=== PATIENT | male | born 1965 | race Caucasian/White ===

== ENCOUNTER 2020-02-16 12:46 | Emergency (ER) | payer SELFPAY ==
[2020-02-16 12:47] VITALS: BP 125/71; PULSE 80; RESP 17; TEMP 36.5; O2SAT 97; BMI 31.1
--- NOTE | 2020-02-16 13:02 | EKG12_ITS ---
Test Reason : CP Blood Pressure : / mmHG Vent. Rate : 075 BPM Atrial Rate : 075 BPM P-R Int : 156 ms QRS Dur : 106 ms QT Int : 390 ms P-R-T Axes : -08 038 063 degrees QTc Int : 435 ms Normal sinus rhythm Normal ECG Confirmed by MINISTERIO CULP, CARLOS ([id number]), associate editor FERNANDO CHILD ([id number] on 02/18/2020 9:35:48 AM Referred By: GABY Confirmed By:CARLOS MANDEL MD
--- NOTE | 2020-02-16 13:02 | RAD_ITS ---
STUDY: X-RAY CHEST REASON FOR EXAM: Male, 54 years old. LEFT SIDE CHEST PAIN, WEAKNESS, FATIGUE TECHNIQUE: Single AP portable view of the chest. COMPARISON: Comparison is made with prior examination dated June 20, 2012. FINDINGS: The lungs are clear and expanded. Scattered calcified granulomas. There is no demonstrated pleural abnormality. Normal size heart. Normal mediastinum and jaden. Normal visualized pulmonary arteries. Normal visualized aortic arch and descending thoracic aorta. There are degenerative changes of the visualized thoracic spine. Normal visualized ribs, clavicles, and shoulders. There is no demonstrated abnormality of the visualized soft tissue structures of the upper abdomen. RAD/Chest 1 View (Portable) IMPRESSION: Scattered calcified granulomas. The lungs are clear. Electronically Signed: Antony Servin, at 13:42 EDT , Service support ,
--- NOTE | 2020-02-16 13:02 | ED.VIS.GEN ---
History of Present Illness Chief Complaint: Chest Pain Informant: Patient Narrative: Patient states that on Sunday he went for a walk in the [place] and he had to go up a hill. He states he had to stop multiple times to catch his breath. He had a chest tightness and left arm numbness sensation. No nausea vomiting. He was sweating more than normal. He states even after he got to the top and tried to come back down he would have to rest. Yesterday he felt fatigued but did not have the chest tightness. Today he got 2 hours of work before he had to stop. He notes he has a history of hypertension and prediabetes. He states he was told he had high cholesterol in the past. He is a smoker. His within the past several months. He states he did have a stress test about 2 years ago and Hilda that was negative. Past Medical History - Allergies and Home Meds Allergies/Adverse Reactions: Allergies No Known Allergies Allergy (Verified 02/16/20 12:47) Primary Care Physician: Gris Garcia MD [Primary Care Provider] - Smoking Status: Former smoker Review of Systems General: Denies: Chills, Fever, Sweats Eyes: Denies: Visual changes - bilaterally, Diplopia ENT: Denies: Rhinorrhea, Sore throat Cardiovascular: Reports: Chest pain. Denies: Palpitations Respiratory: Reports: Dyspnea. Denies: Cough, Dyspnea on exertion Gastrointestinal: Denies: Abdominal pain, Nausea, Vomiting, Diarrhea, Melena, Hematochezia Genitourinary: Denies: Dysuria, Hematuria, Frequency Musculoskeletal: Denies: Back pain, Extremity Pain Skin: Denies: Rash, Wounds Neurological: Reports: Parasthesia. Denies: Headache, Weakness, Numbness Physical Exam Vital Signs/Narrative: Vital Signs Temp Pulse Resp BP Pulse Ox 02/16/20 12:47 97.7 F L 80 17 125/71 H 97 General: Well nourished, Well developed, No Acute Distress Head: Normocephalic, Atraumatic Eyes: Perrl, EOMI ENT: Moist mucous membranes, No rhinorrhea Neck: Supple, Nontender Cardiovascular: Regular rate, Regular rhythm, No murmurs Respiratory: No distress, CTA bilaterally, Chest nontender Abdomen: Soft, Nontender, Nondistended, Normal bowel sounds Back: Nontender, Normal Inspection Extremities: Nontender, No edema Skin: Normal color, No rash Neurological: Alert, Oriented x3, Cranial nerves II-XII grossly intact, Normal Strength, Normal Sensation Psychological: Normal affect, Normal Mood Diagnostic/Tx/Re-eval - EKG Initial EKG Interpretation: Sinus Rhythm - EKG is a sinus rhythm at a rate of 75 without ectopy. - Medical Decision Making CBC BMP and troponin were negative. X-ray shows cardiomegaly. Patient has had no events on the monitor. He rested rates his chest heaviness is about 1. I like to admit him and bring him in for further cardiac evaluation. Unfortunately the patient does not agree with this assessment. He states he would prefer to do it as an outpatient. I explained to him that we are in the middle of the pandemic and most outpatient procedures have been put on hold. This does not sway him. We talked about disability but he still maintains he like to go home. While I disagree with his choice he does appear to have the capacity to make this decision and will sign out AGAINST MEDICAL ADVICE. ED Disposition - Plan for ED Patient: Disposition: Home or Assisted Living Diagnosis: Chest pain Instructions: ED Chest Pain Atypical Unkn Cause Referrals: Acosta Carr MD [STAFF PHYSICIAN] - As soon as possible (Please call for cardiology evaluation.)
[2020-02-16 13:30] LABS: Absolute Lymphocyte Count 2.33 X10^3/uL (0.83-4.51); Absolute Neutrophil Count 4.3 X10^3/uL (2.0-7.7); Basophil# 0.04 X10^3/uL; Basophil% 0.5 % (0-1); Eosinophil# 0.16 X10^3/uL; Eosinophils% 2.1 % (0-5); Hemoglobin 14.1 g/dL (13.0-16.5); Lymphocyte # 2.33 X10^3/ul (4.0); Mean Corp Hgb Conc 33.6 g/dL (32-36); Mean Corpuscular Hgb 30.3 pg (27.0-32.0); Mean Corpuscular Volume 90.3 fL (80-94); Mean Platelet Vol. 9.3 fl (6.2-12.0); Monocyte# 0.61 X10^3/uL; Monocyte% 8.1 % (0-10); NRBC Flagged by Analyzer 0 % (0-5); Neutrophil # 4.34 X10^3/uL (2.7-7.7); Neutrophil % 57.9 % (47-70); Platelet Count 308 K/mm3 (150-450); Red Blood Count 4.65 M/mm3 (4.6-6.2); White Blood Count 7.5 K/mm3 (4.4-11.0)
[2020-02-16 13:45] LABS: Anion Gap 5 (5-15); BUN 19 mg/dL (7-18); Calcium,Total 9.1 mg/dL (8.5-10.1); Chloride 107 mmol/L (98-107); EST Glomerular Filtration Rate 82 mL/min (>60); Est Glom Filt Rate - Afr Amer 100 mL/min (>60); Estimated Creatinine Clearance 91.61 ml/min; Glucose 97 mg/dL (74-106); Potassium 3.8 mmol/L (3.5-5.1); Sodium Level 138 mmol/L (136-145)
[2020-02-16 14:10] VITALS: BP 133/86; PULSE 69; RESP 18; O2SAT 98
== END 2020-02-16 14:15 | disposition left against medical advice (07) ==
PROVIDERS: Emergency Provider Emergency Medicine; PCP Internal Medicine
DX: R07.89 Other chest pain (principal); R20.0 Anesthesia of skin; R73.03 Prediabetes; I10 Essential (primary) hypertension; E78.00 Pure hypercholesterolemia, unspecified; Z79.899 Other long term (current) drug therapy; Z87.891 Personal history of nicotine dependence
CPT/HCPCS: 71045; 80048; 84484; 85025; 93005; 99283; A4216

== ENCOUNTER → 2020-03-05 06:48 | Outpatient (CLI) | payer SELFPAY ==
[2020-02-25 14:04] VITALS: BMI 31.0
--- NOTE | 2020-03-05 06:50 | ECHOD_ITS ---
Reason For Study: CHEST PAIN Procedure This was a 2D Doppler, Color Flow transthoracic echocardiogram. Exam performed in department. Left Ventricle Normal LV size. Left ventricular systolic function is normal. The estimated ejection fraction is 65 %. No regional wall motion abnormalities noted. Right Ventricle Normal RV size. Normal systolic function. Atria Normal left atrium. Normal right atrium. Patent foramen ovale. Mitral Valve Normal mitral valve. Trivial eccentric mitral valve insufficiency. Tricuspid Valve Normal tricuspid valve. Mild (1+) tricuspid valve insufficiency. Pulmonary artery systolic pressure is 38 mmHg. Aortic Valve Normal aortic valve. Trisinus/trileaflet aortic valve. Pulmonic Valve Normal pulmonic valve. Great Vessels Normal aortic root. The pulmonary artery is normal size. Normal inferior vena cava. Pericardium/Pleural No pericardial effusion. Medication Performed a rapid injection of agitated mix of 9 cc saline and 1cc air to assess for atrial septal defect. MMode/2D Measurements & Calculations LVIDd: 5.7 cm IVSd: 0.93 cm Ao root diam: 3.5 cm LVIDs: 4.2 cm LVPWd: 0.95 cm FS: 26.5 % LAV(MOD-bp): 59.5 ml LVAd ap4: 40.1 cm2 SV(MOD-sp4): 77.7 ml LAV(MOD-bp) Indexed: 26.3 ml/m2 EDV(MOD-sp4): 150.0 ml LAV(MOD-sp2): 74.2 ml EDV(sp4-el): 150.3 ml LAV(MOD-sp4): 41.1 ml LVAs ap4: 25.7 cm2 ESV(MOD-sp4): 72.3 ml ESV(sp4-el): 70.2 ml EF(MOD-sp4): 51.8 % EF(sp4-el): 53.3 % SV(sp4-el): 80.1 ml LA A4 area: 16.1 cm2 LA dimension(2D): 3.8 cm RA A4 area: 17.9 cm2 Time Measurements MV dec time: 0.22 sec Doppler Measurements & Calculations MV E max kody: 81.0 cm/sec Lat Peak E' Kody: 10.5 cm/sec Med Peak E' Kody: 9.3 cm/sec MV A max kody: 103.2 cm/sec E/E' lat: 7.8 E/E' med: 8.7 MV E/A: 0.78 Ao V2 max: 137.8 cm/sec LV V1 max: 103.2 cm/sec PA V2 max: 93.6 cm/sec Ao max P.6 mmHg LV V1 max P.3 mmHg TR max kody: 294.2 cm/sec TR max P.6 mmHg Interpretation Summary Normal LV size. Left ventricular systolic function is normal. The estimated ejection fraction is 65 %. Patent foramen ovale. Pulmonary artery systolic pressure is 38 mmHg. Ordering Physician: Acosta Carr Referring Physician: Acosta Carr Performed By: Anaid Raymond RDCS
--- NOTE | 2020-03-05 16:25 | STRESSREP_ITS ---
Stress Test Report Exercise myocardial perfusion stress test. 54-year-old man with a history of hypertension, prediabetes, and chest tightness. Stress protocol: Resting EKG demonstrates normal sinus rhythm with a rate of 69 bpm premature ventricular complexes are present. Resting blood pressure is 150/86 mmHg. The patient exercised according to regular Leroy protocol for a total duration of 7 minutes and 31 seconds the maximum heart rate attained was 136 bpm which was 82% of maximum predicted heart rate the maximum workload was 9.3 metabolic equival ents. Patient maintained sinus rhythm throughout the recording. At rest there were no ST or T wave changes noted to suggest ischemia occasional premature ventricular complexes were noted. During recovery frequent premature ventricular complexes were present. The resting blood pressure 150/86 with a peak blood pressure of 192/94 mmHg. The test was terminated due to fatigue and shortness of breath. Myocardial perfusion protocol. 15.0 mCi of technetium 99m sestamibi was injected at rest. The patient exercised according to regular Leroy protocol for 7 minutes and 31 seconds. At peak exercise 45.0 mCi of technetium 99m sestamibi was injected stress images were obtained stress and rest images were reconstructed in comparing the short axis vertical long horizontal long axis. Gated images were not obtained. Perfusion SPECT analysis: Review of the stress images demonstrate normal uptake of tracer noted in all areas of the myocardium, except for the mid inferior wall with reduced perfu lisseth. The resting images similar demonstrate normal uptake of tracer noted in all areas of the myocardium, and improvement in the mid inferior wall suggesting mid inferior ischemia present. This appears to be of mild degree. The rest of the dhillon are normally perfused. Gated SPECT analysis: Gated images could not be obtained because of irregular heartbeat. Conclusion: Abnormal exercise myocardial perfusion stress test at a moderate workload demonstrating mid inferior ischemia.
== END ==
PROVIDERS: PCP Internal Medicine; Referring Provider Internal Medicine Cardiovascular Disease; Visit Provider Internal Medicine Cardiovascular Disease
DX: R07.9 Chest pain, unspecified (principal); I10 Essential (primary) hypertension
CPT/HCPCS: 78452; 93017; 93306; A9500; A4216

== ENCOUNTER 2020-03-11 07:46 | Day surgery (SDC) | payer SELFPAY ==
[2020-02-25 14:04] VITALS: BMI 31.0
[2020-03-10 12:03] VITALS: BMI 31.0
--- NOTE | 2020-03-11 09:20 | CL.D_ITS ---
Patient Name: JACKIE RUIZ Study Date: 03/11/2020 Performing: Acosta Carr MD Ht: 72.04 inches 183 cm : 1965 Wt: 229.28 lbs 104 kg Age: 54 Gender: male BSA: 2.26 PROCEDURE(S) PERFORMED FI28-LXB/COR/LV CLINICAL PROFILE AND INDICATIONS Indications: Suspected CAD Heart Failure: None Stress/Imaging Date: 03/03/2020Stress Test with SPECT MPI: Positive Low Risk CAD Presentations: Symptom unlikely to be ischemic. CONCLUSIONS Normal coronary arteries Normal LV size, wall motion,and systolic function RECOMMENDATIONS Medical therapy DESCRIPTION OF PROCEDURE The patient arrived to the procedure lab. The risks and benefits of the procedure as well as a full d escription of our services here and current unavailability of surgical backup were fully explained to the patient and/or their significant other prior to the catheterization. The Timeout was completed, verifying the correct patient and procedure. The patient's procedural site was prepped and draped in the usual fashion. Local anesthetic was given subcutaneously to right radial region with Lidocaine 2% . Using a modified Seldinger technique, arterial access was obtained via the right radial artery, a 6 Fr sheath was inserted. Left Coronary Artery selective angiography was performed in multiple views u sing a 5 Fr. 4.0 Croswell catheter. Right Coronary Artery selective angiography was then performed in mu ltiple views using a 5 Fr. 4.0 Croswell catheter. Left Ventriculography was performed in WONG projection using a 5 Fr. Pigtail catheter. LV to AO pullback pressures were then recorded.The arterial sheath was pulled and a TR Band was applied for hemostasis-12 cc air CORONARY ANGIOGRAPHY DOMINANCE: Right Dominant LEFT HEART ASSESSMENT Left Ventricular Ejection Fraction: by LV Gram 65 % Normal LV wall motion Normal Left Ventricular systolic function Normal Left Ventricular systolic function LEFT MAIN: Angiographically normal LEFT ANTERIOR DESCENDING ARTERY: Angiographically normal CIRCUMFLEX ARTERY: Angiographically normal RIGHT CORONARY ARTERY: Angiographically normal COMPLICATIONS No Complications PROCEDURE MEDICATIONS Fentanyl 50 mcg IV Versed 1 mg IV Versed 1 mg IV Oxygen: 2 L/min via nasal cannula Heparin diluted in 23cc Heparinized saline. Patient given 10cc IA of this solution. 03/11/2020 09:03: 43 Verapamil 2.5mg, Ntg 100mcgs, 2000 units of Heparin diluted in 23cc Heparinized saline. Patient give n 10cc IA of this solution. 03/11/2020 09:03:43 SUMMARY OF HEMODYNAMIC DATA Time AIR REST ECG 08:09:49 AO 126/84 (103) SA 09:05:23 LV 123/5, 25 09:11:38 LV 124/6, 10 09:11:44 LV 106/6, 11 09:12:24 LVp 106/5, 13 09:12:28 AOp 120/74 (91) 09:12:33 Signed By Acosta Carr MD On 03/11/2020 09:20:27 Acosta Carr MD
== END 2020-03-11 10:57 | disposition home or self-care (01) ==
LOC: CLSP 07:47
PROVIDERS: PCP Internal Medicine; Referring Provider Internal Medicine Cardiovascular Disease; Visit Provider Internal Medicine Cardiovascular Disease
DX: R07.9 Chest pain, unspecified (principal); I10 Essential (primary) hypertension; E11.9 Type 2 diabetes mellitus without complications; E78.5 Hyperlipidemia, unspecified; J45.909 Unspecified asthma, uncomplicated; F17.200 Nicotine dependence, unspecified, uncomplicated; E66.9 Obesity, unspecified; Z79.02 Long term (current) use of antithrombotics/antiplatelets; Z79.82 Long term (current) use of aspirin; Z79.899 Other long term (current) drug therapy
CPT/HCPCS: 93458; 99152; 99153; J7040; Q9967; C1769; C1894

== ENCOUNTER 2020-03-19 23:02 | Emergency (ER) | payer SELFPAY ==
[2020-03-10 12:03] VITALS: BMI 31.0
[2020-03-19 23:04] VITALS: BP 147/92; PULSE 83; RESP 17; TEMP 36.1; O2SAT 96; BMI 31.8
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
[2020-03-19 23:54] LABS: Absolute Lymphocyte Count 3.18 X10^3/uL (0.83-4.51); Absolute Neutrophil Count 4.6 X10^3/uL (2.0-7.7); Basophil# 0.05 X10^3/uL; Basophil% 0.6 % (0-1); Eosinophil# 0.17 X10^3/uL; Hematocrit 44.1 % (40-54); Hemoglobin 14.3 g/dL (13.0-16.5); Lymphocyte # 3.18 X10^3/ul (4.0); Lymphocyte % 37.2 % (19-41); Mean Corp Hgb Conc 32.4 g/dL (32-36); Mean Corpuscular Hgb 30.8 pg (27.0-32.0); Mean Corpuscular Volume 94.8 fL (80-94); Mean Platelet Vol. 9.8 fl (6.2-12.0); Monocyte# 0.48 X10^3/uL; Monocyte% 5.6 % (0-10); NRBC Flagged by Analyzer 0 % (0-5); Neutrophil # 4.61 X10^3/uL (2.7-7.7); Neutrophil % 53.9 % (47-70); Platelet Count 370 K/mm3 (150-450); RBC Distribution Width CV 15.5 % (11.6-14.6); RBC Distribution Width SD 53.9 fl (35.1-43.9); Red Blood Count 4.65 M/mm3 (4.6-6.2); White Blood Count 8.6 K/mm3 (4.4-11.0)
[2020-03-20] VITALS (21 sets, daily range): BP systolic 140–174; BP diastolic 71–107; PULSE 76–87; RESP 14–18; TEMP 36.6; O2SAT 96–99
[2020-03-20 00:12] LABS: Anion Gap 5 (5-15); BUN 17 mg/dL (7-18); BUN/Creat Ratio 14.7 RATIO (10-20); Calcium,Total 8.7 mg/dL (8.5-10.1); Chloride 111 mmol/L (98-107); Creatinine, Serum 1.16 mg/dL (0.70-1.30); EST Glomerular Filtration Rate 69 mL/min (>60); Est Glom Filt Rate - Afr Amer 84 mL/min (>60); Estimated Creatinine Clearance 78.98 ml/min; Glucose 103 mg/dL (74-106); Potassium 4.1 mmol/L (3.5-5.1); Sodium Level 142 mmol/L (136-145)
[2020-03-20 00:14] LABS: Amphetamine Urine VISTA NEGATIVE (<1000 ng/mL); Barbiturate Urine VISTA NEGATIVE (< 200 ng/mL); Benzodiazepine Urine VISTA NEGATIVE (< 200 ng/mL); Cocaine Urine VISTA NEGATIVE (< 300 ng/mL); Ecstacy Urine VISTA NEGATIVE (< 500 ng/mL); Methadone Urine VISTA NEGATIVE (< 300 ng/mL); PCP Urine VISTA NEGATIVE (< 25 ng/mL); THC Urine VISTA POSITIVE (< 50 ng/mL); Vista UDS pH Range 6
--- NOTE | 2020-03-20 09:16 | NURSING ---
[facility] CALLED FOR AN [facility] ON THIS PT. GLENIS FROM [facility] TO CALL BACK.
--- NOTE | 2020-03-20 09:24 | NURSING ---
BRITNEY GALVIN, CALLED. GAVE US AN UPDATE ON PATIENT TRANSFER.
--- NOTE | 2020-03-20 12:21 | ED.RN ---
[facility] called to do a Covid-19 screening of patient over the phone. They state they are waiting on patients results. [facility] also states they will not have a bed available until Sunday or Sunday.
--- NOTE | 2020-03-20 12:22 | EKG12_ITS ---
Test Reason : Blood Pressure : / mmHG Vent. Rate : 078 BPM Atrial Rate : 078 BPM P-R Int : 164 ms QRS Dur : 102 ms QT Int : 394 ms P-R-T Axes : 050 034 071 degrees QTc Int : 449 ms Sinus rhythm with frequent Premature ventricular complexes Otherwise normal ECG Confirmed by PRINCESS CULP, THAD ([id number]), online content editor FERNANDO CHILD ([id number]) on 03/23/2020 3:02:11 PM Referred By: GABY Confirmed By:THAD SÁNCHEZ MD
--- NOTE | 2020-03-20 12:50 | ED.RN ---
offered patient lunch meal tray, patient refused.
--- NOTE | 2020-03-20 17:00 | ED.RN ---
pt given dinner tray with SI precaution. pt did eat meal, denies any further needs.
[2020-03-20 22:27] LABS: AST(SGOT) 16 U/L (15-37); Alanine Aminotransfer ALT/SGPT 28 U/L (16-61); Albumin, Serum 3.6 g/dL (3.2-5.0); Alkaline Phosphatase 57 U/L (45-117); Bilirubin, Direct 0.06 mg/dL (0.00-0.30); Globulin 3.2 g/dL (2.2-4.2); Protein, Total 6.8 g/dL (6.4-8.2)
[2020-03-21] VITALS (25 sets, daily range): BP systolic 124–154; BP diastolic 74–108; PULSE 62–87; RESP 14–22; TEMP 36.6–36.8; O2SAT 96–99
--- NOTE | 2020-03-21 09:46 | ED.RN ---
PT PERMITTED TO SHOWER WITH STAFF SUPERVISION. PT INFORMED THIS IS ONLY BECAUSE WE CURRENTLY ARE ABLE TO DO THIS UNSURE IF THIS WILL BE ABLE TO HAPPEN AGAIN. PT VERY COOPERATIVE AND APPRECIATIVE
[2020-03-21] MEDS: Allopurinol 300 MG Tablet PO (09:53)
[2020-03-21] MEDS: Lisinopril 40 MG Tablet PO (09:53)
--- NOTE | 2020-03-21 10:30 | ED.RN ---
ATTEMPTED TO CALL [facility] TO REQUEST UPDATE, UNABLE TO GET THROUGH TO NURSING MEAT SPECIALIST
--- NOTE | 2020-03-21 10:33 | ED.RN ---
PT INFORMED EARLIER THIS AM THAT HE IS WAITING FOR A BED AT [facility]. AT THIS TIME, ESTIMATED TO HAVE A BED ON SUNDAY. PT CONCERNED THAT HE WILL LOSE HIS JOB IF HE HAS TO STAY. PT REQUESTING TO SPEAK WITH THE [facility] AGAIN. ANSWERING SERVICE CONTACTED REQUESTING HEARING STENOGRAPHER STAFF TO SPEAK WITH THE PT
--- NOTE | 2020-03-21 10:45 | ED.RN ---
PT ON THE PHONE SPEAKING WITH [facility]
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
--- NOTE | 2020-03-21 16:57 | NURSING ---
FAXED LIVER PROFILE TO [facility]
[2020-03-21] MEDS: traZODone 50 MG Tablet PO (23:30)
[2020-03-22 02:00] VITALS: BP 134/78; PULSE 64; RESP 15; TEMP 36.8; O2SAT 98
== END 2020-03-22 02:35 ==
PROVIDERS: Emergency Medicine; Emergency Provider Emergency Medicine; PCP Internal Medicine
DX: F43.20 Adjustment disorder, unspecified (principal); R45.851 Suicidal ideations; F10.129 Alcohol abuse with intoxication, unspecified; I10 Essential (primary) hypertension; E78.5 Hyperlipidemia, unspecified; F17.200 Nicotine dependence, unspecified, uncomplicated; R07.9 Chest pain, unspecified; Z79.82 Long term (current) use of aspirin; Z79.899 Other long term (current) drug therapy
CPT/HCPCS: 80048; 80076; 80307; 80320; 85025; 93005; 99285; G0480

== ENCOUNTER → 2020-05-10 17:45 | Outpatient (CLI) | payer MEDICAID, SELFPAY | PROVIDERS: PCP Internal Medicine; Referring Provider Family Medicine; Visit Provider Family Medicine | DX: Z11.59 Encounter for screening for other viral diseases (principal); R19.7 Diarrhea, unspecified; I25.10 Atherosclerotic heart disease of native coronary artery without angina pectoris | CPT/HCPCS: 87635; C9803; G2023; U0003 ==

== ENCOUNTER 2020-07-02 16:54 | Emergency (ER) | payer MEDICAID, SELFPAY ==
[2020-07-02 16:54] VITALS: BP 99/68; PULSE 76; RESP 18; TEMP 36.7; O2SAT 93; BMI 31.8
--- NOTE | 2020-07-02 17:01 | EKG12_ITS ---
Test Reason : Blood Pressure : / mmHG Vent. Rate : 076 BPM Atrial Rate : 076 BPM P-R Int : 168 ms QRS Dur : 098 ms QT Int : 386 ms P-R-T Axes : -02 021 040 degrees QTc Int : 434 ms Normal sinus rhythm Normal ECG Confirmed by MINISTERIO CULP, CARLOS ([id number]), non linear editor MELISSA SPARKS ([id number]) on 07/07/2020 10:05:17 AM Referred By: Confirmed By:CARLOS MANDEL MD
[2020-07-02] MEDS: Ipratropium/Albuterol Sulfate 3 ML AMPUL.NEB INHALATION (17:09)
--- NOTE | 2020-07-02 17:10 | ED.VIS.GEN ---
History of Present Illness Chief Complaint: Chest Pain Informant: Patient Onset: Days Context: Gradual Onset Timing: Intermittent Current Severity: Moderate Maximum Severity: Moderate Narrative: Patient is a 54-year-old male with medical history significant for hypertension and smoking that presents to the emergency department with chest pain shortness of breath. He states for the past 3 days, he is had a scant cough and is felt like he is been wheezing. He states he does smoke but is never been diagnosed with COPD. He states today, he had tightness across his chest. He describes it as bandlike. It was nonradiating. The patient did have similar presentation in January. He followed up with cardiology as an outpatient. He had an abnormal stress test and underwent heart catheterization which showed normal arteries and was unremarkable. He denies fevers or chills. He denies any known exposure to COVID. Prior similar symptoms: Yes Recent Illness/Hospitalization: No Past Medical History - Allergies and Home Meds Allergies/Adverse Reactions: Allergies No Known Allergies Allergy (Verified 03/19/20 23:03) Primary Care Physician: Gris Garcia MD [Primary Care Provider] - Prior records reviewed: Yes Past Medical History: - - Hypertension, smoking, gout Surgical History: noncontributory Smoking Status: Current every day smoker Review of Systems General: Denies: Chills, Fever, Sweats Eyes: Denies: Visual changes - bilaterally, Diplopia ENT: Denies: Rhinorrhea, Sore throat Cardiovascular: Reports: Chest pain. Denies: Palpitations Respiratory: Reports: Cough. Denies: Dyspnea, Dyspnea on exertion Gastrointestinal: Denies: Abdominal pain, Nausea, Vomiting, Diarrhea, Melena, Hematochezia Genitourinary: Denies: Dysuria, Hematuria, Frequency Musculoskeletal: Denies: Back pain, Extremity Pain Skin: Denies: Rash, Wounds Neurological: Denies: Headache, Weakness, Numbness Physical Exam Vital Signs/Narrative: Vital Signs Temp Pulse Resp BP Pulse Ox 07/02/20 16:54 98.1 F 76 18 99/68 93 Inital Vital Signs reviewed: Yes General: Well nourished, Well developed, No Acute Distress Head: Normocephalic, Atraumatic Eyes: Perrl, EOMI ENT: Moist mucous membranes, No rhinorrhea Neck: Supple, Nontender Cardiovascular: Regular rate, Regular rhythm, No murmurs Respiratory: No distress, Chest nontender, Wheezing Abdomen: Soft, Nontender, Nondistended, Normal bowel sounds Back: Nontender, Normal Inspection Extremities: Nontender, No edema Skin: Normal color, No rash Neurological: Alert, Oriented x3, Cranial nerves II-XII grossly intact, Normal Strength, Normal Sensation Psychological: Normal affect, Normal Mood Diagnostic/Tx/Re-eval Clinical Impression(s) from Imaging Studies Chest X-Ray 07/02/20 17:25 IMPRESSION: Normal x-ray examination of the chest. Electronically Signed: Michael Slater MD at 17:41 EDT Tel , Service support , Chest CTA 07/02/20 17:36 IMPRESSION: Normal CTA chest examination, without a demonstrated pulmonary embolism or aortic dissection. Electronically Signed: Michael Slater MD at 18:16 EDT Tel , Service support , Abnormal Lab Results 07/02/20 07/02/20 07/02/20 17:10 17:10 17:10 WBC 10.4 RBC 4.57 L Hgb 14.1 Hct 42.6 MCV 93.2 MCH 30.9 MCHC 33.1 RDW Std Deviation 45.2 H RDW Coeff of Joes 13.2 Plt Count 394 MPV 9.5 Immature Gran % (Auto) 0.600 Neut % (Auto) 58.7 Lymph % (Auto) 30.9 [place] % (Auto) 7.8 Eos % (Auto) 1.6 Baso % (Auto) 0.4 Absolute Neuts (auto) 6.1 Absolute Lymphs (auto) 3.21 Nucleated RBC % 0 D-Dimer Quant (PE/DVT) 0.63 H* Sodium 139 Potassium 4.1 Chloride 107 Carbon Dioxide 23.0 Anion Gap 9 BUN 25 H Creatinine 1.31 H Estim Creat Clear Calc 69.93 Est GFR (MDRD) Af Amer 73 Est GFR (MDRD) Non-Af 60 BUN/Creatinine Ratio 19.1 Glucose 86 Calcium 8.8 Troponin I < 0.015 - Rhythm Strip Rhythm Strip: Sinus Rhythm Rate: 80 Ectopy: None - EKG Initial EKG Interpretation: Sinus Rhythm, No Acute Injury Pattern Prior: Unchanged - Medical Decision Making The patient presents to the emergency department with shortness of breath and bandlike chest tightness. He has had cough and wheezing. He does have significant smoking history. Patient has had negative heart catheterization 3 months ago with normal angiography. EKG was obtained which was sinus without acute ischemia. He said the pain for 3 days and has a negative troponin. I did obtain a d-dimer given his history. This is mildly elevated so CTA was obtained. There is no evidence of pulmonary embolus dissection, or focal infiltrative process. After nebulized treatment, his symptoms have markedly improved. I do feel this is more likely bronchitis or underlying COPD. I am going to treat him with prednisone and doxycycline. I do feel that he is safe for outpatient therapy. Impression 1. Bronchitis with bronchospasm ED Disposition - Plan for ED Patient: Instructions: ED REACTIVE AIRWAY DISEASE Adult Prescriptions: Varenicline Tartrate [Chantix] 1 ea PO DAILY #1 tab.ds.pk Prescription Printed Prednisone [Deltasone] 60 mg PO DAILY #15 tab Prescription Printed Doxycycline 100 mg PO BID #20 cap Prescription Printed Referrals: Gris Garcia MD [Primary Care Provider] -
[2020-07-02 17:12] VITALS: PULSE 76; RESP 15
[2020-07-02 17:20] LABS: Absolute Lymphocyte Count 3.21 X10^3/uL (0.83-4.51); Absolute Neutrophil Count 6.1 X10^3/uL (2.0-7.7); Basophil# 0.04 X10^3/uL; Basophil% 0.4 % (0-1); Eosinophil# 0.17 X10^3/uL; Eosinophils% 1.6 % (0-5); Hematocrit 42.6 % (40-54); Hemoglobin 14.1 g/dL (13.0-16.5); Lymphocyte # 3.21 X10^3/ul (4.0); Lymphocyte % 30.9 % (19-41); Mean Corp Hgb Conc 33.1 g/dL (32-36); Mean Corpuscular Hgb 30.9 pg (27.0-32.0); Mean Corpuscular Volume 93.2 fL (80-94); Mean Platelet Vol. 9.5 fl (6.2-12.0); Monocyte# 0.81 X10^3/uL; Monocyte% 7.8 % (0-10); NRBC Flagged by Analyzer 0 % (0-5); Neutrophil # 6.11 X10^3/uL (2.7-7.7); Neutrophil % 58.7 % (47-70); Platelet Count 394 K/mm3 (150-450); RBC Distribution Width CV 13.2 % (11.6-14.6); RBC Distribution Width SD 45.2 fl (35.1-43.9); Red Blood Count 4.57 M/mm3 (4.6-6.2); White Blood Count 10.4 K/mm3 (4.4-11.0)
[2020-07-02 17:23] VITALS: O2SAT 96
--- NOTE | 2020-07-02 17:25 | RAD_ITS ---
STUDY: X-RAY CHEST REASON FOR EXAM: Male, 54 years old. chest pain x 5 days, Hx asthma and [place] TECHNIQUE: Single frontal view of the chest. COMPARISON: 02/16/2020 FINDINGS: The lungs are clear and expanded. There is no demonstrated pleural abnormality. Normal size heart. Normal mediastinum and jaden. Normal visualized pulmonary arteries. Normal visualized aortic arch and descending thoracic aorta. Normal visualized thoracic spine. Normal visualized ribs, clavicles, and shoulders. There is no demonstrated abnormality of the visualized soft tissue structures of the upper abdomen. RAD/Chest 1 View (Portable) IMPRESSION: Normal x-ray examination of the chest. Electronically Signed: Michael Slater MD at 17:41 EDT Tel , Service support ,
[2020-07-02] MEDS: 0.9% Normal Saline 1,000 ML 150 ML IV (17:27)
[2020-07-02] MEDS: Aspirin 81 MG TAB.CHEW 324 MG PO (17:27)
[2020-07-02 17:36] LABS: D-Dimer Quantitative (DVT/PE) 0.63 FEU/ug/m (0.27-0.49)
--- NOTE | 2020-07-02 17:36 | CT_ITS ---
STUDY: CTA CHEST REASON FOR EXAM: Male, 54 years old. SOB/ CP X 3 DAYS. PRIOR [place] RADIATION DOSAGE (If Supplied By Facility): CTDIvol = ( 14.73 ) mGy, DLP = ( 740.56 ) mGycm TECHNIQUE: The examination was performed with the intravenous administration of IV 100ML ISOVUE 370. Post-processing of the angiographic images was performed, with multiplanar reformation and 3D reconstruction. Individualized dose optimization techniques were used for this CT. COMPARISON: None. FINDINGS: Normal enhancement of the main pulmonary artery and right and left pulmonary arteries. Normal enhancement of the bilateral peripheral pulmonary arteries. There is no demonstrated pulmonary embolism. Normal thoracic aorta and visualized great vessels. There is no demonstrated aortic dissection. Normal heart and pericardium. Normal mediastinum. Normal hilar regions. Normal visualized trachea and bronchi. The lungs are well expanded. Calcified pulmonary granulomata. Normal pleura. Normal chest wall structures. There are degenerative changes of thoracic spine. 19 mm left adrenal adenoma. CT/CTA Chest W/WO Contrast IMPRESSION: Normal CTA chest examination, without a demonstrated pulmonary embolism or aortic dissection. Electronically Signed: Michael Slater MD at 18:16 EDT Tel , Service support ,
[2020-07-02 17:46] LABS: Anion Gap 9 (5-15); BUN 25 mg/dL (7-18); BUN/Creat Ratio 19.1 RATIO (10-20); Calcium,Total 8.8 mg/dL (8.5-10.1); Chloride 107 mmol/L (98-107); Creatinine, Serum 1.31 mg/dL (0.70-1.30); EST Glomerular Filtration Rate 60 mL/min (>60); Est Glom Filt Rate - Afr Amer 73 mL/min (>60); Estimated Creatinine Clearance 69.93 ml/min; Glucose 86 mg/dL (74-106); Potassium 4.1 mmol/L (3.5-5.1); Sodium Level 139 mmol/L (136-145)
[2020-07-02 18:07] VITALS: BP 82/45; PULSE 70; RESP 13; O2SAT 96
[2020-07-02 18:29] VITALS: BP 106/64; PULSE 70; RESP 17; O2SAT 95
== END 2020-07-02 18:29 | disposition home or self-care (01) ==
LOC: ED 17:21
PROVIDERS: Emergency Provider Emergency Medicine; PCP Internal Medicine
DX: J40 Bronchitis, not specified as acute or chronic (principal); F17.200 Nicotine dependence, unspecified, uncomplicated; I10 Essential (primary) hypertension; M10.9 Gout, unspecified
CPT/HCPCS: 71045; 71275; 80048; 84484; 85025; 85379; 93005; 99285; J7030; Q9967; A4216

== ENCOUNTER → 2020-07-22 16:56 | Outpatient (CLI) | payer MEDICAID, SELFPAY ==
[2020-07-02 16:54] VITALS: BMI 31.8
--- NOTE | 2020-07-22 17:00 | RAD_ITS ---
HISTORY: PAIN AND STIFFNESS IN BOTH HANDS. NO KNOWN INJURY. ADDITIONAL HISTORY: None provided. EXAMINATION/TECHNIQUE: XR Hand Min 3 Views Right Number of images including paperwork: 3 COMPARISON: None FINDINGS: BONES: No acute fracture. JOINTS: No subluxation. Mild to moderate degenerative changes in the wrists and small joints of the hand no definite erosive changes. SOFT TISSUES: No distinct foreign body. RAD/Hand Min 3 Views IMPRESSION: Degenerative changes without acute osseous abnormality. at 0519 Reported and signed by: Chitra Chance MD Electronically Signed: Chitra Chance MD at 5:19 EDT Tel , Service support ,
--- NOTE | 2020-07-22 17:00 | RAD_ITS ---
STUDY: X-RAY - LEFT HAND REASON FOR EXAM: Male, 54 years old. PAIN AND STIFFNESS IN BOTH HANDS. NO KNOWN INJURY. TECHNIQUE: 3 view(s) of the hand. COMPARISON: None. FINDINGS: There is joint space narrowing of the radiocarpal articulation consistent with degenerative arthrosis. Normal distal radioulnar joint. Normal visualized carpal bones. There is degenerative joint disease of the scaphotrapezium / trapezoid articulation. The remainder of the carpal articulations are normal. There is degenerative arthrosis of the carpometacarpal articulation of the thumb with lateral subluxation of the first metacarpus. Normal second through fifth carpometacarpal joints. Normal metacarpi. Normal metacarpophalangeal joint of the thumb. Normal interphalangeal joint of the thumb. Normal proximal and distal phalanges of the thumb. Normal metacarpophalangeal joints of the second through fifth fingers. There is diffuse articular joint space narrowing of the distal more than proximal interphalangeal joints of the second through fifth fingers, but without erosive changes or periarticular soft tissue swelling. Normal phalanges of the second through fifth fingers. The soft tissue structures are unremarkable. 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 No erosive arthropathy. Electronically Signed: Cristobal Alvarado MD ([place]) at 10:42 EDT , Service support ,
--- NOTE | 2020-07-22 17:04 | RAD_ITS ---
STUDY: X-RAY CHEST REASON FOR EXAM: Male, 54 years old. SOB AND COUGH. HX OF SMOKING FOR MANY YRS PER PATIENT. TECHNIQUE: PA and lateral views of the chest. COMPARISON: 07/02/2020 FINDINGS: There are scattered pulmonary granulomata, stable. No airspace consolidation. There is no demonstrated pleural abnormality. Normal size heart. There are calcified hilar lymph nodes. Normal visualized pulmonary arteries. Normal visualized aortic arch and descending thoracic aorta. There are diffuse degenerative changes of the visualized thoracic spine. Normal visualized ribs, clavicles, and shoulders. There is no demonstrated abnormality of the visualized soft tissue structures of the upper abdomen. RAD/Chest PA and Lateral IMPRESSION: No acute cardiopulmonary process. Stable exam. Electronically Signed: Cristobal Alvarado MD ([place]) at 10:41 EDT , Service support ,
[2020-07-22 17:44] LABS: Bacteria 0 SEEN /hpf (None Seen)
[2020-07-22 17:59] LABS: Absolute Lymphocyte Count 2.26 X10^3/uL (0.83-4.51); Absolute Neutrophil Count 7.9 X10^3/uL (2.0-7.7); Basophil# 0.03 X10^3/uL; Basophil% 0.3 % (0-1); Eosinophil# 0.17 X10^3/uL; Eosinophils% 1.5 % (0-5); Hematocrit 40.1 % (40-54); Hemoglobin 13.4 g/dL (13.0-16.5); Lymphocyte # 2.26 X10^3/ul (4.0); Lymphocyte % 20.1 % (19-41); Mean Corp Hgb Conc 33.4 g/dL (32-36); Mean Corpuscular Hgb 31.4 pg (27.0-32.0); Mean Corpuscular Volume 93.9 fL (80-94); Mean Platelet Vol. 9.9 fl (6.2-12.0); Monocyte# 0.86 X10^3/uL; Monocyte% 7.6 % (0-10); NRBC Flagged by Analyzer 0 % (0-5); Neutrophil % 70.1 % (47-70); Platelet Count 294 K/mm3 (150-450); RBC Distribution Width CV 13.1 % (11.6-14.6); RBC Distribution Width SD 45.2 fl (35.1-43.9); Red Blood Count 4.27 M/mm3 (4.6-6.2); White Blood Count 11.3 K/mm3 (4.4-11.0)
[2020-07-22 18:14] LABS: Color, Urine Yellow (Yellow); Glucose, Dipstick Normal (Normal); Ketone-Dipstick 5 mg/dl (Negative); Leukocyte Esterase-Dipstick 25 /ul (Negative); Nitrite-Dipstick Negative (Negative); Occult Blood-Urine 25 /ul (Negative); Protein-Dipstick 15 mg/dl (Negative); Urine Bilirubin Dipstick Negative (Negative); Urine Clarity Clear (Clear); Urine Urobilinogen 4 mg/dl (Normal)
[2020-07-22 18:24] LABS: Red Blood Cells-Urine 0-5 SEEN /hpf (0-5); Squamous Epithelial Cells - UA 0-5 SEEN /hpf (0-5); White Blood Cells 0-5 SEEN /hpf (0-5)
[2020-07-22 18:25] LABS: Mucous, Urine 2+ /hpf (<or=2+)
[2020-07-22 18:31] LABS: ALB/GLOB Ratio 1.1 RATIO (0.9-2.4); AST(SGOT) 19 U/L (15-37); Alanine Aminotransfer ALT/SGPT 29 U/L (16-61); Albumin, Serum 3.8 g/dL (3.2-5.0); Alkaline Phosphatase 58 U/L (45-117); Anion Gap 6 (5-15); BUN 24 mg/dL (7-18); BUN/Creat Ratio 22.9 RATIO (10-20); Chloride 107 mmol/L (98-107); Cholesterol 185 mg/dL (200); Creatinine, Serum 1.05 mg/dL (0.70-1.30); EST Glomerular Filtration Rate 78 mL/min (>60); Est Glom Filt Rate - Afr Amer 94 mL/min (>60); Globulin 3.5 g/dL (2.2-4.2); Glucose 103 mg/dL (74-106); High Density Lipoprotein 40 mg/dL; Potassium 4.2 mmol/L (3.5-5.1); Protein, Total 7.3 g/dL (6.4-8.2); Sodium Level 138 mmol/L (136-145); Thyroid Stim Hormone (TSH) 0.71 uIU/mL (0.358-3.74); Triglycerides 147 mg/dL; Uric Acid 6.9 mg/dL (3.5-7.2); Very Low Density Lipoprotein 29 mg/dL (5-40)
[2020-07-23 11:47] LABS: Hemoglobin A1c 5.9 % (3.8-5.6)
== END ==
PROVIDERS: PCP Family Medicine; Referring Provider Family Medicine; Visit Provider Family Medicine
DX: M19.041 Primary osteoarthritis, right hand (principal); R06.02 Shortness of breath
CPT/HCPCS: 36415; 71046; 73130; 80053; 80061; 81001; 83036; 84443; 84550; 85025

== ENCOUNTER 2020-08-19 10:48 | Emergency (ER) | payer MEDICAID, SELFPAY ==
[2020-08-19 10:49] VITALS: BP 134/80; PULSE 78; RESP 18; TEMP 36.3; O2SAT 99; BMI 32.5
--- NOTE | 2020-08-19 11:21 | CT_ITS ---
STUDY: CT ABDOMEN AND PELVIS WITH CONTRAST REASON FOR EXAM: Male, 54 years old. LOWER ABD PAIN STARTED THIS AM. RADIATION DOSAGE (If Supplied By Facility): CTDIvol = ( 14.475 ) mGy, DLP = ( 1137.29 ) mGycm TECHNIQUE: Transaxial images were obtained from the dome of the diaphragm to the symphysis pubis without oral contrast. IV 100mL Isovue-300 was administered. Sagittal and coronal images were reconstructed. Individualized dose optimization techniques were used for this CT. COMPARISON: None. FINDINGS: Calcified granuloma in the lower lobes. The visualized portions of the heart are within normal limits. Normal liver. Normal gallbladder and extrahepatic biliary system. Normal spleen. Normal pancreas. Normal bilateral adrenal glands. Normal right kidney. Normal left kidney. Normal visualized stomach. Normal small intestine. There are multiple colonic diverticula consistent with diverticulosis. The appendix is visualized and appears normal. There is scattered atherosclerotic calcification of the abdominal aorta, without a demonstrated aneurysm. Normal inferior vena cava. There is borderline retroperitoneal lymphadenopathy with enlarged nodes no greater than 10mm in the short axis diameter. Normal urinary bladder. Small left inguinal hernia containing fat. There are degenerative changes of the visualized lumbar spine. CT/Abdomen/Pelvis W IV Cont ONLY IMPRESSION: Sigmoid diverticulosis Electronically Signed: Antony Servin, at 12:23 EDT , Service support ,
[2020-08-19 11:30] LABS: Absolute Lymphocyte Count 2.72 X10^3/uL (0.83-4.51); Absolute Neutrophil Count 4.9 X10^3/uL (2.0-7.7); Basophil# 0.04 X10^3/uL; Basophil% 0.5 % (0-1); Eosinophil# 0.17 X10^3/uL; Hematocrit 41.6 % (40-54); Hemoglobin 13.5 g/dL (13.0-16.5); Lymphocyte # 2.72 X10^3/ul (4.0); Lymphocyte % 31.7 % (19-41); Mean Corp Hgb Conc 32.5 g/dL (32-36); Mean Corpuscular Hgb 30.4 pg (27.0-32.0); Mean Corpuscular Volume 93.7 fL (80-94); Mean Platelet Vol. 9.8 fl (6.2-12.0); Monocyte# 0.74 X10^3/uL; Monocyte% 8.6 % (0-10); NRBC Flagged by Analyzer 0 % (0-5); Neutrophil # 4.88 X10^3/uL (2.7-7.7); Neutrophil % 56.7 % (47-70); Platelet Count 267 K/mm3 (150-450); RBC Distribution Width SD 44.4 fl (35.1-43.9); Red Blood Count 4.44 M/mm3 (4.6-6.2); White Blood Count 8.6 K/mm3 (4.4-11.0)
[2020-08-19 11:38] LABS: Bacteria 0 SEEN /hpf (None Seen); Color, Urine Yellow (Yellow); Glucose, Dipstick Normal (Normal); Ketone-Dipstick Negative (Negative); Leukocyte Esterase-Dipstick Negative /ul (Negative); Mucous, Urine 0 SEEN /hpf (<or=2+); Nitrite-Dipstick Negative (Negative); Occult Blood-Urine 50 /ul (Negative); Protein-Dipstick Negative (Negative); Specific Gravity, Urine 1.025 (1.002-1.030); Squamous Epithelial Cells - UA 0 SEEN /hpf (0-5); Urine Bilirubin Dipstick Negative (Negative); Urine Clarity Sl. Cloudy (Clear); Urine Urobilinogen Normal (Normal); White Blood Cells 0 SEEN /hpf (0-5)
[2020-08-19 11:45] LABS: AST(SGOT) 20 U/L (15-37); Alanine Aminotransfer ALT/SGPT 27 U/L (16-61); Albumin, Serum 3.7 g/dL (3.2-5.0); Alkaline Phosphatase 62 U/L (45-117); Anion Gap 7 (5-15); BUN 23 mg/dL (7-18); BUN/Creat Ratio 23.8 RATIO (10-20); Calcium,Total 9.1 mg/dL (8.5-10.1); Chloride 112 mmol/L (98-107); Creatinine, Serum 0.97 mg/dL (0.70-1.30); EST Glomerular Filtration Rate 86 mL/min (>60); Est Glom Filt Rate - Afr Amer 104 mL/min (>60); Estimated Creatinine Clearance 94.44 ml/min; Globulin 3.7 g/dL (2.2-4.2); Glucose 104 mg/dL (74-106); Lipase 487 U/L (73-393); Potassium 4.1 mmol/L (3.5-5.1); Protein, Total 7.4 g/dL (6.4-8.2); Sodium Level 142 mmol/L (136-145)
[2020-08-19 11:49] LABS: Red Blood Cells-Urine 0-5 SEEN /hpf (0-5)
--- NOTE | 2020-08-19 12:43 | ED.DCSUM_ITS ---
History of Present Illness Chief Complaint: Abd Pain - Abdominal Pain/Flank Pain Onset: Today Context: Onset with activity Timing: Intermittent Quality: Sharp Location: - - lower abdomen Narrative: Patient is a 54-year-old male with history of cardiac disease presenting with sudden onset of lower abdominal pain. He states that around 845 or 9 AM he developed cramping lower abdominal pain. He states he was bad for 45 minutes to an hour but then started to improve. Patient had associated nausea but no vomiting and had a normal bowel movement today. He states he never had any like this before. He denies any associated symptoms such as urinary symptoms, testicular pain, chest pain, shortness of breath, fever or chills. No other complaints at this time. No surgeries in the past. Past Medical History - Allergies and Home Meds Allergies/Adverse Reactions: Allergies No Known Allergies Allergy (Verified 08/19/20 11:11) Primary Care Physician: Lukas Chatterjee MD [Primary Care Provider] - Past Medical History: - - Cardiac disease Surgical History: no surgical history, noncontributory Lives: With Family Smoking Status: Current every day smoker Review of Systems General: Denies: Chills, Fever, Sweats Eyes: Denies: Visual changes - bilaterally, Diplopia ENT: Denies: Rhinorrhea, Sore throat Cardiovascular: Denies: Chest pain, Palpitations Respiratory: Denies: Dyspnea, Cough, Dyspnea on exertion Gastrointestinal: Reports: Abdominal pain, Nausea. Denies: Vomiting, Diarrhea, Melena, Hematochezia Genitourinary: Denies: Dysuria, Hematuria, Frequency Musculoskeletal: Denies: Back pain, Extremity Pain Skin: Denies: Rash, Wounds Neurological: Denies: Headache, Weakness, Numbness Physical Exam Vital Signs/Narrative: Vital Signs Temp Pulse Resp BP Pulse Ox 08/19/20 10:49 97.4 F L 78 18 134/80 H 99 Inital Vital Signs reviewed: Yes General: Well nourished, Well developed, No Acute Distress Head: Normocephalic, Atraumatic Eyes: Perrl, EOMI ENT: Moist mucous membranes, No rhinorrhea Neck: Supple, Nontender, No JVD Cardiovascular: Regular rate, Regular rhythm, No murmurs Respiratory: No distress, CTA bilaterally, Chest nontender Abdomen: Soft, Nontender, Nondistended, Normal bowel sounds, No masses. N egative for: Guarding, Rebound tenderness Back: Nontender, Normal Inspection. Negative for: CVA tenderness Extremities: Nontender, No edema Skin: Normal color, No rash Neurological: Alert, Oriented x3, Cranial nerves II-XII grossly intact, Normal Strength, Normal Sensation Psychological: Normal affect, Normal Mood Diagnostic/Tx/Re-eval Clinical Impression(s) from Imaging Studies Abdomen/Pelvis CT 08/19/20 11:21 IMPRESSION: Sigmoid diverticulosis Electronically Signed: Antony Servin, at 12:23 EDT , Service support , Laboratory Data 08/19/20 08/19/20 08/19/20 11:20 11:20 11:30 WBC 8.6 RBC 4.44 L Hgb 13.5 Hct 41.6 MCV 93.7 MCH 30.4 MCHC 32.5 RDW Std Deviation 44.4 H RDW Coeff of Jose 13.0 Plt Count 267 MPV 9.8 Immature Gran % (Auto) 0.500 Neut % (Auto) 56.7 Lymph % (Auto) 31.7 [place] % (Auto) 8.6 Eos % (Auto) 2.0 Baso % (Auto) 0.5 Absolute Neuts (auto) 4.9 Absolute Lymphs (auto) 2.72 Nucleated RBC % 0 Sodium 142 Potassium 4.1 Chloride 112 H Carbon Dioxide 23.0 Anion Gap 7 BUN 23 H Creatinine 0.97 Estim Creat Clear Calc 94.44 Est GFR (MDRD) Af Amer 104 Est GFR (MDRD) Non-Af 86 BUN/Creatinine Ratio 23.8 H Glucose 104 Calcium 9.1 Total Bilirubin 0.30 AST 20 ALT 27 Alkaline Phosphatase 62 Total Protein 7.4 Albumin 3.7 Globulin 3.7 Albumin/Globulin Ratio 1.0 Lipase 487 H Urine Color Yellow Urine Clarity Sl. Cloudy Urine pH 5.0 Ur Specific [place] 1.025 Urine Protein Negative Urine Glucose (UA) Normal Urine Ketones Negative Urine Occult Blood 50 H Urine Nitrite Negative Urine Bilirubin Negative Urine Urobilinogen Normal Ur Leukocyte Esterase Negative Urine RBC 0-5 SEEN Urine WBC 0 SEEN Ur Squamous Epith Cells 0 SEEN Urine Bacteria 0 SEEN Urine Mucus 0 SEEN - Medical Decision Making Patient evaluated for an episode of abdominal pain earlier today. It is now residing. He denies any significant complaints at this time and is relatively asymptomatic. He does not want anything for pain or nausea. His abdominal exam is benign. His pain is on his lower abdomen a differential includes diverticulitis. He is not having pulsatile mass he has normal vital signs. No lower extremity numbness or tingling. Have a low suspicion for aortic aneurysm/dissection.His work-up is remarkable only for a mildly elevated lipase of 487. Is just above our cutoff I do not think this is pancreatitis especially given where his symptoms are. He has 0-5 red blood cells in his urine however no signs of stone kidney stone on CT. It is possible he might of passed a very small stone that caused his symptoms earlier today. CT of the abdomen and and pelvis with contrast shows sigmoid diverticulosis but no signs of acute infection. Given the patient's is been relatively asymptomatic and is feeling well in the ER I think he can be discharged home to follow-up with his primary care doctor. Counseled on return precautions and that his symptoms might progress and change and require reevaluation/return the emergency room. He verbalizes agreement understand with this plan. He is discharged home in stable condition. Was given a work note for his request for today as he had to leave work. ED Disposition - Plan for ED Patient: Disposition: Home or Assisted Living Diagnosis: Abdominal pain of unknown cause Instructions: ED Unknown Causes of Abdominal Pain Male Prescriptions: Ondansetron [Zofran Odt] 4 mg PO Q8H PRN PRN #10 tab PRN Reason: Nausea Prescription Printed Referrals: Lukas Chatterjee MD [Primary Care Provider] -
[2020-08-19 13:51] VITALS: RESP 18
== END 2020-08-19 13:52 | disposition home or self-care (01) ==
PROVIDERS: Emergency Provider Emergency Medicine; PCP Family Medicine
DX: K57.30 Diverticulosis of large intestine without perforation or abscess without bleeding (principal); F17.200 Nicotine dependence, unspecified, uncomplicated; Z79.899 Other long term (current) drug therapy
CPT/HCPCS: 74177; 80053; 81001; 83690; 85025; 99282; Q9967; A4216

== ENCOUNTER → 2020-08-31 | Outpatient (CLI) | payer MEDICAID, SELFPAY ==
[2020-08-25 15:38] VITALS: BMI 33.2
--- NOTE | 2020-08-31 09:30 | CYSPIN_PTH ---
PATIENT: JACKIE RUIZ LOC: [facility] U#:[id number] AGE/SX: 54/M ROOM: RE08/31/[address]: Dr. Lukas Chatterjee MD : 1965 BED: DIS: 08/31/2020 SPEC #: [id number] RECD: 09/01/20 06:37 STATUS: ISRA[place] WENCESLAO #: [id number] AARON: 08/31/20 09:[address]: Lukas Chatterjee DEPT: CYTOLOGY RECD BY: Mandy Jennings Tissues: Urine Procedures: Pap Stain (control) Special Stain Group II Cytospin Fluid HEADER OPERATION: Not noted PRE-OP DIAGNOSIS: Blood in urine TISSUE SUBMITTED: Urine for cytology DIAGNOSIS CYTOLOGY Urine for cytology (cytospin): Negative for malignant cells. Acute inflammation. See comment. ADI:sugey 09/02/20 COMMENT Clinical correlation and appropriate follow up are necessary. CYTOLOGY STUDY Slides are reviewed. CYTOLOGY GROSS Received is 15 ml of yellow cloudy fluid labeled with the patient's name and and designated per the requisition as urine. Submitted for cytology preparation. / sugey 09/01/20 TC:2 CPT: 26182
[2020-08-31 12:27] LABS: Bacteria 0 SEEN /hpf (None Seen); Cytology, Body Fluid / CSF SEE PATHOLOGY REPORT; Mucous, Urine 0 SEEN /hpf (<or=2+)
[2020-08-31 15:45] LABS: Color, Urine Yellow (Yellow); Glucose, Dipstick Normal (Normal); Ketone-Dipstick Negative (Negative); Leukocyte Esterase-Dipstick 25 /ul (Negative); Nitrite-Dipstick Negative (Negative); Occult Blood-Urine 150 /ul (Negative); Protein-Dipstick Negative (Negative); Specific Gravity, Urine 1.015 (1.002-1.030); Urine Bilirubin Dipstick Negative (Negative); Urine Urobilinogen Normal (Normal)
[2020-08-31 15:58] LABS: Red Blood Cells-Urine 5-10 SEEN /hpf (0-5); Squamous Epithelial Cells - UA 0-5 SEEN /hpf (0-5); White Blood Cells 0-5 SEEN /hpf (0-5)
[2020-08-31 15:59] LABS: Urine Clarity Sl Cldy (Clear)
== END | disposition home or self-care (01) ==
LOC: LABSPEC 12:23
PROVIDERS: PCP Family Medicine; Referring Provider Family Medicine; Visit Provider Family Medicine
DX: R31.9 Hematuria, unspecified (principal)
CPT/HCPCS: 81001; 87077; 87086; 87088; 87186; 88108; 88313

== ENCOUNTER → 2020-09-22 | Outpatient (CLI) | payer MEDICAID, SELFPAY ==
[2020-09-09 09:39] VITALS: BMI 32.9
[2020-09-22 15:58] LABS: Bacteria 0 SEEN /hpf (None Seen); Squamous Epithelial Cells - UA 0 SEEN /hpf (0-5); White Blood Cells 0 SEEN /hpf (0-5)
[2020-09-22 17:39] LABS: Color, Urine Yellow (Yellow); Glucose, Dipstick Normal (Normal); Ketone-Dipstick 5 mg/dl (Negative); Leukocyte Esterase-Dipstick 25 /ul (Negative); Nitrite-Dipstick Negative (Negative); Occult Blood-Urine 25 /ul (Negative); Protein-Dipstick Negative (Negative); Specific Gravity, Urine 1.025 (1.002-1.030); Urine Bilirubin Dipstick Negative (Negative); Urine Clarity Clear (Clear); Urine Urobilinogen 1 mg/dl (Normal)
[2020-09-22 17:45] LABS: Mucous, Urine 1+ /hpf (<or=2+); Red Blood Cells-Urine 5-10 SEEN /hpf (0-5)
== END | disposition home or self-care (01) ==
LOC: LABSPEC 15:55
PROVIDERS: PCP Family Medicine; Referring Provider Family Medicine; Visit Provider Family Medicine
DX: R31.9 Hematuria, unspecified (principal)
CPT/HCPCS: 81001

== ENCOUNTER 2020-09-28 08:40 | Day surgery (SDC) | payer MEDICAID, SELFPAY ==
[2020-09-09 09:39] VITALS: BMI 32.9
--- NOTE | 2020-09-28 08:59 | HP.PCM_ITS ---
Problem List (1) Abdominal pain Status: Acute Qualifiers: (2) Melanotic stools Status: Acute History and Physical Date of Admission: 09/28/20 Intake Visit Reasons: CSCOPE Chief Complaint: c-scope Telegraph Inspector Required: No Is patient in pain?: No Allergies No Known Allergies Allergy (Verified 09/09/20 09:40) Medications allopurinol 300 mg tablet 300 mg PO DAILY tab 02/25/20 [History Confirmed 09/09/20] lisinopril 40 mg tablet 40 mg PO DAILY tab 02/25/20 [History Confirmed 09/09/20] aspirin 81 mg tablet,delayed release 81 mg PO DAILY #90 tab 03/05/20 [Rx Confirmed 09/09/20] Escitalopram Oxalate 10 mg PO DAILY 07/02/20 [History Confirmed 09/09/20] traZODone [Desyrel] 50 mg PO QHS 07/02/20 [History Confirmed 09/09/20] Ondansetron [Zofran Odt] 4 mg PO Q8H PRN PRN #10 tab 08/19/20 [Rx Confirmed 09/09/20] rosuvastatin 20 mg tablet 20 mg PO DAILY 09/09/20 [History Confirmed 09/09/20] PFSH Medical History Essential (primary) hypertension (Chronic) Nicotine dependence (Chronic) Hyperlipidemia (Chronic) Heart attack (Acute) Asthma (Chronic) Cervical spondylosis (Chronic) Gout (Chronic) Obesity (Chronic) Type 2 diabetes mellitus (Chronic) Syncope (Resolved) Surgical History History of left heart catheterization (Resolved 03/11/20) Family History Father Diabetes Hypertension Grandfather Heart disease Grandfather Heart disease Social History (Updated 09/09/20 @ 10:[address] Papito Monae MD) Smoking Status: Current every day smoker HPI HPI HPI: JACKIE RUIZ, is a 54 M who presents to the office today for surgical consultation regarding 2 separate issues. The patient is referred by Dr Lukas Chatterjee for surgical consultation regarding an episode of low abdominal pain requiring an emergency room visit on August 17, 2020 as well as an episode of melanotic stool approximately 1 week ago. A written copy of my surgical consult recommendations will be returned to Dr. Pinto. This a 54-year-old gentleman. Has never had a previous colonoscopy. He has a recent episode of psychiatric hospitalization for acute stress and depression. He had a myocardial infarction December 2019. Claims that he had aspirin therapy added to his treatment. He claims he did not require coronary stenting. He denies history of peptic ulcer disease. He does not have a good memory recall. We have evidence of a emergency room visit at the [facility] on August 19, 2020 presenting with abdominal pain flank pain. A CT scan was obtained showing sigmoid diverticulosis. White blood cell count was 8.6 hemothirteen 0.5 hematocrit 41.6 platelet count 267,000. BUN 23 and creatinine 0.97. Liver function tests were normal. Lipase was 487. The patient also had an emergency room visit on July 02, 2020. That was bec ause of chest pain. [place] like he was wheezing. He is a chronic cigarette smoker and he continues to smoke. It is suggested by his mother that is not likely that he will stop secondary to life stressors. Diagnosis July 02, 2020 with bronchitis with bronchospasm. He was placed on a course of prednisone and doxycycline. It was recommended to him that he initiate Chantix therapy. A chest CT scan July 02, 2020 was unremarkable no pulmonary embolism. Cardiac catheterization note from March 11, 2020 showed normal left ventricular ejection fraction of 65% normal wall motion. HPI HPI HPI: JACKIE RUIZ, is a 54 M who presents to the office today for Exam Const General: cooperative, comfortable, no acute distress Nutritional Appearance: obese Orientation: alert, awake Eyes General: appearance normal, both eyes and all related structures Resp Effort & Inspection: normal respiratory effort Auscultation: clear to auscultation bilaterally Cardio Rate: regular rate Rhythm: regular rhythm GI Palpation: soft, no hepatosplenomegaly Other: Notably overweight, difficult clinical examination, no focal mass, normal bowel sounds, I cannot palpate the aorta Musc Cervical Spine: normal cervical lordosis Skin General: no rashes or lesions noted Neuro Cognition: normal cognition Extrem General: no calf tenderness Psych Affect: flat Assessment & Plan Problems 1. Melanotic stools K92.1 2. Abdominal pain, unspecified abdominal location R10.9 Plan 54-year-old gentleman. He is accompanied by his mother today. He presents with concerns over an episode of nonspecific low abdominal pain and flank pain. In addition he reports an episode of melanotic stool. December 2019 had acute myocardial infarction. He was placed on aspirin therapy at that time. He denies peptic ulcer disease symptoms. He does suffer from an acute mental stress disorder/depression. Affect is flat. I recommend to him a combined esophagogastroduodenoscopy with possible biopsy as well as colonoscopy with possible biopsy or polypectomy as indicated. I have discussed technique, benefit, risk, alternatives. We will schedule and proceed at his discretion. I anticipate utilizing monitored anesthesia care. He has never had a previous colonoscopy. I appreciate the opportunity of assisting with her surgical care. Copy: Dr Lukas Monae M.D., F.A.C.S. I have re-examined the patient. There are no clinical changes since date of exam. Procedure Criteria Procedure Type: Elective COVID Risk Discussion: The surgeon/proceduralist and patient have discussed in detail the risk of exposure to and/or potential harm posed by the COVID-19 virus with having a surgery/procedure at this time versus the risk of delaying the surgery/procedure. It is not possible to know either the risk of delaying the surgery or procedure or chance of getting an infection with perfect accuracy, but a joint decision was made between the patient and the surgeon/proceduralist to proceed at this time with the scheduled surgery/procedure as indicated on the consent form.
[2020-09-28 09:01] VITALS: BP 143/99; PULSE 68; RESP 18; TEMP 36.8; O2SAT 96; BMI 32.3
[2020-09-28] MEDS: Lactated Ringers 1,000 ML 100 ML IV (09:17)
--- NOTE | 2020-09-28 10:00 | IMM_PTH ---
PATIENT: JACKIE RUIZ LOC: [facility] U#:[id number] AGE/SX: 55/M ROOM: RE09/28/[address]: Dr. Papito Monae MD : 1965 BED: DIS: 09/28/2020 SPEC #: [id number] RECD: 09/28/20 13:31 STATUS: ISRAEL REAlmaz #: [id number] AARON: 09/28/20 10:[address]: Papito Monae DEPT: IMMUNOHISTOCHEMISTRY RECD BY: Lanette Oconnor ENTERED: 09/28/20 13:32 SP TYPE: IMMUNO OTHR DR: Dr. Lukas Chatterjee MD Tissues: A - Stomach, NOS B - Esophagus, NOS Procedures: H Pylori (initial) P53 (initial) PHYSICIAN & INSTITUTION [place] [id number] SPECIMEN INFORMATION: Tissue Source: A - Antral biopsy, B - Distal esophagus, biopsy Clinical Info: Abdominal pain; melanotic stools Specimen Number: [id number] A & B CPT code: 82241 x2 METHODOLOGY: Deparaffinized sections of prefer/formalin-fixed tissue or PAP/DQ stained slides are incubated with monoclonal/polyclonal antibodies/oligonucleotide probes. Localization is made via biotin free immunoperoxidase method. Appropriate controls are performed and reacted as expected. Results on target cell population are indicated in the following table: RESULTS: ANTIBODY / CLONE RESULT Block A H Pylori (polyclonal) negative Block B P53 (DO-7) negative These tests were developed and their performance characteristics determined by [facility]. They may not have been cleared or approved by the U.S. Food and Drug Administration. The FDA has determined that such clearance or approval is not necessary. INTERPRETATION: A. Antral biopsy: Negative for Helicobacter pylori organisms. B. Distal esophagus, biopsy: No evidence of dysplasia. AM:sugey 09/30/20
--- NOTE | 2020-09-28 10:00 | EGD_PTH ---
PATIENT: JACKIE RUIZ LOC: EN U#:[id number] AGE/SX: 55/M ROOM: RE09/28/[address]: Dr. Papito Monae MD : 1965 BED: DIS: 09/28/2020 SPEC #: [id number] RECD: 09/28/20 11:23 STATUS: ISRAEL WENCESLAO #: [id number] AARON: 09/28/20 10:[address]: Papito Monae DEPT: SURGICAL PATHOLOGY RECD BY: Mandy Jennings ENTERED: 09/28/20 12:10 SP TYPE: EGD BIOPSY OT DR: Dr. Lukas Chatterjee MD Tissues: A - Gastric mucous membrane B - Esophagus, NOS C - Descending colon Procedures: Special Stain Group II Surgery Specimen Level IV Alcian Blue/PAS (control) HEADER OPERATION: [place] [place] DIAGNOSIS: Abdominal pain; melanotic stools TISSUE SUBMITTED: A - Antral biopsy for H. pylori and pathology, B - Distal esophageal biopsies, C - Descending colon polyp MICROSCOPIC DIAGNOSIS A. Gastric antrum, biopsy: Mild chronic gastritis. See comment. B. Distal esophagus, biopsy: Gastroesophageal junctional mucosa with focal goblet cell metaplasia. No evidence of dysplasia. Focal changes of reflux. See comment. C. Descending colon polyp, biopsy: Fragments of tubular adenoma. AM:sugey 09/29/20 COMMENT A. The results of immunohistochemistry for Helicobacter pylori will be reported separately ([id number]). B. Alcian blue/PAS stain with matched control supports the above diagnosis. Immunohistochemistry ([id number]) supports the above diagnosis. MICROSCOPIC DESCRIPTION Slides are reviewed. GROSS DESCRIPTION A - Received in fixative is one container labeled with the patient's name and designated antral biopsy. The specimen consists of one irregular fragment of light young soft tissue that measures 0.4 x 0.3 x 0.1 cm. The specimen is totally submitted in one cassette. B - Received in fixative is one container labeled with the patient's name and designated distal esophageal biopsy. The specimen consists of multiple irregular fragments of light young soft tissue that in aggregate measure 2 x 0.5 x 0.1 cm. The specimen is totally submitted in one cassette. C - Received in fixative is one container labeled with the patient's name and designated descending colon polyp. The specimen consists of two pieces of young-pink polyp measuring in aggregate 1 x 0.6 x 0.3 cm. The specimen is totally submitted in one cassette. / SJ:rg 09/28/20 TC:3 CPT: 06940 x3, 60485
[2020-09-28 11:05] VITALS: BP 143/99; BP 150/106; PULSE 74; RESP 16; TEMP 36.4; O2SAT 99
--- NOTE | 2020-09-28 11:08 | OP.EGD_ITS ---
Patient Name: Glen Sheldon Procedure Date: 09/28/2020 10:17 AM Date of : 1965 Age: 55 Procedure: Upper GI endoscopy Indications: Melena Providers: Papito Monae MD Referring MD: Lukas Chatterjee Medicines: See the Anesthesia note for documentation of the administered medications Complications: No immediate complications. Procedure: Pre-Anesthesia Assessment: - Prior to the procedure, a History and Physical was performed, and patient medications and allergies were reviewed. The patient's tolerance of previous anesthesia was also reviewed. The risks and benefits of the procedure and the sedation options and risks were discussed with the patient. All questions were answered, and informed consent was obtained. Prior Anticoagulants: The patient has taken no previous anticoagulant or antiplatelet agents. ASA Grade Assessment: II - A patient with mild systemic disease. After reviewing the risks and benefits, the patient was deemed in satisfactory condition to undergo the procedure. After obtaining informed consent, the endoscope was passed under direct vision. Throughout the procedure, the patient's blood pressure, pulse, and oxygen saturations were monitored continuously. The Endoscope was introduced through the mouth, and advanced to the second part of duodenum. The upper GI endoscopy was accomplished without difficulty. The patient tolerated the procedure well. Scope In: 10:25:27 AM Scope Out: 10:34:55 AM Total Procedure Duration Time 0 hours 9 minutes 28 seconds Findings: The Z-line was irregular and was found 42 cm from the incisors. There were esophageal mucosal changes suspicious for short-segment Ferrer's esophagus present in the lower third of the esophagus. The maximum longitudinal extent of these mucosal changes was 3 cm in length. Mucosa was biopsied with a cold forceps for histology in a targeted manner in the lower third of the esophagus. A medium-sized hiatal hernia was present. Diffuse mildly erythematous mucosa without bleeding was found in the gastric antrum. Biopsies were taken with a cold forceps for histology. The examined duodenum was normal. Impression: - Z-line irregular, 42 cm from the incisors. - Esophageal mucosal changes suspicious for short-segment Ferrer's esophagus. Biopsied. - Medium-sized hiatal hernia. - Erythematous mucosa in the antrum. Biopsied. - Normal examined duodenum. Recommendation: - Await pathology results. - Discharge patient to home. - Resume previous diet. - Continue present medications. - Use Prilosec (omeprazole) 40 mg PO daily. - Telephone my office for pathology results in 1 week. Anticipate follow up EGD in no longer than 3 years pending pathology Procedure Code(s): --- Professional --- 72661, Esophagogastroduodenoscopy, flexible, transoral; with biopsy, single or multiple Diagnosis Code(s): --- Professional --- K22.8, Other specified diseases of esophagus K44.9, Diaphragmatic hernia without obstruction or gangrene K31.89, Other diseases of stomach and duodenum K92.1, Melena (includes Hematochezia) CPT copyright 2017 [employer]. All rights reserved. The codes documented in this report are preliminary and upon header machine operator review may be revised to meet current compliance requirements. Papito Monae MD 09/28/2020 11:07:34 AM This report has been signed electronically. Number of Addenda: 0 Note Initiated On: 09/28/2020 10:17 AM
--- NOTE | 2020-09-28 11:08 | OP.CCLET_ITS ---
09/28/2020 Lukas Chatterjee [address] [place] [address] Re : Upper GI endoscopy procedure for Glen Sheldon Dear Dr. Chatterjee This procedure was performed on Monday, September 28, 2020. My impressions and recommendations are as follows: Impressions : - Z-line irregular, 42 cm from the incisors. - Esophageal mucosal changes suspicious for short-segment Ferrer's esophagus. Biopsied. - Medium-sized hiatal hernia. - Erythematous mucosa in the antrum. Biopsied. - Normal examined duodenum. Recommendations : - Await pathology results. - Discharge patient to home. - Resume previous diet. - Continue present medications. - Use Prilosec (omeprazole) 40 mg PO daily. - Telephone my office for pathology results in 1 week. Anticipate follow up EGD in no longer than 3 years pending pathology My findings are described in the full procedure note, which is enclosed. If I can be of further assistance, please feel free to contact me at Doctor phone number(s): Work: . Sincerely, Papito Monae MD 09/28/2020 11:07:34 AM This report has been signed electronically.
[2020-09-28 11:10] VITALS: BP 137/88; BP 143/99; PULSE 57; RESP 16; O2SAT 100
--- NOTE | 2020-09-28 11:10 | OP.COLON_ITS ---
Patient Name: Glen Sheldon Procedure Date: 09/28/2020 10:35 AM Date of : 1965 Age: 55 Procedure: Colonoscopy Indications: Generalized abdominal pain Providers: Papito Monae MD Referring MD: Lukas Chatterjee Medicines: See the Anesthesia note for documentation of the administered medications Patient Profile: Last Colonoscopy: none. The patient's first colonoscopy is today. Complications: No immediate complications. Procedure: Pre-Anesthesia Assessment: - Prior to the procedure, a History and Physical was performed, and patient medications and allergies were reviewed. The patient's tolerance of previous anesthesia was also reviewed. The risks and benefits of the procedure and the sedation options and risks were discussed with the patient. All questions were answered, and informed consent was obtained. Prior Anticoagulants: The patient has taken no previous anticoagulant or antiplatelet agents. ASA Grade Assessment: II - A patient with mild systemic disease. After reviewing the risks and benefits, the patient was deemed in satisfactory condition to undergo the procedure. After I obtained informed consent, the scope was passed under direct vision. Throughout the procedure, the patient's blood pressure, pulse, and oxygen saturations were monitored continuously. The colonoscope was introduced through the anus and advanced to the cecum, identified by appendiceal orifice and ileocecal valve. The colonoscopy was performed without difficulty. The patient tolerated the procedure well. The quality of the bowel preparation was adequate to identify polyps. The ileocecal valve and the appendiceal orifice were photographed. Scope In: 10:37:01 AM Scope Withdrawal Time 0 hours 14 minutes 16 seconds Scope Out: 11:00:16 AM Total Procedure Duration Time 0 hours 23 minutes 15 seconds Findings: The digital rectal exam findings include non-thrombosed external hemorrhoids, non-thrombosed internal hemorrhoids, internal hemorrhoids that prolapse with straining, but require manual replacement into the anal canal (Grade III) and enlarged prostate. A 14 mm polyp was found in the distal descending colon. The polyp was semi-pedunculated. The polyp was removed with a hot snare. Resection and retrieval were complete. Multiple diverticula were found in the sigmoid colon and descending colon. Impression: - Non-thrombosed external hemorrhoids, non-thrombosed internal hemorrhoids, internal hemorrhoids that prolapse with straining, but require manual replacement into the anal canal (Grade III) and enlarged prostate found on digital rectal exam. - One 14 mm polyp in the distal descending colon, removed with a hot snare. Resected and retrieved. - Diverticulosis in the sigmoid colon and in the descending colon. Recommendation: - Discharge patient to home. - Resume previous diet. - Continue present medications. - Repeat colonoscopy in 3 years for surveillance based on pathology results. - Telephone my office for pathology results in 1 week. Procedure Code(s): --- Professional --- 76275, Colonoscopy, flexible; with removal of tumor(s), polyp(s), or other lesion(s) by snare technique Diagnosis Code(s): --- Professional --- D12.4, Benign neoplasm of descending colon K64.2, Third degree hemorrhoids K64.4, Residual hemorrhoidal skin tags R10.84, Generalized abdominal pain N40.0, Benign prostatic hyperplasia without lower urinary tract symptoms K57.30, Diverticulosis of large intestine without perforation or abscess without bleeding CPT copyright 2017 [employer]. All rights reserved. The codes documented in this report are preliminary and upon gasoline finisher review may be revised to meet current compliance requirements. Papito Monae MD 09/28/2020 11:10:39 AM This report has been signed electronically. Number of Addenda: 0 Note Initiated On: 09/28/2020 10:35 AM
--- NOTE | 2020-09-28 11:11 | OP.CCLET_ITS ---
09/28/2020 Lukas Chatterjee [address] [place] [address] Re : Colonoscopy procedure for Glen Sheldon Dear Dr. Chatterjee This procedure was performed on Monday, September 28, 2020. My impressions and recommendations are as follows: Impressions : - Non-thrombosed external hemorrhoids, non-thrombosed internal hemorrhoids, internal hemorrhoids that prolapse with straining, but require manual replacement into the anal canal (Grade III) and enlarged prostate found on digital rectal exam. - One 14 mm polyp in the distal descending colon, removed with a hot snare. Resected and retrieved. - Diverticulosis in the sigmoid colon and in the descending colon. Recommendations : - Discharge patient to home. - Resume previous diet. - Continue present medications. - Repeat colonoscopy in 3 years for surveillance based on pathology results. - Telephone my office for pathology results in 1 week. My findings are described in the full procedure note, which is enclosed. If I can be of further assistance, please feel free to contact me at Doctor phone number(s): Work: . Sincerely, Papito Monae MD 09/28/2020 11:10:39 AM This report has been signed electronically.
[2020-09-28 11:15] VITALS: BP 143/99; BP 146/102; PULSE 58; RESP 16; O2SAT 100
[2020-09-28 11:20] VITALS: BP 143/99; BP 158/98; PULSE 55; RESP 16; TEMP 36.3; O2SAT 100
[2020-09-28 11:53] VITALS: BP 143/99
== END 2020-09-28 12:10 | disposition home or self-care (01) ==
LOC: EN 08:40 → AC 08:41
PROVIDERS: PCP Family Medicine; Referring Provider Family Medicine; Visit Provider Surgery
PROC: 0DJD8ZZ Inspection of Lower Intestinal Tract, Via Natural or Artificial Opening Endoscopic (ICD-10-PCS; CPT 45378; principal; 2020-09-28 09:55)
DX: D12.4 Benign neoplasm of descending colon (principal); K92.1 Melena; R10.9 Unspecified abdominal pain; K22.8 Other specified diseases of esophagus; K44.9 Diaphragmatic hernia without obstruction or gangrene; K31.89 Other diseases of stomach and duodenum; K64.2 Third degree hemorrhoids; K64.4 Residual hemorrhoidal skin tags; K57.30 Diverticulosis of large intestine without perforation or abscess without bleeding; K29.50 Unspecified chronic gastritis without bleeding; E78.5 Hyperlipidemia, unspecified; I10 Essential (primary) hypertension; I25.2 Old myocardial infarction; E66.9 Obesity, unspecified; E11.9 Type 2 diabetes mellitus without complications; M10.9 Gout, unspecified; J45.909 Unspecified asthma, uncomplicated; F17.210 Nicotine dependence, cigarettes, uncomplicated; Z79.82 Long term (current) use of aspirin; N40.0 Benign prostatic hyperplasia without lower urinary tract symptoms
CPT/HCPCS: 43239; 45385; 87426; 88305; 88313; 88342; C9803; J7120; J2405

== ENCOUNTER 2020-10-12 12:11 | Emergency (ER) | payer MEDICAID, SELFPAY ==
[2020-10-12 12:12] VITALS: BP 149/98; PULSE 76; RESP 18; TEMP 36.1; O2SAT 98; BMI 33.9
--- NOTE | 2020-10-12 12:34 | RAD_ITS ---
STUDY: X-RAY - LUMBAR SPINE REASON FOR EXAM: Male, 55 years old. LOW BACK PAIN SINCE 1988 TECHNIQUE: 3 view(s) of the lumbar spine were obtained. COMPARISON: None FINDINGS: Normal lumbar lordosis. There is no substantial scoliosis. Minimal anterior listhesis of L4 on L5. There is multilevel endplate spondylosis of the lumbar vertebrae. There is multi-level degenerative disc disease with multi-level disc space narrowing. There is atherosclerotic calcification of the abdominal aorta without a demonstrated aneurysm. RAD/Lumbar Spine 2 or 3 Views IMPRESSION: Degenerative changes of the spine, as detailed above. Electronically Signed: Antony Servin, at 13:31 EST , Service support ,
--- NOTE | 2020-10-12 12:34 | RAD_ITS ---
STUDY: X-RAY - PELVIS AND RIGHT HIP REASON FOR EXAM: Male, 55 years old. PAIN X 1 MONTH. NO INJURY TECHNIQUE: 3 views of the pelvis and hip. COMPARISON: None. FINDINGS: There is a non-specific bowel gas pattern. Normal visualized soft tissue structures. Normal bilateral iliac wings, sacroiliac joints and visualized sacrum. Normal bilateral superior and inferior pubic rami. Normal pubic symphysis. Normal bilateral ischial tuberosities. Normal visualized femoral head. Normal acetabulum. Normal hip joint. RAD/HIP, UNI W/ Pelvis 2-3 Views IMPRESSION: Normal x-ray examination of the pelvis and hip. Electronically Signed: Antony Servin, at 13:07 EST , Service support ,
--- NOTE | 2020-10-12 12:35 | ED.VIS.GEN ---
History of Present Illness Chief Complaint: Other, Pain/Inj Informant: Patient Narrative: 55-year-old male with past medical history of CAD and hypertension presents with hip and buttock pain over the past 1 month. Denies any trauma. Denies any fever or chills. States the pain and aching is worse with movement. Denies any numbness or tingling. Past Medical History - Allergies and Home Meds Allergies/Adverse Reactions: Allergies No Known Allergies Allergy (Verified 10/12/20 12:14) Primary Care Physician: Lukas Chatterjee MD [Primary Care Provider] - Surgical History: no surgical history, noncontributory Smoking Status: Current every day smoker Physical Exam Vital Signs/Narrative: Vital Signs Temp Pulse Resp BP Pulse Ox 10/12/20 12:12 97 F L 76 18 149/98 H 98 Diagnostic/Tx/Re-eval Clinical Impression(s) from Imaging Studies Hip/Pelvis X-Ray 10/12/20 12:34 IMPRESSION: Normal x-ray examination of the pelvis and hip. Electronically Signed: Antony Servin, at 13:07 EST , Service support , Lumbar Spine X-Ray 10/12/20 12:34 IMPRESSION: Degenerative changes of the spine, as detailed above. Electronically Signed: Antony Servin, at 13:31 EST , Service support , - Medical Decision Making Patient appears well and nontoxic. X-ray showed degenerative changes at lumbar spine. Normal hip x-ray. Patient given intramuscular Toradol. Patient will be given IM Kenalog and Naprosyn for home. Asked to follow-up with primary care. Patient agreeable and discharged home in stable condition. Impression: 1. Degenerative disc disease 2. Right lumbar back pain. ED Disposition - Plan for ED Patient: Disposition: Home or Assisted Living Instructions: ED Back Pain (Acute or Chronic) Prescriptions: Naproxen [Naprosyn] 500 mg PO BID #14 tab Prescription Printed Referrals: Lukas Chatterjee MD [Primary Care Provider] - 2 Days
[2020-10-12] MEDS: Triamcinolone Acetonide 40 MG/ML Vial IM (14:10)
== END 2020-10-12 14:29 | disposition home or self-care (01) ==
PROVIDERS: Emergency Provider Emergency Medicine; PCP Family Medicine
DX: M54.5 Low back pain (principal); I25.10 Atherosclerotic heart disease of native coronary artery without angina pectoris; I10 Essential (primary) hypertension; F17.200 Nicotine dependence, unspecified, uncomplicated; Z79.82 Long term (current) use of aspirin; Z79.899 Other long term (current) drug therapy
CPT/HCPCS: 72100; 73502; 96372; 99282

== ENCOUNTER → 2020-11-09 16:05 | Outpatient (CLI) | payer MEDICAID, SELFPAY ==
[2020-10-12 12:12] VITALS: BMI 33.9
[2020-11-09 18:19] LABS: Absolute Lymphocyte Count 2.52 X10^3/uL (0.83-4.51); Absolute Neutrophil Count 5.3 X10^3/uL (2.0-7.7); Basophil# 0.05 X10^3/uL; Basophil% 0.6 % (0-1); Eosinophil# 0.13 X10^3/uL; Eosinophils% 1.5 % (0-5); Hematocrit 44.6 % (40-54); Hemoglobin 14.5 g/dL (13.0-16.5); Lymphocyte # 2.52 X10^3/ul (4.0); Lymphocyte % 28.6 % (19-41); Mean Corp Hgb Conc 32.5 g/dL (32-36); Mean Corpuscular Hgb 30.3 pg (27.0-32.0); Mean Corpuscular Volume 93.1 fL (80-94); Mean Platelet Vol. 9.9 fl (6.2-12.0); Monocyte# 0.79 X10^3/uL; NRBC Flagged by Analyzer 0 % (0-5); Platelet Count 348 K/mm3 (150-450); RBC Distribution Width CV 13.1 % (11.6-14.6); RBC Distribution Width SD 44.8 fl (35.1-43.9); Red Blood Count 4.79 M/mm3 (4.6-6.2); White Blood Count 8.8 K/mm3 (4.4-11.0)
[2020-11-09 18:43] LABS: Hemoglobin A1c 5.9 % (3.8-5.6)
[2020-11-09 18:49] LABS: AST(SGOT) 21 U/L (15-37); Alanine Aminotransfer ALT/SGPT 29 U/L (16-61); Alkaline Phosphatase 64 U/L (45-117); Anion Gap 6 (5-15); BUN 20 mg/dL (7-18); BUN/Creat Ratio 19.4 RATIO (10-20); Calcium,Total 9.1 mg/dL (8.5-10.1); Chloride 108 mmol/L (98-107); Cholesterol 172 mg/dL (200); Creatinine, Serum 1.03 mg/dL (0.70-1.30); EST Glomerular Filtration Rate 79 mL/min (>60); Est Glom Filt Rate - Afr Amer 96 mL/min (>60); Globulin 3.9 g/dL (2.2-4.2); Glucose 85 mg/dL (74-106); High Density Lipoprotein 43 mg/dL; Protein, Total 7.9 g/dL (6.4-8.2); Sodium Level 140 mmol/L (136-145); Triglycerides 113 mg/dL; Very Low Density Lipoprotein 23 mg/dL (5-40)
== END ==
PROVIDERS: PCP Family Medicine; Referring Provider Family Medicine; Visit Provider Family Medicine
DX: I25.10 Atherosclerotic heart disease of native coronary artery without angina pectoris (principal); R73.02 Impaired glucose tolerance (oral); E78.00 Pure hypercholesterolemia, unspecified
CPT/HCPCS: 36415; 80053; 80061; 83036; 85025

== ENCOUNTER → 2020-11-24 10:27 | Outpatient (CLI) | payer MEDICAID, SELFPAY ==
--- NOTE | 2020-11-25 09:09 | PFT ---
INTRODUCTION: The patient is a 55-year-old male that presents for pulmonary function studies secondary to a diagnosis of tobacco dependency. Respiratory therapy reports good patient effort. Bronchodilators were used during testing. INTERPRETATION: Forced expiration spirometry demonstrates the presence of a mild large airways obstructive ventilatory defect. There was a significant response to aerosolized bronchodilators. Spirograms are of fair quality and do not plateau indicating slow emptying of the lungs. Body plethysmography was performed and revealed an elevated RV to 156% of predicted, indicative of underlying air trapping. Diffusing capacity by single breath CO is within normal limits. IMPRESSION: Fully reversible mild large airways obstructive ventilatory defect with associated air trapping and preserved diffusing capacity.
== END ==
PROVIDERS: PCP Family Medicine; Referring Provider Family Medicine; Visit Provider Family Medicine
DX: Z72.0 Tobacco use (principal)
CPT/HCPCS: 94060; 94726; 94729

== ENCOUNTER 2020-12-06 14:13 | Emergency (ER) | payer MEDICAID, SELFPAY ==
[2020-12-06] VITALS (7 sets, daily range): BP systolic 121–155; BP diastolic 95–105; PULSE 64–84; RESP 16; TEMP 35.2–36.3; O2SAT 96–97; BMI 33.9
--- NOTE | 2020-12-06 14:32 | EKG12_ITS ---
Test Reason : SOB Blood Pressure : / mmHG Vent. Rate : 061 BPM Atrial Rate : 061 BPM P-R Int : 186 ms QRS Dur : 106 ms QT Int : 398 ms P-R-T Axes : -08 000 027 degrees QTc Int : 400 ms Normal sinus rhythm Minimal voltage criteria for LVH, may be normal variant Borderline ECG Confirmed by MINISTERIO CULP, CARLOS ([id number]), wet process technician SUE RAMIREZ ([id number]) on 12/09/2020 9:29:35 AM Referred By: JACINTO Confirmed By:CARLOS MANDEL MD
--- NOTE | 2020-12-06 14:45 | ED.VISSUMM ---
- ER Visit Summary Date of Service: 12/06/20 Chief Complaint: Shortness of breath History of Present Illness: The patient is a 55 M presenting with shortness of breath. Patient states this started 2 weeks ago. He complains of shortness of breath, cough. He has had fever and chills. He complains of nausea and diarrhea. He has had myalgias. He was tested several months ago for Covid but has not been tested recently. He denies PE/DVT risk factors. He states last week he also slipped on the ice and fell hitting his left knee. He did not hit his head or lose consciousness. He denies other injuries. Physical Examination: Vitals are stable. Patient is afebrile. Alert no acute distress. HEENT exam is unremarkable. Neck is nontender Lungs are clear and equal bilaterally. Heart is regular rate and rhythm. Abdomen is soft nontender nondistended. Extremities left knee anterior tenderness with active full range of motion Skin is warm and dry. No focal neurologic deficit. Remainder of exam is unremarkable. Emergency Department Course and Treatment: EKG is sinus rhythm rate of 61 with no acute ischemic changes. CBC, chemistries unremarkable. Troponin is negative. D-dimer negative. Patient was given albuterol, Atrovent aerosols. Chest x-ray read by myself and radiology shows old granulomatous disease without acute cardiopulmonary process. There is no interval change. Left knee x-ray shows no fracture. Pulse ox with ambulation is 96% on room air. Delta troponin is negative. On reevaluation, patient is resting comfortably. He is advised to return to the ED for worsening complaints. Advised to follow-up with primary care physician. Disposition: Discharged home Impression: Dyspnea This note was generated with [employer] dictation software. It may contain incorrect words, spelling, and punctuation that were not noted in review of the chart prior to signing ED Disposition - Plan for ED Patient: Disposition: Home or Assisted Living Instructions: ED Dyspnea Referrals: Lukas Chatterjee MD [Primary Care Provider] -
[2020-12-06] MEDS: Ipratropium/Albuterol Sulfate 3 ML AMPUL.NEB INHALATION (14:47)
[2020-12-06 15:19] LABS: Absolute Lymphocyte Count 2.61 X10^3/uL (0.83-4.51); Absolute Neutrophil Count 6.3 X10^3/uL (2.0-7.7); Basophil# 0.05 X10^3/uL; Basophil% 0.5 % (0-1); Eosinophil# 0.16 X10^3/uL; Eosinophils% 1.6 % (0-5); Hemoglobin 13.9 g/dL (13.0-16.5); Lymphocyte # 2.61 X10^3/ul (4.0); Lymphocyte % 26.4 % (19-41); Mean Corp Hgb Conc 32.3 g/dL (32-36); Mean Corpuscular Hgb 29.9 pg (27.0-32.0); Mean Corpuscular Volume 92.5 fL (80-94); Mean Platelet Vol. 9.6 fl (6.2-12.0); Monocyte# 0.77 X10^3/uL; Monocyte% 7.8 % (0-10); NRBC Flagged by Analyzer 0 % (0-5); Neutrophil # 6.26 X10^3/uL (2.7-7.7); Neutrophil % 63.3 % (47-70); Platelet Count 272 K/mm3 (150-450); RBC Distribution Width CV 12.8 % (11.6-14.6); RBC Distribution Width SD 43.9 fl (35.1-43.9); Red Blood Count 4.65 M/mm3 (4.6-6.2); White Blood Count 9.9 K/mm3 (4.4-11.0)
[2020-12-06 15:30] LABS: D-Dimer Quantitative (DVT/PE) 0.47 FEU/ug/m (0.27-0.49)
[2020-12-06 15:36] LABS: Anion Gap 5 (5-15); BUN 24 mg/dL (7-18); BUN/Creat Ratio 25.2 RATIO (10-20); Calcium,Total 9.2 mg/dL (8.5-10.1); Chloride 108 mmol/L (98-107); Creatinine, Serum 0.95 mg/dL (0.70-1.30); EST Glomerular Filtration Rate 87 mL/min (>60); Est Glom Filt Rate - Afr Amer 105 mL/min (>60); Glucose 91 mg/dL (74-106); Potassium 3.9 mmol/L (3.5-5.1); Sodium Level 140 mmol/L (136-145)
--- NOTE | 2020-12-06 15:36 | RAD_ITS ---
STUDY: X-RAY - LEFT KNEE REASON FOR EXAM: Male, 55 years old. The anterior knee pain. TECHNIQUE: 4 view(s) of the knee. COMPARISON: None. FINDINGS: Normal visualized distal femur. Normal visualized proximal tibia and fibula. Normal proximal tibiofibular articulation. There is no acute fracture, dislocation or destructive osseous pathology. Normal medial femorotibial compartment. Normal lateral femorotibial compartment. Normal patellofemoral articulation. There is no demonstrated joint effusion. The soft tissue structures are unremarkable. RAD/Knee 4 or More Views IMPRESSION: No acute fracture or dislocation. Electronically Signed: Kevan Olivera DO at 16:30 EST Tel [phone], Service support ,
--- NOTE | 2020-12-06 15:36 | RAD_ITS ---
STUDY: X-RAY CHEST REASON FOR EXAM: Male, 55 years old. Shortness of breath. TECHNIQUE: Single AP portable view of the chest. COMPARISON: 07/22/2020. FINDINGS: The lungs are well expanded. There are stable calcified granulomata in both lung bases. There is no new infiltrate or mass. There is no demonstrated pleural abnormality. Normal size heart. Pneumomediastinum. Calcified hilar lymph nodes. Normal visualized pulmonary arteries. Normal visualized aortic arch and descending thoracic aorta. There are diffuse degenerative changes of the visualized thoracic spine. Normal visualized ribs, clavicles, and shoulders. There is no demonstrated abnormality of the visualized soft tissue structures of the upper abdomen. RAD/Chest 1 View (Portable) IMPRESSION: Old granulomatous disease without acute cardiopulmonary process. There is no interval change. Electronically Signed: Kevan Olivera DO at 16:23 EST Tel [phone], Service support ,
--- NOTE | 2020-12-06 18:31 | ED.DEP ---
ED Disposition - Plan for ED Patient: Instructions: ED Dyspnea Referrals: Lukas Chatterjee MD [Primary Care Provider] -
== END 2020-12-06 18:45 | disposition home or self-care (01) ==
LOC: ED 15:11
PROVIDERS: Emergency Provider Emergency Medicine; PCP Family Medicine
DX: R06.00 Dyspnea, unspecified (principal); Z20.822 Contact with and (suspected) exposure to COVID-19; R50.9 Fever, unspecified; R19.7 Diarrhea, unspecified; R05 Cough; M79.10 Myalgia, unspecified site; I25.10 Atherosclerotic heart disease of native coronary artery without angina pectoris; S89.92XA Unspecified injury of left lower leg, initial encounter; W00.0XXA Fall on same level due to ice and snow, initial encounter; Y93.9 Activity, unspecified; Y92.9 Unspecified place or not applicable; Y99.9 Unspecified external cause status; Z79.82 Long term (current) use of aspirin; Z79.899 Other long term (current) drug therapy; Z87.891 Personal history of nicotine dependence
CPT/HCPCS: 71045; 73564; 80048; 84484; 85025; 85379; 87426; 93005; 94640; 99284; A4216

== ENCOUNTER → 2020-12-24 14:23 | Outpatient (CLI) | payer MEDICAID, SELFPAY ==
[2020-12-06 14:14] VITALS: BMI 33.9
[2020-12-24 17:28] LABS: Absolute Lymphocyte Count 2.42 X10^3/uL (0.83-4.51); Absolute Neutrophil Count 5.1 X10^3/uL (2.0-7.7); Basophil# 0.05 X10^3/uL; Basophil% 0.6 % (0-1); Eosinophil# 0.15 X10^3/uL; Eosinophils% 1.8 % (0-5); Hemoglobin 13.8 g/dL (13.0-16.5); Lymphocyte # 2.42 X10^3/ul (4.0); Lymphocyte % 28.6 % (19-41); Mean Corp Hgb Conc 32.1 g/dL (32-36); Mean Corpuscular Hgb 29.9 pg (27.0-32.0); Mean Corpuscular Volume 93.3 fL (80-94); Mean Platelet Vol. 10.1 fl (6.2-12.0); Monocyte# 0.76 X10^3/uL; NRBC Flagged by Analyzer 0 % (0-5); Neutrophil # 5.07 X10^3/uL (2.7-7.7); Neutrophil % 59.8 % (47-70); Platelet Count 307 K/mm3 (150-450); RBC Distribution Width CV 13.4 % (11.6-14.6); RBC Distribution Width SD 45.5 fl (35.1-43.9); Red Blood Count 4.61 M/mm3 (4.6-6.2); White Blood Count 8.5 K/mm3 (4.4-11.0)
[2020-12-24 18:00] LABS: ALB/GLOB Ratio 1.1 RATIO (0.9-2.4); AST(SGOT) 19 U/L (15-37); Alanine Aminotransfer ALT/SGPT 36 U/L (16-61); Alkaline Phosphatase 59 U/L (45-117); Anion Gap 7 (5-15); BUN 27 mg/dL (7-18); BUN/Creat Ratio 28.5 RATIO (10-20); Calcium,Total 9.1 mg/dL (8.5-10.1); Chloride 107 mmol/L (98-107); Cholesterol 190 mg/dL (200); Creatinine, Serum 0.95 mg/dL (0.70-1.30); EST Glomerular Filtration Rate 87 mL/min (>60); Est Glom Filt Rate - Afr Amer 106 mL/min (>60); Globulin 3.6 g/dL (2.2-4.2); Glucose 95 mg/dL (74-106); High Density Lipoprotein 50 mg/dL; Potassium 3.8 mmol/L (3.5-5.1); Protein, Total 7.6 g/dL (6.4-8.2); Sodium Level 139 mmol/L (136-145); Triglycerides 97 mg/dL; Very Low Density Lipoprotein 19 mg/dL (5-40)
== END ==
PROVIDERS: PCP Family Medicine; Referring Provider Family Medicine; Visit Provider Family Medicine
DX: I10 Essential (primary) hypertension (principal); E78.00 Pure hypercholesterolemia, unspecified; R73.02 Impaired glucose tolerance (oral)
CPT/HCPCS: 36415; 80053; 80061; 83036; 85025

== ENCOUNTER 2020-12-26 08:39 | Emergency (ER) | payer MEDICAID, SELFPAY ==
[2020-12-06 14:14] VITALS: BMI 33.9
[2020-12-26 08:40] VITALS: BP 181/88; PULSE 84; RESP 16; TEMP 35.8; O2SAT 98; BMI 33.6
--- NOTE | 2020-12-26 09:32 | RAD_ITS ---
STUDY: X-RAY - CERVICAL SPINE REASON FOR EXAM: Recommended., 55 years old. Injury/Pain TECHNIQUE: 4 view(s) of the cervical spine were obtained. COMPARISON: None FINDINGS: Normal anterior atlantoaxial articulation. Normal odontoid process. There is straightening of the normal cervical lordosis. Normal vertebral bodies and endplates. Moderate to severe narrowing of C5-C6 disc space. Anterior degenerative osteophyte formations. Prevertebral soft tissue swelling is seen. RAD/Cerv Spine 2 or 3 Views IMPRESSION: 1. Straightening of the cervical spine which could be due to muscle spasm. 2. Degenerative changes at the level C5-C6. 3. No demonstrated acute fracture. 4. If symptoms persist, if symptoms persist, CT scan or MRI of the cervical spine is recommended. Electronically Signed: Josue Ramesh MD at 10:01 EST Tel , Service support ,
[2020-12-26] MEDS: Ibuprofen 600 MG Tablet PO (09:40)
--- NOTE | 2020-12-26 10:41 | ED.VIS.BACK ---
History of Present Illness Chief Complaint: Upper Extremity Injury Informant: Patient Onset: Days Context: Gradual Onset Location: Thoracic, - - right shoulder Worsened by: improves with: Movement Relieved by: Nothing Narrative: Is a 55-year-old male presenting with 2 weeks of neck and back/shoulder pain. Patient slipped on ice 2 weeks ago and that is when this started. He did hit his head but did not have any loss of consciousness. Patient states the pain is worse on the right side and into his right shoulder. He saw his primary care doctor 3 days ago and was prescribed 5 mg of Flexeril. He has been taking 2 of them at a time is not having any relief. He came to the emergency room to be evaluated further. He denies any associated numbness or tingling. He denies any vision changes, chest pain, shortness of breath or any other acute symptoms. He denies any weakness or pain in his lower back/legs. Past Medical History - Allergies and Home Meds Allergies/Adverse Reactions: Allergies No Known Allergies Allergy (Verified 12/26/20 08:40) Primary Care Physician: Lukas Chatterjee MD [Primary Care Provider] - Surgical History: no surgical history, noncontributory Smoking Status: Former smoker Review of Systems General: Denies: Chills, Fever, Sweats Eyes: Denies: Visual changes - bilaterally, Diplopia ENT: Denies: Rhinorrhea, Sore throat Cardiovascular: Denies: Chest pain, Palpitations Respiratory: Denies: Dyspnea, Cough, Dyspnea on exertion Gastrointestinal: Denies: Abdominal pain, Nausea, Vomiting, Diarrhea Musculoskeletal: Reports: Neck pain, Back pain - Right upper shoulder/thoracic back area. Denies: Extremity Pain Skin: Denies: Rash, Wounds Neurological: Denies: Headache, Weakness, Parasthesia, Numbness Physical Exam Vital Signs/Narrative: Vital Signs Temp Pulse Resp BP Pulse Ox 12/26/20 08:40 96.5 F L 84 16 181/88 H 98 Inital Vital Signs reviewed: Yes General: Well nourished, Well developed, Obese Head: Normocephalic, Atraumatic. Negative for: Trauma Eyes: Perrl, EOMI ENT: Moist mucous membranes, No rhinorrhea, TM's clear, - - No Hemotympanum Neck: Supple, Nontender, - - Midline tenderness. Bilateral paraspinal tenderness to palpation Cardiovascular: Regular rate, Regular rhythm, No murmurs Respiratory: No distress, CTA bilaterally, Chest nontender Abdomen: Soft, Nontender, Nondistended, Normal bowel sounds Back: Normal Inspection, Nontender, Paraspinal Tenderness - Right thoracic region, - - Tenderness to palpation of right trapezius. Negative for: Spinal tenderness, CVA tenderness Extremeties: Nontender, No edema, Strong Pulses, Symmetric, - - Range of motion of extremities. No deformity or obvious injury. No bony tenderness. Skin: Normal color, No rash Neuro: Alert, Oriented, Normal Strength, Normal Sensation, Normal DTR, Normal Gait Psychological: Normal affect Diagnostic/Tx/Re-eval Clinical Impression(s) from Imaging Studies Cervical Spine X-Ray 12/26/20 09:32 IMPRESSION: 1. Straightening of the cervical spine which could be due to muscle spasm. 2. Degenerative changes at the level C5-C6. 3. No demonstrated acute fracture. 4. If symptoms persist, if symptoms persist, CT scan or MRI of the cervical spine is recommended. Electronically Signed: Josue Ramesh MD at 10:01 EST Tel , Service support , - Medical Decision Making Patient is evaluated for persistent neck and upper back/right shoulder pain after a fall 2 weeks ago. Patient peers nontoxic in no acute distress. While he did hit his head he has a normal neurologic exam and is not on any oral anticoagulants. Given that it is been 2 weeks I do not think a head CT is indicated. His pain appears to be muscle skeletal and associated muscle spasms. He is on any midline tenderness. Patient is concerned because of popping/cracking of his neck with movement. X-rays obtained which does not show any acute fracture. Patient previously been on Flexeril but is not helping. Patient will be placed on a short course of Valium for muscle relaxer. He will follow-up with his PCP. Patient is counseled on signs and symptoms requiring return to the emergency room. Patient verbalizes agreement and understand this plan. Patient discharged home in stable and improved condition. ED Disposition - Plan for ED Patient: Disposition: Home or Assisted Living Diagnosis: Muscle spasms of neck, Trapezius muscle spasm Instructions: ED Neck Spasm, No Trauma Prescriptions: Diazepam [Valium] 5 mg PO Q8 PRN #12 tab PRN Reason: Spasms Transmission Status: Received by [employer] #30 Referrals: Lukas Chatterjee MD [Primary Care Provider] - Additional Instructions: Apply heat to your neck and back. Take ibuprofen and Tylenol as needed for pain. Follow-up with your primary care provider.
== END 2020-12-26 11:02 | disposition home or self-care (01) ==
PROVIDERS: Emergency Provider Emergency Medicine; PCP Family Medicine
DX: M62.838 Other muscle spasm (principal); M62.830 Muscle spasm of back; E66.9 Obesity, unspecified; Z79.82 Long term (current) use of aspirin; Z79.899 Other long term (current) drug therapy; Z87.891 Personal history of nicotine dependence
CPT/HCPCS: 72040; 99283

== ENCOUNTER 2020-12-29 07:07 | Emergency (ER) | payer MEDICAID, SELFPAY ==
[2020-12-29 07:08] VITALS: BP 164/101; PULSE 78; RESP 18; TEMP 36.6; O2SAT 98; BMI 35.2
--- NOTE | 2020-12-29 07:14 | EKG12_ITS ---
Test Reason : CP Blood Pressure : / mmHG Vent. Rate : 075 BPM Atrial Rate : 075 BPM P-R Int : 168 ms QRS Dur : 096 ms QT Int : 398 ms P-R-T Axes : 047 043 059 degrees QTc Int : 444 ms Normal sinus rhythm Normal ECG Confirmed by MINISTERIO CULP, CARLOS ([id number]), medical transcription editor SUE RAMIREZ ([id number]) on 01/03/2021 2:16:36 PM Referred By: HAZEL Confirmed By:CARLOS MANDEL MD
[2020-12-29] MEDS: Aspirin 81 MG TAB.CHEW 324 MG PO (07:19)
[2020-12-29 07:20] VITALS: O2SAT 99
[2020-12-29 07:22] VITALS: BP 157/99; PULSE 68; RESP 18; O2SAT 99
[2020-12-29 07:24] LABS: Absolute Lymphocyte Count 1.66 X10^3/uL (0.83-4.51); Absolute Neutrophil Count 4.5 X10^3/uL (2.0-7.7); Basophil# 0.05 X10^3/uL; Basophil% 0.7 % (0-1); Eosinophils% 2.8 % (0-5); Hematocrit 44.4 % (40-54); Hemoglobin 14.3 g/dL (13.0-16.5); Lymphocyte # 1.66 X10^3/ul (4.0); Lymphocyte % 23.4 % (19-41); Mean Corp Hgb Conc 32.2 g/dL (32-36); Mean Corpuscular Hgb 29.9 pg (27.0-32.0); Mean Corpuscular Volume 92.7 fL (80-94); Mean Platelet Vol. 9.6 fl (6.2-12.0); Monocyte# 0.65 X10^3/uL; Monocyte% 9.2 % (0-10); NRBC Flagged by Analyzer 0 % (0-5); Neutrophil # 4.51 X10^3/uL (2.7-7.7); Neutrophil % 63.6 % (47-70); Platelet Count 309 K/mm3 (150-450); RBC Distribution Width CV 13.2 % (11.6-14.6); RBC Distribution Width SD 44.8 fl (35.1-43.9); Red Blood Count 4.79 M/mm3 (4.6-6.2); White Blood Count 7.1 K/mm3 (4.4-11.0)
--- NOTE | 2020-12-29 07:33 | RAD_ITS ---
STUDY: X-RAY CHEST REASON FOR EXAM: Male, 55 years old. chest pain TECHNIQUE: PA and lateral views of the chest. COMPARISON: FINDINGS: The lungs are clear and expanded. There is no demonstrated pleural abnormality. Normal size heart. Normal mediastinum and jaden. Normal visualized pulmonary arteries. Normal visualized aortic arch and descending thoracic aorta. Normal visualized thoracic spine. Normal visualized ribs, clavicles, and shoulders. There is no demonstrated abnormality of the visualized soft tissue structures of the upper abdomen. RAD/Chest PA and Lateral IMPRESSION: Normal x-ray examination of the chest. Electronically Signed: Christiano Valero MD at 7:47 EST Tel , Service support ,
--- NOTE | 2020-12-29 07:35 | ED.DCSUM_ITS ---
History of Present Illness Chief Complaint: Chest Pain Informant: Patient Narrative: Patient presenting for evaluation secondary to chest pain. Patient presents reporting that he has a past history of a heart attack. Patient states that this was last year, he had coronary angiography that was unremarkable and did not receive any stents. Patient tells me that since yesterday he has been having chest pain. He describes it as a heaviness. No radiation. There is some worsening with exertion, and associated shortness of breath as well as some lightheadedness. He denies any palpitations. Patient denies any recent illnesses such as fever cough nausea vomiting or diarrhea. No real relieving factors as far as the patient's chest pain. Patient denies any DVT or PE risk factors. Review of systems otherwise negative. Past Medical History - Allergies and Home Meds Allergies/Adverse Reactions: Allergies No Known Allergies Allergy (Verified 12/29/20 07:11) Primary Care Physician: Lukas Chatterjee MD [Primary Care Provider] - Prior records reviewed: Yes Past Medical History: - - Asthma, hypertension, hyperlipidemia, diabetes Surgical History: no surgical history, noncontributory Lives: With Family Smoking Status: Former smoker Alcohol: Sober Drugs: Marijuana Review of Systems All systems negative except as indicated General: Denies: Chills, Fever, Sweats Eyes: Denies: Visual changes - bilaterally, Diplopia ENT: Denies: Rhinorrhea, Sore throat Cardiovascular: Reports: Chest pain Respiratory: Reports: Dyspnea Gastrointestinal: Denies: Abdominal pain, Nausea, Vomiting, Diarrhea, Melena, Hematochezia Genitourinary: Denies: Dysuria, Hematuria, Frequency Musculoskeletal: Denies: Back pain, Extremity Pain Skin: Denies: Rash, Wounds Neurological: Denies: Headache, Weakness, Numbness Physical Exam Vital Signs/Narrative: Vital Signs Temp Pulse Resp BP Pulse Ox 12/29/20 07:22 68 18 157/99 H 99 12/29/20 07:20 99 12/29/20 07:08 97.8 F 78 18 164/101 H 98 Inital Vital Signs reviewed: Yes General: Obese, - - Strong smell of marijuana Head: Normocephalic, Atraumatic Eyes: Perrl, EOMI ENT: Moist mucous membranes, No rhinorrhea Neck: Supple, Nontender Cardiovascular: Regular rate, Regular rhythm, No murmurs Respiratory: No distress, CTA bilaterally, Chest nontender Abdomen: Soft, Nontender, Nondistended, Normal bowel sounds Back: Nontender, Normal Inspection Extremities: Nontender, No edema Skin: Normal color, No rash Neurological: Alert, Oriented x3, Cranial nerves II-XII grossly intact, Normal Strength, Normal Sensation Psychological: Normal affect, Normal Mood Diagnostic/Tx/Re-eval Chest X-Ray - ED: 2 View, Read by ED Physician, Normal Clinical Impression(s) from Imaging Studies Chest X-Ray 12/29/20 07:33 IMPRESSION: Normal x-ray examination of the chest. Electronically Signed: Christiano Valero MD at 7:47 EST Tel , Service support , Laboratory Data 12/29/20 12/29/20 07:12 07:12 WBC 7.1 RBC 4.79 Hgb 14.3 Hct 44.4 MCV 92.7 MCH 29.9 MCHC 32.2 RDW Std Deviation 44.8 H RDW Coeff of Jose 13.2 Plt Count 309 MPV 9.6 Immature Gran % (Auto) 0.300 Neut % (Auto) 63.6 Lymph % (Auto) 23.4 [place] % (Auto) 9.2 Eos % (Auto) 2.8 Baso % (Auto) 0.7 Absolute Neuts (auto) 4.5 Absolute Lymphs (auto) 1.66 Nucleated RBC % 0 Sodium 140 Potassium 4.2 Chloride 107 Carbon Dioxide 27.0 Anion Gap 6 BUN 19 H Creatinine 0.99 Estim Creat Clear Calc 91.45 Est GFR (MDRD) Af Amer 101 Est GFR (MDRD) Non-Af 83 BUN/Creatinine Ratio 19.2 Glucose 139 H Calcium 8.8 Troponin I < 0.015 - EKG Initial EKG Interpretation: - - Sinus rhythm at [address] segments, normal T waves, normal NC and QTc intervals no evidence of acute ischemia or arrhythmia. No changes from prior EKG in November of this year. - Medical Decision Making Patient presented secondary to greater than 12 hours of consistent chest pain. An EKG was obtained which was found to be within normal limits. PA and lateral chest x-ray by my personal review as well as radiology shows no acute cardiopulmonary process. CBC chemistry troponin found to be unremarkable. Patient does not have a presentation that would seem consistent with pulmonary e mbolism, he does not have tachycardia or hypoxia. Patient's heart score is 3. I reviewed the patient's cardiac catheterization from February and while he states that he had a history of a heart attack his cardiac catheterization actually showed completely normal coronary arteries. I do not feel the patient requires admission given his negative work-up and low heart score and negative cardiac catheterization within a year. Patient was given reassurance. Patient was discharged in stable condition. ED Disposition - Plan for ED Patient: Disposition: Home or Assisted Living Diagnosis: Chest pain Instructions: ED Chest Pain, Uncertain Cause Referrals: Acosta Carr MD [STAFF PHYSICIAN] - 1-2 Weeks
[2020-12-29 07:50] LABS: Anion Gap 6 (5-15); BUN 19 mg/dL (7-18); BUN/Creat Ratio 19.2 RATIO (10-20); Calcium,Total 8.8 mg/dL (8.5-10.1); Chloride 107 mmol/L (98-107); Creatinine, Serum 0.99 mg/dL (0.70-1.30); EST Glomerular Filtration Rate 83 mL/min (>60); Est Glom Filt Rate - Afr Amer 101 mL/min (>60); Estimated Creatinine Clearance 91.45 ml/min; Glucose 139 mg/dL (74-106); Potassium 4.2 mmol/L (3.5-5.1); Sodium Level 140 mmol/L (136-145)
[2020-12-29 08:58] VITALS: BP 151/90; PULSE 62; RESP 16; O2SAT 96
[2020-12-29 09:17] VITALS: BP 134/78; PULSE 61; RESP 14; O2SAT 99
== END 2020-12-29 09:22 | disposition home or self-care (01) ==
PROVIDERS: Emergency Provider Emergency Medicine; PCP Family Medicine
DX: R07.9 Chest pain, unspecified (principal); E11.9 Type 2 diabetes mellitus without complications; I10 Essential (primary) hypertension; E78.5 Hyperlipidemia, unspecified; J45.909 Unspecified asthma, uncomplicated; E66.9 Obesity, unspecified; I25.2 Old myocardial infarction; Z79.82 Long term (current) use of aspirin; Z79.899 Other long term (current) drug therapy; Z87.891 Personal history of nicotine dependence
CPT/HCPCS: 71046; 80048; 84484; 85025; 93005; 99285; A4216

== ENCOUNTER 2020-12-30 09:33 | Emergency (ER) | payer MEDICAID, SELFPAY ==
[2020-12-29 07:08] VITALS: BMI 35.2
[2020-12-30 09:33] VITALS: BP 158/89; PULSE 70; RESP 18; TEMP 36.4; O2SAT 99; BMI 33.2
--- NOTE | 2020-12-30 09:38 | ED.RN ---
PT STATES EXPOSURE TO CHEMICALS AT WORK MAY BE CAUSING S/S
--- NOTE | 2020-12-30 09:56 | RAD_ITS ---
STUDY: X-RAY CHEST REASON FOR EXAM: Male, 55 years old. Dyspnea TECHNIQUE: Single AP portable view of the chest. COMPARISON: Comparison is made with prior study of 12/29/2020. FINDINGS: EKG electrodes are seen. Hyperinflation. Scattered calcified granulomas. No acute abnormality is seen. There is no demonstrated pleural abnormality. Normal size heart. Normal mediastinum and jaden. Normal visualized pulmonary arteries. Normal visualized aortic arch and descending thoracic aorta. There are degenerative changes of the visualized thoracic spine. Normal visualized ribs, clavicles, and shoulders. There is no demonstrated abnormality of the visualized soft tissue structures of the upper abdomen. RAD/Chest 1 View (Portable) IMPRESSION: Hyperinflation. The lungs are clear. Electronically Signed: Antony Servin MD at 10:21 EST , Service support ,
[2020-12-30 09:58] VITALS: O2SAT 97
--- NOTE | 2020-12-30 09:59 | ED.VISSUMM ---
- ER Visit Summary Date of Service: 12/30/20 Chief Complaint: Shortness of breath History of Present Illness: The patient is a 55 M who presents with shortness of breath that began yesterday. Patient states that he was here yesterday for chest pain. Patient was discharged home after a normal evaluation. Patient states that today he got to work and he felt short of breath again. Patient states the chemicals at work make his breathing worse. Patient states it is better whenever he is out in the fresh air. Patient admits to a cough with some clear sputum. Patient denies any fevers or chills. Patient does admit to a mild sore throat and rhinorrhea. Patient states he was having tightness in his chest again today. Patient denies any PE risk factors. Patient states he does have a rescue inhaler which he took with him to work. Patient states he used this with no improvement. Physical Examination: Vital signs are stable. Patient is afebrile. Patient is in no acute distress. Oral mucosa is pink and moist. Neck is supple. Trachea is midline. There is no JVD noted. Heart was regular rate and rhythm. Lungs are clear and equal bilaterally. Abdomen is soft. Bowel sounds are normal. There is no tenderness. There is no rebound or guarding noted. Skin is warm dry. Cranial nerves II through XII are intact. There are no focal motor or sensory deficits noted. Extremities are intact. There is no calf tenderness or edema. Test Results: Portable 1 view chest x-ray was obtained. On my interpretation, lung urbina are clear. There is normal cardiac silhouette. Bony thorax is normal. There is no acute process noted. Radiologist also interpreted the x-ray and agrees. COVID-19 rapid antigen was obtained and was negative. Emergency Department Course and Treatment: Patient was given a DuoNeb aerosol here. Patient was feeling better on reevaluation. Patient was instructed to continue using his rescue inhaler as needed. Patient was instructed to follow-up with his primary care physician in 3 to 5 days. Patient understood and was agreeable with the plan. All questions were answered. Disposition: Discharge home Impression: Dyspnea This note was generated with [employer] dictation software. It may contain incorrect words, spelling, and punctuation that were not noted in review of the chart prior to signing ED Disposition - Plan for ED Patient: Disposition: Home or Assisted Living Diagnosis: Dyspnea Instructions: ED Dyspnea Referrals: Lukas Chatterjee MD [Primary Care Provider] - 3-5 Days
[2020-12-30] MEDS: Ipratropium/Albuterol Sulfate 3 ML AMPUL.NEB INHALATION (10:10)
[2020-12-30 10:11] VITALS: PULSE 63; RESP 15
[2020-12-30 11:04] VITALS: BP 161/104; PULSE 74; RESP 15; O2SAT 95
== END 2020-12-30 11:10 | disposition home or self-care (01) ==
PROVIDERS: Emergency Provider Emergency Medicine; PCP Family Medicine
DX: R06.09 Other forms of dyspnea (principal); Z20.822 Contact with and (suspected) exposure to COVID-19; R07.9 Chest pain, unspecified; J02.9 Acute pharyngitis, unspecified; J34.89 Other specified disorders of nose and nasal sinuses; M10.9 Gout, unspecified; F32.9 Major depressive disorder, single episode, unspecified; E66.9 Obesity, unspecified; Z79.82 Long term (current) use of aspirin; Z79.899 Other long term (current) drug therapy; Z87.891 Personal history of nicotine dependence
CPT/HCPCS: 71045; 87426; 94640; 99282

== ENCOUNTER 2021-01-18 07:09 | Emergency (ER) | payer MEDICAID, SELFPAY ==
[2021-01-10 15:46] VITALS: BMI 34.4
[2021-01-18 07:10] VITALS: BP 172/82; PULSE 75; RESP 16; TEMP 35.6; O2SAT 98; BMI 33.2
--- NOTE | 2021-01-18 07:21 | EKG12_ITS ---
Test Reason : CP Blood Pressure : / mmHG Vent. Rate : 065 BPM Atrial Rate : 065 BPM P-R Int : 172 ms QRS Dur : 102 ms QT Int : 418 ms P-R-T Axes : 000 018 063 degrees QTc Int : 434 ms Normal sinus rhythm Normal ECG Confirmed by TAYLOR CULP, LINDA ([id number]), digital editor MELISSA SPARKS ([id number]) on 01/20/2021 12:36:13 PM Referred By: MR Confirmed By:DOTTIE VAZQUEZ MD
[2021-01-18 07:22] VITALS: BP 172/82; PULSE 75; RESP 19; TEMP 35.5; O2SAT 96
--- NOTE | 2021-01-18 07:25 | RAD_ITS ---
STUDY: X-RAY CHEST REASON FOR EXAM: Male, 55 years old. chest pain TECHNIQUE: Frontal and lateral views of the chest. COMPARISON: 12/30/2020. FINDINGS: There are no confluent pulmonary infiltrates. There are calcified granulomas overlying the lung urbina. As seen on lateral view, there is increased retrosternal air space and partial flattening of diaphragms, suggesting COPD. There is no demonstrated pleural abnormality. Normal size heart. Normal mediastinum and jaden. Normal visualized aortic arch and descending thoracic aorta. There are no demonstrated acute fractures or destructive bone lesions. There is no demonstrated abnormality of the visualized soft tissue structures of the upper abdomen. RAD/Chest PA and Lateral IMPRESSION: Suggestion of COPD. Old granulomatous disease. No evidence for acute cardiopulmonary pathology. Electronically Signed: Les Zimmerman MD at 7:52 EDT , Service support ,
[2021-01-18 07:28] VITALS: O2SAT 96
[2021-01-18] MEDS: Aspirin 81 MG TAB.CHEW 324 MG PO (07:29)
--- NOTE | 2021-01-18 07:29 | ED.DCSUM_ITS ---
History of Present Illness Chief Complaint: Shortness of Breath Informant: Patient Narrative: Patient presenting for evaluation secondary to chest pain shortness of breath. Patient has a underlying history of hypertension and smoking. He had a cardiac catheterization last February that showed normal coronary arteries with no stenosis. Patient states that since yesterday he has been dealing with chest pain. He describes it as a tightness across his chest. He does state that there is somewhat of an exertional component that seems to make it worse and it is also associated with dyspnea. Patient denies recent infectious signs or symptoms such as fever cough nausea vomiting or diarrhea. He denies any DVT or PE risk factors such as leg swelling hemoptysis recent travel or surgery prior history of DVT or PE or any hormone use. Patient states that the pain got somewhat worse on the shortness of breath got somewhat worse when he was at work around people that were smoking today. Patient was in the emergency department earlier this month with similar presentation and had a negative work-up and was discharged. He has follow-up with his medical laboratory manager coming up next month. Review of systems otherwise negative Past Medical History - Allergies and Home Meds Allergies/Adverse Reactions: Allergies No Known Allergies Allergy (Verified 01/10/21 15:45) Primary Care Physician: Lukas Chatterjee MD [Primary Care Provider] - Prior records reviewed: Yes Past Medical History: - - Hypertension, hyperlipidemia Surgical History: no surgical history, noncontributory Smoking Status: Former smoker Alcohol: None Drugs: None Review of Systems All systems negative except as indicated General: Denies: Chills, Fever, Sweats Eyes: Denies: Visual changes - bilaterally, Diplopia ENT: Denies: Rhinorrhea, Sore throat Cardiovascular: Reports: Chest pain Respiratory: Reports: Dyspnea Gastrointestinal: Denies: Abdominal pain, Nausea, Vomiting, Diarrhea, Melena, Hematochezia Genitourinary: Denies: Dysuria, Hematuria, Frequency Musculoskeletal: Denies: Back pain, Extremity Pain Skin: Denies: Rash, Wounds Neurological: Denies: Headache, Weakness, Numbness Physical Exam Vital Signs/Narrative: Vital Signs Temp Pulse Resp BP Pulse Ox 01/18/21 07:22 96 F L 75 19 H 172/82 H 96 01/18/21 07:10 96.0 F L 75 16 172/82 H 98 Inital Vital Signs reviewed: Yes General: Well nourished, Well developed, Obese, No Acute Distress Head: Normocephalic, Atraumatic Eyes: Perrl, EOMI ENT: Moist mucous membranes, No rhinorrhea Neck: Supple, Nontender Cardiovascular: Regular rate, Regular rhythm, No murmurs, - - 2+ radial pulses. Occasional extrasystoles are noted. Respiratory: No distress, CTA bilaterally, Chest nontender. Negative for: Rales, Rhonchi, Wheezing Abdomen: Soft, Nontender, Nondistended, Normal bowel sounds Back: Nontender, Normal Inspection Extremities: Nontender, No edema. Negative for: Edema, Calf Tenderness Skin: Normal color, No rash Neurological: Alert, Oriented x3, Cranial nerves II-XII grossly intact, Normal Strength, Normal Sensation Psychological: Normal affect, Normal Mood Diagnostic/Tx/Re-eval Chest X-Ray - ED: 2 View, Read by ED Physician, Unchanged, Normal - Rhythm Strip Rhythm Strip: Sinus Rhythm Rate: 65 Ectopy: PVC(s) - EKG Initial EKG Interpretation: - - Normal sinus rhythm at [address] segments, normal T waves, normal ME and QTc intervals no evidence of acute ischemia or arrhythmia. Treatment: Aspirin - Medical Decision Making Patient presented secondary to chest pain shortness of breath. EKG was found to be unremarkable no signs of ischemia no changes from prior EKG. 2 view chest by my personal review shows no acute pathology does show changes consistent with likely COPD. CBC chemistry troponin were unremarkable. As the patient has been here a couple of times within the last month for similar shortness of breath complaints I did broaden the differential and added on a magnesium TSH and D- dimer which were all found to be unremarkable as well. Patient's maximum heart score is 3, has had continuous pain since yesterday do not feel that this is cardiac. Likewise I do not think that this is pulmonary embolism or other dangerous pathology that requires admission. I did inform the patient's medical laboratory manager of his frequent visits this month, he will follow the patient up as an outpatient. Patient was discharged in stable condition. ED Disposition - Plan for ED Patient: Disposition: Home or Assisted Living Diagnosis: Chest pain Instructions: ED Chest Pain, Uncertain Cause Referrals: Acosta Carr MD [STAFF PHYSICIAN] - Keep Allan appointment
[2021-01-18 07:30] LABS: Absolute Lymphocyte Count 2.49 X10^3/uL (0.83-4.51); Absolute Neutrophil Count 5.1 X10^3/uL (2.0-7.7); Basophil# 0.07 X10^3/uL; Basophil% 0.8 % (0-1); Eosinophils% 2.3 % (0-5); Hemoglobin 14.8 g/dL (13.0-16.5); Lymphocyte # 2.49 X10^3/ul (4.0); Lymphocyte % 28.1 % (19-41); Mean Corp Hgb Conc 32.9 g/dL (32-36); Mean Corpuscular Hgb 30.3 pg (27.0-32.0); Mean Platelet Vol. 9.7 fl (6.2-12.0); Monocyte# 0.97 X10^3/uL; NRBC Flagged by Analyzer 0 % (0-5); Neutrophil # 5.08 X10^3/uL (2.7-7.7); Neutrophil % 57.3 % (47-70); Platelet Count 276 K/mm3 (150-450); RBC Distribution Width CV 13.8 % (11.6-14.6); RBC Distribution Width SD 46.9 fl (35.1-43.9); Red Blood Count 4.89 M/mm3 (4.6-6.2); White Blood Count 8.9 K/mm3 (4.4-11.0)
[2021-01-18 07:57] LABS: Anion Gap 5 (5-15); BUN 19 mg/dL (7-18); BUN/Creat Ratio 20.5 RATIO (10-20); Calcium,Total 9.1 mg/dL (8.5-10.1); Chloride 105 mmol/L (98-107); Creatinine, Serum 0.93 mg/dL (0.70-1.30); EST Glomerular Filtration Rate 89 mL/min (>60); Est Glom Filt Rate - Afr Amer 108 mL/min (>60); Estimated Creatinine Clearance 97.35 ml/min; Glucose 110 mg/dL (74-106); Magnesium 1.9 mg/dL (1.6-2.6); Sodium Level 138 mmol/L (136-145); Thyroid Stim Hormone (TSH) 2.11 uIU/mL (0.358-3.74)
[2021-01-18 08:07] LABS: D-Dimer Quantitative (DVT/PE) 0.55 FEU/ug/m (0.27-0.49)
[2021-01-18 08:36] VITALS: BP 162/97; PULSE 66; RESP 18; O2SAT 96
== END 2021-01-18 08:38 | disposition home or self-care (01) ==
PROVIDERS: Emergency Provider Emergency Medicine; PCP Family Medicine
DX: R07.9 Chest pain, unspecified (principal); R06.02 Shortness of breath; I10 Essential (primary) hypertension; E78.5 Hyperlipidemia, unspecified; E66.9 Obesity, unspecified; Z79.82 Long term (current) use of aspirin; Z79.899 Other long term (current) drug therapy; Z87.891 Personal history of nicotine dependence
CPT/HCPCS: 71046; 80048; 83735; 84443; 84484; 85025; 85379; 93005; 99285; A4216

== ENCOUNTER → 2021-02-03 13:07 | Outpatient (CLI) | payer MEDICAID, SELFPAY ==
[2021-01-27 13:56] VITALS: BMI 34.4
--- NOTE | 2021-02-03 13:09 | CT_ITS ---
STUDY: LOW DOSE CT LUNG CANCER SCREENING REASON FOR EXAM: Male, 55 years old. h/o tobacco dependency lung cancer screening RADIATION DOSAGE (If Supplied By Facility): CTDIvol = ( 3.18 ) mGy, DLP = ( 108.41 ) mGycm TECHNIQUE: No contrast was administered. Low dose technique was utilized (average mAS-38 and kVp 120). 1.25 mm axial source images with a slice interval of 1.25-mm were reconstructed in lung windows. 2.5 mm axial source images with a slice interval of 2.5-mm were reconstructed in lung windows. 5.0 mm axial source images with a slice interval of 5.0-mm were reconstructed in soft tissue windows. Nodule measured using lung windows on PACS and/or independent workstation with automated measurement of minimum and maximum diameter. Nodule measurement reported as average diameter rounded to the nearest whole number. Growth is defined as an increase ins size of greater than 1.5 mm. COMPARISON: 02 July 2020 Findings: Lungs are moderately emphysematous with multiple scattered benign calcified granulomata. There are no focal high risk opacities. Airways are patent. Pleural surfaces are intact. Coronary arteries are severely diseased. Mediastinal contents are normal on the limited screening CT chest exam. Osseous structures are intact. CT/Low Dose CT Lung Screening IMPRESSION: 1. Lung RADS category 1. Follow-up CT in one year. 2. Moderate emphysema. 3. Severe coronary artery disease. Cardiology attention advised. IMPORTANT NOTES FOR USE: ACR Lung-RADS Version 1.1 Assessment Categories Release Date: 2018 Category: Coded 0-4 bases on nodule(s) with highest degree of suspicion. Negative screen is defined as categories 1 and 2; a positive screen is defined as categories 3 and 4. Category 3 and 4A nodules that are unchanged on interval CT should be coded as category 2, and individuals returned to screening in 12 months. Category 4X: Category 3 or 4 nodules with additional imaging findings that increase the suspicion of lung cancer, such as spiculation, GGN that doubles in size in 1 year, enlarged lymph notes, etc. Category Modifiers: S (significant finding unrelated to lung cancer) Electronically Signed: Tita Schafer MD at 20:16 EDT Tel , Service support ,
== END ==
PROVIDERS: PCP Family Medicine; Referring Provider Internal Medicine Critical Care Medicine; Visit Provider Internal Medicine Critical Care Medicine
DX: F17.210 Nicotine dependence, cigarettes, uncomplicated (principal)
CPT/HCPCS: 71271

== ENCOUNTER → 2021-02-08 14:40 | Outpatient (CLI) | payer MEDICAID, SELFPAY ==
[2021-02-08 13:51] VITALS: BMI 34.8
[2021-02-08 16:34] LABS: ALB/GLOB Ratio 1.1 RATIO (0.9-2.4); AST(SGOT) 17 U/L (15-37); Alanine Aminotransfer ALT/SGPT 27 U/L (16-61); Alkaline Phosphatase 64 U/L (45-117); Anion Gap 8 (5-15); BUN 17 mg/dL (7-18); BUN/Creat Ratio 16.8 RATIO (10-20); Calcium,Total 9.1 mg/dL (8.5-10.1); Chloride 105 mmol/L (98-107); Creatinine, Serum 1.01 mg/dL (0.70-1.30); EST Glomerular Filtration Rate 81 mL/min (>60); Est Glom Filt Rate - Afr Amer 98 mL/min (>60); Globulin 3.6 g/dL (2.2-4.2); Glucose 121 mg/dL (74-106); Potassium 3.6 mmol/L (3.5-5.1); Protein, Total 7.6 g/dL (6.4-8.2); Sodium Level 138 mmol/L (136-145)
== END ==
PROVIDERS: PCP Family Medicine; Referring Provider Nurse Practitioner Family; Visit Provider Nurse Practitioner Family
DX: R07.9 Chest pain, unspecified (principal); I10 Essential (primary) hypertension; E78.5 Hyperlipidemia, unspecified; R06.00 Dyspnea, unspecified; F17.200 Nicotine dependence, unspecified, uncomplicated
CPT/HCPCS: 36415; 80053; 83880

== ENCOUNTER → 2021-03-09 16:04 | Outpatient (CLI) | payer MEDICAID, SELFPAY ==
[2021-02-15 12:42] VITALS: BMI 34.8
[2021-03-09 17:26] LABS: Absolute Lymphocyte Count 2.94 X10^3/uL (0.83-4.51); Absolute Neutrophil Count 6.5 X10^3/uL (2.0-7.7); Basophil# 0.07 X10^3/uL; Basophil% 0.7 % (0-1); Eosinophil# 0.22 X10^3/uL; Eosinophils% 2.1 % (0-5); Hematocrit 45.1 % (40-54); Hemoglobin 14.4 g/dL (13.0-16.5); Lymphocyte # 2.94 X10^3/ul (0.83-4.51); Lymphocyte % 27.5 % (19-41); Mean Corp Hgb Conc 31.9 g/dL (32-36); Mean Corpuscular Hgb 29.4 pg (27.0-32.0); Mean Corpuscular Volume 92.2 fL (80-94); Mean Platelet Vol. 10.2 fl (6.2-12.0); Monocyte# 0.92 X10^3/uL; Monocyte% 8.6 % (0-10); NRBC Flagged by Analyzer 0 % (0-5); Neutrophil # 6.49 X10^3/uL (2.7-7.7); Neutrophil % 60.5 % (47-70); Platelet Count 317 K/mm3 (150-450); RBC Distribution Width CV 13.7 % (11.6-14.6); RBC Distribution Width SD 46.5 fl (35.1-43.9); Red Blood Count 4.89 M/mm3 (4.6-6.2); White Blood Count 10.7 K/mm3 (4.4-11.0)
[2021-03-09 17:44] LABS: AST(SGOT) 18 U/L (15-37); Alanine Aminotransfer ALT/SGPT 28 U/L (16-61); Albumin, Serum 3.7 g/dL (3.2-5.0); Alkaline Phosphatase 61 U/L (45-117); Anion Gap 7 (5-15); BUN 20 mg/dL (7-18); Calcium,Total 9.5 mg/dL (8.5-10.1); Chloride 108 mmol/L (98-107); Cholesterol 202 mg/dL (200); Creatinine, Serum 1.11 mg/dL (0.70-1.30); EST Glomerular Filtration Rate 73 mL/min (>60); Est Glom Filt Rate - Afr Amer 88 mL/min (>60); Globulin 3.7 g/dL (2.2-4.2); Glucose 98 mg/dL (74-106); High Density Lipoprotein 39 mg/dL; Protein, Total 7.4 g/dL (6.4-8.2); Sodium Level 140 mmol/L (136-145); Triglycerides 265 mg/dL; Very Low Density Lipoprotein 53 mg/dL (5-40)
[2021-03-09 17:49] LABS: Hemoglobin A1c 5.7 % (3.8-5.6)
== END ==
PROVIDERS: PCP Family Medicine; Referring Provider Family Medicine; Visit Provider Family Medicine
DX: I10 Essential (primary) hypertension (principal); E78.00 Pure hypercholesterolemia, unspecified; R73.02 Impaired glucose tolerance (oral)
CPT/HCPCS: 36415; 80053; 80061; 83036; 85025

== ENCOUNTER → 2021-09-14 08:39 | Outpatient (CLI) | payer MEDICAID, SELFPAY ==
[2021-09-14 09:51] LABS: Absolute Lymphocyte Count 3.27 X10^3/uL (0.83-4.51); Absolute Neutrophil Count 5.3 X10^3/uL (2.0-7.7); Basophil# 0.07 X10^3/uL; Basophil% 0.7 % (0-1); Hematocrit 44.7 % (40-54); Hemoglobin 14.7 g/dL (13.0-16.5); Lymphocyte # 3.27 X10^3/ul (0.83-4.51); Lymphocyte % 33.4 % (19-41); Mean Corp Hgb Conc 32.9 g/dL (32-36); Mean Corpuscular Hgb 30.7 pg (27.0-32.0); Mean Corpuscular Volume 93.3 fL (80-94); Mean Platelet Vol. 10.3 fl (6.2-12.0); Monocyte# 0.87 X10^3/uL; Monocyte% 8.9 % (0-10); NRBC Flagged by Analyzer 0 % (0-5); Neutrophil # 5.32 X10^3/uL (2.7-7.7); Neutrophil % 54.5 % (47-70); Platelet Count 331 K/mm3 (150-450); RBC Distribution Width CV 13.4 % (11.6-14.6); RBC Distribution Width SD 45.7 fl (35.1-43.9); Red Blood Count 4.79 M/mm3 (4.6-6.2); White Blood Count 9.8 K/mm3 (4.4-11.0)
[2021-09-14 10:17] LABS: Hemoglobin A1c 5.6 % (3.8-5.6)
[2021-09-14 10:20] LABS: ALB/GLOB Ratio 0.9 RATIO (0.9-2.4); AST(SGOT) 10 U/L (15-37); Alanine Aminotransfer ALT/SGPT 23 U/L (16-61); Albumin, Serum 3.7 g/dL (3.2-5.0); Alkaline Phosphatase 58 U/L (45-117); Anion Gap 4 (5-15); BUN 20 mg/dL (7-18); BUN/Creat Ratio 20.4 RATIO (10-20); Calcium,Total 9.1 mg/dL (8.5-10.1); Chloride 104 mmol/L (98-107); Cholesterol 198 mg/dL (200); Creatinine, Serum 0.98 mg/dL (0.70-1.30); EST Glomerular Filtration Rate 84 mL/min (>60); Est Glom Filt Rate - Afr Amer 101 mL/min (>60); Globulin 4.2 g/dL (2.2-4.2); Glucose 86 mg/dL (74-106); High Density Lipoprotein 40 mg/dL; Potassium 4.2 mmol/L (3.5-5.1); Protein, Total 7.9 g/dL (6.4-8.2); Sodium Level 137 mmol/L (136-145); Triglycerides 166 mg/dL; Uric Acid 7.6 mg/dL (3.5-7.2); Very Low Density Lipoprotein 33 mg/dL (5-40)
== END ==
PROVIDERS: PCP Family Medicine; Referring Provider Family Medicine; Visit Provider Family Medicine
DX: I10 Essential (primary) hypertension (principal); E78.00 Pure hypercholesterolemia, unspecified; R73.02 Impaired glucose tolerance (oral); M10.9 Gout, unspecified
CPT/HCPCS: 36415; 80053; 80061; 81001; 83036; 84550; 85025

== ENCOUNTER → 2021-10-26 11:06 | Outpatient (CLI) | payer MEDICAID, SELFPAY ==
[2021-10-26 12:51] LABS: Amphetamine Urine VISTA NEGATIVE (<1000 ng/mL); Barbiturate Urine VISTA NEGATIVE (< 200 ng/mL); Benzodiazepine Urine VISTA NEGATIVE (< 200 ng/mL); Cocaine Urine VISTA NEGATIVE (< 300 ng/mL); Ecstacy Urine VISTA NEGATIVE (< 500 ng/mL); Methadone Urine VISTA NEGATIVE (< 300 ng/mL); PCP Urine VISTA NEGATIVE (< 25 ng/mL); THC Urine VISTA POSITIVE (< 50 ng/mL); Vista UDS pH Range 6
== END ==
PROVIDERS: PCP Family Medicine; Referring Provider Family Medicine; Visit Provider Family Medicine
DX: F12.10 Cannabis abuse, uncomplicated (principal)
CPT/HCPCS: 80307

== ENCOUNTER 2021-11-08 12:13 | Outpatient (CLI) | payer MEDICAID, SELFPAY ==
[2021-11-08 15:50] LABS: Amphetamine Urine VISTA NEGATIVE (<1000 ng/mL); Barbiturate Urine VISTA NEGATIVE (< 200 ng/mL); Benzodiazepine Urine VISTA NEGATIVE (< 200 ng/mL); Cocaine Urine VISTA NEGATIVE (< 300 ng/mL); Ecstacy Urine VISTA NEGATIVE (< 500 ng/mL); Methadone Urine VISTA NEGATIVE (< 300 ng/mL); PCP Urine VISTA NEGATIVE (< 25 ng/mL); THC Urine VISTA POSITIVE (< 50 ng/mL); Vista UDS pH Range 5
[2021-11-28 18:08] LABS: Cannabinoid Positive (.)
[2021-11-29 12:46] LABS: THC GC/MS Conf 125 ng/mL (Cutoff=10)
== END 2021-11-08 23:59 | disposition short-term general hospital (02) ==
LOC: MFPLAB 12:14
PROVIDERS: PCP Family Medicine; Referring Provider Family Medicine; Visit Provider Family Medicine
DX: F12.10 Cannabis abuse, uncomplicated (principal)
CPT/HCPCS: 80307

== ENCOUNTER 2022-01-19 15:01 | Outpatient (CLI) | payer MEDICAID, SELFPAY ==
[2022-01-19 18:11] LABS: Amphetamine Urine VISTA NEGATIVE (<1000 ng/mL); Barbiturate Urine VISTA NEGATIVE (< 200 ng/mL); Benzodiazepine Urine VISTA NEGATIVE (< 200 ng/mL); Cocaine Urine VISTA NEGATIVE (< 300 ng/mL); Ecstacy Urine VISTA NEGATIVE (< 500 ng/mL); Methadone Urine VISTA NEGATIVE (< 300 ng/mL); PCP Urine VISTA NEGATIVE (< 25 ng/mL); THC Urine VISTA POSITIVE (< 50 ng/mL); Vista UDS pH Range 6
== END 2022-01-19 23:59 | disposition home or self-care (01) ==
LOC: MFPLAB 15:01
PROVIDERS: PCP Family Medicine; Referring Provider Family Medicine; Visit Provider Family Medicine
DX: F12.10 Cannabis abuse, uncomplicated (principal)
CPT/HCPCS: 80307

== ENCOUNTER → 2022-02-20 | Outpatient (CLI) | payer MEDICAID, SELFPAY ==
--- NOTE | 2022-02-20 07:09 | CT_ITS ---
STUDY: LOW DOSE CT LUNG CANCER SCREENING REASON FOR EXAM: Male, 56 years old. smoking and gt; 30 pack years. 24 pack-year history. RADIATION DOSAGE (If Supplied By Facility): CTDIvol = ( 3.18 ) mGy, DLP = ( 114.77 ) mGycm TECHNIQUE: No contrast was administered. Low dose technique was utilized (average mAS-38 and kVp 120). 1.25 mm axial source images with a slice interval of 1.25-mm were reconstructed in lung windows. 2.5 mm axial source images with a slice interval of 2.5-mm were reconstructed in lung windows. 5.0 mm axial source images with a slice interval of 5.0-mm were reconstructed in soft tissue windows. COMPARISON: 02/03/2021 NODULES: No noncalcified pulmonary nodules are localized groundglass opacities. Scattered pulmonary granulomata. Emphysema: Mild centrilobular emphysema. Endobronchial lesion: None Aorta: Unremarkable CORONARY ARTERIES: Coronary artery calcification is seen. Heart: Normal size Pulmonary artery: Unremarkable for unopacified technique Mediastinal nodes: No adenopathy. Calcified hilar mediastinal lymph nodes. Other chest and abdominal findings: No incidental findings require additional workup. CT/Low Dose CT Lung Screening IMPRESSION: Lung-RADS category 1 - Continue annual screening with LDCT in 12 months. IMPORTANT NOTES FOR USE: ACR Lung-RADS Version 1.1 Assessment Categories Release Date: 2018 Category: Coded 0-4 bases on nodule(s) with highest degree of suspicion. Negative screen is defined as categories 1 and 2; a positive screen is defined as categories 3 and 4. Category 3 and 4A nodules that are unchanged on interval CT should be coded as category 2, and individuals returned to screening in 12 months. Category 4X: Category 3 or 4 nodules with additional imaging findings that increase the suspicion of lung cancer, such as spiculation, GGN that doubles in size in 1 year, enlarged lymph notes, etc. Category Modifiers: S (significant finding unrelated to lung cancer) Electronically Signed: Cristobal Alvarado MD ([place]) at 8:59 EDT Reading Location ID and State: / [place] , Service support ,
== END | disposition home or self-care (01) ==
LOC: CT 07:08
PROVIDERS: PCP Family Medicine; Referring Provider Nurse Practitioner Acute Care; Visit Provider Nurse Practitioner Acute Care
DX: F17.210 Nicotine dependence, cigarettes, uncomplicated (principal)
CPT/HCPCS: 71271

== ENCOUNTER → 2022-03-14 | Outpatient (CLI) | payer MEDICAID, SELFPAY ==
[2022-03-14 10:17] LABS: Bacteria 0 SEEN /hpf (None Seen); Mucous, Urine 0 SEEN /hpf (<or=2+); Red Blood Cells-Urine 0 SEEN /hpf (0-5); Squamous Epithelial Cells - UA 0 SEEN /hpf (0-5); White Blood Cells 0 SEEN /hpf (0-5)
[2022-03-14 12:18] LABS: Absolute Lymphocyte Count 2.26 X10^3/uL (0.83-4.51); Absolute Neutrophil Count 4.2 X10^3/uL (2.0-7.7); Basophil# 0.05 X10^3/uL; Basophil% 0.7 % (0-1); Color, Urine Yellow (Yellow); Eosinophil# 0.23 X10^3/uL; Glucose, Dipstick Normal (Normal); Hematocrit 45.8 % (40-54); Hemoglobin 14.8 g/dL (13.0-16.5); Ketone-Dipstick Negative (Negative); Leukocyte Esterase-Dipstick 25 /ul (Negative); Lymphocyte # 2.26 X10^3/ul (0.83-4.51); Lymphocyte % 29.6 % (19-41); Mean Corp Hgb Conc 32.3 g/dL (32-36); Mean Corpuscular Hgb 30.3 pg (27.0-32.0); Mean Corpuscular Volume 93.9 fL (80-94); Mean Platelet Vol. 10.4 fl (6.2-12.0); Monocyte# 0.83 X10^3/uL; Monocyte% 10.9 % (0-10); NRBC Flagged by Analyzer 0 % (0-5); Neutrophil # 4.23 X10^3/uL (2.7-7.7); Neutrophil % 55.3 % (47-70); Nitrite-Dipstick Positive (Negative); Occult Blood-Urine Negative /ul (Negative); Platelet Count 311 K/mm3 (150-450); Protein-Dipstick Negative (Negative); RBC Distribution Width CV 13.2 % (11.6-14.6); RBC Distribution Width SD 45.7 fl (35.1-43.9); Red Blood Count 4.88 M/mm3 (4.6-6.2); Specific Gravity, Urine 1.005 (1.002-1.030); Urine Bilirubin Dipstick Negative (Negative); Urine Clarity Clear (Clear); Urine Urobilinogen Normal (Normal); White Blood Count 7.6 K/mm3 (4.4-11.0)
[2022-03-14 12:34] LABS: ALB/GLOB Ratio 0.9 RATIO (0.9-2.4); AST(SGOT) 12 U/L (15-37); Alanine Aminotransfer ALT/SGPT 34 U/L (16-61); Albumin, Serum 3.7 g/dL (3.2-5.0); Alkaline Phosphatase 64 U/L (45-117); Anion Gap 5 (5-15); BUN 21 mg/dL (7-18); BUN/Creat Ratio 21.7 RATIO (10-20); Calcium,Total 8.7 mg/dL (8.5-10.1); Chloride 108 mmol/L (98-107); Cholesterol 205 mg/dL (200); Creatinine, Serum 0.97 mg/dL (0.70-1.30); EST Glomerular Filtration Rate 85 mL/min (>60); Est Glom Filt Rate - Afr Amer 103 mL/min (>60); Globulin 3.9 g/dL (2.2-4.2); Glucose 104 mg/dL (74-106); High Density Lipoprotein 37 mg/dL; Potassium 4.2 mmol/L (3.5-5.1); Protein, Total 7.6 g/dL (6.4-8.2); Sodium Level 138 mmol/L (136-145); Triglycerides 197 mg/dL; Uric Acid 6.9 mg/dL (3.5-7.2); Very Low Density Lipoprotein 39 mg/dL (5-40)
[2022-03-14 12:35] LABS: Hemoglobin A1c 5.8 % (3.8-5.6)
[2022-03-14 13:11] LABS: Amphetamine Urine VISTA NEGATIVE (<1000 ng/mL); Barbiturate Urine VISTA NEGATIVE (< 200 ng/mL); Benzodiazepine Urine VISTA NEGATIVE (< 200 ng/mL); Cocaine Urine VISTA NEGATIVE (< 300 ng/mL); Ecstacy Urine VISTA NEGATIVE (< 500 ng/mL); Methadone Urine VISTA NEGATIVE (< 300 ng/mL); PCP Urine VISTA NEGATIVE (< 25 ng/mL); THC Urine VISTA NEGATIVE (< 50 ng/mL); Vista UDS pH Range 6
== END | disposition home or self-care (01) ==
LOC: MFPLAB 10:11
PROVIDERS: PCP Family Medicine; Visit Provider Family Medicine
DX: I10 Essential (primary) hypertension (principal); R73.09 Other abnormal glucose; E78.00 Pure hypercholesterolemia, unspecified; F12.10 Cannabis abuse, uncomplicated
CPT/HCPCS: 36415; 80053; 80061; 80307; 81001; 83036; 84550; 85025

== ENCOUNTER → 2022-09-07 | Outpatient (CLI) | payer MEDICAID, SELFPAY ==
[2022-09-07 08:40] LABS: Bacteria 0 SEEN /hpf (None Seen); Mucous, Urine 0 SEEN /hpf (<or=2+); Red Blood Cells-Urine 0 SEEN /hpf (0-5); Squamous Epithelial Cells - UA 0 SEEN /hpf (0-5); White Blood Cells 0 SEEN /hpf (0-5)
[2022-09-07 10:06] LABS: Absolute Lymphocyte Count 2.53 X10^3/uL (0.83-4.51); Absolute Neutrophil Count 4.1 X10^3/uL (2.0-7.7); Basophil# 0.04 X10^3/uL; Basophil% 0.5 % (0-1); Eosinophil# 0.22 X10^3/uL; Eosinophils% 2.8 % (0-5); Hematocrit 45.1 % (40-54); Hemoglobin 15.1 g/dL (13.0-16.5); Lymphocyte # 2.53 X10^3/ul (0.83-4.51); Lymphocyte % 32.3 % (19-41); Mean Corp Hgb Conc 33.5 g/dL (32-36); Mean Corpuscular Hgb 30.9 pg (27.0-32.0); Mean Corpuscular Volume 92.2 fL (80-94); Mean Platelet Vol. 9.9 fl (6.2-12.0); Monocyte# 0.95 X10^3/uL; Monocyte% 12.1 % (0-10); NRBC Flagged by Analyzer 0 % (0-5); Neutrophil # 4.07 X10^3/uL (2.7-7.7); Platelet Count 347 K/mm3 (150-450); RBC Distribution Width CV 13.9 % (11.6-14.6); RBC Distribution Width SD 47.3 fl (35.1-43.9); Red Blood Count 4.89 M/mm3 (4.6-6.2); White Blood Count 7.8 K/mm3 (4.4-11.0)
[2022-09-07 10:09] LABS: Color, Urine Yellow (Yellow); Glucose, Dipstick Normal (Normal); Ketone-Dipstick 5 mg/dl (Negative); Leukocyte Esterase-Dipstick Negative /ul (Negative); Nitrite-Dipstick Negative (Negative); Occult Blood-Urine 25 /ul (Negative); Protein-Dipstick Negative (Negative); Specific Gravity, Urine 1.025 (1.002-1.030); Urine Bilirubin Dipstick Negative (Negative); Urine Clarity Clear (Clear); Urine Urobilinogen Normal (Normal)
[2022-09-07 10:23] LABS: Hemoglobin A1c 5.9 % (3.8-5.6)
[2022-09-07 10:32] LABS: AST(SGOT) 19 U/L (15-37); Alanine Aminotransfer ALT/SGPT 27 U/L (16-61); Albumin, Serum 3.8 g/dL (3.2-5.0); Alkaline Phosphatase 72 U/L (45-117); Anion Gap 9 (5-15); BUN 20 mg/dL (7-18); BUN/Creat Ratio 22.3 RATIO (10-20); Calcium,Total 9.4 mg/dL (8.5-10.1); Chloride 107 mmol/L (98-107); Cholesterol 192 mg/dL (200); EST Glomerular Filtration Rate 93 mL/min (>60); Est Glom Filt Rate - Afr Amer 112 mL/min (>60); Globulin 3.9 g/dL (2.2-4.2); Glucose 92 mg/dL (74-106); High Density Lipoprotein 36 mg/dL; Potassium 4.2 mmol/L (3.5-5.1); Protein, Total 7.7 g/dL (6.4-8.2); Sodium Level 140 mmol/L (136-145); Triglycerides 87 mg/dL; Uric Acid 7.5 mg/dL (3.5-7.2); Very Low Density Lipoprotein 17 mg/dL (5-40)
== END | disposition home or self-care (01) ==
LOC: MFPLAB 08:38
PROVIDERS: PCP Family Medicine; Referring Provider Family Medicine; Visit Provider Family Medicine
DX: I10 Essential (primary) hypertension (principal); R73.02 Impaired glucose tolerance (oral); E78.00 Pure hypercholesterolemia, unspecified
CPT/HCPCS: 36415; 80053; 80061; 81001; 83036; 84550; 85025

== ENCOUNTER → 2023-02-13 | Outpatient (CLI) | payer MEDICAID, SELFPAY ==
[2023-02-13 12:47] LABS: Absolute Lymphocyte Count 2.34 X10^3/uL (0.83-4.51); Absolute Neutrophil Count 3.6 X10^3/uL (2.0-7.7); Basophil# 0.05 X10^3/uL; Basophil% 0.7 % (0-1); Eosinophil# 0.25 X10^3/uL; Eosinophils% 3.6 % (0-5); Hematocrit 46.2 % (40-54); Hemoglobin 14.8 g/dL (13.0-16.5); Lymphocyte # 2.34 X10^3/ul (0.83-4.51); Lymphocyte % 33.6 % (19-41); Mean Corpuscular Hgb 30.1 pg (27.0-32.0); Mean Corpuscular Volume 93.9 fL (80-94); Mean Platelet Vol. 10.2 fl (6.2-12.0); Monocyte# 0.68 X10^3/uL; Monocyte% 9.8 % (0-10); NRBC Flagged by Analyzer 0 % (0-5); Neutrophil # 3.63 X10^3/uL (2.7-7.7); Platelet Count 328 K/mm3 (150-450); RBC Distribution Width CV 13.5 % (11.6-14.6); RBC Distribution Width SD 46.7 fl (35.1-43.9); Red Blood Count 4.92 M/mm3 (4.6-6.2)
[2023-02-13 13:48] LABS: Hemoglobin A1c 5.7 % (3.8-5.6)
[2023-02-13 13:55] LABS: ALB/GLOB Ratio 0.9 RATIO (0.9-2.4); AST(SGOT) 20 U/L (15-37); Alanine Aminotransfer ALT/SGPT 31 U/L (16-61); Albumin, Serum 3.7 g/dL (3.2-5.0); Alkaline Phosphatase 76 U/L (45-117); Anion Gap 2 (5-15); BUN 17 mg/dL (7-18); BUN/Creat Ratio 19.3 RATIO (10-20); Chloride 110 mmol/L (98-107); Cholesterol 195 mg/dL (200); Creatinine, Serum 0.88 mg/dL (0.70-1.30); EST Glomerular Filtration Rate 94 mL/min (>60); Est Glom Filt Rate - Afr Amer 114 mL/min (>60); Glucose 88 mg/dL (74-106); High Density Lipoprotein 38 mg/dL; Potassium 4.3 mmol/L (3.5-5.1); Protein, Total 7.7 g/dL (6.4-8.2); Sodium Level 136 mmol/L (136-145); Triglycerides 95 mg/dL; Very Low Density Lipoprotein 19 mg/dL (5-40)
== END | disposition home or self-care (01) ==
LOC: MFPLAB 11:21
PROVIDERS: PCP Family Medicine; Visit Provider Family Medicine
DX: I10 Essential (primary) hypertension (principal); R73.02 Impaired glucose tolerance (oral); E78.00 Pure hypercholesterolemia, unspecified
CPT/HCPCS: 36415; 80053; 80061; 83036; 85025

== ENCOUNTER → 2023-04-12 | Outpatient (CLI) | payer MEDICAID, SELFPAY ==
[2023-04-12 17:56] LABS: Hematocrit 44.1 % (40-54); Hemoglobin 14.3 g/dL (13.0-16.5); Mean Corp Hgb Conc 32.4 g/dL (32-36); Mean Corpuscular Hgb 29.9 pg (27.0-32.0); Mean Corpuscular Volume 92.3 fL (80-94); Mean Platelet Vol. 9.7 fl (6.2-12.0); Platelet Count 295 K/mm3 (150-450); RBC Distribution Width CV 13.5 % (11.6-14.6); RBC Distribution Width SD 46.5 fl (35.1-43.9); Red Blood Count 4.78 M/mm3 (4.6-6.2); White Blood Count 9.1 K/mm3 (4.4-11.0)
[2023-04-12 18:23] LABS: Prothrombin Time (Protime)PT. 13.2 SECONDS (11.7-14.9)
[2023-04-12 18:24] LABS: Partial Thromboplast Time 31.5 Seconds (24.1-36.2)
[2023-04-12 18:28] LABS: ALB/GLOB Ratio 0.9 RATIO (0.9-2.4); AST(SGOT) 13 U/L (15-37); Alanine Aminotransfer ALT/SGPT 25 U/L (16-61); Albumin, Serum 3.6 g/dL (3.2-5.0); Alkaline Phosphatase 71 U/L (45-117); Anion Gap 5 (5-15); BUN 15 mg/dL (7-18); BUN/Creat Ratio 17.7 RATIO (10-20); Calcium,Total 8.9 mg/dL (8.5-10.1); Chloride 108 mmol/L (98-107); Creatinine, Serum 0.85 mg/dL (0.70-1.30); EST Glomerular Filtration Rate 99 mL/min (>60); Est Glom Filt Rate - Afr Amer 120 mL/min (>60); Globulin 3.8 g/dL (2.2-4.2); Glucose 96 mg/dL (74-106); Protein, Total 7.4 g/dL (6.4-8.2); Sodium Level 138 mmol/L (136-145)
[2023-04-15 18:07] LABS: Thrombin Time 16.4 sec (0.0-23.0)
== END | disposition home or self-care (01) ==
LOC: MTLAB 15:11
PROVIDERS: PCP Family Medicine; Referring Provider Family Medicine; Visit Provider Family Medicine
DX: R58 Hemorrhage, not elsewhere classified (principal)
CPT/HCPCS: 36415; 80053; 85027; 85610; 85670; 85730

== ENCOUNTER → 2023-07-17 | Outpatient (CLI) | payer MEDICAID, SELFPAY ==
[2023-07-17 17:38] LABS: Absolute Neutrophil Count 9.4 X10^3/uL (2.0-7.7); Basophil# 0.03 X10^3/uL; Basophil% 0.3 % (0-1); Eosinophil# 0.03 X10^3/uL; Eosinophils% 0.3 % (0-5); Hematocrit 46.4 % (40-54); Hemoglobin 15.3 g/dL (13.0-16.5); Lymphocyte % 10.7 % (19-41); Mean Corpuscular Hgb 30.9 pg (27.0-32.0); Mean Corpuscular Volume 93.7 fL (80-94); Mean Platelet Vol. 10.2 fl (6.2-12.0); Monocyte# 0.45 X10^3/uL; NRBC Flagged by Analyzer 0 % (0-5); Neutrophil # 9.44 X10^3/uL (2.7-7.7); Neutrophil % 84.3 % (47-70); Platelet Count 354 K/mm3 (150-450); RBC Distribution Width CV 13.3 % (11.6-14.6); RBC Distribution Width SD 45.6 fl (35.1-43.9); Red Blood Count 4.95 M/mm3 (4.6-6.2); White Blood Count 11.2 K/mm3 (4.4-11.0)
[2023-07-17 18:30] LABS: ALB/GLOB Ratio 0.9 RATIO (0.9-2.4); AST(SGOT) 11 U/L (15-37); Alanine Aminotransfer ALT/SGPT 25 U/L (16-61); Albumin, Serum 3.7 g/dL (3.2-5.0); Alkaline Phosphatase 73 U/L (45-117); Anion Gap 8 (5-15); BUN 18 mg/dL (7-18); BUN/Creat Ratio 18.5 RATIO (10-20); Calcium,Total 9.1 mg/dL (8.5-10.1); Chloride 106 mmol/L (98-107); Cholesterol 213 mg/dL (200); Creatinine, Serum 0.98 mg/dL (0.70-1.30); EST Glomerular Filtration Rate 84 mL/min (>60); Est Glom Filt Rate - Afr Amer 101 mL/min (>60); Globulin 4.3 g/dL (2.2-4.2); Glucose 142 mg/dL (74-106); High Density Lipoprotein 45 mg/dL; Potassium 3.9 mmol/L (3.5-5.1); Sodium Level 137 mmol/L (136-145); Thyroid Stim Hormone (TSH) 0.87 uIU/mL (0.358-3.74); Triglycerides 122 mg/dL; Uric Acid 5.8 mg/dL (3.5-7.2); Very Low Density Lipoprotein 24 mg/dL (5-40)
== END | disposition home or self-care (01) ==
LOC: MFPLAB 13:58
PROVIDERS: PCP Family Medicine; Visit Provider Family Medicine
DX: I10 Essential (primary) hypertension (principal); M10.9 Gout, unspecified
CPT/HCPCS: 36415; 80053; 80061; 84443; 84550; 85025

== ENCOUNTER 2023-07-18 09:25 | Outpatient (CLI) | payer MEDICAID, SELFPAY ==
[2023-07-18 09:27] LABS: Bacteria 0 SEEN /hpf (None Seen); Mucous, Urine 0 SEEN /hpf (<or=2+); Red Blood Cells-Urine 0 SEEN /hpf (0-5); Squamous Epithelial Cells - UA 0 SEEN /hpf (0-5); White Blood Cells 0 SEEN /hpf (0-5)
[2023-07-18 10:31] LABS: Color, Urine Yellow (Yellow); Glucose, Dipstick Normal (Normal); Ketone-Dipstick 5 mg/dl (Negative); Leukocyte Esterase-Dipstick 25 /ul (Negative); Nitrite-Dipstick Negative (Negative); Occult Blood-Urine 25 /ul (Negative); Protein-Dipstick Negative (Negative); Urine Bilirubin Dipstick Negative (Negative); Urine Clarity Clear (Clear); Urine Urobilinogen 1 mg/dl (Normal)
== END 2023-07-18 23:59 | disposition home or self-care (01) ==
LOC: LABSPEC 09:25
PROVIDERS: PCP Family Medicine; Visit Provider Family Medicine
DX: I10 Essential (primary) hypertension (principal)
CPT/HCPCS: 81001

== ENCOUNTER → 2023-08-09 | Outpatient (CLI) | payer MEDICAID, SELFPAY ==
--- NOTE | 2023-08-09 12:16 | PFT ---
INTRODUCTION: The patient is a 57-year-old male who presents for pulmonary function studies secondary to a diagnosis of COPD. Respiratory therapy reported good patient effort. Bronchodilators were used during testing. INTERPRETATION: Forced expiration spirometry demonstrates the presence of a mild large airways obstructive ventilatory defect. There was a significant response to aerosolized bronchodilators. Spirograms are of good quality but do not plateau indicating slow emptying of the lungs. Body plethysmography was performed and revealed an elevated RV to 186% of predicted, indicative of underlying air trapping. Diffusing capacity by single breath CO was within normal limits. IMPRESSION: Partially reversible mild large airways obstructive ventilatory defect with associated air trapping.
== END | disposition home or self-care (01) ==
LOC: PSN 09:54
PROVIDERS: PCP Family Medicine; Referring Provider Nurse Practitioner Acute Care; Visit Provider Nurse Practitioner Acute Care
DX: J44.9 Chronic obstructive pulmonary disease, unspecified (principal)
CPT/HCPCS: 94060; 94726; 94729

== ENCOUNTER 2023-08-13 09:18 | Emergency (ER) | payer MEDICAID, SELFPAY ==
[2023-08-13 09:19] VITALS: PULSE 68; RESP 14; TEMP 36.2; O2SAT 99; BMI 29.1
[2023-08-13 09:22] VITALS: BP 167/101
--- NOTE | 2023-08-13 09:26 | EDS_ITS ---
HPI History of Present Illness Chief Complaint: Cough PFSH PFS Medical History Abdominal pain Asthma Cervical spondylosis Essential (primary) hypertension Gout Heart attack Hyperlipidemia Melanotic stools Nicotine dependence Obesity Syncope Type 2 diabetes mellitus Home Medications allopurinol 300 mg tablet 300 mg PO DAILY 02/25/20 [History Last Taken 03/11/20] amlodipine 10 mg tablet 10 mg PO DAILY 08/07/23 [History Last Taken Unknown] hydrochlorothiazide 25 mg tablet 25 mg PO DAILY 08/07/23 [History Last Taken Unknown] losartan 100 mg tablet 100 mg PO DAILY 08/07/23 [History Last Taken Unknown] omeprazole 40 mg capsule,delayed release 40 mg PO DAILY 08/07/23 [History Last Taken Unknown] rosuvastatin 40 mg tablet (Crestor) 40 mg PO DAILY 08/07/23 [History Last Taken Unknown] Allergy/AdvReac Type Severity Reaction Status Date / Time No Known Allergies Allergy Verified 08/13/23 09:20 Family History Father Diabetes Hypertension Grandfather Heart disease Grandfather Heart disease Surgical History History of left heart catheterization (03/11/20) Social History Smoking Status: Current every day smoker tobacco type: cigarettes Tobacco: How many years used: 30 alcohol intake: never substance use type: marijuana caffeine: Yes Type: coffee Number of servings: 5 EXAM Physical Exam Const Vital Signs: 08/13/23 09:19 08/13/23 09:22 08/13/23 09:54 Temperature 97.2 F L Temperature Source Temporal Pulse Rate 68 Respiratory Rate 14 Respiratory Effort Normal Respiratory Depth Normal Respiratory Pattern Normal Blood Pressure 167/101 H Blood Pressure Mean 123 Pulse Ox 99 Oxygen Delivery Method Room Air Room Air 08/13/23 11:18 Temperature Temperature Source Pulse Rate 56 L Respiratory Rate 19 H Respiratory Effort Respiratory Depth Respiratory Pattern Blood Pressure 169/98 H Blood Pressure Mean 121 Pulse Ox 97 Oxygen Delivery Method Room Air MDM MDM MDM Narrative Medical decision making narrative: HISTORY OF PRESENT ILLNESS: 57-year-old male presents with cough. He states he is coughing up blood. He states he has a sore throat. He further states he been having intermittent hemoptysis for last 3 months. He states he still smokes. States he is trying to quit. Denies any current chest pain, shortness of breath. He is unclear if the redness in his cough is associated with him vomiting blood. The patient denies recent surgery in the last 4 weeks or immobilization in the last 3 days, denies previous diagnosis of DVT or PE, unilateral leg swelling or malignancy with treatment the last 6 months or palliative. No estrogen use noted. REVIEW OF SYSTEMS: Pertinent positives: Cough, hemoptysis Pertinent negatives: Unilateral leg swelling, chest pain PHYSICAL EXAM: Nursing triage notes reviewed, Vital signs reviewed Constitutional: please see [facility] HENT: MMM Eyes: Pupils equal round and reactive to light, Extraocular muscles intact Neck: No stridor, no JVD, full neck ROM Lungs: Clear to auscultation, No wheezing or rales. No increased work of breathing, no conversational dyspnea, no accessory muscle use, no nasal flaring. No respiratory distress noted Heart: Regular rate and rhythm, No murmurs, No rubs and No gallops, 2+ distal pulses (radial, femoral, posterior tibial) in all extremities Abdomen: Soft, there is no tenderness, rigidity, rebound or guarding, no obvious peritoneal signs, no palpable pulsatile abdominal masses, no auscultated abdominal bruit : No CVAT Extremities: No edema Neuro: No focal neurological deficits, cranial nerves II through XII intact, 5/5 strength in all extremities. Intact sensation to light touch in all extremities, 2+ reflexes bilateral patella tendons. Normal gait. No ataxia. Skin: No rash or lesions noted MEDICAL DECISION MAKING: Chief Complaint: Cough External records reviewed: Imaging studies reviewed: CT scan of the lung from January 2022 shows mild central lobar emphysema Factors affecting care: n COPD, hypertension, GERD, hyperlipidemia Social determinants of health: Tobacco use History obtained from others: none Consults: none [facility] Narrative: The patient was hemodynamically stable, afebrile, nontoxic-appearing. Exam I considered the following differential diagnosis: PE, lung mass, vascular abnormality of the lung, lung inflammation from chronic tobacco abuse ALL IMAGES (IF OBTAINED) HAVE BEEN PERSONALLY REVIEWED AND INTERPRETED BY MYSELF. I obtained a broad lab and imaging work-up to further elucidate the etiology of the patient's complaints. I obtained a CT of the chest to rule out mass, PE, vascular lesion of the lung. Also obtained labs rule out significant anemia, electrolyte abnormality CT scan of the chest shows no evidence of PE or mass CBC without leukocytosis, severe anemia, no thrombocytopenia. BMP without evidence of significant electrolyte abnormalities, no anion gap, no acute kidney injury. The synthesis of the patient's labs images suggest no acute life-threatening etiology. Patient has no evidence of lung mass or PE. He may have a component of GI bleeding however he is not significantly anemic which case he is ap propriate for follow-up. He has a GI appointment in the next several weeks I encouraged him to keep this appointment. He was given strict return precautions and follow-up instructions The patient and/or family, caregivers express understanding. The patient and/or family, caregivers agrees with the plan. Shared decision making: I will have a discussion with the patient and or visitors regarding risk/benefits of further testing or admission. They will be made aware of of the risk/benefits inherent in this decision they will be given the opportunity to voice understanding. Total critical care time today provided was at least 0 minutes. This excludes separately billable procedures. Critical care time (if documented) is secondary to the patient having high probability of clinically significant/life threatening deterioration in the patient's condition which required my urgent intervention. Impression: 1. Cough 2. Hemoptysis 3. Tobacco abuse Dispo: Discharge Lab Data Labs: Laboratory Results - last 24 hr 08/13/23 09:50 WBC 10.3 RBC 5.05 Hgb 15.1 Hct 47.1 MCV 93.3 MCH 29.9 MCHC 32.1 RDW Std Deviation 45.9 H RDW Coeff of Jose 13.6 Plt Count 326 MPV 9.5 Sodium 139 Potassium 4.0 Chloride 107 Carbon Dioxide 27.0 Anion Gap 5 BUN 20 H Creatinine 0.82 Estim Creat Clear Calc 107.78 Est GFR (MDRD) Af Amer 123 Est GFR (MDRD) Non-Af 102 BUN/Creatinine Ratio 24.2 H Glucose 100 Calcium 8.8 Radiography Diagnostic Testing: Clinical Impression(s) from Imaging Studies Chest CTA 08/13/23 09:42 IMPRESSION: 1. No evidence of acute pulmonary embolism. 2. No acute cardiopulmonary abnormality. Electronically Signed: Tao Ivey MD at 11:23 EDT , Discharge Plan Triage Chief Complaint: Cough ED Provider: Ron Zaldivar Dx/Rx/DC Orders Instructions: ED Hemoptysis Prescriptions: No Action allopurinol 300 mg tablet 300 mg PO DAILY Patient Comments: Take 1 tablet by mouth once daily. For gout. omeprazole 40 mg capsule,delayed release(DR/EC) 40 mg PO DAILY amlodipine 10 mg tablet 10 mg PO DAILY hydrochlorothiazide 25 mg tablet 25 mg PO DAILY losartan 100 mg tablet 100 mg PO DAILY rosuvastatin [Crestor] 40 mg tablet 40 mg PO DAILY Stand Alone Forms: ED Work / School Excuse Primary Care Provider: Lukas Chatterjee Referrals: Lukas Chatterjee MD [Primary Care Provider] - Activity Restrictions/Additional Instructions: Thank you for trusting us with your care today! Please take Tylenol (2 pills, 650 mg), ibuprofen (2 pills, 400 mg) every 6 hours as needed for pain and fever control. Please return to the emergency department if your symptoms change or worsen. Please follow with your primary care physician for further outpatient evaluation and management. Disposition Disposition: Home, Self Care Discharge Date/Time: 08/13/23 11:46
--- NOTE | 2023-08-13 09:42 | CT_ITS ---
EXAM: CT ANGIOGRAPHY CHEST WITH INTRAVENOUS CONTRAST CLINICAL INDICATION: hemoptysis r/o PE or mass TECHNIQUE: Helically acquired angiography images were obtained of the chest with intravenous contrast. This CT exam was performed using one or more of the following dose reduction techniques: automated exposure control, adjustment of the mA and/or kV according to patient size, and/or use of iterative reconstruction technique. MIP reconstructed images were created and reviewed. CONTRAST: IV 100mL [id number] COMPARISON: Low-dose CT chest 02/20/2022 FINDINGS: PULMONARY ARTERIES: Normal. Normal in caliber. No evidence of pulmonary embolism. AORTA: Normal. Normal in caliber. No evidence of dissection. GREAT VESSELS OF AORTIC ARCH: Normal. Normal in caliber. No evidence of dissection. LUNGS AND PLEURAL SPACES: Several calcified granulomata noted within both lungs. No mass. No pleural effusion or thickening. No pneumothorax. HEART: Moderate coronary artery calcification. Heart size is normal. No pericardial effusion. MEDIASTINUM: Small calcified hilar and mediastinal lymph nodes. Esophagus is unremarkable. No hiatal hernia. BONES/JOINTS: Normal. No suspicious lytic or blastic abnormality. LYMPH NODES: Small reactive retroperitoneal lymph nodes seen within the upper abdomen. ADRENALS: Stable 2 cm low-density left adrenal nodule likely representing lipid rich adenoma. CT/CTA Chest W/WO Contrast IMPRESSION: 1. No evidence of acute pulmonary embolism. 2. No acute cardiopulmonary abnormality. Electronically Signed: Tao Ivey MD at 11:23 EDT ,
--- NOTE | 2023-08-13 09:45 | EKG12_ITS ---
Test Reason : COUGH Blood Pressure : / mmHG Vent. Rate : 060 BPM Atrial Rate : 060 BPM P-R Int : 168 ms QRS Dur : 102 ms QT Int : 416 ms P-R-T Axes : -23 028 056 degrees QTc Int : 416 ms Sinus rhythm with Premature atrial complexes Minimal voltage criteria for LVH, may be normal variant ( Henrik product ) Borderline ECG When compared with ECG of 18-JAN-2021 07:21, Premature atrial complexes are now Present Confirmed by PRINCESS CULP, THAD ([id number]), telegraph editor RODY MCPHERSON ([id number]) on 08/15/2023 2:29:13 PM Referred By: GAVINO Confirmed By:THAD SÁNCHEZ MD
[2023-08-13 09:54] VITALS: O2SAT 96
[2023-08-13 10:02] LABS: Hematocrit 47.1 % (40-54); Hemoglobin 15.1 g/dL (13.0-16.5); Mean Corp Hgb Conc 32.1 g/dL (32-36); Mean Corpuscular Hgb 29.9 pg (27.0-32.0); Mean Corpuscular Volume 93.3 fL (80-94); Mean Platelet Vol. 9.5 fl (6.2-12.0); Platelet Count 326 K/mm3 (150-450); RBC Distribution Width CV 13.6 % (11.6-14.6); RBC Distribution Width SD 45.9 fl (35.1-43.9); Red Blood Count 5.05 M/mm3 (4.6-6.2); White Blood Count 10.3 K/mm3 (4.4-11.0)
[2023-08-13 10:16] LABS: Anion Gap 5 (5-15); BUN 20 mg/dL (7-18); BUN/Creat Ratio 24.2 RATIO (10-20); Calcium,Total 8.8 mg/dL (8.5-10.1); Chloride 107 mmol/L (98-107); Creatinine, Serum 0.82 mg/dL (0.70-1.30); EST Glomerular Filtration Rate 102 mL/min (>60); Est Glom Filt Rate - Afr Amer 123 mL/min (>60); Estimated Creatinine Clearance 107.78 ml/min; Glucose 100 mg/dL (74-106); Sodium Level 139 mmol/L (136-145)
[2023-08-13 11:18] VITALS: BP 169/98; PULSE 56; RESP 19; O2SAT 97
== END 2023-08-13 11:46 | disposition home or self-care (01) ==
PROVIDERS: Emergency Provider Emergency Medicine; PCP Family Medicine; Visit Provider Emergency Medicine
DX: R04.2 Hemoptysis (principal); J43.9 Emphysema, unspecified; E11.9 Type 2 diabetes mellitus without complications; I10 Essential (primary) hypertension; E78.5 Hyperlipidemia, unspecified; K21.9 Gastro-esophageal reflux disease without esophagitis; F17.210 Nicotine dependence, cigarettes, uncomplicated; Z79.899 Other long term (current) drug therapy
CPT/HCPCS: 71275; 80048; 85027; 93005; 99283; Q9967; A4216

== ENCOUNTER → 2023-08-14 | Outpatient (CLI) | payer MEDICAID, SELFPAY ==
[2023-08-14 13:45] VITALS: PULSE 78; PULSE 82; PULSE 89; PULSE 91; PULSE 93; PULSE 94; PULSE 96; PULSE 97; O2SAT 96; O2SAT 97; O2SAT 98
--- NOTE | 2023-08-15 08:08 | PCM.PSN.6M ---
PSN 6 Minute Walk Test 6 Minute Walk Test 6 Minute Walk Test: 6 Minute Walk Test PSN:6-Minute Walk Test Start: 08/14/23 13:59 Freq: Status: Active Protocol: [id number].6MINW Document 08/14/23 13:45 AEH (Rec: 08/14/23 14:03 [facility] Desktop) 6 Minute Walk Test Date Performed 08/14/23 Time Performed 13:45 Height 6 ft Weight: 217 lb Weight in Pounds 217.[address]: YRN Rushing Assistive device used: None Pre-test Oxygen Delivery Method Room Air Pulse Ox 98 Pulse Rate (60-100) 78 Dyspnea Amada Scale (0-10) 0 Exertion Amada Scale (6-20) 6 1st minute Oxygen Delivery Method Room Air Pulse Ox 96 Pulse Rate (60-100) 89 2nd minute Oxygen Delivery Method Room Air Pulse Ox 97 Pulse Rate (60-100) 94 3rd minute Oxygen Delivery Method Room Air Pulse Ox 96 Pulse Rate (60-100) 91 4th minute Oxygen Delivery Method Room Air Pulse Ox 96 Pulse Rate (60-100) 93 5th minute Oxygen Delivery Method Room Air Pulse Ox 96 Pulse Rate (60-100) 96 6th minute Oxygen Delivery Method Room Air Pulse Ox 97 Pulse Rate (60-100) 97 Dyspnea Amada Scale (0-10) 0 Exertion Amada Scale (6-20) 8 Post-test Oxygen Delivery Method Room Air Pulse Ox 98 Pulse Rate (60-100) 82 Full Laps Walked 17 Partial Lap, Number of Tiles Walked 32 Total Distance Walked (ft) 1035 Interpretation Interpretation: The patient ambulated 1035 feet over the course of 6 minutes beginning on room air without assistive devices. Pretesting oxygen saturation was noted to be 98% on room air. With ambulation, the scar oxygen saturation was 96%. There was no significant exertional oxygen desaturation. Recommendations Recommendations: There is no indication for the use of supplemental oxygen at this time.
== END | disposition home or self-care (01) ==
LOC: PSN 13:41
PROVIDERS: PCP Family Medicine; Referring Provider Nurse Practitioner Acute Care; Visit Provider Nurse Practitioner Acute Care
DX: J44.9 Chronic obstructive pulmonary disease, unspecified (principal)
CPT/HCPCS: 94618

== ENCOUNTER → 2023-08-27 | Outpatient (CLI) | payer MEDICAID, SELFPAY ==
--- NOTE | 2023-08-27 15:50 | CT_ITS ---
STUDY: LOW DOSE CT LUNG CANCER SCREENING REASON FOR EXAM: Male, 57 years old. 1ppd smoker and gt; 30 pack years RADIATION DOSAGE (If Supplied By Facility): CTDIvol = ( 4.02 ) mGy, DLP = ( 147.48 ) mGycm TECHNIQUE: No contrast was administered. Low dose technique was utilized (average mAS-38 and kVp 120). 1.25 mm axial source images with a slice interval of 1.25-mm were reconstructed in lung windows. 2.5 mm axial source images with a slice interval of 2.5-mm were reconstructed in lung windows. 5.0 mm axial source images with a slice interval of 5.0-mm were reconstructed in soft tissue windows. COMPARISON: Comparison is made with prior study dated February 20, 2022. NODULES: Stable bilateral calcified granulomas. Emphysema: Mild emphysematous changes. Endobronchial lesion: None Aorta: Mild atherosclerotic plaque formation of the aortic arch. CORONARY ARTERIES: Coronary artery calcification is seen. Heart: Unremarkable Pulmonary artery: Unremarkable Mediastinal nodes: Calcified mediastinal lymph nodes. Other chest and abdominal findings: CT/Low Dose CT Lung Screening IMPRESSION: Lung-RADS category 2 - Continue annual screening with LDCT in 12 months. IMPORTANT NOTES FOR USE: ACR Lung-RADS Version 1.1 Assessment Categories Release Date: 2018 Category: Coded 0-4 bases on nodule(s) with highest degree of suspicion. Negative screen is defined as categories 1 and 2; a positive screen is defined as categories 3 and 4. Category 3 and 4A nodules that are unchanged on interval CT should be coded as category 2, and individuals returned to screening in 12 months. Category 4X: Category 3 or 4 nodules with additional imaging findings that increase the suspicion of lung cancer, such as spiculation, GGN that doubles in size in 1 year, enlarged lymph notes, etc. Category Modifiers: S (significant finding unrelated to lung cancer) Electronically Signed: Antony Servin MD at 13:18 EDT ,
== END | disposition home or self-care (01) ==
LOC: CT 15:41
PROVIDERS: PCP Family Medicine; Referring Provider Nurse Practitioner Acute Care; Visit Provider Nurse Practitioner Acute Care
DX: F17.210 Nicotine dependence, cigarettes, uncomplicated (principal)
CPT/HCPCS: 71271

== ENCOUNTER 2023-09-02 18:48 | Observation (INO) | payer MEDICAID, SELFPAY ==
[2023-09-02 18:49] VITALS: BP 126/95; PULSE 77; RESP 18; TEMP 36.3; O2SAT 98; BMI 29.4
--- NOTE | 2023-09-02 19:11 | EKG12_ITS ---
Test Reason : AM EKG Blood Pressure : / mmHG Vent. Rate : 060 BPM Atrial Rate : 060 BPM P-R Int : 162 ms QRS Dur : 106 ms QT Int : 422 ms P-R-T Axes : 000 055 068 degrees QTc Int : 422 ms Normal sinus rhythm Normal ECG When compared with ECG of 02-SEP-2023 22:19, MANUAL COMPARISON REQUIRED, DATA IS UNCONFIRMED Confirmed by TAYLOR CULP, LINDA ([id number]), graphics editor SUE RAMIREZ ([id number]) on 09/10/2023 11:04:12 AM Referred By: Confirmed By:DOTTIE VAZQUEZ MD
--- NOTE | 2023-09-02 19:12 | ED.VIS.CHEST ---
HPI History of Present Illness Chief Complaint: Chest Pain Informant: patient Narrative Narrative: Patient presents secondary to chest pain. He states for the past couple weeks has had intermittent chest pressure. Today he has had more consistent pain that comes on, last several minutes, and then resolves. He points to the left anterior chest. He states he does feel short of breath and feel like his heart is beating harder than normal during his episodes. He does have a history of prior TN in 2019. He states he had a heart cath that was unremarkable and they thought at the time that his TN was brought on by grieving from the loss of his . [facility] Medical History Abdominal pain Acute lumbar myofascial strain Asthma Cervical spondylosis Essential (primary) hypertension Gout Heart attack Hyperlipidemia Lumbar radiculopathy Melanotic stools Nicotine dependence Obesity Syncope Type 2 diabetes mellitus Home Medications allopurinol 300 mg tablet 300 mg PO DAILY 02/25/20 [History Last Taken 03/11/20] amlodipine 10 mg tablet 10 mg PO DAILY 08/07/23 [History Last Taken Unknown] hydrochlorothiazide 25 mg tablet 25 mg PO DAILY 08/07/23 [History Last Taken Unknown] losartan 100 mg tablet 100 mg PO DAILY 08/07/23 [History Last Taken Unknown] omeprazole 40 mg capsule,delayed release 40 mg PO DAILY 08/07/23 [History Last Taken Unknown] rosuvastatin 40 mg tablet (Crestor) 40 mg PO DAILY 08/07/23 [History Last Taken Unknown] Allergy/AdvReac Type Severity Reaction Status Date / Time No Known Allergies Allergy Verified 09/02/23 18:49 Family History Father Diabetes Hypertension Grandfather Heart disease Grandfather Heart disease Surgical History History of left heart catheterization (03/11/20) Social History Smoking Status: Current every day smoker tobacco type: cigarettes Tobacco: How many years used: 30 alcohol intake: never substance use type: marijuana caffeine: Yes Type: coffee Number of servings: 5 ROS ROS ED Constitutional Constitutional ED: Denies chills or fever(s) Eyes Eyes: Denies change in vision or discharge from eye(s) ENT ENT ED: Denies discharge from eye(s), rhinorrhea or sore throat Cardiovascular Cardiovascular: Reports chest pain; Denies palpitations Respiratory/Chest Respiratory/Chest: Reports dyspnea; Denies cough Gastrointestinal Gastrointestinal: Denies abdominal pain, nausea or vomiting Genitourinary Genitourinary ED: Denies dysuria Musculoskeletal Musculoskeletal: Denies back pain or extremity pain Integumentary Denies Abrasions or rash Neurologic Neurologic: Denies headache(s) or weakness Psychiatric Psychiatric: Denies anxiety or depression Allergic/Immunologic Allergic/Immunologic ED: Denies lip swelling or urticaria EXAM Physical Exam Const Vital Signs: 09/02/23 18:49 09/02/23 18:56 09/02/23 19:21 Temperature 97.4 F L Temperature Source Temporal Pulse Rate 77 Respiratory Rate 18 Respiratory Pattern Normal Blood Pressure 126/95 H Blood Pressure Mean 105 Pulse Ox 98 97 Oxygen Delivery Method Room Air Room Air 09/02/23 20:23 Temperature Temperature Source Pulse Rate 66 Respiratory Rate 15 Respiratory Pattern Blood Pressure 166/116 H Blood Pressure Mean 132 Pulse Ox 97 Oxygen Delivery Method Room Air Positive well nourished and well developed General Appearance ED: well developed HEENT Reports moist mucous membranes Eyes EOMs intact bilaterally Chest Wall inspection of chest normal and palpation of chest normal Resp normal respiratory effort and clear to auscultation bilaterally Cardio regular rate and regular rhythm GI soft to palpation and non-tender Extremity normal to inspection Neuro oriented x3 Psych mental status grossly normal Skin no rashes or lesions noted Heart Score History: Moderately Suspicious ECG: Normal Age: >45 - <65 years Risk Factors: >/= 3 Risk Factors or History of CAD Troponin: </= Normal Limit Score: 4 MDM MDM MDM Narrative Medical decision making narrative: IV line established. Patient placed on quality assurance monitor final. EKG obtained to evaluate for cardiac arrhythmia/ischemia. Chest x-ray obtained to evaluate for acute lung pathology, cardiac size, or mediastinal abnormality. Labwork obtained to evaluate for leukocytosis, anemia, and electrolyte derangement. Patient given aspirin. History & Record Review Discussion w/independent historian: Patient Lab Data Attestation: I reviewed the patient's lab results. Labs: Laboratory Results - last 24 hr 09/02/23 19:04 WBC 11.0 RBC 4.73 Hgb 14.2 Hct 44.0 MCV 93.0 MCH 30.0 MCHC 32.3 RDW Std Deviation 47.6 H RDW Coeff of Jose 13.8 Plt Count 291 MPV 9.9 Immature Gran % (Auto) 0.300 Neut % (Auto) 64.2 Lymph % (Auto) 28.0 [place] % (Auto) 6.3 Eos % (Auto) 0.7 Baso % (Auto) 0.5 Absolute Neuts (auto) 7.1 Absolute Lymphs (auto) 3.09 Nucleated RBC % 0 D-Dimer Quant (PE/DVT) 0.48 Sodium 141 Potassium 3.6 Chloride 108 H Carbon Dioxide 26.0 Anion Gap 7 BUN 17 Creatinine 0.88 Estim Creat Clear Calc 100.43 Est GFR (MDRD) Af Amer 115 Est GFR (MDRD) Non-Af 95 BUN/Creatinine Ratio 19.4 Glucose 101 Calcium 9.0 Troponin I High Sens 10 Radiography Chest X-Ray - ED: 1 View, Read by ED Physician, Normal, Heart, Lungs and Mediastinum Diagnostic Testing: Clinical Impression(s) from Imaging Studies Chest X-Ray 09/02/23 19:16 IMPRESSION: Normal x-ray examination of the chest. Electronically Signed: Christiano Valero MD at 20:15 EST , EKG Initial EKG: Attestation: I personally reviewed and interpreted this EKG as follows: Interpretation: Sinus Rhythm (Sinus at 72 with no acute ischemia.) Treatment and Re-Evaluation :: CBC was normal white count at 11.0 with a hemoglobin of 14.2. Chemistry studies unremarkable. Initial troponin is normal at 10. EKG reveals no evidence of acute ischemia. Portable chest x-ray per my interpretation reveals no acute findings. Although patient's initial troponin is negative, I do have significant concern with his symptoms. He has had increasing chest pressure for the past couple weeks that is worsened significantly today. He does have a history of prior TN and has not followed up with cardiology in 2 years. I do feel it would be prudent to observe him overnight for a stress test tomorrow assuming his troponins remain normal. After discussion with him he is in agreement with this and I will speak with the hospitalist. Discharge Plan Triage Chief Complaint: Chest Pain ED Provider: Mari Duvall Dx/Rx/DC Orders Clinical Impression: Chest pain Prescriptions: No Action allopurinol 300 mg tablet 300 mg PO DAILY Patient Comments: Take 1 tablet by mouth once daily. For gout. omeprazole 40 mg capsule,delayed release(DR/EC) 40 mg PO DAILY amlodipine 10 mg tablet 10 mg PO DAILY hydrochlorothiazide 25 mg tablet 25 mg PO DAILY losartan 100 mg tablet 100 mg PO DAILY rosuvastatin [Crestor] 40 mg tablet 40 mg PO DAILY Primary Care Provider: Lukas Chatterjee Referrals: Lukas Chatterjee MD [Primary Care Provider] - Disposition Disposition: Acute Care Hospital [facility]
--- NOTE | 2023-09-02 19:16 | RAD_ITS ---
STUDY: X-RAY CHEST REASON FOR EXAM: Male, 57 years old. chest pain TECHNIQUE: Single AP portable view of the chest. COMPARISON: 01/18/2021 FINDINGS: The lungs are clear and expanded. There is no demonstrated pleural abnormality. Normal size heart. Normal mediastinum and jaden. Normal visualized pulmonary arteries. Normal visualized aortic arch and descending thoracic aorta. Normal visualized thoracic spine. Normal visualized ribs, clavicles, and shoulders. There is no demonstrated abnormality of the visualized soft tissue structures of the upper abdomen. RAD/Chest 1 View (Portable) IMPRESSION: Normal x-ray examination of the chest. Electronically Signed: Christiano Valero MD at 20:15 EST ,
[2023-09-02] MEDS: 0.9% Normal Saline (1000mL) 1,000 ML 150 ML IV (19:19)
[2023-09-02] MEDS: Aspirin 81 MG TAB.CHEW 324 MG PO (19:19)
[2023-09-02 19:21] VITALS: O2SAT 97
[2023-09-02 19:28] LABS: Absolute Lymphocyte Count 3.09 X10^3/uL (0.83-4.51); Absolute Neutrophil Count 7.1 X10^3/uL (2.0-7.7); Basophil# 0.06 X10^3/uL; Basophil% 0.5 % (0-1); Eosinophil# 0.08 X10^3/uL; Eosinophils% 0.7 % (0-5); Hemoglobin 14.2 g/dL (13.0-16.5); Lymphocyte # 3.09 X10^3/ul (0.83-4.51); Mean Corp Hgb Conc 32.3 g/dL (32-36); Mean Platelet Vol. 9.9 fl (6.2-12.0); Monocyte# 0.69 X10^3/uL; Monocyte% 6.3 % (0-10); NRBC Flagged by Analyzer 0 % (0-5); Neutrophil # 7.08 X10^3/uL (2.7-7.7); Neutrophil % 64.2 % (47-70); Platelet Count 291 K/mm3 (150-450); RBC Distribution Width CV 13.8 % (11.6-14.6); RBC Distribution Width SD 47.6 fl (35.1-43.9); Red Blood Count 4.73 M/mm3 (4.6-6.2)
[2023-09-02 19:37] LABS: D-Dimer Quantitative (DVT/PE) 0.48 FEU/ug/m (0.27-0.49)
[2023-09-02 19:43] LABS: Anion Gap 7 (5-15); BUN 17 mg/dL (7-18); BUN/Creat Ratio 19.4 RATIO (10-20); Chloride 108 mmol/L (98-107); Creatinine, Serum 0.88 mg/dL (0.70-1.30); EST Glomerular Filtration Rate 95 mL/min (>60); Est Glom Filt Rate - Afr Amer 115 mL/min (>60); Estimated Creatinine Clearance 100.43 ml/min; Glucose 101 mg/dL (74-106); Potassium 3.6 mmol/L (3.5-5.1); Sodium Level 141 mmol/L (136-145); Troponin-I HS (w/2H Reflex) 10 pg/mL (3.0-78.0)
[2023-09-02 20:23] VITALS: BP 166/116; PULSE 66; RESP 15; O2SAT 97
--- NOTE | 2023-09-02 20:37 | HP.PCM.HOS_ITS ---
HPI - General General Date of Admission: 09/02/23 Date of Service: 09/02/23 Chief Complaint: Chest pain. HPI Narrative The patient is a 57 y/o M w/ PMHx: Obesity, HTN, HLD, Asthma-COPD, Chronic back pain, Gout, Tobacco use, GERD w/ Hx GI bleed, Pre-Diabetes mellitus type II who presents to the [facility] ED on 09/02/23 with history of onset of chest pain noted to be intermittent over the last couple of weeks to described as pressure-like in sensation however its been more consistent over the last 24 hours lasting several minutes and then resolving primarily in the left anterior chest region with increased dyspnea and sensation of racing heart/palpitations during these episodes prompting eventual ED evaluation. He does report that he at its worst the pain was 10 out of 10 in severity and prior to ED arrival was 8 out of 10 in severity. He notes currently it is decreased down to 4-5 out of 10 in severity. Work-up in the ED included T97.4, heart rate 126/95, respiratory rate 18, 98% on room air, CBC with WBC 11, hemoglobin 14.2, platelet 291 without marked shift, D-dimer 0.48, BMP unremarkable, troponin 10, chest x-ray with no acute cardiopulmonary finding, EKG with sinus rhythm with no acute evidence of ischemia. Of note from review of records patient status post 03/11/2020 cardiac catheterization with normal coronaries, normal LV size, wall motion and systolic function with recommendation of continue medical therapy at that time. Also from review of most recent cardiology note 04/15/2021 there is no mention of any previous heart attack and from review of cardiac enzymes patient has had completely normal enzymes even in 2019 when he had been presenting for chest discomfort. In the ED patient ministered normal saline as well as full-strength aspirin therapy. [facility] Medical History (Updated 09/02/23 @ 20:[address] Luzmaria Ferreira MD) Asthma-COPD overlap syndrome Cervical spondylosis Essential (primary) hypertension Gout History of GI bleed Hyperlipidemia Lumbar radiculopathy Obesity Tobacco use Type 2 diabetes mellitus Home Medications allopurinol 300 mg tablet 300 mg PO DAILY 02/25/20 [History Last Taken 03/11/20] amlodipine 10 mg tablet 10 mg PO DAILY 08/07/23 [History Last Taken Unknown] hydrochlorothiazide 25 mg tablet 25 mg PO DAILY 08/07/23 [History Last Taken Unknown] losartan 100 mg tablet 100 mg PO DAILY 08/07/23 [History Last Taken Unknown] omeprazole 40 mg capsule,delayed release 40 mg PO DAILY 08/07/23 [History Last Taken Unknown] rosuvastatin 40 mg tablet (Crestor) 40 mg PO DAILY 08/07/23 [History Last Taken Unknown] Allergy/AdvReac Type Severity Reaction Status Date / Time No Known Allergies Allergy Verified 09/02/23 18:49 Family History Father Diabetes Hypertension Grandfather Heart disease Grandfather Heart disease Surgical History History of left heart catheterization (03/11/20) Social History (Updated 09/02/23 @ 21:[address] Luzmaria Ferreira MD) household members: none Smoking Status: Current every day smoker tobacco type: cigarettes Smoking packs per day: 0.5 Smoking cigarettes per day: 10.0 Tobacco: How many years used: 30 alcohol intake: never substance use type: marijuana caffeine: Yes Type: coffee Number of servings: 5 ROS ROS Narrative Admission Review of Systems: CONSTITUTIONAL: No weight loss, fever, chills, + weakness or fatigue. HEENT: Eyes: No visual loss, blurred vision, double vision or yellow sclerae. Ears, Nose, Throat: No hearing loss, sneezing, congestion, runny nose or sore throat. SKIN: No rash or itching, lesions, wounds. CARDIOVASCULAR: + chest pain, palpitations. No edema, orthopnea, syncopal events. RESPIRATORY: + shortness of breath, occasional wheezing. No cough or sputum, hemoptysis. GASTROINTESTINAL: No anorexia, nausea, vomiting or diarrhea, abdominal pain, melena, BRBPR. GENITOURINARY: No dysuria, frequency, urgency or retention. NEUROLOGICAL: No headache, dizziness, syncope, paralysis, ataxia, numbness or t ingling in the extremities, focal weakness, change in bowel or bladder control, seizure. MUSCULOSKELETAL: + muscle, back pain, joint pain or stiffness. HEMATOLOGIC: No anemia, bleeding or bruising. LYMPHATICS: No enlarged nodes. No history of splenectomy. PSYCHIATRIC: + history of depression or anxiety. ENDOCRINOLOGIC: No reports of sweating, cold or heat intolerance. No polyuria or polydipsia. ALLERGIES: No history of asthma, hives, eczema or rhinitis. Vital Signs Vital Signs Vital Signs: 09/02/23 18:49 09/02/23 18:56 09/02/23 19:21 Temperature 97.4 F L Temperature Source Temporal Pulse Rate 77 Respiratory Rate 18 Respiratory Pattern Normal Blood Pressure 126/95 H Blood Pressure Mean 105 Pulse Ox 98 97 Oxygen Delivery Method Room Air Room Air 09/02/23 20:23 Temperature Temperature Source Pulse Rate 66 Respiratory Rate 15 Respiratory Pattern Blood Pressure 166/116 H Blood Pressure Mean 132 Pulse Ox 97 Oxygen Delivery Method Room Air Weight Weight: 216 lb 11.2 oz Body Mass Index (BMI) 29.4 Physical Exam Narrative Physical Examination: General: Awake, alert, oriented x 3 and cooperative, seated upright in the ED bed in no apparent distress, currently rates chest discomfort down to 5 out of 10. Skin: Normal color, normal turgor, no icterus, no cyanosis. HEENT: AT/NC, EOMI, PERRLA, mildly dry MM, no carotid bruits or JVD noted. Lungs: Mildly diminished, greater bases, proper effort, occasional end expiratory wheeze, no rales or rhonchi. Heart: Regular rate and rhythm; no gallop, rub audible. Abdomen: Soft, obese, NTTP, ND, hyperactive BS, no HSM. Extremities: No cyanosis, clubbing, or edema. Neurological: Patient awake, alert, oriented as noted, cognitive function intact; pupils equally reactive to light and accommodation, cranial nerves II- XII grossly normal, moving all 4 extremities, no focal deficits, strength preserved. Psychiatric: Affect appears mildly flat, fatigued, no acute evidence of depressive or anxiety feelings. Results Lab / Micro Data 09/02/23 19:04 09/02/23 19:04 Labs: Laboratory Results - last 24 hr 09/02/23 19:04: WBC 11.0, RBC 4.73, Hgb 14.2, Hct 44.0, MCV 93.0, MCH 30.0, MCHC 32.3, RDW Std Deviation 47.6 H, RDW Coeff of Jose 13.8, Plt Count 291, MPV 9.9, Immature Gran % (Auto) 0.300, Neut % (Auto) 64.2, Lymph % (Auto) 28.0, [place] % (Auto) 6.3, Eos % (Auto) 0.7, Baso % (Auto) 0.5, Absolute Neuts (auto) 7.1, Absolute Lymphs (auto) 3.09, Nucleated RBC % 0, D-Dimer Quant (PE/DVT) 0.48, Sodium 141, Potassium 3.6, Chloride 108 H, Carbon Dioxide 26.0, Anion Gap 7, BUN 17, Creatinine 0.88, Estim Creat Clear Calc 100.43, Est GFR (MDRD) Af Amer 115, Est GFR (MDRD) Non-Af 95, BUN/Creatinine Ratio 19.4, Glucose 101, Calcium 9.0, Troponin I High Sens 10 Radiology Impression Chest X-Ray 09/02/23 19:16 IMPRESSION: Normal x-ray examination of the chest. Electronically Signed: Christiano Valero MD at 20:15 EST Reading Location ID and State: [facility] / [place] Tel , Service support , Assessment & Plan Assessment/Plan (1) Chest pain: PLAN: Plan The patient is a 57 y/o M w/ PMHx: Obesity, HTN, HLD, Asthma-COPD, Chronic back pain, Gout, Tobacco use, GERD w/ Hx GI bleed, Pre-Diabetes mellitus type II who presents to the [facility] ED on 09/02/23 with history of onset of chest pain noted to be intermittent over the last couple of weeks to described as pressure-like in sensation however its been more consistent over the last 24 hours lasting several minutes and then resolving primarily in the left anterior chest region with increased dyspnea and sensation of racing heart/palpitations during these episodes prompting eventual ED evaluation. #1. Chest Pain: EKG in ED with sinus rhythm with no acute evidence of ischemia, CXR w/ no acute cardiopulmonary finding, initial trop 10. Will admit to PCU, place on a monitored bed to assure no acute myocardial infarction with serial cardiac enzymes and EKGs. If repeat serial cardiac enzymes and EKGs remain un remarkable will pursue a.m. cardiac stress testing. FLP in AM. Magnesium level requested. ASA, NG. #2. Chronic asthma-COPD: Per current list on a chronic regimen, will maintain on PRN albuterol, HOB, IS parameters. #3. Pre-Diabetes mellitus type II: Chart reported history, not on regimen, he w ill A1c requested, ADA diet until n.p.o. status, accu checks w/ ISS. Last hemoglobin A1c noted 02/13/2023 5.7%. #4. Hypertension: Continue home regimen including losartan, hydrochlorothiazide, amlodipine, PRN hydralazine. #5. Hyperlipidemia: Continue home statin regimen. AM FLP. #6. GERD with history GI bleed: We will continue patient home PPI. #7. Chronic back pain: Encourage frequent positional changes, encourage continued outpatient follow-up. #8. Gout: We will continue patient home allopurinol regimen. #9. Tobacco Abuse: Encouraged cessation, inpatient consultation per RT, NR if desired. #10. Obesity: Weight loss and lifestyle changes encouraged. #11. DVT prophylaxis: Lovenox. Charges/Coding Visit Charges Inpatient E&M: 52590 Init Hosp L2
--- NOTE | 2023-09-02 20:42 | EKG12_ITS ---
Test Reason : CP Blood Pressure : / mmHG Vent. Rate : 072 BPM Atrial Rate : 072 BPM P-R Int : 164 ms QRS Dur : 096 ms QT Int : 382 ms P-R-T Axes : -13 023 033 degrees QTc Int : 418 ms Normal sinus rhythm Normal ECG Confirmed by TAYLOR CULP, LINDA ([id number]), newspaper editor RODY MCPHERSON ([id number]) on 09/10/2023 7:09:00 AM Referred By: ANNETTE Confirmed By:DOTTIE VAZQUEZ MD
[2023-09-02 20:56] LABS: Magnesium 2.1 mg/dL (1.6-2.6)
[2023-09-02 21:02] VITALS: BP 158/103; PULSE 62; PULSE 64; RESP 10; RESP 12; O2SAT 98; O2SAT 99
[2023-09-02 21:22] LABS: Reflex Troponin-HS? (from REC) Y
[2023-09-02 21:49] VITALS: BMI 28.8
[2023-09-02 22:03] VITALS: BP 147/100; PULSE 62; RESP 18; TEMP 36.4; O2SAT 99
[2023-09-02 22:08] LABS: Troponin-I HS 9 pg/mL (3.0-78.0)
[2023-09-02] MEDS: 0.9% Normal Saline (1000mL) 1,000 ML 100 ML IV (22:23)
[2023-09-02 22:47] LABS: Bedside Glucose 100 mg/dL (74-106)
[2023-09-03 01:50] LABS: Troponin-I HS 11 pg/mL (3.0-78.0)
[2023-09-03 04:00] VITALS: BP 139/88; PULSE 63; RESP 16; TEMP 36.9; O2SAT 98
--- NOTE | 2023-09-03 05:00 | EKG12_ITS ---
Test Reason : CP ADMIT Blood Pressure : / mmHG Vent. Rate : 062 BPM Atrial Rate : 062 BPM P-R Int : 162 ms QRS Dur : 104 ms QT Int : 412 ms P-R-T Axes : -21 054 051 degrees QTc Int : 418 ms Normal sinus rhythm Normal ECG When compared with ECG of 02-SEP-2023 18:54, MANUAL COMPARISON REQUIRED, DATA IS UNCONFIRMED Confirmed by TAYLOR CULP, LINDA ([id number]), video effects editor SUE RAMIREZ ([id number]) on 09/10/2023 11:04:35 AM Referred By: LUCÍA Confirmed By:DOTTIE VAZQUEZ MD
[2023-09-03 05:56] LABS: Absolute Lymphocyte Count 2.43 X10^3/uL (0.83-4.51); Absolute Neutrophil Count 3.8 X10^3/uL (2.0-7.7); Basophil# 0.05 X10^3/uL; Basophil% 0.7 % (0-1); Eosinophil# 0.23 X10^3/uL; Eosinophils% 3.2 % (0-5); Hematocrit 44.5 % (40-54); Hemoglobin 14.1 g/dL (13.0-16.5); Lymphocyte # 2.43 X10^3/ul (0.83-4.51); Lymphocyte % 33.6 % (19-41); Mean Corp Hgb Conc 31.7 g/dL (32-36); Mean Corpuscular Hgb 29.9 pg (27.0-32.0); Mean Corpuscular Volume 94.5 fL (80-94); Mean Platelet Vol. 9.6 fl (6.2-12.0); Monocyte# 0.69 X10^3/uL; Monocyte% 9.5 % (0-10); NRBC Flagged by Analyzer 0 % (0-5); Neutrophil # 3.82 X10^3/uL (2.7-7.7); Neutrophil % 52.7 % (47-70); Platelet Count 276 K/mm3 (150-450); RBC Distribution Width SD 48.9 fl (35.1-43.9); Red Blood Count 4.71 M/mm3 (4.6-6.2); White Blood Count 7.2 K/mm3 (4.4-11.0)
[2023-09-03 06:00] VITALS: BMI 28.8
[2023-09-03] MEDS: Losartan Potassium 100 MG Tablet PO (06:11)
[2023-09-03] MEDS: Aspirin E.C. 81 MG Tablet PO (06:11)
[2023-09-03 06:13] VITALS: BP 161/101
[2023-09-03 06:54] LABS: ALB/GLOB Ratio 0.9 RATIO (0.9-2.4); AST(SGOT) 14 U/L (15-37); Alanine Aminotransfer ALT/SGPT 20 U/L (16-61); Albumin, Serum 3.2 g/dL (3.2-5.0); Alkaline Phosphatase 65 U/L (45-117); Anion Gap 6 (5-15); BUN 15 mg/dL (7-18); BUN/Creat Ratio 18.6 RATIO (10-20); Calcium,Total 8.4 mg/dL (8.5-10.1); Chloride 110 mmol/L (98-107); Cholesterol 149 mg/dL (200); EST Glomerular Filtration Rate 104 mL/min (>60); Est Glom Filt Rate - Afr Amer 126 mL/min (>60); Estimated Creatinine Clearance 110.47 ml/min; Globulin 3.6 g/dL (2.2-4.2); Glucose 100 mg/dL (74-106); High Density Lipoprotein 42 mg/dL; Potassium 3.7 mmol/L (3.5-5.1); Protein, Total 6.8 g/dL (6.4-8.2); Sodium Level 141 mmol/L (136-145); Triglycerides 105 mg/dL; Very Low Density Lipoprotein 21 mg/dL (5-40)
[2023-09-03 07:43] LABS: Bedside Glucose 92 mg/dL (74-106)
[2023-09-03 08:38] LABS: Hemoglobin A1c 5.6 % (3.8-5.6)
[2023-09-03 09:53] VITALS: BP 159/77; PULSE 60; RESP 16; TEMP 36.3; O2SAT 100
[2023-09-03] MEDS: Pantoprazole Sodium 40 MG Tablet PO (09:56)
[2023-09-03] MEDS: hydroCHLOROthiazide 25 MG Tablet PO (09:56)
[2023-09-03] MEDS: amLODIPine 10 MG Tablet PO (09:56)
[2023-09-03] MEDS: Enoxaparin 40 MG/0.4 ML Syringe SC (09:56)
[2023-09-03] MEDS: Allopurinol 300 MG Tablet PO (09:56)
[2023-09-03] MEDS: Influenza Virus Vac Quad 23-24 60 MCG/0.5 ML SYRINGE IM (11:14)
[2023-09-03 11:46] LABS: Bedside Glucose 98 mg/dL (74-106)
--- NOTE | 2023-09-03 13:02 | STRESSREP ---
Stress Test Report Date: 09/03/2023 Procedure: Pharmacologic stress nuclear imaging study Indications: Chest pain Consent: Per the patient Procedure: The patient underwent pharmacologic (Regadenoson) evaluation with a peak heart rate of 82 beats per minute (50%predicted maximal heart rate) and a peak blood pressure of 154/104 mmHg. The baseline ECG demonstrated normal sinus rhythm. EKG during lexiscan infusion revealed no significant ischemic changes. EKG post infusion revealed no significant ischemic changes [There were no cardiac dysrhythmias pretest, during pharmacologic infusion, or recovery]. [There was no complaint of chest discomfort during pharmacologic infusion or recovery]. The examination was discontinued secondary to completion of protocol. Impression: 1. Lexiscan stress test test is negative for Lexiscan infusion induced EKG changes of ischemia. 2. Lexiscan stress test test is negative for Lexiscan infusion induced chest pain. 3. Results of the nuclear portion of the test is as below Myocardial perfusion imaging study: Technique: The patient was injected with 14.4 millicuries of technetium 99m Cardiolite and subsequently rest SPECT Cardiolite nuclear imaging was obtained in the horizontal long, vertical long, and short axis views. The patient underwent pharmacologic [Regadenoson 0.4mg] evaluation. Please see above for details. The patient was injected with 43.9 millicuries of technetium 99m Cardiolite and subsequently stress SPECT Cardiolite nuclear imaging was obtained in the horizontal long, vertical long, and short axis views. A gated Cardiolite study at peak stress was obtained. Interpretation: Rest and stress SPECT Cardiolite nuclear imaging status post realignment, normalization, and attenuation correction demonstrate no evidence of significant ischemia. There is mild decrease in the radioisotope uptake in the inferior wall prior to attenuation correction. There is also mild fixed defect in the apex. After attenuation correction the inferior wall the radioisotope uptake is normal. These findings are suggestive of diaphragmatic attenuation artifact. Possible prior apical myocardial infarction. Gated images reveal mild apical hypokinesis. The reported LVEF is 47%. Impression: 1. There is no evidence of significant ischemia. Prior apical myocardial infarction cannot be excluded. 2. Estimated ejection fraction is 47%. This note was generated with [employer] software. It may contain incorrect words, spelling, and punctuation that were not noted in checking the note before signing.
--- NOTE | 2023-09-03 13:18 | DCINST_ITS ---
Discharge Instructions Diet Discharge Diet: No restrictions Activity Discharge Activity: Return to Normal Activity Weight Bearing Status: Full weight bearing Follow Up Care Test Results: Test results from this visit will be discussed in further detail at your follow- up appointment, if applicable. Discharge Plan Admission Admit Date/Time: 09/02/23 20:39 Primary Reason for Your Visit: chest pain Attending Provider: Rigoberto Overton Primary Care Provider: Lukas Chatterjee Consulting Providers: Luzmaria Ferreira Discharge Orders/Prescriptions Prescriptions: Continued allopurinol 300 mg tablet 300 mg PO DAILY Patient Comments: Take 1 tablet by mouth once daily. For gout. omeprazole 40 mg capsule,delayed release(DR/EC) 40 mg PO DAILY amlodipine 10 mg tablet 10 mg PO DAILY hydrochlorothiazide 25 mg tablet 25 mg PO DAILY losartan 100 mg tablet 100 mg PO DAILY rosuvastatin [Crestor] 40 mg tablet 40 mg PO DAILY Referrals / Follow Up: Lukas Chatterjee MD [Primary Care Provider] - See Referral Note (call within the next month for an appointment) Disposition Disposition (needs filled in before D/C Order can be placed): Home, Self Care
--- NOTE | 2023-09-03 13:23 | DS.PCM_ITS ---
Providers Date of Admission: 09/02/23 Date of Discharge: 09/03/23 Primary Care Physician: Dr. Lukas Chatterjee MD Reason For Visit: chest pain Diagnosis Discharge Diagnosis (1) Chest pain: Status: Resolved Code(s): R07.9 - Chest pain, unspecified Plan 1. Musculoskeletal chest pain #2 essential hypertension #3 hyperlipidemia Medications at Discharge Home Medications allopurinol 300 mg tablet 300 mg PO DAILY 02/25/20 amlodipine 10 mg tablet 10 mg PO DAILY 08/07/23 hydrochlorothiazide 25 mg tablet 25 mg PO DAILY 08/07/23 losartan 100 mg tablet 100 mg PO DAILY 08/07/23 omeprazole 40 mg capsule,delayed release 40 mg PO DAILY 08/07/23 rosuvastatin 40 mg tablet (Crestor) 40 mg PO DAILY 08/07/23 Hospital Course Operations None Procedures Stress test Summary of Care Provided Minutes Spent on Discharge: 30 Hospital Course: This 57-year-old white male was seen in the emergency room at [facility] with complaints of substernal chest pain which was intermittent in nature. EKG was performed in the emergency room showed no evidence of ischemic changes, chest x-ray was unremarkable, labs that were obtained including a troponin were unremarkable. Patient was placed in observation status on PCU, serial cardiac enzymes were obtained which were unremarkable. Patient underwent a nuclear stress test which showed no evidence of ischemic changes. On 09/03/2023, patient was seen and examined: On examination he appeared in good health and spirits. Vital signs as documented. Skin warm and dry and without overt rashes. Neck without JVD, neck was supple, trachea midline, thyroid was normal. Lungs clear bilaterally, normal air movement was noted. Heart exam notable for regular rhythm, normal sounds and absence of murmurs, rubs or gallops. Abdomen unremarkable and without evidence of organomegaly, masses, or abdominal aortic enlargement. Bowel sounds are present, abdomen is not distended. Extremities nonedematous, no cyanosis was noted, no clubbing was noted. Neuro: Cranial nerves II through XII are grossly intact, no focal motor deficits were noted, sensation to light touch and pinprick intact, motor exam 5/5 throughout. Psych: Patient is alert and oriented x3, he does not appear anxious or depressed, he does not appear agitated. Patient was discharged home in stable condition on 09/03/2023 Weight / BMI Weight Weight: 96.615 kg Body Mass Index (BMI) 28.8 ABG / Lab / Microbiology Data 09/03/23 05:30 09/03/23 05:30 Laboratory: Laboratory Results - last 24 hr 09/02/23 19:04: WBC 11.0, RBC 4.73, Hgb 14.2, Hct 44.0, MCV 93.0, MCH 30.0, MCHC 32.3, RDW Std Deviation 47.6 H, RDW Coeff of Jose 13.8, Plt Count 291, MPV 9.9, Immature Gran % (Auto) 0.300, Neut % (Auto) 64.2, Lymph % (Auto) 28.0, [place] % (Auto) 6.3, Eos % (Auto) 0.7, Baso % (Auto) 0.5, Absolute Neuts (auto) 7.1, Absolute Lymphs (auto) 3.09, Nucleated RBC % 0, D-Dimer Quant (PE/DVT) 0.48, Sodium 141, Potassium 3.6, Chloride 108 H, Carbon Dioxide 26.0, Anion Gap 7, BUN 17, Creatinine 0.88, Estim Creat Clear Calc 100.43, Est GFR (MDRD) Af Amer 115, Est GFR (MDRD) Non-Af 95, BUN/Creatinine Ratio 19.4, Glucose 101, Calcium 9.0, Magnesium 2.1, Troponin I High Sens 10 09/02/23 21:22: Troponin I High Sens 9 09/02/23 22:22: POC Glucose 100 09/03/23 01:05: Troponin I High Sens 11 09/03/23 05:30: WBC 7.2, RBC 4.71, Hgb 14.1, Hct 44.5, MCV 94.5 H, MCH 29.9, MCHC 31.7 L, RDW Std Deviation 48.9 H, RDW Coeff of Jose 14.0, Plt Count 276, MPV 9.6, Immature Gran % (Auto) 0.300, Neut % (Auto) 52.7, Lymph % (Auto) 33.6, [place] % (Auto) 9.5, Eos % (Auto) 3.2, Baso % (Auto) 0.7, Absolute Neuts (auto) 3.8, Absolute Lymphs (auto) 2.43, Nucleated RBC % 0, Sodium 141, Potassium 3.7, Chloride 110 H, Carbon Dioxide 25.0, Anion Gap 6, BUN 15, Creatinine 0.80, Estim Creat Clear Calc 110.47, Est GFR (MDRD) Af Amer 126, Est GFR (MDRD) Non-Af 104, BUN/Creatinine Ratio 18.6, Glucose 100, Hemoglobin A1c 5.6, Calcium 8.4 L, Total Bilirubin 0.50, AST 14 L, ALT 20, Alkaline Phosphatase 65, Total Protein 6.8, Albumin 3.2, Globulin 3.6, Albumin/Globulin Ratio 0.9, Triglycerides 105, Cholesterol 149, LDL Cholesterol 86, VLDL Cholesterol 21, HDL Cholesterol 42 09/03/23 06:04: POC Glucose 92 09/03/23 11:13: POC Glucose 98 Radiography Diagnostic Testing: Radiology Impression Chest X-Ray 09/02/23 19:16 IMPRESSION: Normal x-ray examination of the chest. Electronically Signed: Christiano Valero MD at 20:15 EST , D/C Instructions Discharge Diet: No restrictions Weight Bearing Status: Full weight bearing Meaningful Use Info Meaningful Use Diagnoses (Choose all that apply): None applicable Discharge Plan Admission Admit Date/Time: 09/02/23 20:39 Primary Reason for Your Visit: chest pain Attending Provider: Rigoberto Overton Primary Care Provider: Lukas Chatterjee Consulting Providers: Luzmaria Ferreira Discharge Orders/Prescriptions Prescriptions: Continued allopurinol 300 mg tablet 300 mg PO DAILY Patient Comments: Take 1 tablet by mouth once daily. For gout. omeprazole 40 mg capsule,delayed release(DR/EC) 40 mg PO DAILY amlodipine 10 mg tablet 10 mg PO DAILY hydrochlorothiazide 25 mg tablet 25 mg PO DAILY losartan 100 mg tablet 100 mg PO DAILY rosuvastatin [Crestor] 40 mg tablet 40 mg PO DAILY Referrals / Follow Up: Lukas Chatterjee MD [Primary Care Provider] - See Referral Note (call within the next month for an appointment) Disposition Disposition (needs filled in before D/C Order can be placed): Home, Self Care Charges/Coding Visit Charges Inpatient E&M: 32441 Disch Hosp
== END 2023-09-03 14:32 | disposition home or self-care (01) ==
LOC: ED 20:26 → PCU 21:22
PROVIDERS: Admitting Provider Family Medicine; Emergency Provider Emergency Medicine; PCP Family Medicine; Visit Provider Internal Medicine
DX: R07.89 Other chest pain (principal); J44.9 Chronic obstructive pulmonary disease, unspecified; E11.9 Type 2 diabetes mellitus without complications; I10 Essential (primary) hypertension; K21.9 Gastro-esophageal reflux disease without esophagitis; M10.9 Gout, unspecified; F17.210 Nicotine dependence, cigarettes, uncomplicated; E78.5 Hyperlipidemia, unspecified; Z79.899 Other long term (current) drug therapy; R06.02 Shortness of breath; I25.2 Old myocardial infarction; E66.9 Obesity, unspecified; Z68.29 Body mass index [BMI] 29.0-29.9, adult; Z23 Encounter for immunization
CPT/HCPCS: 90686; 36415; 71045; 78452; 80048; 80053; 80061; 82962; 83036; 83735; 84484; 85025; 85379; 93005; 93017; 96360; 96361; 96372; 99221; 99285; A9500; J7030; A4216; G0378; J2785

== ENCOUNTER 2023-10-26 07:18 | Day surgery (SDC) | payer MEDICAID, SELFPAY ==
--- OUTSIDE RECORDS SUMMARY | 2023-10-26 07:22 | XMS RPT_ITS | CCD ---
Author Name Unknown Address [address] [place] [address] Organization [facility] Care Team Providers Care Accounting Advisory Services Manager Name Role Phone CHIDI ROLAND Unavailable Unavailable YAN MENDEZ Unavailable Unavailable CHIDI ROLAND Unavailable Unavailable Kevin Mendez Unavailable Unavailable CHIDI ROLAND Unavailable Unavailable Kevin Mendez Unavailable Unavailable Kevin Mendez Unavailable Unavailable CHIDI ROLAND Unavailable Unavailable Unavailable Primary Care Provider Unavailabl e Medications Current Medications Medication Drug Class(es) Dates Sig (Normalized) Sig (Original) allopurinol 300 mg oral tablet (1 source) Xanthine Oxidase Inhibitor take 1 tablet by mouth once daily allopurinol (ZYLOPRIM) 300 MG tablet Take 300 mg by mouth daily 0 Active aspirin 81 mg chewable tablet (1 source) Platelet Aggregation Inhibitor, Nonsteroidal Anti-inflammatory Drug take 1 tablet by mouth once daily aspirin 81 MG chewable tablet Take 81 mg by mouth daily 0 Active lisinopril 40 mg oral tablet (1 source) Angiotensin Converting Enzyme Inhibitor take 1 tablet by mouth once daily lisinopril (PRINIVIL;ZESTRIL ) 40 MG tablet Take 40 mg by mouth daily 0 Active simvastatin 20 mg oral tablet (1 source) HMG-CoA Reductase Inhibitor take 1 tablet by mouth once daily simvastatin (ZOCOR) 20 MG tablet Take 20 mg by mouth nightly 0 Active traZODone hydrochloride 50 mg oral tablet (1 source) Serotonin Reuptake Inhibitor Start: 03-23-2020 take 1 tablet by mouth once daily as needed for sleep traZODone (DESYREL) 50 MG tablet Take 1 tablet by mouth nightly as needed for Sleep 30 tablet 1 03/23/2020 Active Problems Active Problems Problem Classification Problem Date Documented Da te Episodic/Chronic Cardiac dysrhythmias (1 source) Cardiac arrhythmia, unspecified; Translations: [Cardiac arrhythmia, unspecified] Onset: 08-30-2017 Chronic Other nutritional; endocrine; and metabolic disorders (1 source) Body mass index 30+ - obesity; Translations: [Obesity (BMI 30-39.9)] Onset: 03-22-2020 03-22-2020 Chronic Unclassified (1 source) Unknown / UNK(Unknown) Onset: 08-30-2017 Past or Other Problems Problem Classification Problem Date Documented Da te Episodic/Chronic Alcohol-related disorders (1 source) Alcohol intoxication; Translations: [Alcoholic intoxication with complication] Onset: 03-22-2020 Resolved: 03-23-2020 03-23-2020 Chronic Mood disorders (1 source) Depressive disorder; Translations: [Depression with suicidal ideation] Onset: 03-22-2020 Resolved: 03-23-2020 03-23-2020 Chronic Nonspecific chest pain (1 source) Chest pain, unspecified; Translations: [Chest pain, unspecified] Onset: 08-30-2017 Episodic Syncope (3 sources) Syncope and collapse; Translations: [Syncope and collapse] Onset: 08-30-2017 Episodic Results Test Name Value Interpretation Reference Range [facility] Vital Signs Date Time Vital Sign Value Performing Clinician Faci litalexia 03-23-2020 11:12-0400 Body Temperature 97.7 [degF] [place], [place] 03-23-2020 05:50-0400 BP Diastolic 95 mm[Hg] [place], [place] 03-23-2020 05:50-0400 BP Systolic 140 mm[Hg] [place] 03-23-2020 05:50-0400 Pulse (Heart Rate) 63 /min [place], [place] 03-23-2020 05:50-0400 Pulse Oximetry 99 % [place] 03-23-2020 05:50-0400 Respiratory Rate 18 /min [place] 03-22-2020 03:47-0400 BMI (Body Mass Index) 31.74 kg/m2 [place] 03-22-2020 03:47-0400 Body weight 106.14 kg [place] 03-22-2020 03:47-0400 Height 182.9 cm [place] Encounters Encounter Date Encounter Type Care Provider Facility Start: 03-22-2020 Patient encounter procedure [place], [place] Start: 02-27-2018 Ambulatory CHIDI ROLAND Facility :[facility] Start: 09-04-2017 Ambulatory CHIDI ROLAND [facility] Start: 08-30-2017 End: 08-30-2017 Ambulatory CHIDI ROLAND [facility] Procedures Date Procedure Procedure Detail Performing Clinician Start: 03-23-2020 Hemoglobin glycosyla raquel a1c [employer] Work Phone: Start: 03-23-2020 Lipid panel [employer] Work Phone: Plan of Treatment Date Care Activity Detail Author Start: 1965 Creatinine measurement Creatinine mo nitoring [place], [place] Start: 1965 Potassium monitoring Potassium monit oring [place] Social History Date Type Detail Facility Start: 03-22-2020 Tobacco smoking stat us [facility] Current every day smoker [place] Start: 03-22-2020 Cigarettes smoked current (pack per day) - Reported [place] Start: 03-22-2020 Alcohol intake Current drinke r of alcohol (finding) [place] Start: 03-22-2020 Alcohol Comment occasionally [facility] [place] Sex Assigned At Not on file [place] Exposure to SARS-CoV -2 (event) Unable to assess [place], [place] Clinical Note 07-19-2021 Note Date & Type Note Facility 07-19-2021 Note Patient Outreach (KENNY DOWD) JACKIE RIUZ ([id number]) 1965 M Date Time Provider Department 07/19/21 CALOS MONK During your visit today, we recorded the following information about you: Calos Monk 07/19/2021 9:47 AM Signed POPULATION HEALTH NAVIGATION OUTREACH Action/FYI Unable to reach patient, sent letter. Contact made with patient or family member? no Pt identified by name and : no Outreach Outcome/Action Unable to reach patient, sent letter. Reason for Outreach Care gap - colonoscopy Payer: Payor: [facility] MEDICA[facility] / Plan: [facility] [employer] MEDICAID / Product Type: Medicaid / Care Gap Reviewed:: Health maintenance - colonoscopy Reminder: Reminder note to check Health Maintenance for items below Health Maintenance items due: COVID-19 VACCINE(1) Never done SPIROMETRY Never done HEPATITIS C SCREENING Never done HIV SCREENING Never done BP CONTROLLED (<130/80) Never done SHINGRIX VACCINE(1 of 2) Never done COLORECTAL CANCER SCREENING due on 08/20/2019 DEPRESSION SCREENING due on 10/18/2019 ANNUAL PCP TEAM CHRONIC DISEASE VISIT due on 10/17/2020 INFLUENZA(1) due on 06/29/2021 Advanced Directives Completed: Have you ever planned for future healthcare decisions with a power of transactional attorney, living will, or advance directives? Referrals: Message Sent to Practice: Navigation Signature: Calos Georgegprichris July 19, 2021 9:45 AM Allergies As of Date: 07/19/2021 (No Known Allergies) Date Reviewed: 04/14/2020 Reviewed by: Gaby Benson Ma - Fully Assessed Reason for Visit: Population Health Navigation Outreach [3910] Cmt: care gap - colonoscopy Prescriptions as of 07/19/2021 - allopurinol (ZYLOPRIM) 300 mg tablet Take 1 tablet by mouth once daily. For gout. - lisinopril (ZESTRIL, PRINIVIL) 40 mg tablet Take 1 tablet by mouth once daily. - simvastatin (ZOCOR) 20 mg tablet Take 1 tablet by mouth daily at bedtime. - ibuprofen (MOTRIN) 800 mg tablet Take 1 tablet by mouth every 8 hours as needed for Pain. Take with food. Problem List As Of Date 07/19/2021 Noted Resolved Essential hypertension [I10] 12/10/2012 Mixed hyperlipidemia [E78.2] 12/10/2012 Degenerative arthritis of knee [M17.10] 12/10/2012 Gout [M10.9] 12/10/2012 Depression [F32.9] 12/10/2012 Bipolar disorder (HCC) [F31.9] 12/10/2012 05/28/2015 COPD (chronic obstructive pulmonary disease) [J*12/10/2012 Hypogonadism male [E29.1] 12/10/2012 Backache [M54.9] 12/10/2012 Degenerative arthritis of left knee [M17.12] 04/10/2013 Idiopathic chronic gout of left foot without to*05/28/2015 Asthma, moderate persistent, well-controlled [J*05/28/2015 Prediabetes [R73.03] 10/18/2018 Letter Text Encounter Status:Closed by CALOS MONK on 07/19/21 [facility] Progress note 07-19-2021 Note Date & Type Note Facility 07-19-2021 Note HNO ID: [id number] Author: Calos Monk Service: ? Author Type: ? Type: Progress Notes Filed: 07/19/2021 9:47 AM Note Text: POPULATION HEALTH NAVIGATION OUTREACH Action/FYI Unable to reach patient, sent letter. Contact made with patient or family member? no Pt identified by name and : no Outreach Outcome/Action Unable to reach patient, sent letter. Reason for Outreach Care gap - colonoscopy Payer: Payor: [facility] MEDICA[facility] / Plan: [facility] [employer] MEDICAID / Product Type: Medicaid / Care Gap Reviewed:: Health maintenance - colonoscopy Reminder: Reminder note to check Health Maintenance for items below Health Maintenance items due: COVID-19 VACCINE(1) Never done SPIROMETRY Never done HEPATITIS C SCREENING Never done HIV SCREENING Never done BP CONTROLLED (<130/80) Never done SHINGRIX VACCINE(1 of 2) Never done COLORECTAL CANCER SCREENING due on 08/20/2019 DEPRESSION SCREENING due on 10/18/2019 ANNUAL PCP TEAM CHRONIC DISEASE VISIT due on 10/17/2020 INFLUENZA(1) due on 06/29/2021 Advanced Directives Completed: Have you ever planned for future healthcare decisions with a power of transactional attorney, living will, or advance directives? Referrals: Message Sent to Practice: Navigation Signature: Calos Monk July 19, 2021 9:45 AM [facility] Summary Purpose Family History No Family History Records FoundNo Family History Records FoundNo Family History Records FoundNo Family History Records FoundNo Family History Records Found Advance Directives No Advanced Directives Records FoundLatest Code Status on File Code Status Date Activated Date Inactivated Comments Full Code 03/22/2020 4:35 AM Additional Source Comments (unrecognized sect ion and content) No Status Records FoundNo Status Records FoundNo Status Records FoundNo Status Records FoundNo Status Records Found INFORMATION SOURCE (unrecogn ized section and content) DATE CREATED AUTHOR AUTHOR'S ORGANIZ ATION 04/19/2018 [facility] DATE CREATED AUTHOR AUTHOR'S ORGANIZ ATION 04/23/2018 [facility] DATE CREATED AUTHOR AUTHOR'S ORGANIZ ATION 03/23/2020 [facility] DATE CREATED AUTHOR AUTHOR'S ORGANIZ ATION 12/19/2021 [facility] FOR RECORDS PERTAINING TO PATIENTS WHO ARE OR HAVE BEEN ENROLLED IN A CHEMICAL DEPENDENCY/SUBSTANCEABUSE PROGRAM, SOME INFORMATION MAY BE OMITTED. This clinical summary was aggregated from multiple sources. Caution should be exercised in using it in the provision of clinical care. This summary normalizes information from multiple sources, and as a consequence, information in this document may materially change the coding, format and clinical context of patient data. In addition, data may be omitted in some cases. CLINICAL DECISIONS SHOULD BE BASED ON THE PRIMARY CLINICAL RECORDS. [facility]. provides no warranty or guarantee of the accuracy or completeness of information in this document.
[2023-10-26 07:36] VITALS: BP 131/93; PULSE 58; RESP 16; TEMP 36.6; O2SAT 98; BMI 29.2
--- NOTE | 2023-10-26 07:47 | PCM.HP.BLA ---
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 Required: No Is patient in pain?: No Allergies No Known Allergies Allergy (Verified 09/04/23 13:20) Medications allopurinol 300 mg tablet 300 mg PO DAILY 02/25/20 [History Confirmed 09/04/23] amlodipine 10 mg tablet 10 mg PO DAILY 08/07/23 [History Confirmed 09/04/23] hydrochlorothiazide 25 mg tablet 25 mg PO DAILY 08/07/23 [History Confirmed 09/04/23] losartan 100 mg tablet 100 mg PO DAILY 08/07/23 [History Confirmed 09/04/23] omeprazole 40 mg capsule,delayed release 40 mg PO DAILY 08/07/23 [History Confirmed 09/04/23] rosuvastatin 40 mg tablet (Crestor) 40 mg PO DAILY 08/07/23 [History Confirmed 09/04/23] [facility] Medical History (Updated 09/04/23 @ 00:01 by Background Jeff) Asthma-COPD overlap syndrome Cervical spondylosis Essential (primary) hypertension Gout History of GI bleed Hyperlipidemia Lumbar radiculopathy Obesity Tobacco use Type 2 diabetes mellitus Surgical History History of left heart catheterization (03/11/20) Family History Father Diabetes HypertensionGrandfather Heart diseaseGrandfather Heart disease Social History (Updated 09/02/23 @ 21:[address] Luzmaria Ferreira MD) household members: none Smoking Status: Current every day smoker tobacco type: cigarettes Tobacco: How many years used: 30 alcohol intake: never substance use type: marijuana caffeine: Yes Type: coffee Number of servings: 5 HPI HPI HPI: 57-year-old gentleman. He was hospitalized from September 02 through September 03, 2023 at the [facility] with a diagnosis of chest pain. He had a stress test on September 03, 2023 with a ejection fraction of 47% no evidence of ischemia. Previously I assisted him September 28, 2020 with a colonoscopy and upper endoscopy. Colonoscopy demonstrated a 14 mm polyp in the distal descending colon semipedunculated. It was removed with a hot snare. Pathology demonstrated tubular adenoma. At the same time he had an upper endoscopy demonstrating what looks like short segment Ferrer's. Medium sized hiatal hernia. Some erythema of the antrum. He was initiated on omeprazole 40 mg daily. 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 Consideration for follow-up EGD and colonoscopy at 3 years recommended. States that today he is feeling fine. The chest pain is the left anterior chest he says its periodic comes and goes. He states his work-up at the hospital was unremarkable. He will occasionally cough up some blood with little mucus streaks. He states that occasionally he will have some bright red blood per rectum. None of that is no. ROS General General: Yes weight change (weight loss ~60 lbs intentionally); No appetite, fatigue, colon cancer, breast cancer or weakness HEENT HEENT: No difficulty swallowing, eye injury, eye surgery, swollen glands or hoarseness Endo Endocrine: No thyroid disease, diabetes mellitus, thyroid cancer, Hair loss, heat intolerance or cold intolerance Skin Skin: No rash or changing moles Breast Breast: No left breast lump, right breast lump, nipple discharge, breast pain, abnormal mammogram, abnormal US or breast enlargement Musc Musculoskeletal: Yes back problems, arthritis and gout; No rheumatoid arthritis or joint pain Cardio Cardiovascular: Yes high blood pressure and heart attack; No murmur, pacemaker, heart disease, atrial fibrillation, heart stent, palpitations, shortness of breat with exertion or chest pain Psych Psychiatric: Yes depression and anxiety; No hearing voices Resp Respiratory: Yes shortness of breath, No sleep apnea, Yes cough, No COPD, Yes asthma, No emphysema and No wheezing Gastro Gastrointestinal: Yes abdominal pain, Yes nausea or vomiting, No diarrhea, No constipation, Yes blood in stool, Yes acid reflux, Yes hemorrhoids, No ulcers, No gallbladder problem and No black,tarry stools Milo Hematologic: No blood thinners, No blood disorders, No bleeding, No anemia and No blood clots Neuro Neurologic: No system reviewed and no additional complaints, except as documented, No as per HPI, No abnormal gait, No abnormal hearing, No abnormal movements, No abnormal speech, No behavioral changes, No burning sensations, No confusion, No convulsions, No disequilibrium, No dizziness, No localized weakness, No frequent falls, No headache(s), No lack of coordination, No loss of vision, No memory loss, No numbness, No other visual disturbances, No radicular pain, No restless legs, No sensory deficit, No syncope, No tingling, No tremor(s), No weakness and No other Exam Const General: cooperative, comfortable and no acute distress [facility] Head: normal to inspection Eyes General: appearance normal, both eyes and all related structures Neck Neck: normal visual inspection Chest Other: Increased anterior posterior diameter Resp Effort & Inspection: normal respiratory effort Auscultation: clear to auscultation bilaterally Cardio Rate: regular rate Rhythm: regular rhythm GI Other: Soft, nontender, no hepatosplenomegaly Musc Cervical Spine: normal cervical lordosis Skin General: no rashes or lesions noted Neuro General: patient alert, patient awake and patient oriented x3 Extrem General: no calf tenderness Psych Appearance: grossly normal Assessment and Plan Assessment and Plan (1) Chest pain: Status: Chronic Qualifiers: Chest pain type: other chest pain Qualified Code(s): R07.89 - Other chest pain Plan: I recommended the patient a esophagogastroduodenoscopy with possible biopsy and follow-up of his Ferrer's esophagus. I also recommended the patient a colonoscopy because of his descending colon partially pedunculated tubular adenoma. He has had an opportunity ask and have questions answered. We will schedule procedure at his discretion. It would appear that he has ongoing significant amount of anxiety. Copy: Dr Lukas Monae M.D., F.A.C.S. The patient had an ER visit for back pain. He claims he has chronic back pain and needs to have surgery. He denies any other current health changes. History and physical remains constant. We will proceed with planned esophagogastroduodenoscopy with possible biopsy and colonoscopy with possible biopsy or polypectomy as indicated. Papito Monae M.D., F.A.C.S.
[2023-10-26] MEDS: Lactated Ringers 1,000 ML 15 ML IV (07:51)
--- NOTE | 2023-10-26 08:30 | COLBX_PTH ---
PATHOLOGY RESULTS PATIENT: JACKIE RUIZ LOC: EN U#:[id number] AGE/SX: 58/M ROOM: RE10/26/[address]: Dr. Papito Monae MD : 1965 BED: DIS: 10/26/2023 SPEC #: [id number] RECD: 10/26/23 12:00 STATUS: [place] WENCESLAO #: [id number] AARON: 10/26/23 08:[address]: Papito Monae DEPT: SURGICAL PATHOLOGY RECD BY: Gaby Padron ENTERED: 10/26/23 12:01 SP TYPE: COLON BX OTHR DR: Dr. Lukas Chatterjee MD Tissues: Gastric mucous membrane Esophageal mucous membrane Sigmoid colon biopsy Procedures: Special Stain Group II Surgery Specimen Level IV Alcian Blue/PAS (control) HEADER OPERATION: Colonoscopy with biopsy, EGD with biopsy PRE-OP DIAGNOSIS: Chest pain TISSUE SUBMITTED: A - Antral biopsy for H. pylori and histology, B - Distal esophagus, C - Distal sigmoid MICROSCOPIC DIAGNOSIS A. Antral biopsy: Mild gastritis. See microscopic description and comment. B. Distal esophagus, biopsy: Fragments of gastroesophageal mucosa with focal intestinal metaplasia (goblet cell metaplasia), consistent with Ferrer's esophagus. Chronic inflammation. Negative for dysplasia. See comment. C. Distal sigmoid, biopsy: Fragments of tubular adenoma. SJ:rg 10/30/2023 COMMENT A. The results of immunohistochemistry for Helicobacter pylori will be reported separately ([id number]). B. Immunohistochemistry ([id number]) for P53 and Ki-67 will be performed and results will be reported separately. Alcian blue/PAS stain with matched control is used in the evaluation of the specimen. MICROSCOPIC DESCRIPTION Slides are reviewed. A. The specimen shows fragments of gastric mucosa with chronic inflammatory cell infiltrates in the lamina propria consisting of lymphocytes and plasma cells, consistent with mild chronic gastritis. GROSS DESCRIPTION A - Received in fixative is one container labeled with the patient's name and designated antrum biopsy. The specimen consists of one irregular fragment of light young soft tissue that measures 0.5 x 0.3 x 0.1 cm. The specimen is totally submitted in one cassette. B - Received in fixative is one container labeled with the patient's name and designated distal esophagus. The specimen consists of multiple irregular fragments of light young soft tissue that in aggregate measure 2.0 x 0.5 x 0.1 cm. The specimen is totally submitted in one cassette. C - Received in fixative is one container labeled with the patient's name and designated distal sigmoid. The specimen consists of two irregular fragments of light young soft tissue that in aggregate measure 0.5 x 0.3 x 0.1 cm. The specimen is totally submitted in one cassette. / SJ:rg 10/26/2023 TC:1 CPT: 49484 x3, 14786
--- NOTE | 2023-10-26 08:30 | IMM_PTH ---
PATHOLOGY RESULTS PATIENT: JACKIE RUIZ LOC: EN U#:[id number] AGE/SX: 58/M ROOM: RE10/26/[address]: Dr. Papito Monae MD : 1965 BED: DIS: 10/26/2023 SPEC #: [id number] RECD: 10/26/23 13:23 STATUS: ISRA[place] REQ #: [id number] AARON: 10/26/23 08:[address]: Papito Monae DEPT: IMMUNOHISTOCHEMISTRY RECD BY: Lanette Oconnor ENTERED: 10/26/23 13:23 SP TYPE: IMMUNO OTHR DR: Dr. Lukas Chatterjee MD Tissues: Stomach, NOS Esophageal mucous membrane Procedures: H Pylori (initial) P53 (initial) KI-67 (add) PHYSICIAN & INSTITUTION [place] [id number] SPECIMEN INFORMATION: Tissue Source: A - Antral biopsy, B - Distal esophagus Clinical Info: Chest pain Specimen Number: [id number] A & B CPT code: 15837 x2, 85796 METHODOLOGY: Deparaffinized sections of prefer/formalin-fixed tissue or PAP/DQ stained slides are incubated with monoclonal/polyclonal antibodies/oligonucleotide probes. Localization is made via biotin free immunoperoxidase method. Appropriate controls are performed and reacted as expected. Results on target cell population are indicated in the following table: RESULTS: ANTIBODY / CLONE RESULT Block A H Pylori (polyclonal) negative Block B P53 (DO-7) positive, rare cells, weak (wild type pattern) Ki-67 (30-9) positive, low These tests were developed and their performance characteristics determined by [facility]. They may not have been cleared or approved by the U.S. Food and Drug Administration. The FDA has determined that such clearance or approval is not necessary. The above immunohistochemical/dualISH markers are ordered and reviewed by the Pathologist. INTERPRETATION: A. Antral biopsy: Negative for Helicobacter pylori organisms. B. Distal esophagus, biopsy: Negative for dysplasia. SJ:sugey 10/31/2023
[2023-10-26 09:10] VITALS: BP 107/88; BP 131/93; PULSE 69; RESP 16; TEMP 36.5; O2SAT 98
--- NOTE | 2023-10-26 09:12 | OP.CCLET_ITS ---
10/26/2023 Lukas Chatterjee [address] [place] [address] Re : Upper GI endoscopy procedure for [place] Dear Dr. Chatterjee This procedure was performed on Thursday, October 26, 2023. My impressions and recommendations are as follows: Impressions : - Esophageal mucosal changes secondary to established long-segment Ferrer's disease. Biopsied. - 3 cm hiatal hernia. - Z-line irregular, 41 cm from the incisors. - Erythematous mucosa in the antrum. Biopsied. - Normal examined duodenum. Recommendations : - Discharge patient to home. - Resume previous diet. - Continue present medications. - Repeat upper endoscopy in 3 years for surveillance. - Telephone my office for pathology results in 1 week. My findings are described in the full procedure note, which is enclosed. If I can be of further assistance, please feel free to contact me at Doctor phone number(s): Work: . Sincerely, Papito Monae MD 10/26/2023 9:11:45 AM This report has been signed electronically.
--- NOTE | 2023-10-26 09:12 | OP.EGD_ITS ---
Patient Name: Glen hSeldon Procedure Date: 10/26/2023 8:26 AM Date of : 1965 Age: 58 Procedure: Upper GI endoscopy Indications: Surveillance procedure Providers: Papito Monae MD Referring MD: Papito Monae MD Medicines: See the Anesthesia note for documentation of the administered medications Complications: No immediate complications. Procedure: Pre-Anesthesia Assessment: - Prior to the procedure, a History and Physical was performed, and patient medications and allergies were reviewed. The patient's tolerance of previous anesthesia was also reviewed. The risks and benefits of the procedure and the sedation options and risks were discussed with the patient. All questions were answered, and informed consent was obtained. Prior Anticoagulants: The patient has taken no anticoagulant or antiplatelet agents. ASA Grade Assessment: II - A patient with mild systemic disease. After reviewing the risks and benefits, the patient was deemed in satisfactory condition to undergo the procedure. After obtaining informed consent, the endoscope was passed under direct vision. Throughout the procedure, the patient's blood pressure, pulse, and oxygen saturations were monitored continuously. The Colonoscope was introduced through the mouth, and advanced to the second part of duodenum. The upper GI endoscopy was accomplished without difficulty. The patient tolerated the procedure well. 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 The maximum longitudinal extent of these mucosal changes was 4 cm in length. Mucosa was biopsied with a cold forceps for histology. A 3 cm hiatal hernia was present. The Z-line was irregular and was found 41 cm from the incisors. Diffuse mildly erythematous mucosa without bleeding was found in the gastric antrum. Biopsies were taken with a cold forceps for histology. The examined duodenum was normal. Impression: - Esophageal mucosal changes secondary to established long-segment Ferrer's disease. Biopsied. - 3 cm hiatal hernia. - Z-line irregular, 41 cm from the incisors. - Erythematous mucosa in the antrum. Biopsied. - Normal examined duodenum. Recommendation: - Discharge patient to home. - Resume previous diet. - Continue present medications. - Repeat upper endoscopy in 3 years for surveillance. - Telephone my office for pathology results in 1 week. Procedure Code(s): --- Professional --- 74133, Esophagogastroduodenoscopy, flexible, transoral; with biopsy, single or multiple Diagnosis Code(s): --- Professional --- K22.70, Ferrer's esophagus without dysplasia K44.9, Diaphragmatic hernia without obstruction or gangrene K22.89, Other specified disease of esophagus K31.89, Other diseases of stomach and duodenum CPT copyright 2021 [employer]. All rights reserved. The codes documented in this report are preliminary and upon ear pull machine operator review may be revised to meet current compliance requirements. Papito Monae MD 10/26/2023 9:11:45 AM This report has been signed electronically. Number of Addenda: 0 Note Initiated On: 10/26/2023 8:26 AM
[2023-10-26 09:15] VITALS: BP 121/92; BP 131/93; PULSE 65; RESP 16; O2SAT 98
--- NOTE | 2023-10-26 09:15 | OP.CCLET_ITS ---
10/26/2023 Lukas Chatterjee [address] [place] [address] Re : Colonoscopy procedure for Glen Sheldon Dear Dr. Chatterjee This procedure was performed on Thursday, October 26, 2023. My impressions and recommendations are as follows: Impressions : - Preparation of the colon was fair. - Non-thrombosed external hemorrhoids, non-thrombosed internal hemorrhoids, internal hemorrhoids that prolapse with straining, but spontaneously regress to the resting position (Grade II) and enlarged prostate found on digital rectal exam. - One 6 mm polyp in the distal sigmoid colon, removed with a hot snare. Resected and retrieved. - Diverticulosis in the sigmoid colon. Recommendations : - Discharge patient to home. - Resume previous diet. - Continue present medications. - Repeat colonoscopy in 5 years for surveillance based on pathology results. - Telephone my office for pathology results in 1 week. My findings are described in the full procedure note, which is enclosed. If I can be of further assistance, please feel free to contact me at Doctor phone number(s): Work: . Sincerely, Papito Monae MD 10/26/2023 9:14:50 AM This report has been signed electronically.
--- NOTE | 2023-10-26 09:15 | OP.COLON_ITS ---
Patient Name: Glen Sheldon Procedure Date: 10/26/2023 8:49 AM Date of : 1965 Age: 58 Procedure: Colonoscopy Indications: High risk colon cancer surveillance: Personal history of colonic polyps Providers: Papito Monae MD Referring MD: Papito Monae MD Medicines: See the Anesthesia note for documentation of the administered medications Patient Profile: Last Colonoscopy: September 2020. Complications: No immediate complications. Procedure: Pre-Anesthesia Assessment: - Prior to the procedure, a History and Physical was performed, and patient medications and allergies were reviewed. The patient's tolerance of previous anesthesia was also reviewed. The risks and benefits of the procedure and the sedation options and risks were discussed with the patient. All questions were answered, and informed consent was obtained. Prior Anticoagulants: The patient has taken no anticoagulant or antiplatelet agents. ASA Grade Assessment: II - A patient with mild systemic disease. After reviewing the risks and benefits, the patient was deemed in satisfactory condition to undergo the procedure. After I obtained informed consent, the scope was passed under direct vision. Throughout the procedure, the patient's blood pressure, pulse, and oxygen saturations were monitored continuously. The Colonoscope was introduced through the anus and advanced to the cecum, identified by appendiceal orifice and ileocecal valve. The colonoscopy was performed without difficulty. The patient tolerated the procedure well. The quality of the bowel preparation was fair. The ileocecal valve and the appendiceal orifice were photographed. Scope In: 8:50:49 AM Scope Withdrawal Time 0 hours 11 minutes 25 seconds Scope Out: 9:06:01 AM Total Procedure Duration Time 0 hours 15 minutes 12 seconds Findings: The digital rectal exam findings include non-thrombosed external hemorrhoids, non-thrombosed internal hemorrhoids, internal hemorrhoids that prolapse with straining, but spontaneously regress to the resting position (Grade II) and enlarged prostate. A 6 mm polyp was found in the distal sigmoid colon. The polyp was sessile. The polyp was removed with a hot snare. Resection and retrieval were complete. Multiple diverticula were found in the sigmoid colon. Impression: - Preparation of the colon was fair. - Non-thrombosed external hemorrhoids, non-thrombosed internal hemorrhoids, internal hemorrhoids that prolapse with straining, but spontaneously regress to the resting position (Grade II) and enlarged prostate found on digital rectal exam. - One 6 mm polyp in the distal sigmoid colon, removed with a hot snare. Resected and retrieved. - Diverticulosis in the sigmoid colon. Recommendation: - Discharge patient to home. - Resume previous diet. - Continue present medications. - Repeat colonoscopy in 5 years for surveillance based on pathology results. - Telephone my office for pathology results in 1 week. Procedure Code(s): --- Professional --- 39692, Colonoscopy, flexible; with removal of tumor(s), polyp(s), or other lesion(s) by snare technique Diagnosis Code(s): --- Professional --- Z86.010, Personal history of colonic polyps K64.1, Second degree hemorrhoids K64.4, Residual hemorrhoidal skin tags D12.5, Benign neoplasm of sigmoid colon K57.30, Diverticulosis of large intestine without perforation or abscess without bleeding N40.0, Benign prostatic hyperplasia without lower urinary tract symptoms CPT copyright 2021 [employer]. All rights reserved. The codes documented in this report are preliminary and upon rail car repairer review may be revised to meet current compliance requirements. Papito Monae MD 10/26/2023 9:14:50 AM This report has been signed electronically. Number of Addenda: 0 Note Initiated On: 10/26/2023 8:49 AM
[2023-10-26 09:19] VITALS: BP 128/100; BP 131/93; PULSE 65; RESP 16; O2SAT 100
[2023-10-26 09:26] VITALS: BP 131/93; BP 156/104; PULSE 68; RESP 16; TEMP 36.6; O2SAT 100
[2023-10-26 09:33] VITALS: BP 131/93
== END 2023-10-26 10:06 | disposition home or self-care (01) ==
LOC: EN 07:19 → AC 07:19
PROVIDERS: PCP Family Medicine; Referring Provider Family Medicine; Visit Provider Surgery
PROC: 0DJD8ZZ Inspection of Lower Intestinal Tract, Via Natural or Artificial Opening Endoscopic (ICD-10-PCS; CPT 45378; principal; 2023-10-26 08:25)
DX: Z12.11 Encounter for screening for malignant neoplasm of colon (principal); J44.9 Chronic obstructive pulmonary disease, unspecified; E11.9 Type 2 diabetes mellitus without complications; I10 Essential (primary) hypertension; F17.210 Nicotine dependence, cigarettes, uncomplicated; K64.4 Residual hemorrhoidal skin tags; Z86.010 Personal history of colon polyps; N40.0 Benign prostatic hyperplasia without lower urinary tract symptoms; K44.9 Diaphragmatic hernia without obstruction or gangrene; K57.30 Diverticulosis of large intestine without perforation or abscess without bleeding; E78.5 Hyperlipidemia, unspecified; K22.70 Barrett's esophagus without dysplasia; K64.1 Second degree hemorrhoids; K29.70 Gastritis, unspecified, without bleeding; D12.5 Benign neoplasm of sigmoid colon; Z79.899 Other long term (current) drug therapy; K21.00 Gastro-esophageal reflux disease with esophagitis, without bleeding
CPT/HCPCS: 43239; 45385; 88305; 88313; 88341; 88342; J7120; J2405

== ENCOUNTER → 2023-11-01 | Outpatient (CLI) | payer MEDICAID, SELFPAY ==
[2023-11-01 10:29] LABS: Absolute Lymphocyte Count 2.34 X10^3/uL (0.83-4.51); Absolute Neutrophil Count 8.6 X10^3/uL (2.0-7.7); Basophil# 0.05 X10^3/uL; Basophil% 0.4 % (0-1); Eosinophil# 0.11 X10^3/uL; Eosinophils% 0.9 % (0-5); Hematocrit 46.2 % (40-54); Hemoglobin 15.3 g/dL (13.0-16.5); Lymphocyte # 2.34 X10^3/ul (0.83-4.51); Lymphocyte % 19.3 % (19-41); Mean Corp Hgb Conc 33.1 g/dL (32-36); Mean Corpuscular Hgb 30.2 pg (27.0-32.0); Mean Corpuscular Volume 91.1 fL (80-94); Mean Platelet Vol. 9.6 fl (6.2-12.0); Monocyte# 0.96 X10^3/uL; Monocyte% 7.9 % (0-10); NRBC Flagged by Analyzer 0 % (0-5); Neutrophil # 8.63 X10^3/uL (2.7-7.7); Neutrophil % 71.1 % (47-70); Platelet Count 337 K/mm3 (150-450); RBC Distribution Width CV 13.1 % (11.6-14.6); RBC Distribution Width SD 44.1 fl (35.1-43.9); Red Blood Count 5.07 M/mm3 (4.6-6.2); White Blood Count 12.1 K/mm3 (4.4-11.0)
[2023-11-01 10:42] LABS: Anion Gap 9 (5-15); BUN 20 mg/dL (7-18); BUN/Creat Ratio 21.7 RATIO (10-20); Calcium,Total 9.6 mg/dL (8.5-10.1); Chloride 106 mmol/L (98-107); Creatinine, Serum 0.92 mg/dL (0.70-1.30); EST Glomerular Filtration Rate 90 mL/min (>60); Est Glom Filt Rate - Afr Amer 108 mL/min (>60); Glucose 103 mg/dL (74-106); Potassium 4.2 mmol/L (3.5-5.1); Sodium Level 140 mmol/L (136-145)
== END | disposition home or self-care (01) ==
LOC: LAB 10:07
PROVIDERS: Physician Assistant; PCP Family Medicine; Referring Provider Surgery; Visit Provider Surgery
DX: R10.9 Unspecified abdominal pain (principal)
CPT/HCPCS: 36415; 80048; 85025

== ENCOUNTER → 2023-11-01 | Outpatient (CLI) | payer MEDICAID, SELFPAY ==
--- NOTE | 2023-11-01 12:05 | CT_ITS ---
HISTORY: epigastric pain s/p EGD -- Include mediastinum region to check for free air. TECHNIQUE: Helically acquired images were obtained of the abdomen and pelvis after the intravenous administration of 100mL Isovue-300. Oral contrast also administered. A radiation dose optimization technique was used for this scan. 444 images. COMPARISON: CT chest 08/13/2023. FINDINGS: LOWER CHEST: Calcified granulomas in the right middle lobe. No basilar pneumothorax or pneumomediastinum of the lower chest. BOWEL: Bowel including appendix nondilated. Colonic diverticulosis without focal inflammatory change observed. PERITONEUM: No free air or significant ascites. Small celiac axis lymph nodes. Borderline-enlarged portacaval lymph node. LIVER: No enhancing mass. Calcified granuloma. 18.7 cm in length. GALLBLADDER/BILIARY TREE: Gallbladder present. SPLEEN: Nonenlarged. Calcified granuloma. PANCREAS/KIDNEYS: Unremarkable. ADRENAL GLANDS: Stable low-attenuation 1.4 cm left adrenal nodule. VESSELS: No abdominal aortic aneurysm. Mild atherosclerosis. PELVIC ORGANS: Small prostate calcifications. ABDOMINAL WALL: Small fat-containing inguinal hernias. BONES: Mild degenerative change. CT/Abdomen/Pelvis WITH Contrast IMPRESSION: No acute abnormality identified. No free air. Colonic diverticulosis without acute diverticulitis. Hepatomegaly. Stable small left adrenal adenoma. Electronically Signed: Savanah Trimble MD at 14:08 EST ,
--- OUTSIDE RECORDS SUMMARY | 2023-11-01 12:40 | XMS RPT_ITS | CCD ---
Author Name Unknown Address [address] [place] [address] Organization [facility] Care Team Providers Care Archeology Faculty Member Name Role Phone CHIDI ROLAND Unavailable Unavailable [...] Results Test Name Value Interpretation Reference Range [facility] Vital Signs Date Time Vital Sign Value Performing Clinician Faci litalexia 03-23-2020 11:12-0400 Body Temperature 97.7 [degF] [place], [place] 03-23-2020 05:50-0400 BP Diastolic 95 mm[Hg] [place], [place] 03-23-2020 05:50-0400 BP Systolic 140 mm[Hg] [place] 03-23-2020 05:50-0400 Pulse (Heart Rate) 63 /min [place] 03-23-2020 05:50-0400 Pulse Oximetry 99 % [place] 03-23-2020 05:50-0400 Respiratory Rate 18 /min [place] 03-22-2020 03:47-0400 BMI (Body Mass Index) 31.74 kg/m2 [place], [place] 03-22-2020 03:47-0400 Body weight 106.14 kg [place], [place] 03-22-2020 03:47-0400 Height 182.9 cm [place] Encounters Encounter Date Encounter Type Care Provider Facility Start: 03-22-2020 Patient encounter procedure [place] Start: 02-27-2018 Ambulatory CHIDI ROLAND Facility :[facility] Start: 09-04-2017 Ambulatory CHIDI ROLAND [facility] Start: 08-30-2017 End: 08-30-2017 Ambulatory CHIDI ROLAND [facility] Procedures Date Procedure Procedure Detail Performing Clinician Start: 03-23-2020 Hemoglobin glycosyla raquel a1c Norma A [employer] Work Phone: Start: 03-23-2020 Lipid panel Norma A [employer] Work Phone: Plan of Treatment Date Care Activity Detail Author Start: 1965 Creatinine measurement Creatinine mo nitoring [place], [place] Start: 1965 Potassium monitoring Potassium monit oring [place] Social History Date Type Detail Facility Start: 03-22-2020 Tobacco smoking stat us [facility] Current every day smoker [place] Start: 03-22-2020 Cigarettes smoked current (pack per day) - Reported [place] Start: 03-22-2020 Alcohol intake Current drinke r of alcohol (finding) [place] Start: 03-22-2020 Alcohol Comment occasionally [facility] Jennifer [place], [place] Sex Assigned At Not on file [place] Exposure to SARS-CoV -2 (event) Unable to assess [place] Clinical Note 07-19-2021 Note Date & Type Note Facility 07-19-2021 Note Patient Outreach (KENNY DOWD) JACKIE RUIZ ([id number]) 1965 M Date Time Provider Department 07/19/21 [...] Outreach Care gap - colonoscopy Payer: Payor: [facility] MEDICAID / Plan: [facility] COMMUNITY PLAN MEDICAID / Product Type: Medicaid [...] future healthcare decisions with a power of reservation manager, living will, or advance directives? Referrals: Message [...] Encounter Status:Closed by CALOS MONK on 07/19/21 [facility] Progress note 07-19-2021 Note Date & Type Note Facility 07-19-2021 Note HNO ID: [id number] Author: Calos Monk Service: ? Author Type: ? Type: Progress Notes Filed: 07/19/2021 9:47 AM Note Text: POPULATION HEALTH NAVIGATION OUTREACH Action/FYI Unable to reach patient, sent letter. Contact made with patient or family member? no Pt identified by name and : no Outreach Outcome/Action Unable to reach patient, sent letter. Reason for Outreach Care gap - colonoscopy Payer: Payor: [facility] MEDICAID / Plan: [facility] COMMUNITY PLAN MEDICAID / Product Type: Medicaid [...] future healthcare decisions with a power of reservation manager, living will, or advance directives? Referrals: Message Sent to Practice: Navigation Signature: Calos Monk July 19, 2021 9:45 AM [facility] Summary Purpose Family History No Family History [...] DATE CREATED AUTHOR AUTHOR'S ORGANIZ ATION 04/19/2018 [facility] DATE CREATED AUTHOR AUTHOR'S ORGANIZ ATION 04/23/2018 [facility] DATE CREATED AUTHOR AUTHOR'S ORGANIZ ATION 03/23/2020 [facility] DATE CREATED AUTHOR AUTHOR'S ORGANIZ ATION 12/19/2021 [facility] FOR RECORDS PERTAINING TO PATIENTS WHO ARE [...] BE BASED ON THE PRIMARY CLINICAL RECORDS. [employer] [facility]. provides no warranty or guarantee of the accuracy or completeness of information in this document.
== END | disposition home or self-care (01) ==
PROVIDERS: PCP Family Medicine; Referring Provider Physician Assistant; Visit Provider Physician Assistant
DX: R10.13 Epigastric pain (principal)
CPT/HCPCS: 36415; 74177; 80048; 85025; Q9967

== ENCOUNTER → 2023-11-02 | Outpatient (CLI) | payer MEDICAID, SELFPAY ==
[2023-11-02 09:24] LABS: Absolute Lymphocyte Count 2.76 X10^3/uL (0.83-4.51); Absolute Neutrophil Count 6.9 X10^3/uL (2.0-7.7); Basophil# 0.04 X10^3/uL; Basophil% 0.4 % (0-1); Eosinophil# 0.12 X10^3/uL; Eosinophils% 1.1 % (0-5); Hematocrit 44.8 % (40-54); Lymphocyte # 2.76 X10^3/ul (0.83-4.51); Lymphocyte % 25.4 % (19-41); Mean Corp Hgb Conc 33.5 g/dL (32-36); Mean Corpuscular Hgb 30.8 pg (27.0-32.0); Mean Platelet Vol. 9.8 fl (6.2-12.0); Monocyte% 9.2 % (0-10); NRBC Flagged by Analyzer 0 % (0-5); Neutrophil # 6.91 X10^3/uL (2.7-7.7); Neutrophil % 63.5 % (47-70); Platelet Count 333 K/mm3 (150-450); RBC Distribution Width CV 13.2 % (11.6-14.6); RBC Distribution Width SD 45.3 fl (35.1-43.9); Red Blood Count 4.87 M/mm3 (4.6-6.2); White Blood Count 10.9 K/mm3 (4.4-11.0)
--- OUTSIDE RECORDS SUMMARY | 2023-11-02 09:50 | XMS RPT_ITS | CCD ---
Author Name Unknown Address [address] [place] [address] Organization [facility] Care Team Providers Care Pan Pusher Name Role Phone CHIDI ROLAND Unavailable Unavailable [...] Results Test Name Value Interpretation Reference Range [facility] Vital Signs Date Time Vital Sign Value Performing Clinician Faci litalexia 03-23-2020 11:12-0400 Body Temperature 97.7 [degF] [place], [place] 03-23-2020 05:50-0400 BP Diastolic 95 mm[Hg] [place], [place] 03-23-2020 05:50-0400 BP Systolic 140 mm[Hg] [place] 03-23-2020 05:50-0400 Pulse (Heart Rate) 63 /min [place] 03-23-2020 05:50-0400 Pulse Oximetry 99 % [place] 03-23-2020 05:50-0400 Respiratory Rate 18 /min [place] 03-22-2020 03:47-0400 BMI (Body Mass Index) 31.74 kg/m2 [place] 03-22-2020 03:47-0400 Body weight 106.14 kg [place] 03-22-2020 03:47-0400 Height 182.9 cm [place] Encounters Encounter Date Encounter Type Care Provider Facility Start: 03-22-2020 Patient encounter procedure [place], [place] Start: 02-27-2018 Ambulatory CHIDI ROLAND Facility :[facility] Start: 09-04-2017 Ambulatory CHIDI ROLAND [place] Start: 08-30-2017 End: 08-30-2017 Ambulatory CHIDI ROLAND [facility] Procedures Date Procedure Procedure Detail Performing Clinician Start: 03-23-2020 Hemoglobin glycosyla raquel a1c Norma [facility] [employer] Work Phone: Start: 03-23-2020 Lipid panel Norma [facility] [employer] Work Phone: Plan of Treatment Date Care Activity Detail Author Start: 1965 Creatinine measurement Creatinine mo nitoring [place], [place] Start: 1965 Potassium monitoring Potassium monit oring [place] Social History Date Type Detail Facility Start: 03-22-2020 Tobacco smoking stat us [place]IS Current every day smoker [place] Start: 03-22-2020 Cigarettes smoked current (pack per day) - Reported [place] Start: 03-22-2020 Alcohol intake Current drinke r of alcohol (finding) [place] Start: 03-22-2020 Alcohol Comment occasionally [facility] Jennifer [place], [place] Sex Assigned At Not on file [place] Exposure to SARS-CoV -2 (event) Unable to assess [place] Clinical Note 07-19-2021 Note Date & Type Note Facility 07-19-2021 Note Patient Outreach (KENNY DOWD) JACKIE RUIZ ([id number]) 1965 M Date Time Provider Department 07/19/21 [...] Outreach Care gap - colonoscopy Payer: Payor: [facility] MEDICAID / Plan: [facility] COMMUNITY PLAN MEDICAID / Product Type: [...] future healthcare decisions with a power of claim attorney, living will, or advance directives? Referrals: [...] Encounter Status:Closed by CALOS MONK on 07/19/21 [facility] Progress note 07-19-2021 Note Date & Type Note Facility 07-19-2021 Note HNO ID: [id number] Author: Calos Monk Service: ? Author Type: ? Type: Progress Notes Filed: 07/19/2021 9:47 AM Note Text: POPULATION HEALTH NAVIGATION OUTREACH Action/FYI Unable to reach patient, sent letter. Contact made with patient or family member? no Pt identified by name and : no Outreach Outcome/Action Unable to reach patient, sent letter. Reason for Outreach Care gap - colonoscopy Payer: Payor: [facility] MEDICAID / Plan: [facility] COMMUNITY PLAN MEDICAID / Product Type: [...] future healthcare decisions with a power of claim attorney, living will, or advance directives? Referrals: Message Sent to Practice: Navigation Signature: Calos Monk July 19, 2021 9:45 AM [facility] Summary Purpose Family History No Family [...] DATE CREATED AUTHOR AUTHOR'S ORGANIZ ATION 04/19/2018 [facility] DATE CREATED AUTHOR AUTHOR'S ORGANIZ ATION 04/23/2018 [place] DATE CREATED AUTHOR AUTHOR'S ORGANIZ ATION 03/23/2020 [facility] DATE CREATED AUTHOR AUTHOR'S ORGANIZ ATION 12/19/2021 [facility] FOR RECORDS PERTAINING TO PATIENTS WHO [...] BE BASED ON THE PRIMARY CLINICAL RECORDS. [employer] [facility]. provides no warranty or guarantee of the accuracy or completeness of information in this document.
== END | disposition home or self-care (01) ==
LOC: LAB 09:05
PROVIDERS: PCP Family Medicine; Referring Provider Surgery; Visit Provider Surgery
DX: R10.13 Epigastric pain (principal)
CPT/HCPCS: 36415; 85025

== ENCOUNTER → 2023-11-07 | Outpatient (CLI) | payer MEDICAID, SELFPAY ==
[2023-11-07 12:41] LABS: Absolute Lymphocyte Count 2.39 X10^3/uL (0.83-4.51); Absolute Neutrophil Count 5.9 X10^3/uL (2.0-7.7); Basophil# 0.09 X10^3/uL; Basophil% 0.9 % (0-1); Eosinophil# 0.15 X10^3/uL; Eosinophils% 1.6 % (0-5); Hemoglobin 14.1 g/dL (13.0-16.5); Lymphocyte # 2.39 X10^3/ul (0.83-4.51); Lymphocyte % 24.8 % (19-41); Mean Corp Hgb Conc 31.3 g/dL (32-36); Mean Corpuscular Hgb 30.3 pg (27.0-32.0); Mean Corpuscular Volume 96.8 fL (80-94); Mean Platelet Vol. 10.2 fl (6.2-12.0); Monocyte# 1.04 X10^3/uL; Monocyte% 10.8 % (0-10); NRBC Flagged by Analyzer 0 % (0-5); Neutrophil # 5.94 X10^3/uL (2.7-7.7); Neutrophil % 61.5 % (47-70); Platelet Count 314 K/mm3 (150-450); RBC Distribution Width CV 13.6 % (11.6-14.6); RBC Distribution Width SD 48.5 fl (35.1-43.9); Red Blood Count 4.65 M/mm3 (4.6-6.2); White Blood Count 9.7 K/mm3 (4.4-11.0)
[2023-11-07 13:20] LABS: ALB/GLOB Ratio 0.9 RATIO (0.9-2.4); AST(SGOT) 13 U/L (15-37); Alanine Aminotransfer ALT/SGPT 27 U/L (16-61); Albumin, Serum 3.5 g/dL (3.2-5.0); Alkaline Phosphatase 67 U/L (45-117); Anion Gap 6 (5-15); BUN 24 mg/dL (7-18); BUN/Creat Ratio 24.5 RATIO (10-20); Calcium,Total 9.3 mg/dL (8.5-10.1); Chloride 109 mmol/L (98-107); Cholesterol 114 mg/dL (200); Creatinine, Serum 0.98 mg/dL (0.70-1.30); EST Glomerular Filtration Rate 83 mL/min (>60); Est Glom Filt Rate - Afr Amer 101 mL/min (>60); Globulin 3.7 g/dL (2.2-4.2); Glucose 100 mg/dL (74-106); High Density Lipoprotein 41 mg/dL; Potassium 4.5 mmol/L (3.5-5.1); Protein, Total 7.2 g/dL (6.4-8.2); Sodium Level 140 mmol/L (136-145); Triglycerides 62 mg/dL; Uric Acid 5.5 mg/dL (3.5-7.2); Very Low Density Lipoprotein 12 mg/dL (5-40)
== END | disposition home or self-care (01) ==
LOC: MTLAB 09:49
PROVIDERS: PCP Family Medicine; Referring Provider Family Medicine; Visit Provider Family Medicine
DX: I10 Essential (primary) hypertension (principal); M10.9 Gout, unspecified; E78.00 Pure hypercholesterolemia, unspecified
CPT/HCPCS: 36415; 80053; 80061; 84550; 85025

== ENCOUNTER → 2024-03-21 | Outpatient (CLI) | payer MEDICAID, SELFPAY ==
[2024-03-21 18:18] LABS: PSA,Total - Annual Screen 0.76 ng/mL (0.00-4.00)
== END | disposition home or self-care (01) ==
LOC: MFPLAB 15:01
PROVIDERS: PCP Family Medicine; Visit Provider Family Medicine
DX: Z12.5 Encounter for screening for malignant neoplasm of prostate (principal)
CPT/HCPCS: 84153; 36415; G0103

== ENCOUNTER 2024-04-21 19:01 | Emergency (ER) | payer MEDICAID, SELFPAY ==
[2024-04-21 19:01] VITALS: BP 141/85; PULSE 69; RESP 14; TEMP 35.7; O2SAT 97; BMI 28.2
--- NOTE | 2024-04-21 19:30 | EDS_ITS ---
HPI History of Present Illness Chief Complaint: Back Detail of Chief Complaint: Exacerbation of chronic low back pain Informant: patient Onset/Context/Timing Onset: Weeks Context: Gradual Onset and Sudden Onset Chronic pain exacerbated by: Increased bending and twisting Timing: Continuous Quality: Dull and Aching Location: Lumbar Current Severity: Mild Maximum Severity: Moderate Worsened by: improves with Movement, Ambulation, Bending and Lifting Relieved by: Nothing Associated Symptoms Associated Symptoms: - (No saddle anesthesia or paresthesia. No foot drop. No buckling of his knees going up or down steps.); Negative for Numbness, Tingling, Radiation to Right Leg, Radiation to Left Leg, Fever, Abdominal Pain, Dysuria, Unable to Ambulate, Unable to Transfer, Urinary Retention, Urinary Incontinence, Constipation or Fecal Incontinence Narrative Narrative: Patient is a 58-year-old male with chronic back pain. He has been seen by Dr. Padilal. He was offered's spine surgery which he declined. He has degenerative changes, he has other abnormalities noted. He is seen by pain management. He does have history of peptic ulcer disease. He denies black or maroon-colored stool. He denies fever, chills night sweats. He denies any bowel bladder dysfunction. He denies any recent dental procedure or any type of surgical procedure. There is no history of direct trauma. See associated symptoms Patient was seen at urgent care and given a steroid injection. States it did not help. Prior similar symptoms: Yes Recent Illness/Hospitalization: Yes [facility] Medical History Right shoulder strain Abdominal pain Epigastric pain Difficulty swallowing Wears glasses Marijuana use Arthritis Back pain Gastric reflux COPD (chronic obstructive pulmonary disease) Shortness of breath on exertion Smoker History of stress test Hypertension History of heart attack Cardiology follow-up encounter Chest pain Pain Tobacco use History of GI bleed Lumbar radiculopathy Acute lumbar myofascial strain Strain of fascia of lower back Nicotine dependence, cigarettes, uncomplicated Dyspnea on exertion Asthma-COPD overlap syndrome Smoking greater than 30 pack years Obesity Chest pain Nicotine dependence Hyperlipidemia Essential (primary) hypertension Cervical spondylosis Gout Home Medications ?Medication ?Instructions ?Recorded ?Last Taken ?Type allopurinol 300 mg tablet 300 mg PO DAILY 02/25/20 09/02/23 History hydrochlorothiazide 25 mg tablet 25 mg PO DAILY 08/07/23 09/02/23 History losartan 100 mg tablet 100 mg PO DAILY 08/07/23 09/03/23 History omeprazole 40 mg capsule,delayed 40 mg PO DAILY 08/07/23 09/02/23 History release rosuvastatin 40 mg tablet (Crestor) 40 mg PO DAILY 08/07/23 09/02/23 History meloxicam 15 mg tablet 15 mg PO .PRN PRN pain 10/12/23 Unknown History sucralfate 1 gram tablet 1 g PO QACHS 11/28/23 Unknown History amlodipine 10 mg tablet 5 mg PO DAILY 12/14/23 Unknown History isosorbide mononitrate 60 mg 60 mg PO BID #180 tabs 12/14/23 Unknown Rx tablet,extended release 24 hr ranolazine 500 mg tablet,extended 500 mg PO BID #60 tabs 12/14/23 Unknown Rx release,12 hr hydrocodone-acetaminophen 5-325mg 1 tab PO Q6H PRN PRN Pain 3 days 04/21/24 Unknown Rx 5mg-325mg #10 TABLETS Allergy/AdvReac Type Severity Reaction Status Date / Time No Known Allergies Allergy Verified 04/21/24 19:01 Family History Father Diabetes Hypertension Grandfather Heart disease Grandfather Heart disease Surgical History History of esophagogastroduodenoscopy (EGD) History of colonoscopy Hx of colonoscopy with polypectomy History of left heart catheterization (03/11/20) Social History household members: none Smoking Status: Current every day smoker tobacco type: cigarettes Tobacco: How many years used: 30 alcohol intake: never substance use type: marijuana caffeine: Yes Type: coffee Number of servings: 5 ROS ROS ED Constitutional Constitutional ED: Denies chills, fever(s), subjective, sweats or weight loss Gastrointestinal Gastrointestinal: Denies abdominal pain, diarrhea, melena, nausea or vomiting Genitourinary Genitourinary ED: Denies dysuria, hematuria or urinary frequency Musculoskeletal Musculoskeletal: Reports back pain; Denies arthralgias, myalgias or neck pain Integumentary Denies rash Neurologic Neurologic: Denies paresthesias or weakness Hematologic/Lymphatic Hematologic/Lymphatic: Denies easy bleeding or easy bruising EXAM Physical Exam Const Vital Signs: 04/21/24 19:01 Temperature 96.2 F L Temperature Source Temporal Pulse Rate 69 Respiratory Rate 14 Blood Pressure 141/85 H Blood Pressure Mean 103 Pulse Ox 97 Oxygen Delivery Method Room Air Positive well nourished and well developed General Appearance ED: well developed and NAD HEENT Reports moist mucous membranes HEENT Narrative: Head is atraumatic normocephalic. Ears normal. Nares patent. Eyes PERRL and EOMs intact bilaterally General Eye ED: Negative for pale conjunctiva or scleral icterus Neck no lymphadenopathy, supple and no JVD Resp normal respiratory effort and clear to auscultation bilaterally Cardio regular rate, regular rhythm, S1 normal heart sound, S2 normal heart sound and no murmurs GI normal to inspection, nondistended, normoactive bowel sounds, soft to palpation, non-tender, non-distended and no masses Back/Spine normal to inspection and no thoracic nor lumbar tenderness Back/Spine Narrative: Straight leg test is negative right and left. EHLs intact. Patellar and ankle reflex are 2+ symmetric. Normal sensation L3-S1 dermatome. No foot drop with ambulation. 5 or 5 strength with plantar dorsiflexion. No weakness with stressing of the quadricep. Extremity normal to inspection and no clubbing, cyanosis or edema Neuro oriented x3 and no sensory deficits noted Sensorium / Orientation: alert Motor Exam: strength 5/5 throughout Deep Tendon Reflexes: Rt Patellar (L4): 2+, Lt Patellar (L4): 2+, Rt Ankle (S1): 2+ and Lt Ankle (S1): 2+ Deep Tendon Reflexes Back: Rt Patellar (L4): 2+, Lt Patellar (L4): 2+, Rt Ankle (S1): 2+ and Lt Ankle (S1): 2+ Plantar Reflex: Downgoing: bilateral Psych mental status grossly normal Skin no rashes or lesions noted and no wounds General Skin Exam: Negative for jaundice Lesions: No lesion noted Rashes: No rashes noted MDM MDM MDM Narrative Medical decision making narrative: Patient with exacerbation of back pain. Since he drove himself here he was given a prescription for 2 days of [place]. He is to follow-up with his spine doc tor and discuss surgical intervention. Unable to assess MRI report because Clinisync is down. Discharge Plan Triage Chief Complaint: Back ED Provider: Tristan Bruner Dx/Rx/DC Orders Clinical Impression: Degenerative arthritis of lumbar spine, Hyperlipidemia, Essential (primary) hypertension, History of peptic ulcer disease Instructions: ED Degenerative Disk Disease Prescriptions: New hydrocodone-acetaminophen 5-325 mg tablet 1 tab PO Q6H PRN PRN (Reason: Pain) 3 Days Qty: 10 0RF No Action allopurinol 300 mg tablet 300 mg PO DAILY Patient Comments: Take 1 tablet by mouth once daily. For gout. meloxicam 15 mg tablet 15 mg PO .PRN PRN (Reason: pain) omeprazole 40 mg capsule,delayed release(DR/EC) 40 mg PO DAILY hydrochlorothiazide 25 mg tablet 25 mg PO DAILY losartan 100 mg tablet 100 mg PO DAILY rosuvastatin [Crestor] 40 mg tablet 40 mg PO DAILY sucralfate 1 gram tablet 1 g PO QACHS amlodipine 10 mg tablet 5 mg PO DAILY ranolazine 500 mg tablet extended release 12 hr 500 mg PO BID Qty: 60 11RF isosorbide mononitrate 60 mg tablet extended release 24 hr 60 mg PO BID Qty: 180 3RF Primary Care Provider: Lukas Chatterjee Referrals: Lukas Chatterjee MD [Primary Care Provider] - Kevin Peña DO [Med Staff - Active Staff] - 1 Week Print Language: Beninese Disposition Disposition: Home, Self Care
== END 2024-04-21 19:45 | disposition home or self-care (01) ==
PROVIDERS: Emergency Provider Emergency Medicine; PCP Family Medicine; Visit Provider Emergency Medicine
DX: M47.816 Spondylosis without myelopathy or radiculopathy, lumbar region (principal); J44.9 Chronic obstructive pulmonary disease, unspecified; I10 Essential (primary) hypertension; E78.5 Hyperlipidemia, unspecified; G89.29 Other chronic pain; F17.210 Nicotine dependence, cigarettes, uncomplicated; Z79.899 Other long term (current) drug therapy; I25.2 Old myocardial infarction; Z87.11 Personal history of peptic ulcer disease
CPT/HCPCS: 99282

== ENCOUNTER 2024-06-03 08:00 | Outpatient (RCR) | payer MEDICAID, SELFPAY ==
--- NOTE | 2024-06-03 09:00 | BH.SGPN.GN ---
Behaviors/Verbalizations/Mental Status: [] Eye contact good. Motor activity appropriate. Speech within normal limits. Affect congruent, mood depressed and anxious. Thoughts linear, logical, no signs of hallucinations or delusions. Reviewed client?s symptom tracker, denies SI, plan, or intent as of 06/03/2024. Client Response/Progress/Benefit: [] Client receptive of session, attentive and willing to process with group. This is pt's first day in IOP treatment and he discussed feeling relieved he has finally found a group program. Described looking forward to a supportive environment as he has struggled with depression lifelong and has recently had worsening symptoms following the of his in 2019. Shared wanting to learn how to better manage his mental health to prevent escalating to a point of crisis. Benefitted from encouragement and support of the group. Recommended continued IOP tx to improve mood stability, promote consistent skill application, well as prevent decompensation. Narrative Note: []
--- NOTE | 2024-06-03 10:10 | BH.SGPN.GN ---
Behaviors/Verbalizations/Mental Status: [] Eye contact is good. Motor activity is appropriate. Appearance is casual. Speech is Appropriate. Mood is anxious and depressed. Affect is congruent. Thoughts are linear and logical. No evidence of psychosis. Client Response/Progress/Benefit: [] Attentive and engaged throughout the group discussions. Attentive during psychoeducation on the 4 communication styles (Passive, Passive-Aggressive, Aggressive, and Assertive) and the obstacles to effective communication. Attentive during interactive discussion on the benefits of communicating effectively, as well as the benefits and disadvantages to the different communication styles. Reports connecting most with the passive and aggressive communication styes. Pt share ?I start passive then I get aggressive, especially at work.? Benefited from increased understanding of communication styles and how these can impact effective communication. Will continue in IOP to prevent decompensation, improve daily functioning, and gain healthy coping skills. Narrative Note: []
--- NOTE | 2024-06-03 10:45 | BH.COMM ---
Communication Note Communication with Client Communication Note: Met with pt to complete psychosocial, risk assessment, and initial paperwork. Completed [facility] Suicide Screening and Risk Assessment. High risk given due to pt having plan to drive to [place] and jump off a mountain several weeks ago. Pt also reports in 2019 after his he had an aborted suicide attempt by holding a gun up to his head. Pt stated he went to inpatient hospital for psychiatric care after that aborted attempt. Therapist completed lethal means counseling. Pt denies access to firearms. Denies current suicidal thoughts, plan, or intention. Future oriented. Pt stated able to keep himself safe. Pt reports his family as primary protective factors. Consulted with Dr. Tang with plan to admits to [facility] with dx of F33.2.
--- NOTE | 2024-06-03 11:10 | BH.SGPN.GN ---
Behaviors/Verbalizations/Mental Status: []Pt alert and oriented, casually dressed. Eye contact fair. Motor activity appropriate. Speech within normal limits. Affect congruent, mood euthymic. Thoughts linear, logical, no signs of hallucinations or delusions. Client Response/Progress/Benefit: [] Pt responded well to session AEB Pt listening attentively to others and providing input during group discussion on the pay offs and costs of the different communication styles. Pt able to connect how current communication style impacts mental health. Connected with peers? comments about importance of using assertive communication. Pt did well with practicing being assertive in the group activity and worked with group to identify potential skills for improving communication skills. Pt seemed to benefit from increasing awareness of healthy strategies to improve communication. Will continue IOP tx to improve distress tolerance, decrease anger outbursts, and improve ability to manage stressors.
--- NOTE | 2024-06-03 15:39 | BH.MTP ---
Master Treatment Plan Patient Information Program Physician:: Dr. Krishnan Primary Therapist:: Chitra Mckeon, [facility] Psychiatric Diagnoses Psychiatric Diagnoses:: 1. Major depressive disorder, recurrent, severe without psychosis 2. Generalized anxiety disorder 3. Alcohol use disorder, sober times several weeks Diagnosis Code(s):: F33.2 Estimated LOS Estimated LOS (in weeks):: 6 Problem/Goal #1 Problem/Goal #1 Stated Goal:: Client will reduce depressive symptoms, anhedonia, and passive thoughts of due to Major Depressive Disorder through Intensive Outpatient Program. Description of Barriers: Potential barriers include recent grief triggers, distorted thoughts, agitation, and negative thoughts. Functional Impact: Patient is a 58-year-old male with a history of depression and suicidal ideation who was referred by his counselor to the [facility] behavioral health IOP for worsening depression and suicidal ideation in the past few weeks. The patient called the crisis center 3 times with suicidal ideation in the past few weeks. His worsening mood was triggered when the patient visited his 's grave several weeks ago and this caused him to become very depressed and suicidal. He had a plan to drive to [place] and jump off of a mountain but he told his female cousin about his plan and she told him to call the crisis center until his counselor. Objectives Objective #1: Stated Objective: Client will learn and utilize 2-3 healthy coping strategies to manage depressive symptoms. Interventions: Therapist will utilize CBT techniques to assist client with understanding the connection between thoughts, feelings and behaviors. Education will be provided on behavioral activation. Therapist will assist client in learning internal coping strategies to manage depressive symptoms, along with helping client identify triggers. Discharge Criteria: Client will have achieved this goal when can verbalize and has practiced at least 2 healthy coping strategies that successfully manage depressive symptoms. Target Date: 07/15/24 Review Date: 07/01/24 Objective #2: Stated Objective: Identify and replace 3-4 negative self-talk messages that reinforce depressive symptoms. Interventions: Therapist will help client identify distorted, negative beliefs about self and world and replace those messages with positive, affirmative messages. Discharge Criteria: Client will have achieved this goal when can identify at least 3 negative self-talk messages and replace those messages with positive, affirmative messages. Target Date: 07/15/24 Review Date: 07/01/24 Problem/Goal #2 Problem/Goal #2 Stated Goal:: Client will reduce overall frequency, intensity, and duration of the anxiety so that daily functioning is not impaired.? Description of Barriers: Potential barriers include recent grief triggers, distorted thoughts, agitation, and negative thoughts. Functional Impact: Patient is a 58-year-old male with a history of depression and suicidal ideation who was referred by his counselor to the [facility] behavioral health IOP for worsening depression and suicidal ideation in the past few weeks. The patient called the crisis center 3 times with suicidal ideation in the past few weeks. His worsening mood was triggered when the patient visited his 's grave several weeks ago and this caused him to become very depressed and suicidal. He had a plan to drive to [place] and jump off of a mountain but he told his female cousin about his plan and she told him to call the crisis center until his counselor. Objectives Objective #1: Stated Objective: Client will learn and implement 2-3 calming skills to reduce overall anxiety and manage anxiety symptoms. Interventions: Therapist and group sessions will help client identify physiological warning signs of anxiety, increase awareness of thoughts that increase anxiety, and identify behaviors that reinforce anxious symptoms. Group and individual counseling will teach client calming skills to help manage anxious symptoms. Discharge Criteria: Client will have achieved this goal when can verbalize at least 2 calming skills and reports skills successfully help reduce anxious symptoms. Target Date: 07/15/24 Review Date: 07/01/24 Objective #2: Stated Objective: Client will identify 2-3 anxiety triggers and 2 coping skills to use when feeling anxious. Interventions: Therapist will assist client in exploring what triggers anxiety and teach client coping strategies to effectively manage anxiety symptoms. Discharge Criteria: Client will have met this goal when can identify at least 2 triggers to anxiety and verbalize two healthy ways to cope with feelings of anxiety. Target Date: 07/15/24 Review Date: 07/01/24
--- NOTE | 2024-06-04 09:40 | BH.NA ---
Physical Data Vital Signs Pulse Rate: 69 Blood Pressure: 155/107 Height/Weight Height: 1.83 m Weight:: 90.718 kg Weight in Pounds: 200.0 lbs Current Medication Compliance Medication Compliance Do you take your medication as prescribed?: Yes Nutritional History Appetite Nutritional Instructions: Describe your appetite:: Good Additional nutritional information:: Client denies recent change in appetite or weight. Functional Assessment Sleep Pattern Describe any problems with sleeping: Client states for the past 5 years, he has been averaging 2-3 hours of sleep per night and rarely naps during the day. Sensory/Communication Assess Vision Problems Do you have any vision problems?: Glasses Communication Problems Do you have difficulty understanding what people are saying?: No Medical Problems/History Cardiac Conditions Cardiovascular: Hypertension, Hyperlipidemia and Other (See comments) (hx of [place] in 2020) Respiratory Conditions Respiratory: Asthma and Other (See comments) (COPD) Gastrointestinal Conditions Gastrointestinal: Other (See comments) (GERD, hx of GI bleed) Musculoskeletal Conditions Musculoskeletal: Arthritis and Other (See comments) (gout, lower back strain, chronic back pain- client states he needs back surgery) Pain Assessment Do you have acute or chronic pain?: Yes (back) Family History Family History Father Diabetes Hypertension Grandfather Heart disease Grandfather Heart disease Surgical History Surgical History Have you had any surgeries? If so, list type and date:: Yes (heart cath in 2019) Substance Abuse Substance Abuse Please describe substance abuse in the last 30 days:: Client states he has overall been sober from alcohol for about 3 years since he had a DUI. Client states he hasn't had any alcohol in 2-3 weeks. Client states he has been a cigarette smoker for about 49 years, stating he smokes 10-15 cigarettes per day. Client uses marijuana several times daily but denies other substance use. Client drinks 5 cups of coffee per day. Mental Status Summary Mental Status Significant Findings/Observations on Appearance and Mood:: Client is alert and oriented x 4. Client is casually groomed. Client is cooperative with assessment. Client makes fair eye contact. Client's voice has normal rate and volume. Client has a restricted affect. Client makes logical associations and has normal processing, but is vague with most responses. Client denies delusions/hallucinations. Client denies present SI. Suicide Assessment Suicidal Ideation Are you currently or have you been suicidal in the past?: Yes Suicidal Intentional Rating Scale (SIRS): Suicidal thoughts (past) Physician Notification Past Psychiatric History MH Treatment Hx Past Psychiatric Medications:: Client states several years ago he tried one medication for a couple of days which made his suicidal thoughts worse Age of first mental health symptoms: Client states he first had symptoms of depression in [place], around age 11. Describe (age, circumstance, etc) any past hospitalizations: [facility] [place] in 2019 for depression and SI Current providers for mental health treatment (counselor, psychiatrist, telehealth case manager, etc.): Had an intake with a [facility] counselor and was referred to [facility] Fall Risk Assessment Age Age: Less than 60 Mental Status Mental Status: Willing & able to ask for assistance when needed Physical Status Physical Status: No problems Impairments Impairments: None Elimination Elimination: Continent AND independent Gait or Balance Gait or Balance: Walks independently Hx of Falls History of falls in the past 6 months: No known history Medications/Substances Others:: Antihypertensives and Diuretics Medications/substances used within the past 24 hours or ordered to administer: 1-2 of the medications/substances listed above Total Score Total Points:: 1 RN Summary of Impressions Impressions Recommendations Impressions: Psychiatric Issues: major depressive disorder, recurrent, severe without psychotic features Impression: General Medical Conditions: BP was first 181/111 at beginning of assessment, rechecked at the end and was 155/107. Client is on several medications for his blood pressure and states he has not taken any of them yet today. Client states he will take his medications when IOP is over. Client states his PCP and heart doctor check his BP frequently. Dr. Krishnan updated on same. Level of Care How do the client's current symptoms and functional deficits support need for this level of care?: Client was referred to [facility] by [facility] intake counselor after having depression for the last few weeks with suicidal thoughts. Client states 3 weeks ago he visited his 's grave and has felt depressed since. Client states he thought of a plan to jump off a mountain while on vacation. Client states he talked to his cousin and a friend about his plan and decided not to do it. Client has talked to Crisis 3 times over the last few weeks. Client denies SI at this time. Client states he continues to grieve the loss of his (who 5 years ago). Client also reports health stressors (back pain and need for back surgery) and financial stressors. Client reports depression symptoms and periods of crying. IOP will promote gains and prevent further decompensation while providing social support and skills training.
[2024-06-04 10:02] VITALS: BP 155/107; PULSE 69
--- NOTE | 2024-06-04 10:10 | BH.SGPN.GN ---
Behaviors/Verbalizations/Mental Status: [] Eye contact is fair to good. Motor activity is appropriate. Appearance is casual. Speech is Appropriate. Mood is euthymic. Affect is congruent. Thoughts are linear and logical. No evidence of psychosis. Client Response/Progress/Benefit: [] Pt was an active participant during group discussions and group activities. This portion of group was very psychoeducation heavy and pt was attentive during psychoeducation. Engaged during activity in which they identified which type of foods (i.e. carbs, sugar, salt, fast food, caffeine, etc) they seek out when sad, tired, angry, stressed, anxious, etc. Pt was able to identify the impact that certain foods have on their mental health through group example which was beneficial. Reported connecting with the impacts alcohol can have on mood and decision making. Benefited from increased awareness of the connection between nutrition and mental health. Will continue in IOP to prevent decompensation, stabilize mood, and increase healthy coping skills. Narrative Note: []
--- NOTE | 2024-06-04 11:10 | BH.SGPN.GN ---
Behaviors/Verbalizations/Mental Status: [] Pt alert and oriented, casually dressed and groomed. Eye contact good. Motor activity appropriate. Speech within normal limits. Affect congruent, mood content, dysthymic. Thoughts linear, logical, no signs of hallucinations or delusions. Client Response/Progress/Benefit: []Pt was an active participant throughout AEB contributing to group discussion and taking notes. Pt provided input during small group discussion on strategies to combat each factor maintaining adverse nutritional cycles. Worked with group to identify ways to foster more mindful nutritional choices. Each group participant identified one small step they could take today to begin establishing mental wellness promoting nutritional choices. Pt shared plans to?reduce fast food because it gives him stomach aches. Appeared to benefit from gaining insight into mental wellness centered nutrition and identifying personal steps pt can take to support own nutritional psychology. Recommended continued IOP tx to prevent decompensation, improve daily functioning, and increase healthy coping skills. ?? Narrative Note: []
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
--- NOTE | 2024-06-04 12:47 | BH.DR.ITP ---
Initial Treatment Plan Patient Information Visit Information: ADMISSION DATE: EXPECTED LOS: 4-6 weeks Problems/Symptoms Problem #1:: Depression Symptom:: Sadness, hopelessness, worthlessness, biological disruption of sleep, guilt, passive thoughts of , recent suicidal ideation and plan for suicide Problem #2:: Anxiety Symptom:: Worry, rumination
--- NOTE | 2024-06-06 09:00 | BH.SGPN.GN ---
Behaviors/Verbalizations/Mental Status: [] Client alert and oriented, casual appearance. Eye contact good. Motor activity appropriate. Speech within normal limits. Affect congruent, mood euthymic. Thoughts linear, logical, no signs of hallucinations or delusions. Reviewed client's symptom tracker, no risk for suicidal ideation, plan, or intent. Client Response/Progress/Benefit: [] Client responded well to session AEB listening to others and sharing thoughts/feelings. Client stated mental health positive as improved mood. Client stated additional positive as responding positively to his medications. Client reported he also has been spending more time with family which he thinks has been helpful. Client reported no current stressors. Appeared to benefit from support from peers. Will continue IOP tx to promote healthy coping skills, improve distress tolerance, and prevent decompensation.
--- NOTE | 2024-06-06 10:10 | BH.SGPN.GN ---
Behaviors/Verbalizations/Mental Status: []Pt alert and oriented, casually dressed and groomed. Eye contact good. Motor activity appropriate. Speech within normal limits. Affect congruent, mood dysthymic. Thoughts linear, logical, no signs of hallucinations or delusions. ? Client Response/Progress/Benefit: []Pt responded well to session, attentive and engaged. Pt participated in activity where pts had to guess the celebrity with a known mental health diagnosis and this led to discussion on self-stigma. Group participated in the discussion defining stigma as well as what stigma has kept pt's from doing in their lives. Pt stated mental health stigma has led pt to not being willing to openly communicate about his mental health and instead would make jokes. This resulted in feeling invalidated and maintained his depression. Pt worked with peers to begin discussion of what reinforces stigma and this was discussed further in the next group. Pt appeared to benefit from learning about the different types of stigma as well as gaining awareness of how stigma as personally impacted pt. Pt will continue in IOP tx to promote mood stability, reduce stigma, and prevent decompensation. Narrative Note: []
--- NOTE | 2024-06-06 11:10 | BH.SGPN.GN ---
Behaviors/Verbalizations/Mental Status: []Pt alert and oriented, neatly dressed and groomed. Eye contact good. Motor activity appropriate. Speech within normal limits. Affect congruent, mood depressed. Thoughts linear, logical, no signs of hallucinations or delusions. Client Response/Progress/Benefit: [] Pt engaged participant AEB participating in the activity, providing input during small group discussion, and listening attentively to others. Pt appeared to connect with discussion in the benefits of addressing mental health stigma which included: improved relationships, increased willingness to seek help, increased happiness, and improved confidence. Group brainstormed strategies to combat social and perceived stigma. Pt identified that they can contribute to stigma by using making jokes about himself. Pt shared one thing pt can do to combat stigma is ?talking to more people who go through the same thing.? Appeared to benefit from increasing awareness of strategies to combat stigma. Will continue IOP tx to prevent decompensation, improve daily functioning, and increase healthy coping skills. Narrative Note: []
--- NOTE | 2024-06-09 09:05 | BH.SGPN.GN ---
Behaviors/Verbalizations/Mental Status: [] Client alert and oriented, casually dressed and groomed. Eye contact good. Motor activity appropriate. Speech within normal limits. Affect congruent, mood euthymic. Thoughts linear, logical, no signs of hallucinations or delusions. Reviewed client?s symptom tracker, no risk for suicidal ideation, plan, or intent as of 06/09/24. Client Response/Progress/Benefit: [] Client responded well to session and attentive to others as they shared. Client reports feeling chill this morning. Client discussed doing well lately with spending a lot of time outdoors as a form of coping. Client indicated that there is not too much stressors right now other than [place] the [place] to avoid being triggered and discussed negative experience with calling the crisis line 3 weeks ago. Client appeared to benefit from discussing current coping and seeing the improvement in mental health in recent weeks. Client will continue IOP tx as client continues to struggle with emotional regulation and depression. Narrative Note: []
--- NOTE | 2024-06-09 10:10 | BH.SGPN.GN ---
Behaviors/Verbalizations/Mental Status: [] Pt alert and oriented, appropriate grooming/appearance. Eye contact good. Motor activity appropriate. Speech within normal limits. Affect congruent, mood depressed. Thoughts linear, logical, no signs of hallucinations or delusions. Client Response/Progress/Benefit: [] Pt was an active participant in group discussions. Attentive during psychoeducation. Contributed during interactive discussions in which peers attempted to define crisis. Group identified examples of potential crisis. Group also worked together to identify unhealthy responses to crisis which included lashing out, isolation, self-harm, substance abuse, and shutting down. Pt identified personal warning signs as isolation and not connecting with the present of others. Benefited from increased understanding of crisis and awareness of personal responses to crisis. Pt will continue IOP tx to increasing healthy coping skills, promote mood stability, and prevent decompensation. Narrative Note: []
--- NOTE | 2024-06-09 11:10 | BH.SGPN.GN ---
Behaviors/Verbalizations/Mental Status: []Pt alert and oriented, appropriate grooming/appearance. Eye contact good. Motor activity appropriate. Speech within normal limits. Affect constricted, mood calm. Thoughts linear, logical, no signs of hallucinations or delusions. Client Response/Progress/Benefit: []Pt was an active participant in group discussions. Attentive during psychoeducation. In small group pt along with peers developed an active plan for their crisis warning signs. Pt identified three crisis warning signs as well as an action plan for each. One crisis warning sign was withdrawing from family. Pt identified coping skills to help with this such as: opposite action and communicating with his cousin. ?Benefited from increased awareness of crisis warning signs and by developing crisis intervention strategies. Will continue in IOP to prevent decompensation, gain healthy support, and improve daily functioning. Narrative Note: []
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
--- NOTE | 2024-06-11 10:15 | BH.SGPN.GN ---
Behaviors/Verbalizations/Mental Status: [] Eye contact is good. Motor activity is appropriate. Appearance is casual. Speech is Appropriate. Mood is content. Affect is congruent. Thoughts are linear and logical. No evidence of psychosis. Client Response/Progress/Benefit: [] Pt receptive to session AEB contributing to group discussion, as well as listening attentively to others, and taking notes. Worked with group to brainstorm the positive and negative aspects of stress on physical and mental health as well as the impact of distress on performance, relationships, and mental health. Pt shared their top stressors to be: physical health problems, changes in his physical ability/functioning, and family. Shared when feeling overwhelmed with stress pt tends to get short with others, avoid, and isolate. Benefited from increased awareness of positive and negative stress as well as how stress impact individuals. Will continue in IOP to promote use of healthy coping skills, improve mood stability, and prevent decompensation. Narrative Note: []
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
--- NOTE | 2024-06-11 11:15 | BH.SGPN.GN ---
Behaviors/Verbalizations/Mental Status: [] Pt alert and oriented, casually dressed and groomed. Eye contact good. Motor activity appropriate. Speech within normal limits. Affect congruent, mood euthymic, Thoughts linear, logical, no signs of hallucinations or delusions. Client Response/Progress/Benefit: [] Pt was an attentive and active participant in group discussions and experiential activity, doing well to regulate their emotions throughout the activity and work with peers. Attentive during psychoeducation on the 4 A's (Avoid, adapt, alter, accept) of coping with stress. Shared ways they would benefit from utilizing the 4 A's when coping. Was able to identify the connection between the experiential activity and utilization of stress management skills. Benefited from increased awareness of stress management strategies. Pt will continue IOP tx to prevent decompensation and improve daily functioning. Narrative Note: []
--- NOTE | 2024-06-16 10:15 | BH.SGPN.GN ---
Behaviors/Verbalizations/Mental Status: [] Eye contact is good. Motor activity is appropriate. Appearance is casual. Speech is Appropriate. Mood is euthymic. Affect is congruent. Thoughts are linear and logical. No evidence of psychosis. Client Response/Progress/Benefit: [] Pt did well to participate in activity and was engaged and attentive during psychoeducation and interactive discussion on coping skills, why people use unhealthy coping skills, how to replace unhealthy coping skills, and internal vs external coping skills. Attentive as peers came up with list of negative coping skills including not asking for help, avoidance, isolating, sleeping, shopping, substance use, and several others. Pt reports sometimes he lashes out at others as a way of coping with his emotions. Recognizes this doesn't help the situation. Group discussed the effects of how negative coping skills can impact mental health in a negative way. Benefited from increased understanding of unhealthy coping skills and the need for developing healthy internal and external coping skills. Will continue in IOP to maintain gains, continue use of healthy coping skills, and prevent decompensation.
--- NOTE | 2024-06-16 11:15 | BH.SGPN.GN ---
Behaviors/Verbalizations/Mental Status: []Pt alert and oriented, casually dressed and groomed. Eye contact good. Motor activity appropriate. Speech within normal limits. Affect congruent, mood content. Thoughts linear, logical, no signs of hallucinations or delusions. Client Response/Progress/Benefit: [] Pt responded well to session, taking notes and contributing when prompted. Group discussed the different categories of coping skills which included distraction, emotional release, grounding, self-love, and thought challenging. Pt participated in creating a coping skills ?menu? from the five categories of coping skills. Pt's coping skill menu included: taking a walk, playing the drums, deep breathing, doing things for others, and reframing. Appeared to benefit from increasing repertoire of healthy coping skills. Will continue IOP to improve mood stability, reduce isolation, and prevent decompensation. Narrative Note: []
--- NOTE | 2024-06-16 12:23 | BH.MDN ---
Multi-Disciplinary Note Note 45-min Individual: Time Started:: 09:15 Date: 06/16/24 Purpose of session/treatment goals addressed:: Purpose of session was to address goals 1 and 2 from MTP. Eye Contact:: Good Motor Activity:: Appropriate Appearance:: Casual Speech:: Appropriate Mood:: Euthymic Affect:: Full Thoughts:: Linear, Logical and No evidence of hallucinations/delusions noted Staff Interventions:: CBT techniques, mindfulness skills, rapport building, strengths perspective and goal setting Client Response:: Client reported he is been doing really well in the last 2 weeks with improved mood, decreased irritability, and starting to feel like his old self again. Client reported he does not remember feeling as good since he was in [place]. Client stated he does think the medication has been significantly helping with improving his mood. Client reported it also is helping that he is getting out of the house to be social with his family. Client stated at work he has found himself to be more relaxed and has not gone off in the last 2 weeks. Client reported in the past he would get frustrated with another worker whom he client thought was being lazy and need start yelling for several minutes until he felt calm. Client stated his work is noticed significant change in his attitude and behavior in the last couple weeks. Client reported lately he started to notice himself becoming more of a jokester and playing pranks on his family like he used to. Client stated he has been doing better with managing any grief from the loss of his . Client reported he feels like attending group therapy has been helping him learn new skills and how to better manage his emotions. Client encouraged to continue working on his breathing skills. Client also finds it helpful to go walking on his family's property which is something he does multiple times a week. Client stated he knows that he is in a good place when he is being more social and wanting to be around others. Risks/Concerns:: Denies suicidal ideation, plan, intention. Future oriented. Progress Toward Goals/Plan:: Progress noted as evidenced by client reporting significant improvement in his mood, decreased agitation/irritability, and better outlook on life. Client is attributing most of his progress to starting new medication that has helped with his daily sleep and with his depression. Client starting to recognize that it is also helping him by getting out of the house and being around people socially. Client stated he is really benefiting from attending IOP groups. Client is to continue IOP to maintain gains, increase consistent use of healthy coping skills, and prevent decompensation. Time Stopped:: 10:00
--- NOTE | 2024-06-16 15:09 | BH.MDN ---
Multi-Disciplinary Note Note 45-min Individual: Time Started:: 09:00 Date: 06/16/24 Time Stopped:: :45
--- NOTE | 2024-06-18 09:00 | BH.SGPN.GN ---
Behaviors/Verbalizations/Mental Status: [] Eye contact good. Motor activity appropriate. Speech within normal limits. Affect congruent, mood euthymic. Thoughts linear, logical, no signs of hallucinations or delusions. Reviewed client?s symptom tracker, denies SI, plan, or intent as of 06/18/2024. Client Response/Progress/Benefit: [] Client receptive of session, attentive and willing to process with group. Reports mental health win as accomplishing several outdoor tasks he has been meaning to get done. Described weed eating and mowing, sharing that these tasks are often calming and cathartic for him. Went on to share an additional win as recognizing that he has been able to go several weeks now without suicidal ideation. Shared that this recognition was very encouraging for him and helped him to continue to maintain sobriety and be intentional about surrounding himself with healthy supports. Stressor identified as ongoing physical pain issues. Did well to identify some coping skills for cooing with and better managing his pain. Receptive of and appearing to benefit from group support and feedback. Recommended continued IOP tx to further improve mood stability, promote consistent skill application, well as prevent decompensation. Narrative Note: []
--- NOTE | 2024-06-18 10:15 | BH.SGPN.GN ---
Behaviors/Verbalizations/Mental Status: []Patient was alert and oriented, casually dressed and groomed. Eye contact was good, motor activity normal, speech within normal limits. Affect congruent, mood calm. Thoughts linear, logical, no signs of hallucinations or delusion Client Response/Progress/Benefit: [] Pt participated in the group discussions AEB providing feedback and taking notes. Attentive during psychoeducation Goal Setting. Participated during the discussion on common barriers and pt identified some personal barriers as losing interest in his goals and being impatient. Group also identified benefits of goals as sense of purpose, improved self-confidence, more motivation for other goals, and improved mental health. Benefited from increased awareness of mental health benefits of goals as well as psychoeducation on SMART goal criteria. Will continue in IOP to improve daily functioning, reduce negative thinking patterns, and promote mood stability. Narrative Note: []
--- NOTE | 2024-06-18 11:15 | BH.SGPN.GN ---
Behaviors/Verbalizations/Mental Status: []Pt alert and oriented, casually dressed and groomed. Eye contact good. Motor activity appropriate. Speech within normal limits. Affect congruent, mood euthymic. Thoughts linear, logical, no signs of hallucinations or delusions. Client Response/Progress/Benefit: [] Pt was engaged during discussion AEB providing input when prompted, taking notes throughout, and willing to complete the worksheet challenging them to develop a personal SMART goal. Pt chose the goal of taking a walk several times a week. Pt stated this will help him feel less depressed and decrease stress levels. Pt identified toxic people as a potential barrier. Identified solution as setting boundaries with others and focusing on what he needs. Benefited from this group by developing a short-term SMART goal related to mental health. Will continue IOP tx to improve distress tolerance, challenge negative thinking, and prevent decompensation.
--- NOTE | 2024-06-20 09:00 | BH.SGPN.GN ---
Behaviors/Verbalizations/Mental Status: []Eye contact is good. Motor activity is appropriate. Appearance is casual. Speech is Appropriate. Mood is euthymic. Affect is congruent. Thoughts are linear and logical. No evidence of psychosis. Reviewed daily check in sheet and no reports of suicidal ideations or intent. Client Response/Progress/Benefit: []Pt responded well to session, attentive and engaged. Pt reports feeling mellow this morning. Pt identified his mental health wins today which included getting an award at work and getting to go camping this weekend which pt loves. Pt denies any major stressors today and pt shared in general his symptoms have been more less intense and pt feels more in control of his emotions. Pt has had less outbursts at work and he is much less depressed. Pt appeared to benefit from reflecting on use of coping skills and connecting with peers. Pt will continue IOP tx to promote mood stability, improve impulse control, and reduce anger outbursts. Narrative Note: []
--- NOTE | 2024-06-20 10:15 | BH.SGPN.GN ---
Behaviors/Verbalizations/Mental Status: [] Eye contact is good. Motor activity is appropriate. Appearance is casual. Speech is Appropriate. Mood is euthymic. Affect is full. Thoughts are linear and logical. No evidence of psychosis. Client Response/Progress/Benefit: [] Pt was attentive during group AEB taking notes. Attentive however limited engagement during interactive discussion on defining anxiety and identifying cognitive and physiological symptoms of anxiety. Attentive as peers discussed the role of anxiety on isolation, avoidance, and who this emotion impacts their ability to start and complete activities/goals. Pt identified their physical/physiological signs of anxiety (i.e. nausea, increased heart rate, butterflies, and headaches) on a worksheet. Pt identified safety behaviors (i,e isolation, cancel plans, and reassurance seeking) on worksheet as well. Benefited from increased awareness and insight on anxiety and its impact. Will continue in IOP to maintain safety, prevent decompensation, and increase healthy coping skills. Narrative Note: []
--- NOTE | 2024-06-20 11:15 | BH.SGPN.GN ---
Behaviors/Verbalizations/Mental Status: []Pt alert and oriented, casually dressed and groomed. Eye contact good. Motor activity appropriate. Speech within normal limits. Affect congruent, mood anxious. Thoughts linear, logical, no signs of hallucinations or delusions. Client Response/Progress/Benefit: []Pt was an active participant AEB pt providing input and listening attentively to peers. Attentive during psychoeducation on mindfulness coping skills and their impact on reducing anxiety and improving overall mental health wellness. Group was able to identify self-soothing and mind-based coping skills which included: 5-senses, meditation, deep breathing, TIPP, thought challenging, and progressive muscle relaxation. Pt also participated with peers in practicing mindfulness skills in session including deep breathing and PMR. Pt would like to work on using taking a break and walking to help manage anxiety. Appeared to benefit from increasing repertoire of anxiety reduction skills. Pt will continue in IOP tx to decrease anger outbursts, increase use of healthy coping skills, and prevent decompensation.
--- NOTE | 2024-06-23 09:00 | BH.SGPN.GN ---
Behaviors/Verbalizations/Mental Status: [] Eye contact good. Motor activity appropriate. Speech within normal limits. Affect congruent, mood content. Thoughts linear, logical, no signs of hallucinations or delusions. Reviewed client?s symptom tracker, pt denies SI,?plan, or intent as of 06/23/2024. Client Response/Progress/Benefit: [] Client receptive of session, attentive and willing to process with group. Reports improving sx of depression?(0/5) and anxiety (0/5) per daily sx tracker. ?Identified mental health ?win as helping his cousin navigate while walking when their light went out. Noted that he did well to remain calm and not stress out which was a win. Additional win noted as turning down an offer to drink alcohol when it was presented to him. Noted reminding himself of all the costs of doing so and reasons not to. Shared feeling proud of himself as a result. Current stressor noted as pt's mother recently stating she is considering selling her house. Shared that he is not opposed to this but was surprised to hear her intent. Receptive of and appearing to benefit from group support. Recommended continued IOP tx to maintain mood stability, promote consistent skill application, well as prevent decompensation. Narrative Note: []
--- NOTE | 2024-06-23 10:10 | BH.SGPN.GN ---
Behaviors/Verbalizations/Mental Status: []Pt alert and oriented, neatly dressed and groomed. Eye contact good. Motor activity appropriate. Speech within normal limits. Affect congruent, mood calm. Thoughts linear, logical, no signs of hallucinations or delusions Client Response/Progress/Benefit: [] Pt was an active participate AEB listening attentively to others, participating in group discussions, and taking notes throughout. Participated as the group identified ways we can hurt others or sabotage self by not regulating our emotions. Participated with peers to identified ways emotions impact communication which pt shared he either shuts down or lashes out which can cause issues at work. Participated during group activity. Pt benefited from session by gaining an increased understanding on the importance of managing emotions to improve daily functioning. Will continue IOP tx to promote mood stability, reinforce healthy coping skills, and improve daily functioning. ?? Narrative Note: []
--- NOTE | 2024-06-23 11:10 | BH.SGPN.GN ---
Behaviors/Verbalizations/Mental Status: []Pt alert and oriented, casually dressed and fairly groomed. Eye contact good. Motor activity appropriate. Speech within normal limits. Affect congruent, mood content. Thoughts linear, logical, no signs of hallucinations or delusions. Client Response/Progress/Benefit: [] Pt engaged in session AEB Pt listening attentively to peers and providing input. Attentive during psychoeducation on 4 zones of regulation. Pt able to identify feelings and behaviors for each zone. Pt identified coping skills one can use to support self in each zone. Identified being in the blue zone today, so pt feels he would benefit from ?kicking it around the house? before pt heads to work tonight. Benefited from increased education on zones of regulation or stages of alertness for emotions and healthy coping skills to use for each zone. Will continue IOP tx to promote mood stability, improve impulse control, and improve daily functioning. Narrative Note: []
--- NOTE | 2024-06-25 09:00 | BH.SGPN.GN ---
Behaviors/Verbalizations/Mental Status: [] Client alert and oriented, casual appearance. Eye contact good. Motor activity appropriate. Speech within normal limits. Affect congruent, mood euthymic and positive. Thoughts linear, logical, no signs of hallucinations or delusions. Reviewed client's symptom tracker, no risk for suicidal ideation, plan, or intent. Client Response/Progress/Benefit: [] Client responded well to session AEB listening to others and sharing thoughts/feelings. Client stated mental positive as getting to work 6 days coming up because of the holiday materials coming in which she is excited about to make more money. Client's additional mental positive as not snapping at work. Client stated that many of his coworkers has noted a difference in his mood and ability to manage stress more effectively. Client reported he has not been having any anger outburst at work in a couple weeks. Client did not identify any current stressor. Appeared to benefit from support from peers. Will continue IOP tx to promote continued use of healthy coping skills, continue to work on anger management, and prevent decompensation. Narrative Note: []
--- NOTE | 2024-06-25 10:10 | BH.SGPN.GN ---
Behaviors/Verbalizations/Mental Status: []Pt alert and oriented, casually dressed and groomed. Eye contact good. Motor activity appropriate. Speech within normal limits. Affect congruent, mood calm. Thoughts linear, logical, no signs of hallucinations or delusions. Client Response/Progress/Benefit: [] Pt was attentive during psychoeducation and participated in group activity. Group discussed what contributes to a person?s perspective and how perspective can positively or negatively impact mental health treatment. Pt reflected on their perspective today and how it is impacting them. Pt shared their perspective today is ?hopeful and I look forward to coming to IOP.? ?Pt shared his perspective is much different? than it was weeks ago when he started IOP and this has helped pt gain motivation. Pt appeared to benefit from increasing awareness of different perspectives and how they can affect mental health. Pt will continue IOP tx to promote mood stability, increase emotional regulation skills, and establish aftercare. ?? Narrative Note: []
--- NOTE | 2024-06-25 11:10 | BH.SGPN.GN ---
Behaviors/Verbalizations/Mental Status: []Pt alert and oriented, casually dressed and groomed. Eye contact good. Motor activity appropriate. Speech within normal limits. Affect congruent, mood content. Thoughts linear, logical, no signs of hallucinations or delusions. Client Response/Progress/Benefit: []Pt was attentive and contributed to group discussion. Pt worked with group to identify strategies that can help with challenging negative perspective. Pt completed strengths exploration worksheet, identifying kindness, curiosity, and adventurousness as personal strengths. Pt able to acknowledge how these strengths are helping pt and can continue to help pt in mental health journey. Pt identified wanting to work on leaning on strength of adventurousness to continue practicing delay, distract, decide before responding to something. Plans to go to the [place] and engage in mindfulness in order to do so. Benefited from identifying personal strengths and strategies for enhancing use of identified strengths. Pt will continue IOP tx to maintain mood stability, encourage ongoing sobriety, and prevent decompensation. Narrative Note: []
--- NOTE | 2024-06-25 14:12 | BH.TPR ---
Treatment Plan Review Demographics Date of Admission:: 06/03/24 Date of Treatment Plan Review:: 06/25/24 Admitting Diagnoses:: 1. Major depressive disorder, recurrent, severe without psychosis F33.2 2. Generalized anxiety disorder 3. Alcohol use disorder, sober times several weeks Current Diagnoses:: 1. Major depressive disorder, recurrent, severe without psychosis F33.2 2. Generalized anxiety disorder 3. Alcohol use disorder, sober times several weeks Patient Status Patient's Response to Treatment:: Pt has responded well to treatment AEB consistent attendance, providing feedback in groups, and putting forth effort to apply skills outside treatment environment. Status of Current Problems and Symptoms: Pt has reported significant treatment progress with decreased anger, decreased depression, improved use of healthy coping skills, and decreased anger outbursts. Pt has reported some continued issues with feeling agitated and yelling at co-workers when frustrated. Pt struggling with feeling lonely at times, but stated he has been doing better with managing his grief. Per DSM 5 cross-cutting measure pt's overall mental health symptoms decreased by 79%. Pt's anger decreased by 33%. Progress Problem #1: Problem Name:: Depression Status of Goals:: Obj 1 - met, ongoing work encouraged. Pt reports use of hiking, being around family, and opposite action as healthy skills that have helped his mood. Per DSM 5 cross-cutting scale at review pt's depression as decreased by 60%. Obj 2 - not met. Pt is starting to be able to identify negative thoughts that can impact his mood, but struggles with doing this independently. Team Recommendations:: Team recommends continued goals and objectives to provide time for client to reinforce skills, use strategies on a consistent basis, and maintain gains. Problem #2: Problem Name:: Anxiety Status of Goals:: Obj 1 - met, ongoing work encouraged. Pt reports use of belly breathing, taking a walk, and taking a step back as healthy calming skills that have helped him managing his anxiety and anger. Per DSM 5 cross-cutting scale at review pt's anxiety has decreased by 71%. Obj 2 - not met. Pt continue to work on increasing awareness of his anxiety triggers with improved ability to use healthy coping skills to manage anxious symptoms. Team Recommendations:: Team recommends continued goals and objectives to provide time for client to reinforce skills, use strategies on a consistent basis, and maintain gains.
--- NOTE | 2024-06-27 09:00 | BH.SGPN.GN ---
Behaviors/Verbalizations/Mental Status: [] Eye contact is good. Motor activity is appropriate. Appearance is casual. Speech is Appropriate. Mood is irritable. Affect is congruent. Thoughts are linear and logical. No evidence of psychosis. Reviewed daily check in sheet and no reports of suicidal ideations or intent. Client Response/Progress/Benefit: [] Pt participated at times during the group discussion. Attentive. Daily symptom tracker notes 12/31 for anger. States I had a very bad night. [place] was about to come back out. Elaborated on work stressors which led to anger outburst at work. Processed the event with peers with focus on what he could learn for the event to implement in the future. According to pt he did utilize a calming skills went for a walk which was helpful. Insight that being more aware of physiological warning signs and implements skills earlier would have been beneficial. Benefited from group support, encouragment, and feedback. Will continue in IOP to maintain safety, prevent decompensation, and to increase healthy coping. Narrative Note: []
--- NOTE | 2024-06-27 11:10 | BH.SGPN.GN ---
Behaviors/Verbalizations/Mental Status: []Client alert and oriented, casually dressed and groomed. Eye contact good. Motor activity appropriate. Speech within normal limits. Affect congruent, mood euthymic. Thoughts linear, logical, no signs of hallucinations or delusions. Client Response/Progress/Benefit: [] Pt responded well to session, attentive throughout. Did well to actively listen and contributed when prompted as group worked to process activity. Pt worked with group to relate the strategies used to overcome barriers in the activity to managing change in own life. Pt identified a change they would like to make is reducing stress levels. Pt identified currently being in preparation/action stage for this change. Pt said working on breathing and walking away to take breaks more can help pt get to the next stage. Appeared to benefit from identifying a change they want and how to progress. Pt will continue IOP tx to promote mood stability, increase distress tolerance, and improve anger management skills. Narrative Note: []
--- NOTE | 2024-06-27 15:10 | BH.MDN_ITS ---
Multi-Disciplinary Note Note 30-min Individual: Time Started:: 10:30 Date: 06/27/24 Purpose of session/treatment goals addressed:: Purpose of session was to address goals 1 and 2 from MTP. Eye Contact:: Good Motor Activity:: Appropriate Appearance:: Casual Speech:: Appropriate Mood:: Euthymic and Anxious Affect:: Congruent Thoughts:: Linear, Logical and No evidence of hallucinations/delusions noted Staff Interventions:: thought challenging, CBT techniques, mindfulness skills, strengths perspective, goal setting and taught coping skills (breathing and anger management) Client Response:: Client reported yesterday he got pissed at work be cause he felt like his coworker was not doing his part the job which led to client yelling and throwing stuff. Client reported he is upset with himself because he had not had a melt down at work since starting IOP. Client and therapist reviewed anger triggers. Client identified work triggers to be when people do not listen, when coworkers are being immature, and when coworkers are intentionally breaking things. Client stated he recognizes he gets agitated when others do that but yet he can see how his own anger outburst are very similar to what bothers him. Therapist reviewed healthy, coping skills discussed in previous session of using belly breathing, grounding tools, and taking a walk. Client stated walking around the store has been something that has been useful for him in preventing any anger outbursts. Client was receptive to challenging his perspective on his coworkers recognizing that they are younger and their perspective is much different than his. Discussed importance of accepting that he cannot control others behavior the only thing control is his own. Client stated he knows he will benefit from using his healthy coping skills more consistently because when he does have an outburst at work he tends to feel guilty and beat himself up. Client stated beyond being stressed about work environment other areas of his life has been better. Client stated he feel s like he is managing his grief more appropriately and has not had any suicidal thoughts since starting IOP. Client agreeable to practice breathing and calming skills especially while at work and to take a break when he starts to notice himself getting frustrated. Risks/Concerns:: Denies suicidal ideation, plan, intention. Future oriented. Identifies family as protective factor. States improved outlook and mood. Progress Toward Goals/Plan:: Slight decompensation noted with client's anger outburst at work. Client able to recognize he did not manage his emotions very well in the moment and needs to get back to consistently applying calming skills like breathing and grounding tools to help prevent any anger outburst. Client does report improved mood, improved sleep quality, taking medications consistently, and denies suicidal ideation. Plan is for client to continue IOP to improve distress tolerance, decrease anger outburst, and prevent decompensation. Time Stopped:: 11:00
== END 2024-06-28 23:59 ==
LOC: BHIOP 08:00
PROVIDERS: PCP Family Medicine; Referring Provider Psychiatry & Neurology Psychiatry; Visit Provider Psychiatry & Neurology Psychiatry
DX: F33.2 Major depressive disorder, recurrent severe without psychotic features (principal); F41.1 Generalized anxiety disorder; F10.90 Alcohol use, unspecified, uncomplicated; Z87.820 Personal history of traumatic brain injury; Z79.899 Other long term (current) drug therapy
CPT/HCPCS: 90792; 99213; H2012; H2020; S9480; T1002; 90832; 90834

== ENCOUNTER → 2024-06-20 | Outpatient (CLI) | payer MEDICAID, SELFPAY ==
[2024-06-20 17:51] LABS: Absolute Lymphocyte Count 2.36 X10^3/uL (0.83-4.51); Absolute Neutrophil Count 6.1 X10^3/uL (2.0-7.7); Basophil# 0.05 X10^3/uL; Basophil% 0.5 % (0-1); Eosinophil# 0.15 X10^3/uL; Eosinophils% 1.6 % (0-5); Hematocrit 43.6 % (40-54); Hemoglobin 14.2 g/dL (13.0-16.5); Lymphocyte # 2.36 X10^3/ul (0.83-4.51); Mean Corp Hgb Conc 32.6 g/dL (32-36); Mean Corpuscular Volume 92.2 fL (80-94); Mean Platelet Vol. 10.1 fl (6.2-12.0); Monocyte% 8.5 % (0-10); NRBC Flagged by Analyzer 0 % (0-5); Neutrophil # 6.07 X10^3/uL (2.7-7.7); Neutrophil % 64.2 % (47-70); Platelet Count 306 K/mm3 (150-450); RBC Distribution Width CV 13.2 % (11.6-14.6); RBC Distribution Width SD 45.3 fl (35.1-43.9); Red Blood Count 4.73 M/mm3 (4.6-6.2); White Blood Count 9.5 K/mm3 (4.4-11.0)
[2024-06-20 18:15] LABS: ALB/GLOB Ratio 0.9 RATIO (0.9-2.4); AST(SGOT) 22 U/L (15-37); Alanine Aminotransfer ALT/SGPT 24 U/L (16-61); Albumin, Serum 3.6 g/dL (3.2-5.0); Alkaline Phosphatase 74 U/L (45-117); Anion Gap 9 (5-15); BUN 18 mg/dL (7-18); BUN/Creat Ratio 20.1 RATIO (10-20); Calcium,Total 8.9 mg/dL (8.5-10.1); Chloride 105 mmol/L (98-107); Cholesterol 170 mg/dL (200); EST Glomerular Filtration Rate 92 mL/min (>60); Est Glom Filt Rate - Afr Amer 112 mL/min (>60); Globulin 3.9 g/dL (2.2-4.2); Glucose 113 mg/dL (74-106); High Density Lipoprotein 43 mg/dL; Magnesium 2.2 mg/dL (1.6-2.6); Potassium 3.8 mmol/L (3.5-5.1); Protein, Total 7.5 g/dL (6.4-8.2); Sodium Level 137 mmol/L (136-145); Triglycerides 102 mg/dL; Very Low Density Lipoprotein 20 mg/dL (5-40)
[2024-06-24 15:29] LABS: Hemoglobin A1c 5.6 % (3.8-5.6)
== END | disposition home or self-care (01) ==
LOC: MFPLAB 14:40
PROVIDERS: PCP Family Medicine; Visit Provider Family Medicine
DX: E78.00 Pure hypercholesterolemia, unspecified (principal); R73.09 Other abnormal glucose; I10 Essential (primary) hypertension
CPT/HCPCS: 36415; 80053; 80061; 83036; 83735; 84443; 85025

== ENCOUNTER 2024-07-01 07:09 | Outpatient (RCR) | payer MEDICAID, SELFPAY ==
[2024-06-29 00:29] VITALS: BP 155/107; PULSE 69
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
--- NOTE | 2024-07-02 09:00 | BH.SGPN.GN ---
Behaviors/Verbalizations/Mental Status: [] Pt alert and oriented, neatly dressed and groomed. Eye contact good. Motor activity appropriate. Speech within normal limits. Affect constricted, mood calm. Thoughts linear, logical, no signs of hallucinations or delusions. Reviewed pt?s symptom tracker, no risk for suicidal ideation, plan, or intent 07/02/24 Client Response/Progress/Benefit: []Pt responded well to session, attentive and engaged. Pt reports feeling mellow this morning. Pt reports mental health wins today including helping people recently and spending lots of time in the [place] with his family which is where pt gets most of his peace. Pt's stressor today is none which is positive, but pt seems to have limited insight that his distress tolerance is low, so when there is a stressor pt's emotions escalate quickly. Pt appeared to benefit from connecting with peers and gaining feedback. Pt will continue IOP tx to promote mood stability, increase distress tolerance, and improve daily functioning. Narrative Note: []
--- NOTE | 2024-07-02 10:10 | BH.SGPN.GN ---
Behaviors/Verbalizations/Mental Status: [] Eye contact is good. Motor activity is appropriate. Appearance is casual. Speech is Appropriate. Mood is anxious. Affect is congruent. Thoughts are linear and logical. No evidence of psychosis. Client Response/Progress/Benefit: [] Pt was an engaged participant AEB listening attentively to others, taking notes, and providing feedback in small group discussions. Attentive during psychoeducation AEB by note taking and providing some input. Pt worked along with peers in small groups to define inappropriate guilt and appropriate guilt. Interactive discussion on examples of both inappropriate and appropriate guilt. Worked well in small group with peers where they identified example of inappropriate vs appropriate guilt and the impact inappropriate guilt can have on MH. Benefited from increased awareness of guilt and the differences between appropriate and inappropriate guilt. Plan is to continue in IOP to prevent decompensation, stabilize mood, maintain safety, and improve functioning. Narrative Note: []
--- NOTE | 2024-07-02 11:10 | BH.SGPN.GN ---
Behaviors/Verbalizations/Mental Status: []Pt alert and oriented, casually dressed and groomed. Eye contact good. Motor activity appropriate. Speech within normal limits. Affect congruent, mood content. Thoughts linear, logical, no signs of hallucinations or delusions. Client Response/Progress/Benefit: []Pt engaged participant AEB listening attentively to others and providing input throughout group. Pt worked within their small group to identify strategies to manage inappropriate guilt. Identified a personal example of inappropriate guilt as ?feeling bad for setting boundaries?. Provided insight that this cues a feeling of ?fear of disappointing others? Pt wants to work on combatting inappropriate guilt by practicing emotion regulation. Pt seemed to benefit from learning about strategies to manage appropriate and inappropriate guilt. Pt to continue IOP level of care to continue to prevent decompensation, and promote mood stability. ? Narrative Note: []
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
--- NOTE | 2024-07-04 10:10 | BH.SGPN.GN ---
Behaviors/Verbalizations/Mental Status: []Pt alert and oriented, neatly dressed and groomed. Eye contact good. Motor activity appropriate. Speech within normal limits. Affect constricted, mood euthymic. Thoughts linear, logical, no signs of hallucinations or delusions Client Response/Progress/Benefit: [] Pt was an active participant during interactive group discussions. Attentive during psychoeducation. Along with peers contributed to interactive discussion on defining what a boundary is in mental health. Pt along with peers identified challenges to setting boundaries which included; fear of other's response, wanting to people please, fear of rejection, losing relationships, etc. Pt along with peers identified the benefits to setting boundaries such as better mental health, strengthen relationships, increased time for self-care, and making healthier choices. Pt able to reflect on how setting boundaries with himself and others has helped pt stay sober and find better supports in his life. Pt benefited from increased awareness and insight on the importance/benefit to setting health boundaries. Will continue in IOP to promote mood stability, increase emotional regulation skills, and improve daily functioning. Narrative Note: []
--- NOTE | 2024-07-04 10:28 | BH.MDN ---
Multi-Disciplinary Note Note 30-min Individual: Time Started:: :25 Date: 07/04/24 Purpose of session/treatment goals addressed:: Purpose of session was to address goals 1 and 2 from MTP. Eye Contact:: Good Motor Activity:: Appropriate Appearance:: Casual Speech:: Appropriate Mood:: Euthymic Affect:: Congruent Thoughts:: Linear, Logical and No evidence of hallucinations/delusions noted Staff Interventions:: thought challenging, CBT techniques, discharge planning, strengths perspective and goal setting Client Response:: Client reported overall he's been doing well with decreased anger outbursts and improved ability to manage emotions at work. Client stated he has been practicing taking breaks while at work when gets frustrated with others. Client reported he believes the medication has helped him with his mood with decreased depression and improved outlook on life. Client stated he does have anxiety about his health because he has been pushing off scheduling doctor appointments. Client reported he is supposed to get his esophagus scanned, but has been pushing off making an appointment for this. Client stated feeling nervous that they will find something wrong. Client responded well to thought challenging, recognizing if he keeps pushing off medical appointments his health could get worse. Client agreed he would reach out to medical providers soon. Client identified goal is to reach out to doctors office and to call provided number to establish with aftercare for counseling. Client reported hiking and camping as skills that have improved his mood and serve as healthy coping skills. Risks/Concerns:: Denies suicidal thoughts, plans, or intention to date. future oriented. Progress Toward Goals/Plan:: Progress noted with client reporting continued improvement with managing anger responses especially while at work. Client reported no anger outbursts recently and his co-workers have noted progress with his mood. Client reported he does feel like he is starting to feel more like himself again. Client stated he has been joking around with others and pulling pranks on his mom which is something he used to do. Plan is for client to continue IOP to reinforce healthy coping skills, promote gains, and prevent decompensation. Time Stopped:: 09:55
--- NOTE | 2024-07-07 09:00 | BH.SGPN.GN ---
Behaviors/Verbalizations/Mental Status: [] Pt alert and oriented, neatly dressed and groomed. Eye contact good. Motor activity appropriate. Speech within normal limits. Affect flat, mood euthymic. Thoughts linear, logical, no signs of hallucinations or delusions. Reviewed pt?s symptom tracker, no risk for suicidal ideation, plan, or intent 07/07/24 Client Response/Progress/Benefit: []Pt responded well to session, attentive and engaged. Pt reports feeling mellow this morning, sharing he camped this weekend and he has been less angry in general. Pt often does not share many stressors in process group and today he reported having none. Work appears to be a constant stressor and positive for pt as he enjoys what he does, but it is physically laboring on his body. Pt appeared to benefit from reflecting on application of coping skills and connecting with peers. Pt will continue IOP tx to prevent decompensation, improve daily functioning, and increase emotional regulation skills. Narrative Note: []
--- NOTE | 2024-07-07 10:15 | BH.SGPN.GN ---
Behaviors/Verbalizations/Mental Status: [] Eye contact is good. Motor activity is appropriate. Appearance is casual. Speech is Appropriate. Mood is content. Affect is congruent. Thoughts are linear and logical. No evidence of psychosis. Client Response/Progress/Benefit: [] Pt receptive of session, actively engaged throughout AEB taking notes, providing input, and contributing in small group discussion. Appeared to connect with group topic of automatic thoughts and cognitive distortions, as well as the impact of thought patterns on mental health, coping behaviors, and relationships. This particular group is very heavy on psychoeducation and pt appeared to connect with distortions and how they can impact functioning. Identified struggling with all or nothing thinking and over generalizing distortions. Pt appeared to benefit from gaining insight on distorted thinking patterns and how this impacts overall mental health. Will continue IOP to stabilize mood, improve ability to function, and prevent decompensation. Narrative Note: []
--- NOTE | 2024-07-07 11:15 | BH.SGPN.GN ---
Behaviors/Verbalizations/Mental Status: []Pt alert and oriented, casually dressed and groomed. Eye contact good. Motor activity appropriate. Speech within normal limits. Affect congruent, mood euthymic. Thoughts linear, logical, no signs of hallucinations or delusions Client Response/Progress/Benefit: [] Pt was an active participant during group discussion. Pt was placed in a smaller group and participated in combatting example distortions with peers. Pt was engaged in the smaller group, participated in group interactions to brainstorm answers, and appeared to be comprehending cognitive distortions. Pt stated could connect with many of the distortions covered in group. Pt stated he has learned from group today is the importance of challenging negative thoughts. Benefited from gaining further insight and awareness of cognitive distortions as well as practicing ways to reframe and challenge thoughts. Will continue in IOP tx to promote use of healthy coping skills, decrease anger outbursts, and prevent decompensation.
--- NOTE | 2024-07-09 09:00 | BH.SGPN.GN ---
Behaviors/Verbalizations/Mental Status: [] Eye contact good. Motor activity appropriate. Speech within normal limits. Affect congruent, mood content. Thoughts linear, logical, no signs of hallucinations or delusions. Reviewed client?s symptom tracker, pt denies SI,?plan, or intent as of 07/09/2024. Client Response/Progress/Benefit: [] Client receptive of session, attentive and willing to process with group. Reports improving sx of depression?(0/5) and anxiety (0/5) per daily sx tracker. ?Identified mental health ?win as being sober 4 months so far and continuing to do well with maintaining a boundary not to drink, despite several opportunities to do so. Shared feeling more positive and hopeful since stopping alcohol use. Additional win noted as continuing to make self-care a priority and engaging in hobbies he enjoys such as camping and walking in nature. Denies any current stressors, though pt continues to struggle with emotion regulation when facing situational stress. Receptive of and appearing to benefit from group support. Recommended continued IOP tx to maintain mood stability, promote consistent skill application, well as prevent decompensation. Narrative Note: []
--- NOTE | 2024-07-09 10:10 | BH.SGPN.GN ---
Behaviors/Verbalizations/Mental Status: [] Eye contact is good. Motor activity is appropriate. Appearance is casual. Speech is Appropriate. Mood is anxious. Affect is congruent. Thoughts are linear and logical. No evidence of psychosis. Client Response/Progress/Benefit: [] Pt participated at times during group discussion. Engaged in group activity and attentive during psychoeducation. Along with peers, pt was able to identify barriers to taking action in their life. Identified several symptoms and stressors that pt feels are holding them back from progress such as low self-esteem and inability to trust. Stated these things have kept pt from engaging in relationships. Benefited from increased self-awareness of obstacles. Will continue IOP tx to prevent decompensation, stabilize mood, improve functioning, and increase healthy coping. Narrative Note: []
--- NOTE | 2024-07-09 14:15 | BH.MDN_ITS ---
Multi-Disciplinary Note Note 30-min Individual: Time Started:: 11:30 Date: 07/09/24 Purpose of session/treatment goals addressed:: Purpose of session was to address goals 1 and 2 from MTP. Eye Contact:: Good Motor Activity:: Appropriate Appearance:: Casual Speech:: Appropriate Mood:: Euthymic Affect:: Congruent Thoughts:: Linear, Logical and No evidence of hallucinations/delusions noted Staff Interventions:: thought challenging, CBT techniques, discharge planning, strengths perspective, goal setting and taught coping skills Client Response:: Client stated he has been continuing to do well with managing his emotions and decreased anger. Client reported he will have moments at work in which he gets angry with a co-worker, especially when he perceives the co-worker isn't holding up to their part of the work. Client reported he has been doing better with using breathing skills, taking a step back, and counting to 10 when feeling angry. Client stated he has taken a walk or went outside while at work to calm down so that he doesn't throw stuff or yell at others. Client reported he is happy with himself for handling his anger better because after going off on others he often feels guilty. Client stated he also has been handling the grief over loss of his better compared to when he first started the program. Client responded well to discussion about discharge plans. Client stated feeling anxious about discharge, but knows he has been doing better. Agreed with plan for tentative discharge in two weeks. Client agreed to contact provided number for outpatient counseling. Risks/Concerns:: Denies suicidal ideation, plan, or intention to date. Progress Toward Goals/Plan:: Progress noted with client reporting continued improvement with his anger responses, use of healthy coping skills to manage emotions, and starting to feel ready for discharge from [facility]. Client stated he still struggles at times with getting triggered by co-workers that he perceives are lazy. Client stated he has been more consistent with using breathing skills and walking away when feels angry. Plan is for client to discharge from IOP in two weeks. Client to continue IOP to promote use of healthy coping skills, challenge distorted thoughts, and prevent decompensation. Time Stopped:: 12:00
--- NOTE | 2024-07-10 12:07 | BH.MDN_ITS ---
Multi-Disciplinary Note Note 30-min Individual: Time Started:: 10:30 Date: 07/10/24 Purpose of session/treatment goals addressed:: Client came in to be seen for an emergency individual counseling session because was struggling with depressed thoughts and difficulty dealing with a recent stressor. Eye Contact:: Fair Motor Activity:: Restless Appearance:: Disheveled Speech:: Appropriate Mood:: Irritable and Depressed Affect:: Congruent Thoughts:: Circular Staff Interventions:: thought challenging, CBT techniques, mindfulness skills, strengths perspective and taught coping skills Client Response:: Client reported feeling pissed today because when he went to visit his cousin yesterday he felt like she was ignoring him and not talking to him. Client stated he went into the [place] to calm down, but became more angry when thinking about the situation. Client reported he was thinking about how much he has done for his cousin and was angry that she thought it was okay to ignore him. Client stated he angrily left the campsite at his cousins and started having negative thoughts about wanting to drive his car off the road. Client reported he talked himself out of that thought and didn't do any behavior towards acting upon his intrusive thought of suicide. Client stated when he got home he was ruminating on the situation which led to him not sleeping. Client responded well to thought challenge from therapist. Client agreed he was being a extreme in his response to being ignored. Client receptive to trying to understand his cousins point of view, recognizing there are times she will need space and that's okay. Worked with therapist to develop a plan for the rest of today. Client stated he plans to go home today to get rest since he hasn't slept. Client reported was feeling better at end of session after processing what was going on. Client responded well to psychoeducation about the anger cycle. Client worked through the situation using the anger cycle with therapist and was able to challenge his negative thoughts with assistance. Risks/Concerns:: Client did report intrusive thought of driving off the road yesterday after having a conflict with his cousin. Client stated the tho ught of driving off road was fleeting and no longer has a thought of wanting to kill himself. Client denies active suicidal thoughts, plan, or intention. Client stated he feels able to keep himself safe. Client denies having any intention to kill self. Progress Toward Goals/Plan:: Decompensation noted with client struggling with managing situation of feeling ignored by his cousin. Client reported having thought of driving his car off road which is first thought of suicide since before starting IOP. Client stated that thought was passing and no longer has any thoughts of wanting to . Client reported feeling better after being able to talk about his feelings from yesterday. Client is to continue IOP to improve distress tolerance, challenge distortions, and prevent decompensation. Time Stopped:: 11:00
--- NOTE | 2024-07-11 09:00 | BH.SGPN.GN ---
Behaviors/Verbalizations/Mental Status: [] Eye contact is good. Motor activity is appropriate. Appearance is casual. Speech is Appropriate. Mood is irritable. Affect is congruent. Thoughts are linear and logical. No evidence of psychosis. Reviewed daily check in sheet and no reports of suicidal ideations or intent. Client Response/Progress/Benefit: [] Pt participated at times during the group discussion. Attentive. Daily symptom tracker notes 12/31 for irritability. Pt has a very short check-in this AM. Pt is riminating on health issues. According to pt he has been coughing up blood for several weeks. Vague regarding specific health issues however it appears that he met with PCP who referred him for testing and to see a specialist however he has not followed through. Anxiety and fear that they will find cancer which will require him to be confined to a hospital, which is apparently what occurred to his before she passed. Long-standing medical complications including strokes and cardiac issues. Group empathized with fears as well as challenged some of his thoughts/perceptions. Strongly encouraged him to follow through with appointment and tests as there could be an easy solution or medication that will alleviate some of his struggles. Benefited from group support, encouragement, and feedback. Will continue in IOP to maintain safety, increase healthy coping, prevent decompensation. Narrative Note: []
--- NOTE | 2024-07-11 10:10 | BH.SGPN.GN ---
Behaviors/Verbalizations/Mental Status: [] Client alert and oriented, casually dressed and groomed. Eye contact good. Motor activity appropriate. Speech within normal limits. Affect congruent, mood euthymic. Thoughts linear, logical, no signs of hallucinations or delusions. Client Response/Progress/Benefit: [] Pt responded well to session AEB sharing and listening attentively to others. Group provided examples of benefits of having social support, including: validation, get assistance, and accountability. Pt also participated in group discussion regarding the barriers to accessing support including examples like: lack of trust, avoidance, and fear of vulnerability. Pt participated in experiential activity illustrating the impact communication, boundaries, and patience play in creating healthy support systems. Pt appeared to benefit from increased knowledge of the benefits of social support and greater self-awareness. Will continue IOP tx to prevent decompensation and reduce negative self-talk. Narrative Note: []
--- NOTE | 2024-07-11 11:10 | BH.SGPN.GN ---
Behaviors/Verbalizations/Mental Status: [] Client alert and oriented, casually dressed and groomed. Eye contact good. Motor activity appropriate. Speech within normal limits. Affect congruent, mood euthymic. Thoughts linear, logical, no signs of hallucinations or delusions. Client Response/Progress/Benefit: [] pt was an active participant throughout AEB contributing to discussion, providing personal examples, and taking notes. Pt provided input during discussion on the types of support our supports can provide. Pt able to identify current support system and barriers that get in the way of using supports. Pt reported after identifying what type of supports pt receives, pt gained awareness that pt could benefit from more social support. Pt wants to increase this by starting to date. Pt shared this would help feel less lonely. Pt seemed to benefit from identifying the type of support pt needs to work on improving. Pt recommended to continue IOP tx to prevent decompensation, reduce isolation, and increase emotional regulation skills. Narrative Note: []
--- NOTE | 2024-07-14 09:00 | BH.SGPN.GN ---
Behaviors/Verbalizations/Mental Status: [] Client alert and oriented, casually dressed and groomed. Eye contact good. Motor activity appropriate. Speech within normal limits. Affect congruent, mood euthymic. Thoughts linear, logical, no signs of hallucinations or delusions. Reviewed client?s symptom tracker, no risk for suicidal ideation, plan, or intent as of 07/14/24 Client Response/Progress/Benefit: [] Client responded well to session,attentive towards group members. Client reports feeling mellow this morning. Client shared win of doing self care by camping this weekend. Client started while on a hike that he did encounter a bear which was stressful, but was able to still enjoy his hike and calm himself down afterwards. Client stated that work was a stressor with wanting a vacation soon, but recently took one so he has to wait awhile. Client appeared to benefit from reflecting on mental health wins and stressors. Client will continue IOP tx to improve emotional regulation and prevent decompensation. Narrative Note: [] Behaviors/Verbalizations/Mental Status: [] Client alert and oriented, casually dressed and groomed. Eye contact good. Motor activity appropriate. Speech within normal limits. Affect congruent, mood euthymic. Thoughts linear, logical, no signs of hallucinations or delusions. Reviewed client?s symptom tracker, no risk for suicidal ideation, plan, or intent as of 07/14/24 Client Response/Progress/Benefit: [] Client responded well to session,attentive towards group members. Client reports feeling mellow this morning. Client shared win of doing self care by camping this weekend. Client started while on a hike that he did encounter a bear which was stressful, but was able to still enjoy his hike and calm himself down afterwards. Client stated that work was a stressor with wanting a vacation soon, but recently took one so he has to wait awhile. Client appeared to benefit from reflecting on mental health wins and stressors. Client will continue IOP tx to improve emotional regulation and prevent decompensation. Narrative Note: []
--- NOTE | 2024-07-14 10:10 | BH.SGPN.GN ---
Behaviors/Verbalizations/Mental Status: []Eye contact is fair. Motor activity is appropriate. Appearance is causal. Speech is Appropriate. Mood is euthymic. Affect is congruent. Thoughts are linear and logical. No evidence of psychosis. Client Response/Progress/Benefit: [] Pt was an active participant in group discussion and experiential activity. Attentive during psychoeducation on resilience. Participated during interactive discussion with peers on the definition of resilience. Able to relate experiential activity of group juggle to topics of resilience. Group worked together to identify what can impact one's ability to be resilient which included past experiences, trauma, toxic support system, lack of resources, and current mental/physical health state. Worked well with peers in small group in which they identified factors that contribute to building resilience. Benefited from increased awareness of resilience and the factors that contribute to building resilience. Will continue in IOP to decrease anger outbursts, increase consistent use of healthy coping skills, and prevent decompensation.
--- NOTE | 2024-07-16 09:00 | BH.SGPN.GN ---
Behaviors/Verbalizations/Mental Status: [] Eye contact is good. Motor activity is appropriate. Appearance is casual. Speech is Appropriate. Mood is content. Affect is congruent. Thoughts are linear and logical. No evidence of psychosis. Reviewed daily check in sheet and no reports of suicidal ideations or intent. Client Response/Progress/Benefit: [] Pt participated at times during the group discussion. Attentive. Daily symptom tracker notes 0/5 for depression and 0/5 for anxiety. Able to identify mental health wins which include following through with having his heart check and learning that there is no damage. Indicated this was a major stress relieve given the recent pain he has been in. Additional win noted as continuing to practice deep breathing and counting exercises to manage moments of stress. Pt denies any current stressors today. Benefited from group support, encouragement, and feedback. Will continue in IOP to prevent decompensation, further stabilize mood, and increase consistent healthy coping skill application. Narrative Note: []
--- NOTE | 2024-07-16 11:10 | BH.SGPN.GN ---
Behaviors/Verbalizations/Mental Status: [] Client alert and oriented, casually dressed and groomed. Eye contact good. Motor activity appropriate. Speech within normal limits. Affect congruent, mood euthymic. Thoughts linear, logical, no signs of hallucinations or delusions. Client Response/Progress/Benefit: [] Client receptive of session, engaged throughout AEB client actively listening and contributing to discussion as well as taking notes. Client participated in the experiential activity and did well to communicate ideas with peers and manage emotions. Client attentive as group processed how the emotions and perspective of the group impacted the activity. Group worked together to identify different coping skills to help manage pitfalls. Client identified pitfall they struggle with as shutting down. Client plans to work on their pitfall by talking to someone, look for a group, and ask for help. Benefited from identifying personal pitfalls and strategies to overcome these pitfalls. Will continue IOP tx to prevent decompensation, improve self-care and emotion regulation. Narrative Note: []
--- NOTE | 2024-07-16 18:59 | BH.MDN_ITS ---
Multi-Disciplinary Note Note 30-min Individual: Time Started:: 10:16 Date: 07/16/24 Purpose of session/treatment goals addressed:: Purpose of session was to address goals 1 and 2 from [facility]. Eye Contact:: Good Motor Activity:: Appropriate Appearance:: Casual Speech:: Appropriate Mood:: Euthymic Affect:: Full Thoughts:: Linear, Logical and No evidence of hallucinations/delusions noted Staff Interventions:: CBT techniques, discharge planning, strengths perspective and goal setting Client Response:: Client reported he is doing much better compared to when he felt in crisis this past . Client reported he was able to go to the [employer] yesterday which was very helpful. Client stated he has been able to talk to his cousin and recognizes that he overreacted last week. Client reported on Sunday he did snap while at work towards one of his co-workers. Client stated he was able to stop himself faster than usual by taking a walk to his car for a break. Client stated he did apologize to his co-workers because knows his reaction was wrong. Client reported he has been trying to use his breathing skills to bring his anger back down. Client stated he hasn't contacted the outpatient number provided to establish with individual counseling. Client agreeable to bring in insurance card tomorrow so can call the mental health agency together tomorrow. Client reported he is feeling more ready for discharge from IOP. Client stated he is most worried about losing the group support and having routine/structure. Client agreed it would be helpful to find local activities that he could do to provide him socialization and something to fill his time. Risks/Concerns:: Denies suicidal ideation, plan, or intention to date. Progress Toward Goals/Plan:: Progress noted with client reporting improved mood, decreased in intensity and duration of recent anger outburst, and improved outlook on life. Client reported he is feeling more ready for discharge from IOP. Client stated he is doing much better compared to when he first started IOP. Client still struggles at times with having anger outbursts while at work, but has noted decrease in intensity, duration, and frequency with his anger outbursts. Plan is for client to discharge from IOP next week. Client to continue IOP to promote use of healthy coping skills, decrease anger outbursts, and prevent decompensation. Time Stopped:: 10:41
--- NOTE | 2024-07-17 09:05 | BH.SGPN.GN ---
Behaviors/Verbalizations/Mental Status: [] Eye contact good. Motor activity appropriate. Speech within normal limits. Affect congruent, mood content. Thoughts linear, logical, no signs of hallucinations or delusions. Reviewed client?s symptom tracker, pt denies SI,?plan, or intent as of 07/17/2024. Client Response/Progress/Benefit: [] Client receptive of session, attentive and willing to process with group. ?Identified mental health ?win as doing well to maintain sobriety, despite several opportunities to drink. Reports he is almost 5 months sober as a result. Additional win is that his hard work has been recognized and pt was informed he will be given a raise at work. Stressor noted as an upcoming dentist appointment. Did well to identify skills he can use to manage the stress associated with this appointment. Receptive of and appearing to benefit from group support. Recommended continued IOP tx to maintain mood stability, promote consistent skill application, well as prevent decompensation. Narrative Note: []
--- NOTE | 2024-07-17 10:10 | BH.SGPN.GN ---
Behaviors/Verbalizations/Mental Status: [] Eye contact is fair. Motor activity is appropriate. Appearance is casual. Speech is Appropriate. Mood is euthymic. Affect is congruent. Thoughts are linear and logical. No evidence of psychosis. Client Response/Progress/Benefit: [] Pt engaged participant AEB listening to others, engaging in activity, and providing feedback at times. Attentive during psychoeducation and provided insight into obstacles that impede mental wellness. Pt shared with group current mental health reality and desired mental health reality. Identified barriers to desired reality include: shutting down, personalization, money issues, and anger. Benefited from taking look at current mental health state and obstacles for progress. Pt to continue IOP tx to improve distress tolerance, decrease anger outbursts, and prevent decompensation.
--- NOTE | 2024-07-17 11:15 | BH.SGPN.GN ---
Behaviors/Verbalizations/Mental Status: []Eye contact is good. Motor activity is appropriate. Appearance is casual. Speech is Appropriate. Mood is euthymic. Affect is congruent. Thoughts are linear and logical. No evidence of psychosis. Client Response/Progress/Benefit: []Pt was an engaged participant in group discussion and activity. Worked with group to identify strategies to help overcome barriers and obstacles to desired reality. Group developed strategies for the common barriers. Identified personal barriers to desired reality and choose one obstacle to work. Pt stated pt wants to work on barrier of poor self-image by using opposite action when he wants to avoid connections. Pt seemed to benefit from increased repertoire of healthy coping skills/strategies to overcome common barriers to moving forward. Pt is to continue IOP to promote mood stability, increase distress tolerance skills, and improve daily functioning. Narrative Note: []
--- NOTE | 2024-07-21 09:00 | BH.SGPN.GN ---
Behaviors/Verbalizations/Mental Status: [] Eye contact is good. Motor activity is appropriate. Appearance is casual. Speech is Appropriate. Mood is euthymic. Affect is full. Thoughts are linear and logical. No evidence of psychosis. Reviewed daily check in sheet and no reports of suicidal ideations or intent. Client Response/Progress/Benefit: [] Pt participated at times during group discussions. Attentive. Daily symptom tracker notes no distress. Brief and superficial check in this AM. Pt has been seeking a relationship recently which he has not had since his 5 years ago. He had a date this weekend however unfortunately she didn't show. He did not discuss how this impacted him and how he processed this negative event except to say I just went to the [employer] which is a coping skills for him. May be minimizing his current symptoms. He also spend time with his family which was overall beneficial. Benefited from group support, encouragement, and feedback. Will continue in IOP to maintain safety, prevent decompenstion, and increase healthy coping. Narrative Note: []
--- NOTE | 2024-07-21 10:15 | BH.SGPN.GN ---
Behaviors/Verbalizations/Mental Status: []Client alert and oriented, casually dressed and groomed. Eye contact good. Motor activity appropriate. Speech within normal limits. Affect congruent, mood content. Thoughts linear, logical, no signs of hallucinations or delusions. Client Response/Progress/Benefit: [] Pt was an attentive an active participant, AEB taking notes and providing input in group discussion when prompted. Attentive during psychoeducation. Pt engaged during interactive discussion in which the group defined self-care and discussed its benefits. Group discussed barriers to engaging in self-care. Group members together came up with guilt, time, ?people pleasing?, not knowing what to do, and perception that its unproductive as barriers to engage in self-care. Pt stated their personal barrier is feeling like pt must ?earn it.? Pt participated in small groups where they worked to identified and challenged common self-care ?myths?. Benefited from increased awareness of self-care, its benefits, and the consequences of not utilizing self-care strategies. Will continue IOP tx to promote mood stability, increase distress tolerance, and further improve daily functioning. Narrative Note: []
--- NOTE | 2024-07-21 11:18 | BH.SGPN.GN ---
Behaviors/Verbalizations/Mental Status: [] Client alert and oriented, casually dressed and groomed. Eye contact good. Motor activity appropriate. Speech within normal limits. Affect congruent, mood content. Thoughts linear, logical, no signs of hallucinations or delusions. Client Response/Progress/Benefit: []Client engaged in discussion reviewing different areas of self-care and completing self-assessment of current self care, as well as providing input throughout discussion. Did well to complete self-care self-assessment worksheet. Client identified current self-care practices and what self-care activities client wants to start using. Client selected spiritual self-care to begin practicing more consistently. Client plans to do this by challenging himself to look into starting a meditation practice. Appeared to benefit from completing the self-care evaluation and gaining insights into current self-care practices, as well as identifying areas in which client would like to improve upon. Client will continue IOP tx to prevent decompensation, improve mood stability, and increase healthy coping repertoire. Narrative Note: []
--- NOTE | 2024-07-23 09:00 | BH.SGPN.GN ---
Behaviors/Verbalizations/Mental Status: [] Pt alert and oriented, neatly dressed and groomed. Eye contact good. Motor activity appropriate. Speech within normal limits. Affect congruent, mood calm. Thoughts linear, logical, no signs of hallucinations or delusions. Reviewed pt?s symptom tracker, no risk for suicidal ideation, plan, or intent 07/23/24 Client Response/Progress/Benefit: []Pt responded well to session, attentive and engaged. Pt reports feeling mellow this morning and he shared that once again he has no stressors. Pt had a day off yesterday, so he went for a walk and he went to [employer] to get connected with a therapist. Pt discharges from [facility] next week, so he wants to make sure he is connected with therapy so he does not fall back into old habits. Pt appeared to benefit from reflecting on his mood improvement since admission. Pt will continue IOP tx to promote mood stability, reinforce healthy coping skills, and improve distress tolerance. Narrative Note: []
--- NOTE | 2024-07-23 10:10 | BH.SGPN.GN ---
Behaviors/Verbalizations/Mental Status: [] Eye contact is good. Motor activity is appropriate. Appearance is casual. Speech is Appropriate. Mood is euthymic. Affect is congruent. Thoughts are linear and logical. No evidence of psychosis. Client Response/Progress/Benefit: [] Pt an active participant in group discussions. Participated during interactive discussion on defining conflict (internal/external) and possible benefits to conflict. Attentive during psychoeducation on conflict styles (Avoidant, Accommodating, Competing, Cooperative) and engaged during interactive discussion in which peers identified the benefits and consequences to each conflict style. Pt identified their primary conflict style as competing when at work. Pt recognizes the negative impact this has had on his mood and work performance. Benefited from increased awareness of the impact of conflict styles in mental health. Will continue in IOP tx to decrease anger outbursts, challenge distortions, and prevent decompensation.
--- NOTE | 2024-07-23 11:15 | BH.SGPN.GN ---
Behaviors/Verbalizations/Mental Status: []Eye contact is good. Motor activity is appropriate. Appearance is casual. Speech is Appropriate. Mood is content. Affect is congruent. Thoughts are linear and logical. No evidence of psychosis. Client Response/Progress/Benefit: [] Pt was an active participant in group discussions and activity. Engaged with peers in activity and identifying healthy ways to approach each conflict scenario. Group discussed various conflict resolution skills that can be useful in addressing conflict outside of IOP. Benefited from practicing and learning conflict resolution skills during group activity. Able to identify areas pt wants to work on to improve how pt manages conflict both internally and externally. Expressed wanting to continue to work on healthy emotion regulation. Will continue in IOP to maintain mood stability and prevent decompensation. Narrative Note: []
--- NOTE | 2024-07-25 10:13 | BH.SGPN.GN ---
Behaviors/Verbalizations/Mental Status: [] Eye contact is good. Motor activity is appropriate. Appearance is casual. Speech is Appropriate. Mood is euthymic. Affect is congruent. Thoughts are linear and logical. No evidence of psychosis. Client Response/Progress/Benefit: [] Pt was an active participant in group discussions. Attentive during psychoeducation on the 4 communication styles (Passive, Passive-Aggressive, Aggressive, and Assertive) and the obstacles to effective communication. ?Self-identified a barrier they personally struggle with as communicating with behaviors when emotionally dysregulated. Contributed during interactive discussion on the benefits of communicating effectively which included; having one's needs met, building connection with others, decreases stress and uncertainty, improved relationships, healthier boundaries, and increased understanding of others. Worked well in small group in which pt and peers identified the benefits and disadvantages to the different communication styles. Benefited from increased understanding of communication styles and how these can impact effective communication. Will d/c from IOP tx given progress and continue with outpatient counseling to prevent decompensation, maintain sobriety, and promote ongoing mood stability. Narrative Note: []
--- NOTE | 2024-07-25 11:10 | BH.SGPN.GN ---
Behaviors/Verbalizations/Mental Status: []Pt alert and oriented, casually dressed. Eye contact good. Motor activity appropriate. Speech within normal limits. Affect congruent, mood euthymic. Thoughts linear, logical, no signs of hallucinations or delusions. Client Response/Progress/Benefit: [] Pt responded well to session AEB Pt listening attentively to others and providing input during group discussion on the pay offs and costs of the different communication styles. Pt able to connect how current communication style impacts mental health. Connected with peers? comments about importance of using assertive communication. Pt did well with practicing being assertive in the group activity and worked with group to identify potential skills for improving communication skills. Pt stated at times he finds it easy to be assertive, but noted he needs to be cautious to not come off as aggressive. Pt seemed to benefit from increasing awareness of healthy strategies to improve communication. Will continue IOP tx to improve emotion regulation, increase socialization, and prevent decompensation.
--- NOTE | 2024-07-25 15:05 | BH.MDN_ITS ---
Multi-Disciplinary Note Note 30-min Individual: Time Started:: 09:15 Date: 07/25/24 Purpose of session/treatment goals addressed:: Purpose of session was to to identify treatment progress, complete maintenance plan, and solidify aftercare plans. Eye Contact:: Good Motor Activity:: Appropriate Appearance:: Casual Speech:: Appropriate Mood:: Euthymic and Anxious Affect:: Full Thoughts:: Linear, Logical and No evidence of hallucinations/delusions noted Staff Interventions:: CBT techniques, discharge planning, strengths perspective, reviewed DSM-5 and other (Maintenance plan) Client Response:: Client reported feeling nervous to be done with IOP today because she is used to enjoys the socialization he gets when he comes here. Client stated he recognizes he has made a lot of progress since coming to [facility] and that if he can continue to use his skills in himself out there to go to different social events he will be able to maintain the gains he has made. Client stated since coming to [facility] he can see a lot of of treatment progress. Client stated prior to coming to [facility] he was constantly aggravated and snapping at others. Client reported he was having a difficult time managing his grief which was leading to suicidal thoughts. Client reported he feels since being in [facility] his anger and anger outbursts have decreased by 90%. Client stated he has not had any suicidal thoughts and has been able to manage his grief more effectively. Client stated he is also starting to get back to his old self of joking around with his family and communicating more effectively with them. Client reported his work has noticed a positive shift in his attitude and behavior. 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 Client reported he has been using his breathing tools more frequently and trying to count to 10 when feeling angry. Client work with therapist to complete mental health maintenance plan in which she identified t riggers, warning signs, self-care activities, and healthy coping skills. Client was receptive to being provided information about local events he could go to at the [facility] and also events he could go to at the [facility] [employer]. Client agreed it would be helpful for him to have different things to do at least once a week to give him socialization and outside the house. Risks/Concerns:: Client denies suicidal ideation, plan, or intention. Future oriented. Progress Toward Goals/Plan:: Per client's DSM-5 cross cutting scores at discharge client's depression decreased by 100%, angry decreased by 67%, anxiety decreased by 86%, and overall mental symptoms decreased by 58%. Per client's report he is doing significantly better compared to when he first started the program. Client reported he is better able to manage his emotions, improved work functioning, improved outlook on life, maintaining sobriety, and improve daily functioning. Plan is for client to discharge from [facility] today. Client has a individual session scheduled at [facility] next Sunday. Client has a psychiatry appointment scheduled with Zeny De La Cruz and july. Time Stopped:: 09:50
--- NOTE | 2024-07-25 15:19 | BH.DS_ITS ---
Discharge Summary Demographics Date of Admission:: 06/03/24 Discharge Date: 07/25/24 Presenting Problems at Admission:: Patient is a 58-year-old male with a history of depression and suicidal ideation who was referred by his counselor to the [facility] behavioral health IOP for worsening depression and suicidal ideation in the past few weeks. The patient called the crisis center 3 times with suicidal ideation in the past few weeks. His wors ening mood was triggered when the patient visited his 's grave several weeks ago and this caused him to become very depressed and suicidal. He had a plan to drive to [place] and jump off of a mountain but he told his female cousin about his plan and she told him to call the crisis center until his counselor. Discharge Diagnoses:: 1. Major depressive disorder in full remission (F33.42) 2. Generalized anxiety disorder 3. Alcohol use disorder, sober for 3 months Reason for Discharge:: Pt reports significant treatment progress, reports improved daily functioning, and no longer meets criteria for IOP level of care. Treatment Progress During Treatment & Response: Per DSM 5 cross-cutting measure at discharge pt's depression decreased by 100%, anger decreased by 67%, anxiety decreased by 87%, suicidal thoughts decreased by 100%, and overall mental health symptoms decreased by 58%. Pt reports improved daily functioning, decreased anger outbursts, improved ability to challenge negative thoughts, decreased isolation, and ability to manage emotions more effectively. Pt responded well to program AEB consistent treatment attendance and engagement in sessions. Issues Still to be Addressed:: Pt could benefit from continued work on distress tolerance, challenging distorted thoughts, and building social connections. Discharge Recommendations/Instructions:: Client has a individual session scheduled at [facility] next Sunday. Client has a psychiatry appointment scheduled with Zeny De La Cruz and mid July. Discharge Handout
== END 2024-07-25 12:15 | disposition home or self-care (01) ==
LOC: BHIOP 07:09
PROVIDERS: PCP Family Medicine; Referring Provider Psychiatry & Neurology Psychiatry; Visit Provider Psychiatry & Neurology Psychiatry
DX: F33.42 Major depressive disorder, recurrent, in full remission (principal); F41.1 Generalized anxiety disorder; F10.91 Alcohol use, unspecified, in remission; Z79.899 Other long term (current) drug therapy; Z87.820 Personal history of traumatic brain injury
CPT/HCPCS: H2012; H2020; S9480; 90832; 90834

== ENCOUNTER 2024-07-14 11:20 | Emergency (ER) | payer MEDICAID, SELFPAY ==
[2024-07-14] VITALS (8 sets, daily range): BP systolic 147–168; BP diastolic 54–123; PULSE 57–67; RESP 11–18; TEMP 35.8–36.6; O2SAT 94–100; BMI 27.5
--- NOTE | 2024-07-14 12:16 | EDS_ITS ---
HPI History of Present Illness Chief Complaint: Chest Pain Informant: patient Narrative Narrative: 58-year-old male with a history of coronary artery disease presenting with persistent left nonpleuritic chest squeezing with weakness in his left arm that has been there since he woke up about 3.5-4 hours ago. He states he has had some occasional chest discomfort in the past that is brief, but nothing ever persist like this as. That, and he feels different. He denies any associated symptoms such as presyncope, diaphoresis, dyspnea, nausea or vomiting. Nothing that sharp and tearing. [facility] History Right shoulder strain Abdominal pain Epigastric pain Difficulty swallowing Wears glasses Marijuana use Arthritis Back pain Gastric reflux COPD (chronic obstructive pulmonary disease) Shortness of breath on exertion Smoker History of stress test Hypertension History of heart attack Cardiology follow-up encounter Chest pain Pain Tobacco use History of GI bleed Lumbar radiculopathy Acute lumbar myofascial strain Strain of fascia of lower back Nicotine dependence, cigarettes, uncomplicated Dyspnea on exertion Asthma-COPD overlap syndrome Smoking greater than 30 pack years Obesity Chest pain Nicotine dependence Hyperlipidemia Essential (primary) hypertension Cervical spondylosis Gout Home Medications ?Medication ?Instructions ?Recorded ?Last Taken ?Type allopurinol 300 mg tablet 300 mg PO DAILY 02/25/20 09/02/23 History hydrochlorothiazide 25 mg tablet 25 mg PO DAILY 08/07/23 09/02/23 History losartan 100 mg tablet 100 mg PO DAILY 08/07/23 09/03/23 History omeprazole 40 mg capsule,delayed 40 mg PO DAILY 08/07/23 09/02/23 History release amlodipine 10 mg tablet 5 mg PO DAILY 12/14/23 Unknown History isosorbide mononitrate 60 mg 60 mg PO BID #180 tabs 12/14/23 Unknown Rx tablet,extended release 24 hr trazodone 50 mg tablet 50 mg PO QHS 30 days #30 tabs 06/11/24 Unknown Rx venlafaxine 37.5 mg 37.5 mg PO DAILY #30 caps 07/02/24 Unknown Rx capsule,extended release 24 hr (Effexor XR) Allergy/AdvReac Type Severity Reaction Status Date / Time No Known Allergies Allergy Verified 07/14/24 11:22 Family History Father Diabetes Hypertension Grandfather Heart disease Grandfather Heart disease Surgical History History of esophagogastroduodenoscopy (EGD) History of colonoscopy Hx of colonoscopy with polypectomy History of left heart catheterization (03/11/20) Social History household members: none Smoking Status: Current every day smoker tobacco type: cigarettes Tobacco: How many years used: 30 alcohol intake: never substance use type: marijuana caffeine: Yes Type: coffee Number of servings: 5 ROS ROS ED Constitutional Constitutional ED: Denies chills or fever(s) Eyes Eyes: Denies change in vision or diplopia ENT ENT ED: Denies rhinorrhea or sore throat Cardiovascular Cardiovascular: Reports chest pain and radiating jaw, neck or arm pain; Denies leg edema, lightheadedness, palpitations or syncope Respiratory/Chest Respiratory/Chest: Denies cough or dyspnea Gastrointestinal Gastrointestinal: Denies abdominal pain, diarrhea, nausea or vomiting Genitourinary Genitourinary ED: Denies dysuria or hematuria Musculoskeletal Musculoskeletal: Denies back pain or neck pain Integumentary Denies abscess or rash Neurologic Neurologic: Denies headache(s) or paresthesias Psychiatric Psychiatric: Denies anxiety or suicidal thoughts EXAM Physical Exam Const Vital Signs: 07/14/24 11:20 07/14/24 12:19 07/14/24 12:20 Temperature 96.4 F L Temperature Source Temporal Pulse Rate 67 61 Respiratory Rate 18 15 Blood Pressure 147/123 H 168/111 H Blood Pressure Mean 131 130 Pulse Ox 94 Oxygen Delivery Method Room Air Room Air 07/14/24 12:32 07/14/24 12:46 07/14/24 13:00 Temperature Temperature Source Pulse Rate 61 61 Respiratory Rate Blood Pressure 157/117 H 147/105 H 161/106 H Blood Pressure Mean 124 Pulse Ox Oxygen Delivery Method 07/14/24 14:00 07/14/24 15:00 Temperature Temperature Source Pulse Rate 58 L 57 L Respiratory Rate 12 11 L Blood Pressure 160/99 H 154/103 H Blood Pressure Mean 119 120 Pulse Ox 98 Oxygen Delivery Method Room Air Positive well nourished and well developed General Appearance ED: well developed and NAD HEENT Reports moist mucous membranes normocephalic and atraumatic Eyes PERRL and EOMs intact bilaterally Neck full ROM and supple Chest Wall inspection of chest normal and palpation of chest normal Resp normal respiratory effort and clear to auscultation bilaterally Cardio regular rate and regular rhythm Cardio Narrative: faint HS Peripheral Pulses: pulses 2+ throughout and radial pulses present GI non-tender and non-distended Auscultation: normoactive bowel sounds Palpation: soft Back/Spine no CVA tenderness General Back: other FROM Extremity normal to inspection General Extremety ED: Negative for edema, pulses abnormal or tenderness General Extremity: Negative for edema or pulses abnormal Neuro oriented x3, CN's II-XII intact bilaterally and no sensory deficits noted Sensorium / Orientation: awake and alert Motor Exam: strength 5/5 throughout Skin no rashes or lesions noted and no wounds Heart Score History: Highly Suspicious ECG: Normal Age: >45 - <65 years Risk Factors: >/= 3 Risk Factors or History of CAD Troponin: </= Normal Limit Score: 5 MDM MDM MDM Narrative Medical decision making narrative: Given that the patient's symptoms were concerning I gave him aspirin and nitroglycerin for the discomfort, it actually helped quite a bit, and we did a cardiac workup. 1 view chest x-ray is normal my interpretation. His initial EKG is unremarkable, and his initial troponin is within normal limits at 10. A 2-hour repeat troponin actually went down to 7. I reviewed some old records, he had a nuclear Lexiscan stress less than 12 months ago that was normal, his heart score is 5. Given all this I feel he can safely be discharged home to follow-up closely as an outpatient. He is comfortable with that plan. We had an extended conversation about try to stop smoking. History & Record Review Additional record(s) reviewed:: Prior outpatient record Lab Data Attestation: I reviewed the patient's lab results. Labs: Laboratory Results - last 24 hr 07/14/24 07/14/24 12:13 14:15 WBC 7.7 RBC 4.94 Hgb 14.7 Hct 45.8 MCV 92.7 MCH 29.8 MCHC 32.1 RDW Std Deviation 44.8 H RDW Coeff of Jose 13.2 Plt Count 294 MPV 9.7 Immature Gran % (Auto) 0.300 Neut % (Auto) 57.8 Lymph % (Auto) 29.6 Turner % (Auto) 9.4 Eos % (Auto) 2.3 Baso % (Auto) 0.6 Absolute Neuts (auto) 4.5 Absolute Lymphs (auto) 2.29 Nucleated RBC % 0 Differential Comment SCANNED Platelet Estimate ADEQUATE Plt Morphology Comment CLUMPED RBC Morphology NORM C+C Sodium 137 Potassium 4.0 Chloride 105 Carbon Dioxide 24.0 Anion Gap 8 BUN 19 H Creatinine 0.92 Estim Creat Clear Calc 94.89 Est GFR (MDRD) Af Amer 108 Est GFR (MDRD) Non-Af 89 BUN/Creatinine Ratio 20.7 H Glucose 97 Calcium 9.1 Troponin I High Sens 10 7 Radiography Diagnostic Testing: Clinical Impression(s) from Imaging Studies Chest X-Ray 07/14/24 12:20 IMPRESSION: No acute abnormality is seen. Electronically Signed: Antony Servin MD at 13:08 EDT Reading Location ID and State: [facility] / [place] , Service support , Rhythm Strip Rhythm Strip: Sinus Rhythm Rate: 62 Ectopy: None EKG Initial EKG: Attestation: I personally reviewed and interpreted this EKG as follows: Interpretation: Sinus Rhythm and No Acute Injury Pattern Comments: Normal EKG Discharge Plan Triage Chief Complaint: Chest Pain ED Provider: Gaurav Bettencourt Dx/Rx/DC Orders Clinical Impression: Left-sided chest pain, Nicotine dependence, Encounter for smoking cessation counseling Instructions: Kicking the Smoking Habit, ED Chest Pain, Noncardiac Prescriptions: No Action allopurinol 300 mg tablet 300 mg PO DAILY Patient Comments: Take 1 tablet by mouth once daily. For gout. omeprazole 40 mg capsule,delayed release(DR/EC) 40 mg PO DAILY hydrochlorothiazide 25 mg tablet 25 mg PO DAILY losartan 100 mg tablet 100 mg PO DAILY amlodipine 10 mg tablet 5 mg PO DAILY isosorbide mononitrate 60 mg tablet extended release 24 hr 60 mg PO BID Qty: 180 3RF trazodone 50 mg tablet 50 mg PO QHS 30 Days Qty: 30 2RF Rx Instructions: Take 1 to 2 tabs po as needed for sleep. venlafaxine [Effexor XR] 37.5 mg capsule,extended release 24hr 37.5 mg PO DAILY Qty: 30 2RF Rx Instructions: 1 po daily. Primary Care Provider: Lukas Chatterjee Referrals: Lukas Chatterjee MD [Primary Care Provider] - 3-5 Days if not improving Print Language: Hungarian Disposition Disposition: Home, Self Care
--- NOTE | 2024-07-14 12:20 | RAD_ITS ---
STUDY: X-RAY CHEST REASON FOR EXAM: Male, 58 years old. Chest pain TECHNIQUE: Single AP portable view of the chest. COMPARISON: Comparison is made with prior study September 02, 2023. FINDINGS: There is hyperinflation of the lungs consistent with chronic obstructive lung disease (COPD). Scattered calcified granulomas. There is no demonstrated pleural abnormality. Normal size heart. Normal mediastinum and jaden. Normal visualized pulmonary arteries. There is atherosclerotic tortuosity of the aortic arch and descending thoracic aorta. Normal visualized thoracic spine. Normal visualized ribs, clavicles, and shoulders. There is no demonstrated abnormality of the visualized soft tissue structures of the upper abdomen. RAD/Chest 1 View (Portable) IMPRESSION: No acute abnormality is seen. Electronically Signed: Antony Srevin MD at 13:08 EDT ,
[2024-07-14 12:23] LABS: Absolute Lymphocyte Count 2.29 X10^3/uL (0.83-4.51); Absolute Neutrophil Count 4.5 X10^3/uL (2.0-7.7); Basophil# 0.05 X10^3/uL; Basophil% 0.6 % (0-1); Eosinophil# 0.18 X10^3/uL; Eosinophils% 2.3 % (0-5); Hematocrit 45.8 % (40-54); Hemoglobin 14.7 g/dL (13.0-16.5); Lymphocyte # 2.29 X10^3/ul (0.83-4.51); Lymphocyte % 29.6 % (19-41); Mean Corp Hgb Conc 32.1 g/dL (32-36); Mean Corpuscular Hgb 29.8 pg (27.0-32.0); Mean Corpuscular Volume 92.7 fL (80-94); Mean Platelet Vol. 9.7 fl (6.2-12.0); Monocyte# 0.73 X10^3/uL; Monocyte% 9.4 % (0-10); NRBC Flagged by Analyzer 0 % (0-5); Neutrophil # 4.47 X10^3/uL (2.7-7.7); Neutrophil % 57.8 % (47-70); POSITIVE COUNT YES; Platelet Count 294 K/mm3 (150-450); RBC Distribution Width CV 13.2 % (11.6-14.6); RBC Distribution Width SD 44.8 fl (35.1-43.9); Red Blood Count 4.94 M/mm3 (4.6-6.2); White Blood Count 7.7 K/mm3 (4.4-11.0)
[2024-07-14] MEDS: Nitroglycerin SL (ED/IMG/CATH) 0.4 MG TABLET SL ×2 (12:32→12:46)
[2024-07-14] MEDS: Aspirin 81 MG TAB.CHEW 324 MG PO (12:33)
[2024-07-14] MEDS: 0.9% Normal Saline (1000mL) 1,000 ML 150 ML IV (12:35)
[2024-07-14 12:41] LABS: Anion Gap 8 (5-15); BUN 19 mg/dL (7-18); BUN/Creat Ratio 20.7 RATIO (10-20); Calcium,Total 9.1 mg/dL (8.5-10.1); Chloride 105 mmol/L (98-107); Creatinine, Serum 0.92 mg/dL (0.70-1.30); EST Glomerular Filtration Rate 89 mL/min (>60); Est Glom Filt Rate - Afr Amer 108 mL/min (>60); Estimated Creatinine Clearance 94.89 ml/min; Glucose 97 mg/dL (74-106); Sodium Level 137 mmol/L (136-145); Troponin-I HS (w/2H Reflex) 10 pg/mL (3.0-78.0)
[2024-07-14 12:46] LABS: Differential Indicated SCAN CRITERIA MET
[2024-07-14 12:48] LABS: Differential Comment SCANNED; Platelet Estimate ADEQUATE (ADEQ); Platelet Morphology CLUMPED; Red Cell Morphology NORM C+C NORMAL (NORM C&C)
[2024-07-14 14:19] LABS: Reflex Troponin-HS? (from REC) Y
[2024-07-14 14:52] LABS: Troponin-I HS 7 pg/mL (3.0-78.0)
== END 2024-07-14 15:48 | disposition home or self-care (01) ==
PROVIDERS: Emergency Provider Emergency Medicine; PCP Family Medicine; Visit Provider Emergency Medicine
DX: R07.9 Chest pain, unspecified (principal); J44.9 Chronic obstructive pulmonary disease, unspecified; Z71.6 Tobacco abuse counseling; I10 Essential (primary) hypertension; I25.10 Atherosclerotic heart disease of native coronary artery without angina pectoris; E78.5 Hyperlipidemia, unspecified; F17.210 Nicotine dependence, cigarettes, uncomplicated; Z79.899 Other long term (current) drug therapy; I25.2 Old myocardial infarction
CPT/HCPCS: 71045; 80048; 84484; 85025; 93005; 96360; 96361; 99285; J7030; A4216

== ENCOUNTER 2024-08-04 20:32 | Emergency (ER) | payer MEDICAID, SELFPAY ==
[2024-08-04 20:32] VITALS: BP 181/108; PULSE 73; RESP 16; TEMP 36.6; O2SAT 97; BMI 27.8
--- NOTE | 2024-08-04 20:42 | ED.RN ---
States he doesn't want to wait. LWBS @ 2040.
== END 2024-08-04 20:41 | disposition left against medical advice (07) ==
LOC: ED 20:46
PROVIDERS: PCP Family Medicine
DX: M54.9 Dorsalgia, unspecified (principal); G89.29 Other chronic pain; Z53.21 Procedure and treatment not carried out due to patient leaving prior to being seen by health care provider

== ENCOUNTER → 2024-08-27 | Outpatient (CLI) | payer MEDICAID, SELFPAY ==
--- NOTE | 2024-08-27 06:54 | CT_ITS ---
INDICATION: Tobacco Dependency EXAMINATION: CT Low Dose CT Chest for Lung Cancer Screening TECHNIQUE: Helically acquired images were obtained of the chest with sagittal and coronal reconstructed images. Low-dose technique was utilized. COMPARISON: 08/27/2023 CT. FINDINGS: LUNGS, PLEURA AND LARGE AIRWAYS: No consolidation or edema. Stable bilateral calcified granulomas. No noncalcified solid nodules. No pleural effusion. No pneumothorax. THYROID: Unremarkable. HEART AND PERICARDIUM: Coronary artery calcifications are present. No pericardial effusion. MEDIASTINUM AND DOYLE: Calcified mediastinal] bilateral hilar lymph nodes. Esophagus is unremarkable. No hiatal hernia. VESSELS: No thoracic aortic aneurysm. UPPER ABDOMEN: The visualized upper abdomen is unremarkable. BONES: No acute abnormality. CT/Low Dose CT Lung Screening IMPRESSION: Stable bilateral calcified granulomas. Lung-RADS Category 1 (negative, <1% chance of malignancy). Recommend continuing annual screening with low-dose CT. Electronically Signed: Kevin Vasquez DO at 23:33 EDT ,
== END | disposition home or self-care (01) ==
LOC: CT 06:51
PROVIDERS: PCP Family Medicine; Referring Provider Internal Medicine Critical Care Medicine; Visit Provider Internal Medicine Critical Care Medicine
DX: F17.200 Nicotine dependence, unspecified, uncomplicated (principal)
CPT/HCPCS: 71271

== ENCOUNTER 2024-11-24 08:11 | Emergency (ER) | payer MEDICAID, SELFPAY ==
[2024-11-24 08:12] VITALS: BP 153/118; PULSE 70; RESP 18; TEMP 37.1; O2SAT 99; BMI 27.6
--- NOTE | 2024-11-24 08:36 | RAD_ITS ---
STUDY: X-RAY - PELVIS REASON FOR EXAM: Male, 59 years old. Injury/Pain -- Pain right ischial tuberosity TECHNIQUE: One view of the pelvis was obtained. COMPARISON: None. FINDINGS: Moderate amount of fecal material is seen in the colon. Normal visualized soft tissue structures. Normal bilateral iliac wings, sacroiliac joints and visualized sacrum. Normal visualized bilateral superior and inferior pubic rami. Normal pubic symphysis. Normal ischial tuberosities. Normal visualized right femoral head. Normal right acetabulum. There is mild articular joint space narrowing of the right hip. Normal visualized left femoral head. Normal left acetabulum. There is moderate articular joint space narrowing of the left hip. RAD/Pelvis 1 or 2 Views IMPRESSION: Bilateral hip joint narrowing. Electronically Signed: Antony Servin MD at 9:18 EST ,
--- NOTE | 2024-11-24 08:36 | RAD_ITS ---
STUDY: X-RAY - LUMBAR SPINE REASON FOR EXAM: Male, 59 years old. Injury/Pain TECHNIQUE: 3 view(s) of the lumbar spine were obtained. COMPARISON: None FINDINGS: Normal lumbar lordosis. There is no substantial scoliosis. There is a normal alignment of the vertebrae. There is multilevel endplate spondylosis of the lumbar vertebrae. There is multi-level degenerative disc disease with multi-level disc space narrowing. There is atherosclerotic calcification of the abdominal aorta without a demonstrated aneurysm. RAD/Lumbar Spine 2 or 3 Views IMPRESSION: Degenerative changes of the spine, as detailed above. Electronically Signed: Antony Servin MD at 9:19 EST ,
--- NOTE | 2024-11-24 09:12 | EX.ED.GENINJ ---
HPI History of Present Illness Chief Complaint: Fall Detail of Chief Complaint: Fall yesterday landing on buttocks Informant: patient Onset/Context/Timing Mechanism/Context: Blunt Injury and Fall Location of pain/injuries: - (Low back and sacral area not tailbone as patient reported) Quality of Pain: Dull and Aching Location: Lower lumbar sacral region Current Severity: Mild Maximum Severity: Moderate Worsened by: Movement Relieved by: Nothing Associated Symptoms Associated Symptoms: Negative for Parasthesias, Weakness, Loss of function, Inability to ambulate or Loss of consciousness Narrative Narrative: Patient had a mechanical fall. He slipped on ice falling backwards. He presents with pain that he localizes over the lower lumbar and sacral region not coccyx. Patient is on no antithrombotic or anticoagulant. Patient denies bowel bladder dysfunction. Patient denies saddle paresthesia anesthesia. Patient denies numbness or tingling of his lower extremities. Does not have pain in a radicular/dermatomal distribution. He denies foot drop. Prior similar symptoms: No Recent Illness/Hospitalization: No PFSH PFSH Medical History Right shoulder strain Abdominal pain Epigastric pain Difficulty swallowing Wears glasses Marijuana use Arthritis Back pain Gastric reflux COPD (chronic obstructive pulmonary disease) Shortness of breath on exertion Smoker History of stress test Hypertension History of heart attack Cardiology follow-up encounter Chest pain Pain Tobacco use History of GI bleed Lumbar radiculopathy Acute lumbar myofascial strain Strain of fascia of lower back Nicotine dependence, cigarettes, uncomplicated Dyspnea on exertion Asthma-COPD overlap syndrome Smoking greater than 30 pack years Obesity Chest pain Nicotine dependence Hyperlipidemia Essential (primary) hypertension Cervical spondylosis Gout Home Medications ?Medication ?Instructions ?Recorded ?Last Taken ?Type allopurinol 300 mg tablet 300 mg PO DAILY 02/25/20 09/02/23 History hydrochlorothiazide 25 mg tablet 25 mg PO DAILY 08/07/23 09/02/23 History losartan 100 mg tablet 100 mg PO DAILY 08/07/23 09/03/23 History omeprazole 40 mg capsule,delayed 40 mg PO DAILY 08/07/23 09/02/23 History release amlodipine 10 mg tablet 5 mg PO DAILY 12/14/23 Unknown History isosorbide mononitrate 60 mg 60 mg PO BID #180 tabs 12/14/23 Unknown Rx tablet,extended release 24 hr trazodone 50 mg tablet 50 mg PO QHS PRN sleep 30 days #90 08/12/24 Unknown Rx tabs venlafaxine 75 mg capsule,extended 75 mg PO DAILY #90 caps 11/04/24 Unknown Rx release 24 hr hydrocodone-acetaminophen 5-325mg 1 tab PO Q6H PRN PRN Pain 3 days 11/24/24 Unknown Rx 5mg-325mg #10 TABLETS Allergy/AdvReac Type Severity Reaction Status Date / Time No Known Allergies Allergy Verified 10/10/24 10:44 Family History Father Diabetes Hypertension Grandfather Heart disease Grandfather Heart disease Surgical History History of esophagogastroduodenoscopy (EGD) History of colonoscopy Hx of colonoscopy with polypectomy History of left heart catheterization (03/11/20) Social History household members: none Smoking Status: Current every day smoker tobacco type: cigarettes Tobacco: How many years used: 30 alcohol intake: never substance use type: marijuana caffeine: Yes Type: coffee Number of servings: 5 ROS ROS ED Eyes Eyes: Denies blurry vision or change in vision ENT ENT ED: Denies ear pain, rhinorrhea or sore throat Cardiovascular Cardiovascular: Denies chest pain or palpitations Respiratory/Chest Respiratory/Chest: Denies cough, dyspnea or dyspnea on exertion Gastrointestinal Gastrointestinal: Denies abdominal pain, nausea or vomiting Genitourinary Genitourinary ED: Denies hematuria Musculoskeletal Musculoskeletal: Reports back pain Integumentary Denies rash Neurologic Neurologic: Denies headache(s), paresthesias or weakness Hematologic/Lymphatic Hematologic/Lymphatic: Denies easy bleeding or easy bruising EXAM Physical Exam Const Vital Signs: 11/24/24 08:12 11/24/24 08:29 Temperature 98.7 F Temperature Source Oral Pulse Rate 70 Respiratory Rate 18 Respiratory Effort Normal Blood Pressure 153/118 H Blood Pressure Mean 129 Pulse Ox 99 Oxygen Delivery Method Room Air Positive well nourished and well developed General Appearance ED: well developed; Negative for NAD HEENT atraumatic; Negative for tenderness Nose: Negative for septum abnormal Eyes PERRL and EOMs intact bilaterally Resp normal respiratory effort and clear to auscultation bilaterally Cardio regular rhythm, S1 normal heart sound, S2 normal heart sound and no murmurs GI normal to inspection, nondistended, normoactive bowel sounds, non-tender, non-distended and no masses Back/Spine normal to inspection; Negative for no thoracic nor lumbar tenderness Back/Spine Narrative: Tenderness over L3-L5 and sacral region. He also has pain outpatient over the right ischial tuberosity. There is no pain with logrolling of the right lower extremity. There is no pain ovation over the greater trochanteric region. There is no pain ovation over the right iliac wing or pubic symphysis. Extremity normal to inspection and full ROM General Extremety ED: Negative for deformity, edema or tenderness General Extremity: Negative for deformity or edema Neuro oriented x3, CN's II-XII intact bilaterally and moves all extremities Victor Manuel Coma Scale: document GCS findings Spontaneous Obeys Commands Oriented 15 Sensorium / Orientation: alert Psych mental status grossly normal and thought process normal Skin no rashes or lesions noted, no wounds, skin turgor normal and no jaundice MDM MDM MDM Narrative Medical decision making narrative: Tailbone pain status post fall. Patient pain is over the sacrum and lower lumbar region. Will obtain x-ray to evaluate for compression fracture, pubic rami fracture due to fall versus contusion. History & Record Review Discussion w/independent historian: Patient Radiography Chest X-Ray - ED: 1 View (Single view pelvic x-ray reveals no fracture. There is no widening the SI joint. There is no abnormality of the femoral neck or proximal femur either. Independent reviewed at 0911.) and Read by ED Physician (Three-view x-ray of the LS spine reveals degenerative changes. There is what appears to be slight compression of T12. This is unchanged from October 12, 2020. There is no evidence of spondylolisthesis or spondylosis. Independent reviewed interpreted by me at 0911) Diagnostic Testing: Clinical Impression(s) from Imaging Studies Lumbar Spine X-Ray 11/24/24 08:36 IMPRESSION: Degenerative changes of the spine, as detailed above. Electronically Signed: Antony Servin MD at 9:19 EST , Pelvis X-Ray 11/24/24 08:36 IMPRESSION: Bilateral hip joint narrowing. Electronically Signed: Antony Servin MD at 9:18 EST , Treatment and Re-Evaluation Narrative: Patient was discharged with work excuse and opiate analgesia. Discharge Plan Triage Chief Complaint: Fall ED Provider: Tristan Bruner Dx/Rx/DC Orders Clinical Impression: Lumbar contusion, Hyperlipidemia, Essential (primary) hypertension, Contusion of pelvic region, Contusion of sacral region, Injury due to fall Instructions: ED Back Contusion Prescriptions: New hydrocodone-acetaminophen 5-325 mg tablet 1 tab PO Q6H PRN PRN (Reason: Pain) 3 Days Qty: 10 0RF No Action allopurinol 300 mg tablet 300 mg PO DAILY Patient Comments: Take 1 tablet by mouth once daily. For gout. omeprazole 40 mg capsule,delayed release(DR/EC) 40 mg PO DAILY hydrochlorothiazide 25 mg tablet 25 mg PO DAILY losartan 100 mg tablet 100 mg PO DAILY amlodipine 10 mg tablet 5 mg PO DAILY isosorbide mononitrate 60 mg tablet extended release 24 hr 60 mg PO BID Qty: 180 3RF trazodone 50 mg tablet 50 mg PO QHS PRN (Reason: sleep) 30 Days Qty: 90 2RF Rx Instructions: Take 1 to 2 tabs po as needed for sleep. venlafaxine 75 mg capsule,extended release 24hr 75 mg PO DAILY Qty: 90 1RF Stand Alone Forms: ED Work / School Excuse Primary Care Provider: Lukas Chatterjee Referrals: Lukas Chatterjee MD [Primary Care Provider] - 1 Week if not improving Activity Restrictions/Additional Instructions: 1. Apply ice to your lower back 6-10 times a day. 2. Avoid activity that causes you pain. 3. If you are unable to urinate, have loss of bowel control or numbness in your buttocks area return to the emergency department immediately Print Language: Occitan Disposition Disposition: Home, Self Care
[2024-11-24 10:58] VITALS: BP 154/128; PULSE 70; RESP 18; TEMP 37.1; O2SAT 99
== END 2024-11-24 10:59 | disposition home or self-care (01) ==
PROVIDERS: Emergency Provider Emergency Medicine; PCP Family Medicine; Visit Provider Emergency Medicine
DX: S30.0XXA Contusion of lower back and pelvis, initial encounter (principal); J44.9 Chronic obstructive pulmonary disease, unspecified; W00.0XXA Fall on same level due to ice and snow, initial encounter; I10 Essential (primary) hypertension; E78.5 Hyperlipidemia, unspecified; F17.210 Nicotine dependence, cigarettes, uncomplicated; Z79.899 Other long term (current) drug therapy
CPT/HCPCS: 72100; 72170; 99282

== ENCOUNTER → 2024-12-16 | Outpatient (CLI) | payer MEDICAID, SELFPAY ==
--- NOTE | 2024-12-16 09:00 | RAD_ITS ---
PROCEDURE: LUMBOSACRAL SPINE SERIES COMPLETE WITH FLEXION AND EXTENSION VIEWS REASON FOR EXAM: LOW BACK PAIN. LUMBAR DEGENERATIVE DISC DISEASE. TECHNIQUE: Standing AP, lateral, oblique, and flexion-extension views of the lumbar spine. COMPARISON: 11/24/2024. FINDINGS: Vertebral bodies are normal in height. Multilevel degenerative disc disease and spondylosis. Dextroscoliosis. No spondylolysis. Grade 1 anterolisthesis of L4 on L5 by approximately 6 mm, neutral position, 5 mm during extension, and 7 mm during flexion. Good range of motion during flexion and extension. No signs of foraminal narrowing. Mild multilevel facet arthropathy. Chronic calcifications of the aorta. RAD/L/S Spine Comp/w Bending Views IMPRESSION: Grade 1 anterolisthesis, L4 on L5 as detailed above. Good range of motion during flexion extension. Dextroscoliosis. Multilevel spondylosis and degenerative disc disease. No acute osseous findings. Reading Location: [facility]
== END | disposition home or self-care (01) ==
LOC: MTRAD 08:58
PROVIDERS: PCP Family Medicine; Referring Provider Clinical Nurse Specialist Adult Health; Visit Provider Clinical Nurse Specialist Adult Health
DX: M51.369 Other intervertebral disc degeneration, lumbar region without mention of lumbar back pain or lower extremity pain (principal)
CPT/HCPCS: 72114

== ENCOUNTER 2025-01-04 19:15 | Emergency (ER) | payer MEDICAID, SELFPAY ==
[2025-01-04 19:16] VITALS: BP 167/111; PULSE 94; RESP 16; TEMP 36.6; O2SAT 97; BMI 28.0
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
[2025-01-04] MEDS: Ketorolac 15 MG/ML Vial IM (19:44)
[2025-01-04 19:56] VITALS: BP 167/111; PULSE 94; RESP 16; TEMP 36.6; O2SAT 97
== END 2025-01-04 20:02 | disposition home or self-care (01) ==
LOC: ED 19:59
PROVIDERS: Emergency Provider Emergency Medicine; PCP Family Medicine; Visit Provider Emergency Medicine
DX: M54.50 Low back pain, unspecified (principal); J44.9 Chronic obstructive pulmonary disease, unspecified; G89.29 Other chronic pain; I10 Essential (primary) hypertension; E78.5 Hyperlipidemia, unspecified; F17.200 Nicotine dependence, unspecified, uncomplicated; Z79.899 Other long term (current) drug therapy
CPT/HCPCS: 96372; 99282

== ENCOUNTER 2025-01-17 13:54 | Emergency (ER) | payer MEDICAID, SELFPAY ==
[2025-01-17 13:54] VITALS: BP 169/104; PULSE 72; RESP 14; O2SAT 98
[2025-01-17 13:55] VITALS: BP 170/107; PULSE 70; RESP 16; TEMP 36.6; O2SAT 99; BMI 28.2
--- NOTE | 2025-01-17 14:18 | CT_ITS ---
EXAM: BRAIN/HEAD WITHOUT CONTRAST CLINICAL HISTORY: 59 y/o M with HEADACHE, SYNCOPE, HEAD INJURY. COMPARISON: None. TECHNIQUE: Routine CT imaging of the head without IV contrast. Additional multiplanar reformats were obtained. Dose reduction techniques were used including intermediate exposure control (AEC),iterative reconstruction technique, and/or mA and/or KV dose adjustments based on patient's size. FINDINGS: Mild scattered supratentorial white matter hypodensities, compatible with patient age. The hoff-white matter interfaces are otherwise maintained. The basal cisterns are patent. No ventriculomegaly. Trace right mastoid effusion. The orbits, visualized paranasal sinuses and mastoids are otherwise unremarkable. Small right posterior upper scalp thickening, likely site of recent small hematoma. No acute calvarial fracture. CT/Brain/Head without Contrast IMPRESSION: 1. No acute intracranial finding. 2. Small right posterior upper scalp thickening, likely site of recent small he matoma. Reading Location: [id number]
--- NOTE | 2025-01-17 14:18 | EKG12_ITS ---
Test Reason : Blood Pressure : */* mmHG Vent. Rate : 60 BPM Atrial Rate : 60 BPM P-R Int : 172 ms QRS Dur : 94 ms QT Int : 426 ms P-R-T Axes : 0 26 49 degrees QTcB Int : 426 ms Sinus rhythm with Premature atrial complexes Otherwise normal ECG Confirmed by PRINCESS CULP, THAD ([id number]), graphics editor SUE RAMIREZ ([id number]) on 01/19/2025 6:41:56 AM Referred By: Bb Confirmed By: THAD SÁNCHEZ MD
--- NOTE | 2025-01-17 14:20 | EX.ED.DYSGE1 ---
HPI History of Present Illness Chief Complaint: Head Injury Informant: patient Narrative Narrative: Patient states he had a sudden syncopal episode without warning about a week ago, resulting in him falling and collapsing and hitting his head. Has been having headaches ever since. He also has passed out twice since then, the last episode was 2 days ago, and states these were completely without warning with the exception of the headache that he has been having all week did become a little worse before these episodes. Separately he has been having episodes of vertigo for the past week, these have been after the initial fall/syncopal episode, they have come and gone all week, and have been completely separate with regards to the timing of the syncopal episodes. He has chronic tinnitus that is no different and no other hearing disturbance. Some blurry vision but no visual field cuts or diplopia. Today he was at the store with his mom and he states he was leaning against some thing without moving and suddenly felt the episode of vertigo start again and had nausea and vomited once with it which is why he presents here today. This is the first time he is presented to healthcare for any of the symptoms in the past week. He states he has a history of coronary disease for which she follows with the cardiology practice here, he is compliant with his medications, he also continues to smoke but states that he has cut back on his smoking quite a bit from the past when he used to smoke 2 packs a day now he is down to half a pack a day. [facility] Medical History Right shoulder strain Abdominal pain Epigastric pain Difficulty swallowing Wears glasses Marijuana use Arthritis Back pain Gastric reflux COPD (chronic obstructive pulmonary disease) Shortness of breath on exertion Smoker History of stress test Hypertension History of heart attack Cardiology follow-up encounter Chest pain Pain Tobacco use History of GI bleed Lumbar radiculopathy Acute lumbar myofascial strain Strain of fascia of lower back Nicotine dependence, cigarettes, uncomplicated Dyspnea on exertion Asthma-COPD overlap syndrome Smoking greater than 30 pack years Obesity Chest pain Nicotine dependence Hyperlipidemia Essential (primary) hypertension Cervical spondylosis Gout Home Medications ?Medication ?Instructions ?Recorded ?Last Taken ?Type allopurinol 300 mg tablet 300 mg PO DAILY 02/25/20 09/02/23 History hydrochlorothiazide 25 mg tablet 25 mg PO DAILY 08/07/23 09/02/23 History losartan 100 mg tablet 100 mg PO DAILY 08/07/23 09/03/23 History omeprazole 40 mg capsule,delayed 40 mg PO DAILY 08/07/23 09/02/23 History release amlodipine 10 mg tablet 5 mg PO DAILY 12/14/23 Unknown History isosorbide mononitrate 60 mg 60 mg PO BID #180 tabs 12/14/23 Unknown Rx tablet,extended release 24 hr hydrocodone-acetaminophen 5-325mg 1 tab PO Q6H PRN PRN Pain 3 days 11/24/24 Unknown Rx 5mg-325mg #10 TABLETS mirtazapine 7.5 mg tablet 7.5 mg PO QHS #30 tabs 01/16/25 Unknown Rx venlafaxine 150 mg 150 mg PO DAILY #30 caps 01/16/25 Unknown Rx capsule,extended release 24 hr meclizine 25 mg tablet 25 mg PO TID PRN dizziness #20 tabs 01/17/25 Unknown Rx Allergy/AdvReac Type Severity Reaction Status Date / Time No Known Allergies Allergy Verified 01/17/25 13:58 Family History Father Diabetes Hypertension Grandfather Heart disease Grandfather Heart disease Surgical History History of esophagogastroduodenoscopy (EGD) History of colonoscopy Hx of colonoscopy with polypectomy History of left heart catheterization (03/11/20) Social History (Updated 01/17/25 @ 14:26 by Kat Cortes) household members: family and none housing: house Smoking Status: Heavy Smoker (>10/day) Tobacco: How many years used: 30 alcohol intake: never substance use type: marijuana caffeine: Yes Type: coffee Number of servings: 5 ROS ROS ED Constitutional Constitutional ED: Denies chills or fever(s) Eyes Eyes: Reports blurry vision; Denies diplopia ENT ENT ED: Reports tinnitus and vertigo; Denies ear pain, rhinorrhea or sore throat Cardiovascular Cardiovascular: Reports syncope; Denies chest pain, dyspnea on exertion, leg edema, orthopnea, palpitations or radiating jaw, neck or arm pain Respiratory/Chest Respiratory/Chest: Denies cough, dyspnea or orthopnea Gastrointestinal Gastrointestinal: Reports nausea and vomiting; Denies abdominal pain or diarrhea Genitourinary Genitourinary ED: Denies dysuria or hematuria Musculoskeletal Musculoskeletal: Reports arthralgias; Denies back pain or neck pain Integumentary Denies abscess or rash Neurologic Neurologic: Reports headache(s); Denies paresthesias or weakness Psychiatric Psychiatric: Denies anxiety or suicidal thoughts EXAM Physical Exam Const Vital Signs: 01/17/25 13:54 01/17/25 13:55 01/17/25 14:24 Temperature 98 F Temperature Source Temporal Pulse Rate 72 70 Respiratory Rate 14 16 Respiratory Effort Respiratory Depth Respiratory Pattern Blood Pressure 169/104 H 170/107 H Blood Pressure Mean 125 128 Pulse Ox 98 99 96 Oxygen Delivery Method Room Air Room Air Room Air 01/17/25 14:24 01/17/25 15:54 01/17/25 17:00 Temperature Temperature Source Pulse Rate 58 L 58 L Respiratory Rate 16 19 H Respiratory Effort Normal Non-Labored Respiratory Depth Normal Respiratory Pattern Normal Blood Pressure 167/99 H 168/101 H Blood Pressure Mean 121 123 Pulse Ox 96 98 97 Oxygen Delivery Method Room Air Positive well nourished and well developed General Appearance ED: well developed and NAD HEENT Reports TM's clear and moist mucous membranes normocephalic and atraumatic Tympanic Membrane ED: Yes TM's clear Eyes PERRL and EOMs intact bilaterally Neck full ROM and supple Resp normal respiratory effort and clear to auscultation bilaterally Cardio regular rate, regular rhythm and no murmurs GI non-tender and non-distended Auscultation: normoactive bowel sounds Palpation: soft Back/Spine no CVA tenderness General Back: other FROM Extremity normal to inspection General Extremety ED: Negative for edema, pulses abnormal or tenderness General Extremity: Negative for edema or pulses abnormal Neuro oriented x3, CN's II-XII intact bilaterally and no sensory deficits noted Neuro Narrative: Normal speech. Normal cranial nerve and peripheral neurologic exam. He is not ataxic when walking, he does appear to have some dysmetria in both of his legs but he states he is having trouble because of his arthritis. No dysmetria with [id number] bilaterally. No significant nystagmus, no direction changing or vertical nystagmus, patient having some mild vertiginous symptoms currently during exam. Sensorium / Orientation: awake and alert Motor Exam: strength 5/5 throughout Skin no rashes or lesions noted and no wounds MDM MDM MDM Narrative Medical decision making narrative: Patient with several different issues here. Versus a head injury with persistent headaches, so I sent him for a head CT to rule out traumatic intracranial hemorrhage or skull fracture, I reviewed the images and report which I agree with it is negative/normal. Also concerned about his episodes of syncope that seem to be without a prodrome and occur very suddenly, in face of a history of CAD and he still smokes, suspicious for possible cardiac etiology. After monitoring here for several hours she had no cardiac events, his EKG is normal, and 2 sequential troponin measurements are normal. His D-dimer was a little bit elevated, when corrected for age is normal but I still sent him for a CTA to rule out pulmonary embolus, I reviewed those images and report as well, and it was normal except for coronary artery calcifications. I discussed with Dr. Carr on for the cardiology group, he agrees would be reasonable to send the patient home with a 48-hour Holter monitor, so we are arranging that plan is to have the patient go home and follow-up after that is turned in. He is comfortable with that plan. Patient also having episodes of vertigo. He is improved after meclizine and going to prescribe him some, not sure how this could be related to the rest of his symptoms, but I do not think this is central in etiology. Lab Data Attestation: I reviewed the patient's lab results. Labs: Laboratory Results - last 24 hr 01/17/25 01/17/25 14:22 16:35 WBC 7.9 RBC 4.75 Hgb 14.8 Hct 44.0 MCV 92.6 MCH 31.2 MCHC 33.6 RDW Std Deviation 44.7 H RDW Coeff of Jose 13.1 Plt Count 319 MPV 9.5 Immature Gran % (Auto) 0.300 Neut % (Auto) 56.1 Lymph % (Auto) 30.6 [place] % (Auto) 9.6 Eos % (Auto) 2.5 Baso % (Auto) 0.9 Absolute Neuts (auto) 4.5 Absolute Lymphs (auto) 2.43 Nucleated RBC % 0 D-Dimer Quant (PE/DVT) 0.52 H* Sodium 137 Potassium 4.5 Chloride 103 Carbon Dioxide 23.4 Anion Gap 11 BUN 23 H Creatinine 0.91 Estim Creat Clear Calc 103.00 Est GFR (MDRD) Non-Af 97 BUN/Creatinine Ratio 25.3 H Glucose 109 H Calcium 8.9 Troponin T High Sens 11 Troponin T Hi Sens 2 Hr 9 Radiography Diagnostic Testing: Clinical Impression(s) from Imaging Studies Brain CT 01/17/25 14:18 IMPRESSION: 1. No acute intracranial finding. 2. Small right posterior upper scalp thickening, likely site of recent small hematoma. Reading Location: [facility] Chest CTA 01/17/25 15:40 IMPRESSION: 1. No acute pulmonary embolism. 2. Moderate coronary artery calcifications. Reading Location: [facility] Rhythm Strip Rhythm Strip: Sinus Rhythm Rate: 60 Ectopy: None EKG Initial EKG: Attestation: I personally reviewed and interpreted this EKG as follows: Interpretation: Sinus Rhythm and No Acute Injury Pattern Comments: Nml axis & intervals; nml EKG Management Discussion w/another healthcare provider: [employer] Discharge Plan Triage Chief Complaint: Head Injury ED Provider: Gaurav Bettencourt Dx/Rx/DC Orders Clinical Impression: Recurrent syncope, Episodic peripheral vertigo, Closed head injury Instructions: Causes of Syncope, ED Holter Monitor Prescriptions: New meclizine 25 mg tablet 25 mg PO TID PRN (Reason: dizziness) Qty: 20 0RF No Action allopurinol 300 mg tablet 300 mg PO DAILY Patient Comments: Take 1 tablet by mouth once daily. For gout. omeprazole 40 mg capsule,delayed release(DR/EC) 40 mg PO DAILY hydrochlorothiazide 25 mg tablet 25 mg PO DAILY losartan 100 mg tablet 100 mg PO DAILY amlodipine 10 mg tablet 5 mg PO DAILY isosorbide mononitrate 60 mg tablet extended release 24 hr 60 mg PO BID Qty: 180 3RF venlafaxine 150 mg capsule,extended release 24hr 150 mg PO DAILY Qty: 30 1RF mirtazapine 7.5 mg tablet 7.5 mg PO QHS Qty: 30 1RF hydrocodone-acetaminophen 5-325 mg tablet 1 tab PO Q6H PRN PRN (Reason: Pain) 3 Days Qty: 10 0RF Primary Care Provider: Lukas Chatterjee Referrals: Acosta Carr MD [Med Staff - Active Staff] - 3-5 Days Print Language: Armenian Disposition Disposition: Home, Self Care
[2025-01-17] MEDS: Ondansetron 4 MG/2 ML Vial IV (14:23)
[2025-01-17] MEDS: Meclizine HCl 25 MG Tablet PO (14:23)
[2025-01-17 14:24] VITALS: O2SAT 96
[2025-01-17 14:29] LABS: Absolute Lymphocyte Count 2.43 X10^3/uL (0.83-4.51); Absolute Neutrophil Count 4.5 X10^3/uL (2.0-7.7); Basophil# 0.07 X10^3/uL; Basophil% 0.9 % (0-1); Eosinophils% 2.5 % (0-5); Hemoglobin 14.8 g/dL (13.0-16.5); Lymphocyte # 2.43 X10^3/ul (0.83-4.51); Lymphocyte % 30.6 % (19-41); Mean Corp Hgb Conc 33.6 g/dL (32-36); Mean Corpuscular Hgb 31.2 pg (27.0-32.0); Mean Corpuscular Volume 92.6 fL (80-94); Mean Platelet Vol. 9.5 fl (6.2-12.0); Monocyte# 0.76 X10^3/uL; Monocyte% 9.6 % (0-10); NRBC Flagged by Analyzer 0 % (0-5); Neutrophil # 4.45 X10^3/uL (2.7-7.7); Neutrophil % 56.1 % (47-70); Platelet Count 319 K/mm3 (150-450); RBC Distribution Width CV 13.1 % (11.6-14.6); RBC Distribution Width SD 44.7 fl (35.1-43.9); Red Blood Count 4.75 M/mm3 (4.6-6.2); White Blood Count 7.9 K/mm3 (4.4-11.0)
[2025-01-17 14:55] LABS: Anion Gap 11 (5-15); BUN 23 mg/dL (4-19); BUN/Creat Ratio 25.3 RATIO (10-20); Calcium,Total 8.9 mg/dL (7.6-11.0); Carbon Dioxide 23.4 mmol/L (21.0-32.0); Chloride 103 mmol/L (98-108); Creatinine, Serum 0.91 mg/dL (0.70-1.20); EST Glomerular Filtration Rate 97 (>60); Glucose 109 mg/dL (70-99); Potassium 4.5 mmol/L (3.3-5.1); Sodium Level 137 mmol/L (133-145); Troponin T High Sensitivity 11 ng/L (<=22)
[2025-01-17 15:35] LABS: D-Dimer Quantitative (DVT/PE) 0.52 FEU/ug/m (0.27-0.49)
--- NOTE | 2025-01-17 15:40 | CT_ITS ---
PROCEDURE: CTA CHEST W/WO CONTRAST 01/17/2025 REASON FOR EXAM: 59-year-old male, syncope, elevated D-dimer. TECHNIQUE: CTA axial imaging of the chest with intravenous contrast. Coronal and Sagittal reconstruction series were provided. 3D, 3D post processing, 3D reconstructions, Maximum intensity projection (MIPs) Volume rendering and Shaded surface rendering was provided. PATIENT PREPARATION: Per protocol CONTRAST: Isovue-300 VOLUME: 100mL One or more dose reduction techniques were used (e.g., Automated exposure control, adjustment of the mA and/or kV according to patient size, use of iterative reconstruction technique). RADIATION DOSE SUMMARY: CTDlvol: 30 mGy DLP: 488 mGycm COMPARISON: Low-dose CT chest 08/27/2024. FINDINGS: Lymph nodes: No axillary, mediastinal or hilar lymphadenopathy. Heart: The heart is normal size without pericardial effusion. Moderate coronary artery and mild thoracic aortic calcifications. The great vessels are normal in caliber. Pulmonary Vessels: No central filling defect within the segmental or subsegmental pulmonary arteries. Lungs and Airways: The central airways are patent. Scattered bilateral calcified granulomas. No suspicious pulmonary nodule, pleural effusion or pneumothorax. Bibasilar atelectasis/scarring. Upper Abdomen: Stable small left adrenal nodule, likely an adenoma. Bones: Degenerative changes of the thoracic spine. CT/CTA Chest W/WO Contrast IMPRESSION: 1. No acute pulmonary embolism. 2. Moderate coronary artery calcifications. Reading Location: [facility]
--- NOTE | 2025-01-17 15:40 | ED.RN ---
Critical D Dimer of 0.[address] Bettencourt notified
[2025-01-17 15:54] VITALS: BP 167/99; PULSE 58; RESP 16; O2SAT 98
[2025-01-17 17:00] VITALS: BP 168/101; PULSE 58; RESP 19; O2SAT 97
[2025-01-17 17:02] LABS: Troponin T High Sens 2 HR 9 ng/L (<=22)
[2025-01-17 17:55] VITALS: BP 132/78; PULSE 78; RESP 16; TEMP 36.6; O2SAT 99
== END 2025-01-17 17:56 | disposition home or self-care (01) ==
PROVIDERS: Emergency Provider Emergency Medicine; PCP Family Medicine; Visit Provider Emergency Medicine
DX: R55 Syncope and collapse (principal); J44.9 Chronic obstructive pulmonary disease, unspecified; H81.399 Other peripheral vertigo, unspecified ear; S09.90XA Unspecified injury of head, initial encounter; W01.10XA Fall on same level from slipping, tripping and stumbling with subsequent striking against unspecified object, initial encounter; I25.10 Atherosclerotic heart disease of native coronary artery without angina pectoris; I10 Essential (primary) hypertension; E78.5 Hyperlipidemia, unspecified; F17.200 Nicotine dependence, unspecified, uncomplicated; Z79.899 Other long term (current) drug therapy; R11.2 Nausea with vomiting, unspecified; I25.2 Old myocardial infarction
CPT/HCPCS: 70450; 71275; 80048; 84484; 85025; 85379; 93005; 93225; 93226; 96374; 99283; Q9967; A4216; J2405

== ENCOUNTER → 2025-01-17 | Outpatient (CLI) | payer MEDICAID, SELFPAY | END | disposition home or self-care (01) | LOC: CVS 17:25 | PROVIDERS: PCP Family Medicine; Visit Provider Emergency Medicine | DX: R55 Syncope and collapse (principal) | CPT/HCPCS: 93225; 93226 ==

== ENCOUNTER → 2025-02-19 | Outpatient (CLI) | payer MEDICAID, SELFPAY ==
--- NOTE | 2025-02-19 10:20 | RAD_ITS ---
PROCEDURE: THORACIC SPINE 3 VIEWS 02/19/2025 REASON FOR EXAM: PAIN TECHNIQUE: Three views of the thoracic spine COMPARISON: None FINDINGS: See impression RAD/Thoracic Spine 3 Views IMPRESSION: Visualized vertebral body heights are within normal limits. No significant mal alignment. Disc spaces are relatively preserved. Prominent multilevel anterior endplate osteophytes most consistent with diffuse idiopathic skeletal hyperostosis. Posterior ribs are grossly intact. Reading Location: [facility]
--- NOTE | 2025-02-19 10:20 | RAD_ITS ---
PROCEDURE: CERV SPINE OBL/FLEX/EXT COMP 02/19/2025 REASON FOR EXAM: PAIN TECHNIQUE: Neutral, flexed and extended lateral views of the cervical spine. FINDINGS: Vertebrae: No acute fracture disc spaces: Disc space narrowing and osteophyte formation of the lower cervical spine consistent with degenerative disc disease. Alignment: Anatomic alignment. Straightening of the normal lordotic curvature. No subluxation on the flexion extension views to suggest instability. soft tissues: Unremarkable. Other: RAD/Cerv Spine Obl/Flex/Ext Comp IMPRESSION: Degenerative disc disease with straightening of the normal lordotic curvature. No instability. Disclaimer: Reading Location: [id number]
== END | disposition home or self-care (01) ==
PROVIDERS: PCP Family Medicine; Referring Provider Clinical Nurse Specialist Adult Health; Visit Provider Clinical Nurse Specialist Adult Health
DX: M54.2 Cervicalgia (principal); M54.6 Pain in thoracic spine
CPT/HCPCS: 72052; 72072

== ENCOUNTER 2025-04-26 19:13 | Emergency (ER) | payer MEDICAID, SELFPAY ==
[2025-04-26 19:14] VITALS: BP 129/87; PULSE 71; RESP 15; TEMP 36.5; O2SAT 96; BMI 28.2
[2025-04-26] MEDS: Ketorolac 30 MG/ML Syringe IM (19:30)
--- NOTE | 2025-04-26 19:30 | ED.VIS.BACK ---
HPI History of Present Illness Chief Complaint: Back Onset/Context/Timing Onset: Today Context: Sudden Onset Injury: - (Yard work) Timing: Continuous Quality: - (Stabbing) Location: Lumbar Worsened by: improves with Nothing Relieved by: Nothing Associated Symptoms Associated Symptoms: Tingling; Negative for Numbness, Radiation to Right Leg, Radiation to Left Leg, Fever, Abdominal Pain, Dysuria, Unable to Ambulate, Unable to Transfer, Urinary Retention, Urinary Incontinence, Constipation or Fecal Incontinence Narrative Narrative: Patient presents with low back pain that became worse today. Patient states he has a history of prior back pain. Patient states he is trying to put off back surgery. Patient states he is doing yard work today. Patient palpable pop in his low back. Patient describes the pain as stabbing. Patient admits to some tingling going down his right leg. Patient denies any radiation of pain down his right leg. Patient denies any bowel or bladder changes. Patient denies any saddle anesthesia. Patient drove himself to the emergency department tonight. [facility] Medical History Rash Right shoulder strain Abdominal pain Epigastric pain Difficulty swallowing Wears glasses Marijuana use Arthritis Back pain Gastric reflux COPD (chronic obstructive pulmonary disease) Shortness of breath on exertion Smoker History of stress test Hypertension History of heart attack Cardiology follow-up encounter Chest pain Pain Tobacco use History of GI bleed Lumbar radiculopathy Acute lumbar myofascial strain Strain of fascia of lower back Nicotine dependence, cigarettes, uncomplicated Dyspnea on exertion Asthma-COPD overlap syndrome Smoking greater than 30 pack years Obesity Chest pain Nicotine dependence Hyperlipidemia Essential (primary) hypertension Cervical spondylosis Gout Home Medications ?Medication ?Instructions ?Recorded ?Last Taken ?Type allopurinol 300 mg tablet 300 mg PO DAILY 02/25/20 09/02/23 History hydrochlorothiazide 25 mg tablet 25 mg PO DAILY 08/07/23 09/02/23 History losartan 100 mg tablet 100 mg PO DAILY 08/07/23 09/03/23 History omeprazole 40 mg capsule,delayed 40 mg PO DAILY 08/07/23 09/02/23 History release amlodipine 10 mg tablet 5 mg PO DAILY 12/14/23 Unknown History isosorbide mononitrate 60 mg 60 mg PO BID #180 tabs 12/14/23 Unknown Rx tablet,extended release 24 hr meclizine 25 mg tablet 25 mg PO TID PRN dizziness #20 tabs 01/17/25 Unknown Rx hydroxyzine HCl 25 mg tablet 25 mg PO QHS #30 tabs 03/13/25 Unknown Rx venlafaxine 150 mg 150 mg PO DAILY #90 caps 03/13/25 Unknown Rx capsule,extended release 24 hr prednisone 10 mg tablet 10 mg PO DAILY #30 tabs 04/07/25 Unknown Rx hydrocodone-acetaminophen 5-325mg 1 tab PO Q6H PRN PRN Pain 3 days 04/26/25 Unknown Rx 5mg-325mg #10 TABLETS Allergy/AdvReac Type Severity Reaction Status Date / Time No Known Allergies Allergy Verified 04/26/25 19:16 Family History Father Diabetes Hypertension Grandfather Heart disease Grandfather Heart disease Surgical History History of esophagogastroduodenoscopy (EGD) History of colonoscopy Hx of colonoscopy with polypectomy History of left heart catheterization (03/11/20) Social History household members: family and none housing: house Smoking Status: Heavy Smoker (>10/day) Tobacco: How many years used: 30 alcohol intake: never substance use type: marijuana caffeine: Yes Type: coffee Number of servings: 5 ROS ROS ED Constitutional Constitutional ED: Denies chills or fever(s) Eyes Eyes: Denies blurry vision or change in vision ENT ENT ED: Denies rhinorrhea or sore throat Cardiovascular Cardiovascular: Denies chest pain or palpitations Respiratory/Chest Respiratory/Chest: Denies cough or dyspnea Gastrointestinal Gastrointestinal: Denies nausea or vomiting Genitourinary Genitourinary ED: Denies dysuria or hematuria Musculoskeletal Musculoskeletal: Reports back pain; Denies neck pain Integumentary Denies abscess or rash Neurologic Neurologic: Reports headache(s); Denies weakness Allergic/Immunologic Allergic/Immunologic ED: Denies mouth swelling or urticaria EXAM Physical Exam Const Vital Signs: 04/26/25 19:14 04/26/25 20:41 Temperature 97.7 F L 97.7 F L Temperature Source Oral Pulse Rate 71 93 Respiratory Rate 15 18 Blood Pressure 129/87 H 131/86 H Blood Pressure Mean 101 101 Pulse Ox 96 97 Oxygen Delivery Method Room Air Positive well nourished and well developed General Appearance ED: well developed and NAD HEENT Reports moist mucous membranes Neck supple and no JVD Back/Spine Back/Spine Narrative: There is tenderness of the right lumbar paraspinal muscles. There is mild midline tenderness. There is no bony crepitance or step-off noted. Range of motion was limited in all motions of the lumbar spine secondary to pain. Strength is 5/5 bilaterally in the lower extremities. There are no sensory deficits noted. Straight leg raises were negative bilaterally. Deep tendon reflexes are 2+/4 bilaterally. Lumbar Spine / Lower Back: ROM limited Extremity normal to inspection Neuro oriented x3 and no sensory deficits noted Sensorium / Orientation: alert Motor Exam: strength 5/5 throughout Deep Tendon Reflexes: Rt Patellar (L4): 2+, Lt Patellar (L4): 2+, Rt Ankle (S1): 2+ and Lt Ankle (S1): 2+ Deep Tendon Reflexes Back: Rt Patellar (L4): 2+, Lt Patellar (L4): 2+, Rt Ankle (S1): 2+ and Lt Ankle (S1): 2+ Psych mental status grossly normal MDM MDM MDM Narrative Medical decision making narrative: Differential diagnosis includes compression fracture, spondylolisthesis, and lumbosacral strain. X-rays of the lumbar spine will be obtained to assess for fracture and spondylolisthesis. History & Record Review Additional record(s) reviewed:: Prior outpatient record and Prior ED visit Radiography Diagnostic Testing: Clinical Impression(s) from Imaging Studies Lumbar Spine X-Ray 04/26/25 19:45 IMPRESSION: No acute osseous abnormality of the lumbar spine. Multilevel degenerative changes. Reading Location: [id number] X-rays of the lumbar spine were obtained. There are 3 views. On my independent interpretation, there is no acute fracture or spondylolisthesis. There are some degenerative changes noted. Radiologist also interpreted the x-rays and agrees. Treatment and Re-Evaluation Narrative: Since the patient drove himself to the emergency department, patient was given a dose of Toradol here. Patient is feeling somewhat better on reevaluation. Patient was advised of his findings. Patient was given a prescription for a short course of [place]. Patient was instructed to follow-up with his primary care physician and pain management physician in 3 to 5 days. Patient was instructed to return if worse in any way. Patient understood and was agreeable with the plan. All questions were answered. Discharge Plan Triage Chief Complaint: Back ED Provider: German Santoyo Dx/Rx/DC Orders Clinical Impression: Acute lumbosacral myofascial strain, Essential (primary) hypertension, Nicotine dependence Instructions: ED Back Pain (Acute or Chronic), ED Back Sprain/Strain Prescriptions: Continued hydrocodone-acetaminophen 5-325 mg tablet 1 tab PO Q6H PRN PRN (Reason: Pain) 3 Days Qty: 10 0RF No Action allopurinol 300 mg tablet 300 mg PO DAILY Patient Comments: Take 1 tablet by mouth once daily. For gout. omeprazole 40 mg capsule,delayed release(DR/EC) 40 mg PO DAILY hydrochlorothiazide 25 mg tablet 25 mg PO DAILY losartan 100 mg tablet 100 mg PO DAILY amlodipine 10 mg tablet 5 mg PO DAILY isosorbide mononitrate 60 mg tablet extended release 24 hr 60 mg PO BID Qty: 180 3RF venlafaxine 150 mg capsule,extended release 24hr 150 mg PO DAILY Qty: 90 1RF hydroxyzine HCl 25 mg tablet 25 mg PO QHS Qty: 30 1RF prednisone 10 mg tablet 10 mg PO DAILY Qty: 30 0RF Rx Instructions: 4 tablets daily x3 days, then 3 tablets daily x3 days, then 2 tablets daily x3 days, then 1 tablet daily x3 days meclizine 25 mg tablet 25 mg PO TID PRN (Reason: dizziness) Qty: 20 0RF Primary Care Provider: Lukas Chatterjee Referrals: Lukas Chatterjee MD [Primary Care Provider] - 5-7 Days Print Language: Nigerien Disposition Disposition: Home, Self Care Discharge Date/Time: 04/26/25 20:43
--- NOTE | 2025-04-26 19:45 | RAD_ITS ---
PROCEDURE: LUMBAR SPINE 2 OR 3 VIEWS 04/26/2025 REASON FOR EXAM: INJURY/PAIN TECHNIQUE: LUMBAR SPINE 2 OR 3 VIEWS COMPARISON: Lumbar spine radiographs 12/16/2024 FINDINGS: There is slight rightward curvature of the lumbar spine. Grade 1 anterolisthesis of L4 on L5 measuring 6 mm, unchanged. Vertebral body heights are maintained. Multilevel degenerative changes with disc height loss, endplate osteophyte formation, and facet arthrosis is also similar to prior. Aortic atherosclerosis. RAD/Lumbar Spine 2 or 3 Views IMPRESSION: No acute osseous abnormality of the lumbar spine. Multilevel degenerative arredondo ges. Reading Location: [facility]
--- OUTSIDE RECORDS SUMMARY | 2025-04-26 20:00 | XMS RPT_ITS | CCD ---
Author Organization [facility] Care Team Providers Care Terra Cotta Mold Maker Name Role Phone PAUL ROLAND Unavailable Unavailable YAN MENDEZ Unavailable Unavailable PAUL ROLAND Unavailable Unavailable Kevin Mendez Unavailable Unavailable PAUL ROLAND Unavailable Unavailable Kevin Mendez Unavailable Unavailable Kevin Mendez Unavailable Unavailable PAUL ROLAND Unavailable Unavailable Unavailable Primary Care Provider UnavailDr. Lukas Jackson Primary Care Provider Dr. Acosta Carr Attending Provider Prebish CUSTOMER SUPPORT CONSULTANT, CUSTOMER SUPPORT CONSULTANT-C Dali Referring Provider Dr. Lukas Chatterjee Primary Care Provider Dr. Lukas Chatterjee Referring Provider TARAH Marin Attending Provider Jennifer CUSTOMER SUPPORT CONSULTANT, CUSTOMER SUPPORT CONSULTANT-C Thea Attending Provider Jennifer CUSTOMER SUPPORT CONSULTANT, CUSTOMER SUPPORT CONSULTANT-C Thea Referring Provider Jennifer CUSTOMER SUPPORT CONSULTANT, CUSTOMER SUPPORT CONSULTANT-C Thea Other Provider Dr. Den Ramos Attending Provider TARAH Marin Attending Provider TARAH Michel Attending Provider Dr. Lukas Chatterjee Primary Care Provider Dr. Lukas Chatterjee Referring Provider TARAH Marin Attending Provider Jennifer CUSTOMER SUPPORT CONSULTANT, CUSTOMER SUPPORT CONSULTANT-C Thea Attending Provider Jennifer CUSTOMER SUPPORT CONSULTANT, CUSTOMER SUPPORT CONSULTANT-C Thea Referring Provider Jennifer CUSTOMER SUPPORT CONSULTANT, CUSTOMER SUPPORT CONSULTANT-C Thea Other Provider Dr. Den Ramos Attending Provider TARAH Michel Attending Provider Dr. Mari Duvall Emergency Provider Dr. Luzmaria Ferreira Attending Provider Dr. Luzmaria Ferreira Admit Provider Dr. Luzmaria Ferreira Other Provider Dr. Rigoberto Overton Other Provider Dr. Alonzo Narayanan Attending Provider Dr. Lukas Chatterjee Primary Care Provider Dr. Lukas Chatterjee Referring Provider TARAH Marin Attending Provider Dr. Alonzo Narayanan Attending Provider Dr. Luzmaria Ferreira Referring Provider Dr. Rigoberto Overton Attending Provider Dr. Papito Monae Attending Provider Oriana POOL, YRN-C Lukas Rodriguez Attending Provider Dr. Papito Monae Other Provider Dr. Lukas Chatterjee Primary Care Provider Dr. Lukas Chatterjee Referring Provider SUDEEP Larson Attending Provider Lukas Chatterjee Primary Care Unavailable Susi De La Cruz Attending Unavailable Lukas Chatterjee Primary Care Unavailable Susi De La Cruz Attending Unavailable Lukas Chatterjee Primary Care Unavailable Lukas Chatterjee Referring Unavailable Ga Michel Attending Unavailable Lukas Chatterjee Primary Care Unavailable Lukas Chatterjee Referring Unavailable Ga Mihcel Attending Unavailable Schinner, Lukas E Primary Care Unavailable Tristan Bruner Attending Unavailable SchLukas rios E Primary Care Unavailable Gaurav Bettencourt Attending Unavailable Yuridia Titus Referring Unavailable Yuridia Titus Attending Unavailable Schinjacobo, Lukas E Primary Care Unavailable Schinner, Lukas E Primary Care Unavailable Schinner, Lukas E Referring Unavailable Ga Michel Attending Unavailable Toya Cantor Attending Unavailable Schinner, Lukas Pratt Primary Care Unavailable Schinner, Lukas Pratt Referring Unavailable Schinner, Lukas E Primary Care Unavailable Acosta Carr Attending Unavailable Gaurav Bettencourt Referring Unavailable SchinLukas centeno Primary Care Unavailable Acosta Carr Attending Unavailable Gaurav Bettencourt Referring Unavailable SchinLukas centeno Primary Care Unavailable Susi De La Cruz Attending Unavailable Dot Lambert Referring Unavailable Dot Lambert Attending Unavailable Schblanca, Lukas E Primary Care Unavailable Schblanca, Lukas E Primary Care Unavailable Gaurav Bettencourt Attending Unavailable Sen, Lukas Pratt Primary Care Unavailable Gaurav Bettencourt Attending Unavailable Tristan Bruner Attending Unavailable Schinjacobo, Lukas E Primary Care Unavailable Provider, Ed Physician Attending Unavailab Lukas Obrien Primary Care Unavailable Petra, Dot Referring Unavailable Dot Lambert Attending Unavailable Lukas Chatterjee Primary Care Unavailable Den Ramos Attending Unavailable Lukas Chatterjee Primary Care Unavailable Den Ramos Referring Unavailable SchLukas rios Primary Care Unavailable SchLukas rios Attending Unavailable Yuridia Titus Referring Unavailable Yuridia Titus Attending Unavailable SchLukas rios Primary Care Unavailable Schblanca, Lukas Pratt Primary Care Unavailable SchLukas rios Referring Unavailable Thea Rodriguez NP Attending Unavailable Sen, Lukas Pratt Primary Care Unavailable Susi De La Cruz Attending Unavailable Lukas Chatterjee Primary Care Unavailable Susi De La Cruz Attending Unavailable Maico Cuevas Attending Unavailable Lukas Chatterjee Primary Care Unavailable Medications Current Medications Medication Drug Class(es) Dates Sig (Normalized) Sig (Original) allopurinol 300 mg oral tablet (19 sources) Xanthine Oxidase Inhibitor Start: 02-25-2020 take 300 mg by mouth once daily Allopurinol Active 300 MG PO DAILY February 24, 2020 11:00pm amLODIPine 10 mg oral tablet (20 sources) Dihydropyridine Calcium Channel Bethanie Start: 08-07-2023 take 10 mg by mouth once daily Amlodipine Active 10 MG PO DAILY August 06, 2023 11:00pm Start: 06-28-2021 End: 06-07-2023 take 5 mg by mouth twice daily Amlodipine Discontinued 5 MG PO TWICE A DAY June 28, 2021 2:12pm June 07, 2023 7:30am Start: 01-10-2021 End: 06-28-2021 take 5 mg by mouth once daily Amlodipine Discontinued 5 MG PO DAILY February 08, 2021 1:32pm June 28, 2021 2:03pm Budesonide-Formoterol (18 sources) Corticosteroid, beta2-Adrenergic Agonist Start: 03-23-2021 take 1 puff(s) by mouth twice daily Budesonide-Formoterol (Symbicort) 160-4.5 mcg/actuation HFA aerosol inhaler Active 2 PUFF INHALATION TWICE A DAY March 23, 2021 3:30pm administer with spacer, rinse mouth after each use Start: 03-23-2021 End: 06-07-2023 take 1 puff(s) by mouth twice daily Budesonide-Formoterol (Symbicort) 160-4.5 mcg/actuation HFA aerosol inhaler Discontinued 2 PUFF INHALATION TWICE A DAY March 22, 2021 11:00pm June 07, 2023 7:30am administer with spacer, rinse mouth after each use Start: 03-23-2021 End: 06-07-2023 take 1 puff(s) by mouth twice daily Budesonide-Formoterol (Symbicort) 160-4.5 mcg/actuation HFA aerosol inhaler Discontinued 2 PUFF INHALATION TWICE A DAY March 23, 2021 12:00am June 07, 2023 8:30am administer with spacer, rinse mouth after each use Start: 03-23-2021 take 1 puff(s) by [facility] twice daily Budesonide-Formoterol (Symbicort) 160-4.5 mcg/actuation HFA aerosol inhaler Active 2 PUFF INHALATION TWICE A DAY March 23, 2021 12:00am administer with spacer, rinse mouth after each use Start: 03-23-2021 take 1 puff(s) by [facility] twice daily Budesonide-Formoterol (Symbicort) 160-4.5 mcg/actuation HFA aerosol inhaler Active 2 PUFF INHALATION TWICE A DAY March 22, 2021 11:00pm administer with spacer, rinse mouth after each use hydroCHLOROthiazide 25 mg oral tablet (20 sources) Thiazide Diuretic Start: 08-07-2023 take 25 mg by mouth once daily Hydrochlorothiazide Active 25 MG PO DAILY August 06, 2023 11:00pm Start: 04-15-2021 End: 06-07-2023 take 25 mg by mouth once daily Hydrochlorothiazide Discontinued 25 MG PO DAILY April 14, 2021 11:00pm June 07, 2023 7:31am 24 hr isosorbide mononitrate 30 mg extended release oral tablet (5 sources) Nitrate Vasodilator Start: 10-12-2023 take 30 mg by mouth once daily Isosorbide Mononitrate Active 30 MG PO DAILY October 12, 2023 12:00am losartan potassium 100 mg oral tablet (11 sources) Angiotensin 2 Receptor Bethanie Start: 08-07-2023 take 100 mg by mouth once daily Losartan Active 100 MG PO DAILY August 06, 2023 11:00pm meloxicam 15 mg oral tablet (10 sources) Nonsteroidal Anti-inflammatory Drug Start: 10-12-2023 End: 10-12-2023 Meloxicam Active 15 MG PO .PRN October 12, 2023 9:15am omeprazole 40 mg delayed release oral capsule (20 sources) Proton Pump Inhibitor Start: 08-07-2023 take 40 mg by mouth once daily Omeprazole Active 40 MG PO DAILY August 06, 2023 11:00pm Start: 09-28-2020 End: 06-07-2023 take 40 mg by mouth once daily Omeprazole Discontinued 40 MG PO DAILY September 28, 2020 12:00am June 07, 2023 7:31am rosuvastatin calcium 40 mg oral tablet (20 sources) HMG-CoA Reductase Inhibitor Start: 08-07-2023 take 1 tablet by mouth once daily Rosuvastatin (Crestor) 40 mg tablet Active 40 MG PO DAILY August 06, 2023 11:00pm Start: 09-09-2020 End: 06-07-2023 take 20 mg by mouth once daily Rosuvastatin Discontinu ed 20 MG PO DAILY February 08, 2021 1:31pm June 07, 2023 7:31am Completed/Discontinued Medications Medication Drug Class(es) Dates Sig (Normalized) Sig (Original) acetaminophen 325 mg / HYDROcodone bitartrate 5 mg oral tablet (18 sources) Opioid Agonist Start: 12-12-2013 End: 02-25-2020 take 1 tablet by mouth every four hours as needed Hydrocodone-Acetam inophen Discontinued 1 - 2 TABLET PO EVERY 4 HOURS NEEDED December 12, 2013 12:00am February 25, 2020 3:42pm [id number] actuat albuterol 0.09 mg/actuat metered dose inhaler (18 sources) beta2-Adrenergic Agonist Start: 01-27-2021 End: 06-07-2023 take 1 puff(s) by inhalation every six hours Albuterol Sulfate (Ventolin Hfa) 90 mcg/actuation HFA aerosol inhaler Discontinued 2 PUFF INHALATION EVERY 6 HOURS January 26, 2021 11:00pm June 07, 2023 7:30am aspirin 81 mg delayed release oral tablet (19 sources) Platelet Aggregation Inhibitor, Nonsteroidal Anti-inflammatory Drug Start: 03-05-2020 End: 06-07-2023 take 1 tablet by mouth once daily Aspirin (Adult Aspirin Regimen) 81 mg tablet,delayed release (DR/EC) Discontinued 81 MG PO DAILY March 04, 2020 11:00pm June 07, 2023 7:30am take 1 tablet by mouth once prema y aspirin 81 MG chewable tablet Take 81 mg by mouth daily 0 Active atorvastatin (18 sources) HMG-CoA Reductase Inhibitor Start: 12-12-2013 End: 02-25-2020 Lipitor Discontinued December 12, 2013 10:08pm February 25, 2020 4:41pm Start: 12-12-2013 End: 02-25-2020 Lipitor Discontinued 2013 1:00am February 25, 2020 4:41pm Start: 12-12-2013 End: 02-25-2020 Lipitor Discontinued 2013 12:00am February 25, 2020 3:41pm cyclobenzaprine hydrochloride 10 mg oral tablet (20 sources) Muscle Relaxant Start: 06-29-2023 End: 07-04-2023 take 10 mg by mouth three times daily Cyclobenzaprine Discontinued 10 MG PO THREE TIMES A DAY 17 03June 28, 2023 11:00pm July 03, 2023 11:04pm Start: 06-07-2023 End: 06-12-2023 take 10 mg by mouth three times daily Cyclobenzaprine Discontinued 10 MG PO THREE TIMES A DAY 17 03June 06, 2023 11:00pm June 11, 2023 11:03pm Start: 12-26-2020 End: 06-07-2023 take 5 mg by mouth every eight hours Cyclobenzaprine Discontinued 5 MG PO EVERY 8 HOURS December 26, 2020 12:00am June 07, 2023 7:31am diazePAM 5 mg oral tablet (18 sources) Benzodiazepine Start: 12-26-2020 End: 06-07-2023 take 5 mg by mouth every eight hours Diazepam Discontinued 5 MG PO EVERY 8 HOURS December 26, 2020 10:43am June 07, 2023 7:31am doxycycline hyclate 100 mg oral tablet (18 sources) Tetracycline-class Drug Start: 02-15-2021 End: 03-18-2021 take 100 mg by mouth twice daily Doxycycline Hyclate Discontinued 100 MG PO TWICE A DAY February 14, 2021 11:00pm March 18, 2021 12:44pm escitalopram 10 mg oral tablet (18 sources) Serotonin Reuptake Inhibitor Start: 07-02-2020 End: 06-07-2023 take 20 mg by mouth once daily Escitalopram Oxalate Discontinued 20 MG PO DAILY July 01, 2020 11:00pm June 07, 2023 7:31am Fluticasone-Umeclid in-Vilanter (18 sources) Anticholinergic, Corticosteroid, beta2-Adrenergic Agonist Start: 03-18-2021 End: 04-15-2021 Fluticasone-Umeclid in-Vilanter (Trelegy Ellipta) 100-62.5-25 mcg blister with device Discontinued 1 INH INHALATION daily 60 March 18, 2021 2:04pm April 15, 2021 3:05pm administer at approximately the same time(s) each day Start: 03-18-2021 End: 04-15-2021 Ohajpkgwmgn-Hrczgnjgh-Riufdz er (Trelegy Ellipta) 100-62.5-25 mcg blister with device Discontinued 1 INH INHALATION daily March 18, 2021 12:00am April 15, 2021 3:05pm administer at approximately the same time(s) each day Start: 03-18-2021 End: 04-15-2021 Qlmilvrlxpa-Azsqwuevo-Iqmdzs er (Trelegy Ellipta) 100-62.5-25 mcg blister with device Discontinued 1 INH INHALATION daily 60 March 17, 2021 11:00pm April 15, 2021 2:05pm administer at approximately the same time(s) each day Fluticasone Furoate-Vilanterol (18 sources) Corticosteroid, beta2-Adrenergic Agonist Start: 01-27-2021 End: 03-18-2021 Fluticasone Furoate-Vilanterol (Breo Ellipta) 200-25 mcg/dose blister with device Discontinued 1 INH INHALATION DAILY 60 January 27, 2021 2:27pm March 18, 2021 2:04pm Start: 01-27-2021 End: 03-18-2021 Fluticasone Furoate-Vilanter ol (Breo Ellipta) 200-25 mcg/dose blister with device Discontinued 1 INH INHALATION DAILY 60 January 27, 2021 12:00am March 18, 2021 2:04pm Start: 01-27-2021 End: 03-18-2021 Fluticasone Furoate-Vilanter ol (Breo Ellipta) 200-25 mcg/dose blister with device Discontinued 1 INH INHALATION DAILY 60 January 26, 2021 11:00pm March 18, 2021 1:04pm Gout (18 sources) Start: 12-12-2013 End: 02-25-2020 Gout Discontinued November 292013 10:08pm February 25, 2020 4:41pm Start: 12-12-2013 End: 02-25-2020 Gout Discontinued November [id number] 1:00am February 25, 2020 4:41pm Start: 12-12-2013 End: 02-25-2020 Gout Discontinued November [id number] 12:00am February 25, 2020 3:41pm Htn Med (18 sources) Start: 12-12-2013 End: 02-25-2020 Htn Med Discontinued 2013 10:08pm February 25, 2020 4:41pm Start: 12-12-2013 End: 02-25-2020 Htn Med Discontinued 2013 1:00am February 25, 2020 4:41pm Start: 12-12-2013 End: 02-25-2020 Htn Med Discontinued 2013 12:00am February 25, 2020 3:41pm lisinopril 40 mg oral tablet (20 sources) Angiotensin Converting Enzyme Inhibitor Start: 02-25-2020 End: 06-07-2023 take 40 mg by mouth once daily Lisinopril Discontinued 40 MG PO DAILY February 08, 2021 1:32pm June 07, 2023 7:31am methylPREDNISolone 4 mg oral tablet (20 sources) Corticosteroid Start: 06-29-2023 End: 07-05-2023 take 1 tablet by mouth once Methylprednisolone (Medrol (Valdo)) 4 mg tablets,dose pack Discontinued 4 MG PO per package directions 18 04June 28, 2023 11:00pm July 04, 2023 11:04pm Start: 06-07-2023 End: 06-13-2023 take 1 tablet by mouth once Methylprednisolone (Medrol (Valdo)) 4 mg tablets,dose pack Discontinued 4 MG PO per package directions 18 04June 06, 2023 11:00pm June 12, 2023 11:03pm metroNIDAZOLE 500 mg oral tablet (4 sources) Nitroimidazole Antimicrobial Start: 11-01-2023 End: 11-06-2023 take 500 mg by mouth three times daily Metronidazole Discontinued 500 MG PO THREE TIMES A DAY 15 November 01, 2023 12:00am November 06, 2023 12:04am Tiotropium-Olodater ol (18 sources) Anticholinergic, beta2-Adrenergic Agonist Start: 01-27-2021 End: 01-27-2021 Tiotropium-Olodater ol (Stiolto Respimat) 2.5-2.5 mcg/actuation mist Discontinued 2 PUFF INHALATION Q24H January 27, 2021 1:58pm January 27, 2021 2:31pm Start: 01-27-2021 End: 01-27-2021 Tiotropium-Olodaterol (Stiol to Respimat) 2.5-2.5 mcg/actuation mist Discontinued 2 PUFF INHALATION Q24H January 27, 2021 12:00am January 27, 2021 2:31pm Start: 01-27-2021 End: 01-27-2021 Tiotropium-Olodaterol (Stiol to Respimat) 2.5-2.5 mcg/actuation mist Discontinued 2 PUFF INHALATION Q24H January 26, 2021 11:00pm January 27, 2021 1:31pm predniSONE 20 mg oral tablet (18 sources) Start: 07-02-2020 End: 09-09-2020 take 60 mg by mouth once daily at mealtime Prednisone Discontinued 60 MG PO DAILY July 01, 2020 11:00pm September 09, 2020 9:42am With food QUEtiapine 50 mg oral tablet (18 sources) Atypical Antipsychotic Start: 12-06-2020 End: 02-08-2021 take 50 mg by mouth at bedtime Quetiapine Discontinued 50 MG PO AT BEDTIME December 06, 2020 12:00am February 08, 2021 12:56pm simvastatin 20 mg oral tablet (19 sources) HMG-CoA Reductase Inhibitor Start: 02-25-2020 End: 09-09-2020 take 20 mg by mouth at bedtime Simvastatin Discontinued 20 MG PO AT BEDTIME February 24, 2020 11:00pm September 09, 2020 9:42am sucralfate 1000 mg oral tablet (4 sources) Aluminum Complex Start: 11-01-2023 End: 11-08-2023 take 1 tablet by mouth at bedtime Sucralfate (Carafate) 1 gram tablet Discontinued 1 GM PO before meals and at bedtime 25 05November 01, 2023 12:00am November 08, 2023 12:04am traZODone hydrochloride 50 mg oral tablet (19 sources) Serotonin Reuptake Inhibitor Start: 12-06-2020 End: 01-27-2021 take 50 mg by mouth at bedtime Trazodone Discontinued 50 MG PO AT BEDTIME December 06, 2020 12:00am January 27, 2021 12:58pm Start: 03-23-2020 take 1 tablet by ashleigh th once daily as needed for sleep traZODone (DESYREL) 50 MG tablet Take 1 tablet by mouth nightly as needed for Sleep 30 tablet 1 03/23/2020 Active Problems Active Problems Problem Classification Problem Date Documented Da te Episodic/Chronic Abdominal pain (20 sources) Abdominal pain - cause unknown; Translations: [Unspecified abdominal pain] 08-20-2020 Episodic Adjustment disorders (18 sources) Grief finding; Translations: [Adjustment disorder with depressed mood] 03-23-2020 Chronic Alcohol-related disorders (18 sources) Alcohol intoxication; Translations: [Alcohol use, unspecified with intoxication, unspecified] 03-23-2020 Episodic Cardiac dysrhythmias (1 source) Cardiac arrhythmia, unspecified; Translations: [Cardiac arrhythmia, unspecified] Onset: 08-30-2017 Chronic Chronic obstructive pulmonary disease and bronchiectasis (20 sources) Asthma-chronic obstructive pulmonary disease overlap syndrome; Translations: [Chronic obstructive pulmonary disease, unspecified] 03-18-2021 Chronic Disorders of lipid metabolism (20 sources) Hyperlipidemia; Translations: [Hyperlipidemia, unspecified] Onset: 07-08-2024 08-25-2020 Chronic Essential hypertension (20 sources) Essential hypertension; Translations: [Essential (primary) hypertension] 02-18-2020 Chronic Gastrointestinal hemorrhage (18 sources) Melena; Translations: [Melena] 02-08-2021 Episodic Mood disorders (3 sources) Depressive disorder; Translations: [Major depressive disorder, single episode, unspecified] Onset: 03-22-2020 Resolved: 03-23-2020 03-23-2020 Chronic Other connective tissue disease (20 sources) Muscle spasm of cervical muscle of neck; Translations: [Other muscle spasm] 12-27-2020 Episodic Other injuries and conditions due to external causes (1 source) Unspecified injury of head, initial encounter; Translations: [Unspecified injury of head, initial encounter] Onset: 03-12-2025 Episodic Other lower respiratory disease (18 sources) Dyspnea on exertion; Translations: [Dyspnea, unspecified] 04-15-2021 Episodic Other lower respiratory disease (18 sources) Dyspnea; Translations: [Dyspnea, unspecified] 12-31-2020 Episodic Other lower respiratory disease (5 sources) Other forms of dyspnea; Translations: [Other respiratory abnormalities] 10-12-2023 Episodic Other nutritional; endocrine; and metabolic disorders (1 source) Body mass index 30+ - obesity; Translations: [Obesity (BMI 30-39.9)] Onset: 03-22-2020 03-22-2020 Chronic Residual codes; unclassified (1 source) Insomnia, unspecified; Translations: [Insomnia, unspecified] Onset: 03-13-2025 Episodic Spondylosis; intervertebral disc disorders; other back problems (13 sources) Lumbar radiculopathy; Translations: [Radiculopathy, lumbar region] Onset: 01-14-2025 08-28-2023 Episodic Substance-related disorders (20 sources) Nicotine dependence; Translations: [Nicotine dependence, unspecified, uncomplicated] Onset: 09-17-2024 08-25-2020 Chronic Suicide and intentional self-inflicted injury (18 sources) Suicidal thoughts; Translations: [Suicidal ideations] 03-23-2020 Episodic Syncope (4 sources) Syncope and collapse; Translations: [Syncope and collapse] Onset: 08-30-2017 Episodic Unclassified (1 source) Unknown / UNK(Unknown) Onset: 08-30-2017 Unclassified (1 source) Other intervertebral disc degeneration, lumbar region without mention of lumbar back pain or lower extremity pain; Translations: [Other intervertebral disc degeneration, lumbar region without mention of lumbar back pain or lower extremity pain] Onset: 12-29-2024 Unclassified (1 source) Low back pain, unspecified; Translations: [Low back pain, unspecified] Onset: 04-25-2024 Past or Other Problems Problem Classification Problem Date Documented Da te Episodic/Chronic Alcohol-related disorders (1 source) Alcohol intoxication; Translations: [Alcoholic intoxication with complication] Onset: 03-22-2020 Resolved: 03-23-2020 03-23-2020 Chronic Nonspecific chest pain (20 sources) Chest pain, unspecified; Translations: [Chest pain] Onset: 08-30-2017 01-18-2021 Episodic Other injuries and conditions due to external causes (1 source) Encounter for examination and observation following other accident; Translations: [Encounter for examination and observation following other accident] Onset: 12-11-2024 Episodic Sprains and strains (20 sources) Strain of fascia of lower back; Translations: [Strain of muscle, fascia and tendon of lower back, initial encounter] Onset: 08-26-2024 06-07-2023 Episodic Results Test Name Value Interpretation Reference Range Facility Urgent Care Visit Reporton 0 04-07-2025 Urgent Care Visit Report [facility] [address], [address] [place], [place] [address] OFFICE VISIT Date of Service: 04/07/25 MR#: [id number] Acct: [id number] Name: JACKIE SHELDON Rep #: [id number] : 1965 Provider: TARAH Nguyen Age/Sex: 59/M Location: [facility] Status: Signed Intake Vital Signs 03/13/25 10:47 04/07/25 14:44 Height 6 ft 6 ft Weight: 202 lb 203 lb 6 oz BMI 27.3 27.6 BP 153/84 H 124/82 H Blood Pressure Location Lt brachial Lt brachial Position Sitting Sitting Respiration 18 18 Pulse 85 75 Pulse Source Monitor Monitor Temp 98.5 F Temp Source Oral Pulse Oximetry (%) 97 97 Oxygen Delivery Method room air room air Intake Visit Reasons: RASH BILAT ARMS Chief Complaint: Rash Bilateral arms Nursing Informatics Specialist Required: No Is patient in pain?: No Allergies No Known Allergies Allergy (Verified 04/07/25 14:46) Medications ???Medication ???Instructions ???Recorded ???Confirmed ???Type allopurinol 300 mg tablet 300 mg PO DAILY 02/25/20 04/07/25 History hydrochlorothiazide 25 mg tablet 25 mg PO DAILY 08/07/23 04/07/25 H istory losartan 100 mg tablet 100 mg PO DAILY 08/07/23 04/07/25 History omeprazole 40 mg capsule,delayed 40 mg PO DAILY 08/07/23 04/07/25 H istory release amlodipine 10 mg tablet 5 mg PO DAILY 12/14/23 04/07/25 Hi story isosorbide mononitrate 60 mg 60 mg PO BID #180 tabs 12/14/23 Rx tablet,extended release 24 hr hydrocodone-acetaminophen 5-325mg 1 tab PO Q6H PRN PRN Pain 3 days 11/24/24 04/07/25 Rx 5mg-325mg #10 TABLETS meclizine 25 mg tablet 25 mg PO TID PRN dizziness #20 tab s 01/17/25 04/07/25 Rx hydroxyzine HCl 25 mg tablet 25 mg PO QHS #30 tabs 03/13/2508/22 Rx venlafaxine 150 mg 150 mg PO DAILY #90 caps 03/13/25 04/07/25 Rx capsule,extended release 24 hr prednisone 10 mg tablet 10 mg PO DAILY #30 tabs 04/07/25 0 04/07/25 Rx Nurse's Note: developed rash on both arms while in [place] this morning. Does not feel it is related to poison oak or poison maeve. Feels he might have been bit by something. c/o burning and itching [facility] Medical History (Updated 04/07/25 @ 14:48 by Haley Machado) Rash Right shoulder strain Abdominal pain Epigastric pain Difficulty swallowing Wears glasses Marijuana use Arthritis Back pain Gastric reflux COPD (chronic obstructive pulmonary disease) Shortness of breath on exertion Smoker History of stress test Hypertension History of heart attack Cardiology follow-up encounter Chest pain Pain Tobacco use History of GI bleed Lumbar radiculopathy Acute lumbar myofascial strain Strain of fascia of lower back Nicotine dependence, cigarettes, uncomplicated Dyspnea on exertion Asthma-COPD overlap syndrome Smoking greater than 30 pack years Obesity Chest pain Nicotine dependence Hyperlipidemia Essential (primary) hypertension Cervical spondylosis Gout Surgical History (Reviewed 12/05/24 @ 10:47 by Thea Rodriguez CUSTOMER SUPPORT CONSULTANT, CUSTOMER SUPPORT CONSULTANT-C) History of esophagogastroduodenoscopy (EGD) History of colonoscopy Hx of colonoscopy with polypectomy History of left heart catheterization (03/11/20) Family History Father Diabetes Hypertension Grandfather Heart disease Grandfather Heart disease Social History (Updated 01/17/25 @ 14:26 by Kat Cortes) household members: family and none housing: house Smoking Status: Heavy Smoker (>10/day) Tobacco: How many years used: 30 alcohol intake: never substance use type: marijuana caffeine: Yes Type: coffee Number of servings: 5 HPI HPI Chief Complaint: Rash Bilateral arms Details: JACKIE SHELDON, is a 59 M who presents to the office today for initial evaluation status post ? insect bite vs plant exposure while in [place] earlier today, cause bilat forearm pruritic rash. Patient states he has used no otc oral or topical medications to assist. He notes with excoriations to both. No complaints of constricted/pruritic airway or chest pain/shortness of breath/wheeze/dyspnea on exertion. No other associated symptoms and no other alleviating/aggravating factors. ROS Const Constitutional: No other (As above) Exam Const General: cooperative, healthy appearing and no acute distress Nutritional Appearance: average body habitus Orientation: alert, awake and oriented x3 HENMT Head: normal to inspection Ears: hearing grossly normal bilaterally, external ears normal, TM's normal bilaterally and EAC's normal Nose: external nose normal, nares normal, septum normal and no nasal discharge Face and sinus: normal facial exam, sinuses nontender and face symmetric Mouth: oral mucosae normal, lip normal, tongue normal and oropharynx normal Throat: posterior oropharynx normal, tonsils brooke (more content not included)... Normal [facility] MR/BMS.BPon 03-13-2025 MR/BMS.BP [facility] ry [address], [address] [place] [address] OFFICE VISIT Date of Service: 03/13/25 MR#: [id number] Acct: [id number] Name: JACKIE SHELDON Rep #: [id number] : 1965 Provider: NOEL bustamante Age/Sex: 59/M Location: [facility] Status: Signed Intake Vital Signs 01/16/25 11:01 01/17/25 13:55 03/13/25 10:47 Height 6 ft 6 ft 6 ft Weight: 202 lb BMI 27.3 BP 153/84 H Blood Pressure Location Lt brachial Position Sitting Respiration 18 Pulse 85 Pulse Source Monitor Pulse Oximetry (%) 97 Oxygen Delivery Method room air BP Intake Visit Reasons: 8wfu Allergies No Known Allergies Allergy (Verified 01/17/25 13:58) [facility] Medical History Right shoulder strain Abdominal pain Epigastric pain Difficulty swallowing Wears glasses Marijuana use Arthritis Back pain Gastric reflux COPD (chronic obstructive pulmonary disease) Shortness of breath on exertion Smoker History of stress test Hypertension History of heart attack Cardiology follow-up encounter Chest pain Pain Tobacco use History of GI bleed Lumbar radiculopathy Acute lumbar myofascial strain Strain of fascia of lower back Nicotine dependence, cigarettes, uncomplicated Dyspnea on exertion Asthma-COPD overlap syndrome Smoking greater than 30 pack years Obesity Chest pain Nicotine dependence Hyperlipidemia Essential (primary) hypertension Cervical spondylosis Gout Surgical History History of esophagogastroduodenoscopy (EGD) History of colonoscopy Hx of colonoscopy with polypectomy History of left heart catheterization (03/11/20) Family History Father Diabetes Hypertension Grandfather Heart disease Grandfather Heart disease Social History (Updated 01/17/25 @ 14:26 by Kat Cortes) household members: family and none housing: house Smoking Status: Heavy Smoker (>10/day) Tobacco: How many years used: 30 alcohol intake: never substance use type: marijuana caffeine: Yes Type: coffee Number of servings: 5 HPI History of Present Illness History provided by: patient Chief complaint: Insomnia HPI: Jackie Sheldon is a 59 year old male patient presenting today for a follow up evaluation. 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 Does feel venlafaxine dose has been effective. Reports when taking mirtazapine he was having nightmares and h was unable to tolerate so he discontinued use. Admits to difficulties falling asleep and staying asleep. Struggles to shut his mind off at bedtime. Does voice concerns around finances. 3-4 hours per night. Does not feel well rested. Reports appetite has been poor and feels with warm weather doesn't feel hungry. Reports losing about 10 pounds due to this. Denies feelings of depression. Denies SI/HI. Reports anxiety has been well managed. Denies panic attacks. Is looking forward to spending more time in the [place] this summer and camping. Previous similar episode: Yes Age of first onset of symptoms: 11-20 years Review of Systems Constitutional Reports: change in weight (Loss, planned) and fatigue; Denies: fever(s) or chills Eyes Denies: change in vision, blurry vision, photophobia, eye discomfort or eye discharge Ears, Nose, Mouth, Throat Reports: neck pain; Denies: throat pain, dysphagia, hoarseness, ear or mastoid pain, ear discharge, change in hearing, tinnitus, nasal congestion or epistaxis Cardiovascular Reports: chest pain (does see the heart group for this ), palpitations (does see the heart group for this ) and dyspnea (does see the heart group for this ) Respiratory Reports: dyspnea (does see the heart group for this ) and wheezing Gastrointestinal Denies: abdominal pain, nausea, vomiting, hematemesis, heartburn, diarrhea, constipation, bloating, dysphagia, change in bowel habits or hematochezia Genitourinary Denies: urinary frequency, urinary urgency, hematuria, genital pain or penile discharge Musculoskeletal Reports: back pain (gets cortisone injections in back 8 on each side ) and neck pain Integumentary/Breast Denies: rash, pruritus, changing lesions, non-healing lesions or jaundice Neurological Denies: headache(s), numbness in extremities, weakness in extremities, seizure-like activity or involuntary movements Psychiatric Reports: anxiety, change in sleep pattern and irritability; Denies: mood swings, panic attacks, hopelessness, loss of interest, paranoia, memory loss, difficulty concentrating, visual hallucinations, auditory hallucinations, tactile hallucinations, suicidal ideation or homicidal ideation Endocrine Reports: fatigue; Denies: polyuria, polydipsia, cold intole (more content not included)... Normal [facility] Cerv Spine Obl/Flex/Ext Comp on 02-19-2025 Cerv Spine Obl/Flex/Ext Comp [facility] Imaging Services [address] [place], [place] [id number] Cerv Spine Obl/Flex/Ext Comp MR#: [id number] Acct: [id number] Name: JACKIE SHELDON Rep #: [id number] : 1965 M 59 From: Christiano Valero MD PCP: Dr. Lukas Chatterjee MD Status: REG CLI Study: Cerv Spine Obl/Flex/Ext Comp Date of Exam: Exam# [id number] Ordering Dr: Dot Lambert PROCEDURE: CERV SPINE OBL/FLEX/EXT COMP 02/19/2025 REASON FOR EXAM: PAIN TECHNIQUE: Neutral, flexed and extended lateral views of the cervical spine. FINDINGS: Vertebrae: No acute fracture disc spaces: Disc space narrowing and osteophyte formation of the lower cervical spine consistent with degenerative disc disease. Alignment: Anatomic alignment. Straightening of the normal lordotic curvature. No subluxation on the flexion extension views to suggest instability. soft tissues: Unremarkable. Other: RAD/Cerv Spine Obl/Flex/Ext Comp IMPRESSION: Degenerative disc disease with straightening of the normal lordotic curvature. No instability. Disclaimer: Reading Location: [id number] CC: Dot Lambert; Dr. Lukas Chatterjee MD Health Promotion Manager: Signed Normal [facility] Thoracic Spine 3 Viewson Thoracic Spine 3 Views [facility] Imaging Services [address] [place] [address] Thoracic Spine 3 Views MR#: [id number] Acct: [id number] Name: JACKIE SHELDON Rep #: [id number] : 1965 M 59 From: Papito Garcia PCP: Dr. Lukas Chatterjee MD Status: REG CLI Study: Thoracic Spine 3 Views Date of Exam: 02/19/25 Exam# [id number] Ordering Dr: Dot Lambert PROCEDURE: THORACIC SPINE 3 VIEWS 02/19/2025 REASON FOR EXAM: PAIN TECHNIQUE: Three views of the thoracic spine COMPARISON: None FINDINGS: See impression RAD/Thoracic Spine 3 Views IMPRESSION: Visualized vertebral body heights are within normal limits. No significant malalignment. Disc spaces are relatively preserved. Prominent multilevel anterior endplate osteophytes most consistent with diffuse idiopathic skeletal hyperostosis. Posterior ribs are grossly intact. Reading Location: [facility] CC: Dot Lambert; Dr. Lukas Chatterjee MD Health Promotion Manager: Signed Normal [facility] 12 Lead EKGon 01-17-2025 12 Lead EKG [facility] Cardiovascular Services [address] [place] [address] 12 Lead EKG 01/17/25 1423 MR#: [id number] Acct: [id number] Name: JACKIE SHELDON Rep #: [id number] : 1965 59 From: Acosta Carr MD Attending Dr: Status: DEP ER Ordering Dr: Gaurav Bettencourt MD Date: 01/17/25 Location: ED Sex: M C Admitted: Test Reason : Blood Pressure : */* mmHG Vent. Rate : 60 BPM Atrial Rate : 60 BPM P-R Int : 172 ms QRS Dur : 94 ms QT Int : 426 ms P-R-T Axes : 0 26 49 degrees QTcB Int : 426 ms Sinus rhythm with Premature atrial complexes Otherwise normal ECG Confirmed by PRINCESS CULP, ACOSTA ([id number]), editor city TAMY RAMIREZ ([id number]) on 01/19/2025 6:41:56 AM Referred By: Bb Confirmed By: ACOSTA CARR MD 01/19/25 0642 Date Acosta Carr MD CC: Dr. Gaurav Bettencourt MD; Dr. Lukas Chatterjee MD Signed Normal [facility] Basic Metabolic Profile (BMP )on 01-17-2025 BUN/CRE 25.3 RATIO High 10-20 [facility] Comment on above: Performed By: #### L 100.0100, L501.4021, L500.2500 #### [facility] Laboratory [address] [place], [address] Calcium [Mass/Vol] 8.9 mg/dL Normal 7.6-11.0 [facility] Comment on above: Performed By: #### L 100.0100, L501.4021, L500.2500 #### [facility] [address] [place], [address] Chloride [Moles/Vol] 103 mmol/L Normal 98-108 [facility] Comment on above: Performed By: #### L 100.0100, L501.4021, L500.2500 #### [facility] [address] [place], [address] CO2 [Moles/Vol] 23.4 mmol/L Normal 21.0-32.0 [facility] Comment on above: Performed By: #### L 100.0100, L501.4021, L500.2500 #### [facility] [address] [place], [address] Creatinine [Mass/Vol] 0.91 mg/dL Normal 0.70-1.20 [facility] Comment on above: Performed By: #### L 100.0100, L501.4021, L500.2500 #### [facility] [address] [place], [address] ECRCL 103.00 ml/min Normal 50-250 [facility] Comment on above: Performed By: #### L 100.0100, L501.4021, L500.2500 #### [facility] [address] [place], [address] GAP 11 Normal 5-15 [facility] Comment on above: Performed By: #### L 100.0100, L501.4021, L500.2500 #### [facility] [address] [place], [address] GFR/1.73 sq M.predicted among non-blacks MDRD (S/P/Bld) [Vol rate/Area] 97 mL/min/{1.73_m2} Normal >60 [facility] Comment on above: Result Comment: mL/m in/1.73m2 CKD-EPI Creatinine Equation (2020) Performed By: #### L 100.0100, L501.4021, L500.2500 #### [facility] [address] [place], [address] Glucose [Mass/Vol] 109 mg/dL High 70-99 [facility] Comment on above: Performed By: #### L 100.0100, L501.4021, L500.2500 #### [facility] [address] [place], [address] Potassium [Moles/Vol] 4.5 mmol/L Normal 3.3-5.1 [facility] Comment on above: Performed By: #### L 100.0100, L501.4021, L500.2500 #### [facility] [address] [place], [address] Sodium [Moles/Vol] 137 mmol/L Normal 133-145 [facility] Comment on above: Performed By: #### L 100.0100, L501.4021, L500.2500 #### [facility] [address] [place], [address] Urea nitrogen [Mass/Vol] 23 mg/dL High 4-19 [facility] Comment on above: Performed By: #### L 100.0100, L501.4021, L500.2500 #### [facility] [address] [place], [address] Brain/Head without Contrasto n 01-17-2025 Brain/Head without Contrast [facility] Imaging Services [address] [place] [address] Brain/Head without Contrast MR#: [id number] Acct: [id number] Name: JACKIE SHELDON Rep #: [id number] : 1965 M 59 From: Florinda Garcia nd, MD PCP: Dr. Lukas Chatterjee MD Status: REG ER Study: Brain/Head without Contrast Date of Exam: 12/28 12/23 Exam# [id number] Ordering Dr: Gaurav Bettencourt MD EXAM: BRAIN/HEAD WITHOUT CONTRAST CLINICAL HISTORY: 59 y/o M with HEADACHE, SYNCOPE, HEAD INJURY. COMPARISON: None. TECHNIQUE: Routine CT imaging of the head without IV contrast. Additional multiplanar reformats were obtained. Dose reduction techniques were used including intermediate exposure control (AEC),iterative reconstruction technique, and/or mA and/or KV dose adjustments based on patient's size. FINDINGS: Mild scattered supratentorial white matter hypodensities, compatible with patient age. The hoff- white matter interfaces are otherwise maintained. The basal cisterns are patent. No ventriculomegaly. Trace right mastoid effusion. The orbits, visualized paranasal sinuses and mastoids are otherwise unremarkable. Small right posterior upper scalp thickening, likely site of recent small hematoma. No acute calvarial fracture. CT/Brain/Head without Contrast IMPRESSION: 1. No acute intracranial finding. 2. Small right posterior upper scalp thickening, likely site of recent small hematoma. Reading Location: [facility] CC: Dr. Gaurav Bettencourt MD; Dr. Lukas Chatterjee MD Health Promotion Manager: Signed Normal [facility] CBC W/Diff, Automatedon 03-2 -2024 Absolute Lymph 2.43 X10 3/uL Normal 0.83-4.51 [facility] Comment on above: Performed By: #### L 100.0100, L501.4021, L500.2500 #### [facility] [address] [place], [address] Absolute Neut 4.5 X10 3/uL Normal 2.0-7.7 [facility] Comment on above: Performed By: #### L 100.0100, L501.4021, L500.2500 #### [facility] [address] [place], [address] Basophils/100 WBC (Bld) 0.9 % Normal 0-1 [facility] Comment on above: Performed By: #### L 100.0100, L501.4021, L500.2500 #### [facility] [address] [place], [address] Eosinophils/100 WBC (Bld) 2.5 % Normal 0-5 [facility] Comment on above: Performed By: #### L 100.0100, L501.4021, L500.2500 #### [facility] [address] [place], [address] Erythrocyte distribution width (RBC) [Ratio] 13.1 % Normal 11.6-14.6 [facility] Comment on above: Performed By: #### L 100.0100, L501.4021, L500.2500 #### [facility] [address] [place], [address] Hematocrit (Bld) [Volume fraction] 44.0 % Normal 40-54 [facility] Comment on above: Performed By: #### L 100.0100, L501.4021, L500.2500 #### [facility] [address] [place], [address] Hemoglobin (Bld) [Mass/Vol] 14.8 g/dL Normal 13.0-16.5 [facility] Comment on above: Performed By: #### L 100.0100, L501.4021, L500.2500 #### [facility] [address] [place], [address] IG% 0.300 Normal 0.0-0.9 [facility] Comment on above: Result Comment: IG% - Immature Granulocytes (promyelocytes, myelocytes and metamyelocytes) > 1% indicates that a LEFT SHIFT is Present. Performed By: #### L 100.0100, L501.4021, L500.2500 #### [facility] [address] [place], [address] Lymphocytes/100 WBC (Bld) 30.6 % Normal 19-41 [facility] Comment on above: Performed By: #### L 100.0100, L501.4021, L500.2500 #### [facility] [address] [place], [address] MCH (RBC) [Entitic mass] 31.2 pg Normal 27.0-32.0 [facility] Comment on above: Performed By: #### L 100.0100, L501.4021, L500.2500 #### [facility] [address] [place], [address] MCHC (RBC) [Mass/Vol] 33.6 g/dL Normal 32-36 [facility] Comment on above: Performed By: #### L 100.0100, L501.4021, L500.2500 #### [facility] [address] [place], [address] MCV (RBC) [Entitic vol] 92.6 fL Normal 80-94 [facility] Comment on above: Performed By: #### L 100.0100, L501.4021, L500.2500 #### [facility] [address] [place], [address] Monocytes/100 WBC (Bld) 9.6 % Normal 0-10 [facility] Comment on above: Performed By: #### L 100.0100, L501.4021, L500.2500 #### [facility] [address] [place], [address] Neutrophils/100 WBC (Bld) 56.1 % Normal 47-70 [facility] Comment on above: Performed By: #### L 100.0100, L501.4021, L500.2500 #### [facility] [address] [place], [address] Nucleated RBC (Bld) [#/Vol] 0 10*3/uL Normal 0-5 [facility] Comment on above: Performed By: #### L 100.0100, L501.4021, L500.2500 #### [facility] [address] [place], [address] Platelet mean volume (Bld) [Entitic vol] 9.5 fL Normal 6.2-12.0 [facility] Comment on above: Performed By: #### L 100.0100, L501.4021, L500.2500 #### [facility] [address] [place], [address] Platelets (Bld) [#/Vol] 319 10*3/uL Normal 150-450 [facility] Comment on above: Performed By: #### L 100.0100, L501.4021, L500.2500 #### [facility] [address] [place], [address] RBC (Bld) [#/Vol] 4.75 10*6/uL Normal 4.6-6.2 [facility] Comment on above: Performed By: #### L 100.0100, L501.4021, L500.2500 #### [facility] [address] [place], [address] RDW SD 44.7 fl High 35.1-43.9 [facility] Comment on above: Performed By: #### L 100.0100, L501.4021, L500.2500 #### [facility] [address] [place], [address] WBC (Bld) [#/Vol] 7.9 10*3/uL Normal 4.4-11.0 [facility] Comment on above: Performed By: #### L 100.0100, L501.4021, L500.2500 #### [facility] [address] [place], [address] CTA Chest W/WO Contraston CTA Chest W/WO Contrast [facility] Imaging Services [address] [place] [address] CTA Chest W/WO Contrast MR#: [id number] Acct: [id number] Name: JACKIE SHELDON Rep #: [id number] : 1965 M 59 From: Florinda Garcia nd, MD PCP: Dr. Lukas Chatterjee MD Status: REG ER Study: CTA Chest W/WO Contrast Date of Exam: 01/17/25 Exam# [id number] Ordering Dr: Gaurav Bettencourt MD PROCEDURE: CTA CHEST W/WO CONTRAST 01/17/2025 REASON FOR EXAM: 59-year-old male, syncope, elevated D-dimer. TECHNIQUE: CTA axial imaging of the chest with intravenous contrast. Coronal and Sagittal reconstruction series were provided. 3D, 3D post processing, 3D reconstructions, Maximum intensity projection (MIPs) Volume rendering and Shaded surface rendering was provided. PATIENT PREPARATION: Per protocol CONTRAST: Isovue-300 VOLUME: 100mL One or more dose reduction techniques were used (e.g., Automated exposure control, adjustment of the mA and/or kV according to patient size, use of iterative reconstruction technique). RADIATION DOSE SUMMARY: CTDlvol: 30 mGy DLP: 488 mGycm COMPARISON: Low-dose CT chest 08/27/2024. FINDINGS: Lymph nodes: No axillary, mediastinal or hilar lymphadenopathy. Heart: The heart is normal size without pericardial effusion. Moderate coronary artery and mild thoracic aortic calcifications. The great vessels are normal in caliber. Pulmonary Vessels: No central filling defect within the segmental or subsegmental pulmonary arteries. Lungs and Airways: The central airways are patent. Scattered bilateral calcified granulomas. No suspicious pulmonary nodule, pleural effusion or pneumothorax. Bibasilar atelectasis/scarring. Upper Abdomen: Stable small left adrenal nodule, likely an adenoma. Bones: Degenerative changes of the thoracic spine. CT/CTA Chest W/WO Contrast IMPRESSION: 1. No acute pulmonary embolism. 2. Moderate coronary artery calcifications. Reading Location: [facility] CC: Dr. Gaurav Bettencourt MD; Dr. Lukas Chatterjee MD Health Promotion Manager: Signed Normal [facility] D-Dimer Quantitative (DVT/PE )on 01-17-2025 D-DIMER QUANT 0.52 FEU/ug/m Invalid Interpretation Code 0.27-0.49 [facility] Comment on above: Order Comment: CRITI TERRY VALUE CALLED TO YOLANDA WARD 01/17/25 1535 Anali Lollo. RESULTS READ BACK BY SAME. Result Comment: D-Di radha ELEVATED (>0.49): Additional studies and clinical assessments are indicated to conclude diagnosis of: Deep Vein Thrombosis (DVT) or Pulmonary Embolism (PE) Performed By: #### L 300.1193 #### [facility] Laboratory [address] [place], [address] Emergency Department Summary on 01-17-2025 Emergency Department Summary [facility] Medical Records Department [address] [place] [address] Emergency Department Summary 01/17/25 MR#: [id number] Acct: [id number] Name: JACKIE SHELDON Rep #: [id number] : 1965 59 From: Gaurav Bettencourt MD PCP: Dr. Lukas Chatterjee MD Status:REG ER Location: ED HPI History of Present Illness Chief Complaint: Head Injury Informant: patient Narrative Narrative: Patient states he had a sudden syncopal episode without warning about a week ago, resulting in him falling and collapsing and hitting his head. Has been having headaches ever since. He also has passed out twice since then, the last episode was 2 days ago, and states these were completely without warning with the exception of the headache that he has been having all week did become a little worse before these episodes. Separately he has been having episodes of vertigo for the past week, these have been after the initial fall/syncopal episode, they have come and gone all week, and have been completely separate with regards to the timing of the syncopal episodes. He has chronic tinnitus that is no different and no other hearing disturbance. Some blurry vision but no visual field cuts or diplopia. Today he was at the store with his mom and he states he was leaning against some thing without moving and suddenly felt the episode of vertigo start again and had nausea and vomited once with it which is why he presents here today. This is the first time he is presented to healthcare for any of the symptoms in the past week. He states he has a history of coronary disease for which she follows with the cardiology practice here, he is compliant with his medications, he also continues to smoke but states that he has cut back on his smoking quite a bit from the past when he used to smoke 2 packs a day now he is down to half a pack a day. [facility] Medical History Right shoulder strain Abdominal pain Epigastric pain Difficulty swallowing Wears glasses Marijuana use Arthritis Back pain Gastric reflux COPD (chronic obstructive pulmonary disease) Shortness of breath on exertion Smoker History of stress test Hypertension History of heart attack Cardiology follow-up encounter Chest pain Pain Tobacco use History of GI bleed Lumbar radiculopathy Acute lumbar myofascial strain Strain of fascia of lower back Nicotine dependence, cigarettes, uncomplicated Dyspnea on exertion Asthma-COPD overlap syndrome Smoking greater than 30 pack years Obesity Chest pain Nicotine dependence Hyperlipidemia Essential (primary) hypertension Cervical spondylosis Gout Home Medications ???Medication ???Instructions ???Recorded ???Last Taken ???Type allopurinol 300 mg tablet 300 mg PO DAILY 02/25/20 09/02/23 History hydrochlorothiazide 25 mg tablet 25 mg PO DAILY 08/07/23 09/02/23 H istory losartan 100 mg tablet 100 mg PO DAILY 08/07/23 09/03/23 History omeprazole 40 mg capsule,delayed 40 mg PO DAILY 08/07/23 09/02/23 H istory release amlodipine 10 mg tablet 5 mg PO DAILY 12/14/23 Unknown His tory isosorbide mononitrate 60 mg 60 mg PO BID #180 tabs 12/14/23 Un known Rx tablet,extended release 24 hr hydrocodone-acetaminophen 5-325mg 1 tab PO Q6H PRN PRN Pain 3 days 11/24/24 Unknown Rx 5mg-325mg #10 TABLETS mirtazapine 7.5 mg tablet 7.5 mg PO QHS #30 tabs 01/16/25 Un known Rx venlafaxine 150 mg 150 mg PO DAILY #30 caps 01/16/25 Unknown Rx capsule,extended release 24 hr meclizine 25 mg tablet 25 mg PO TID PRN dizziness #20 tab s 01/17/25 Unknown Rx Allergy/AdvReac Type Severity Reaction Status Date / Time No Known Allergies Allergy Verified 01/17/25 13:58 Family History Father Diabetes Hypertension Grandfather Heart disease Grandfather Heart disease Surgical History (Reviewed 12/05/24 @ 10:47 by Thea Rodriguez CUSTOMER SUPPORT CONSULTANT, CUSTOMER SUPPORT CONSULTANT-C) History of esophagogastroduodenoscopy (EGD) History of colonoscopy Hx of colonoscopy with polypectomy History of left heart catheterization (03/11/20) Social History (Updated 01/17/25 @ 14:26 by Kat Cortes) household members: family and none housing: house Smoking Status: Heavy Smoker (>10/day) Tobacco: How many years used: 30 alcohol intake: never substance use type: marijuana caffeine: Yes Type: coffee Number of servings: 5 ROS ROS ED Constitutional Constitutional ED: Denies chills or fever(s) Eyes Eyes: Reports blurry vision; Denies diplopia ENT ENT ED: Reports tinnitus and vertigo; Denies ear pain, rhinorrhea or sore throat Cardiovascular Cardiovascular: Reports syncope; Denies chest pain, dyspnea on exertion, leg edema, orthopnea, palpitations or radiating jaw, neck or arm pain Respiratory/Ch (more content not included)... Normal [facility] L499.0042on 01-17-2025 Trop T High Sen 9 ng/L Normal <=22 [facility] Comment on above: Performed By: #### L 499.0042 #### [facility] [address] [place], [address] L499.0043on 01-17-2025 Trop T High Sen Normal <=22 [facility] Comment on above: Result Comment: Canc elled via OM: Order cancelled - Patient discharged Performed By: #### L 499.0043 #### [facility]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 fascia of lower back Nicotine dependence, cigarettes, uncomplicated Dyspnea on exertion Asthma-COPD overlap syndrome Smoking greater than 30 pack years Obesity Chest pain Nicotine dependence Hyperlipidemia Essential (primary) hypertension Cervical spondylosis Gout Home Medications ???Medication ???Instructions ???Recorded ???Last Taken ???Type allopurinol 300 mg tablet 300 mg PO DAILY 02/25/20 09/02/23 History hydrochlorothiazide 25 mg tablet 25 mg PO DAILY 08/07/23 09/02/23 History losartan 100 mg tablet 100 mg PO DAILY 08/07/23 09/03/23 History omeprazole 40 mg capsule,delayed 40 mg PO DAILY 08/07/23 09/02/23 History release amlodipine 10 mg tablet 5 mg PO DAILY 12/14/23 Unknown History isosorbide mononitrate 60 mg 60 mg PO BID #180 tabs 12/14/23 Unknown Rx tablet,extended release 24 hr trazodone 50 mg tablet 50 mg PO QHS 30 days #30 tabs 06/11/24 Unknown Rx venlafaxine 37.5 mg 37.5 mg PO DAILY #30 caps 07/02/24 Unknown Rx capsule,extended release 24 hr (Effexor XR) Allergy/AdvReac Type Severity Reaction Status Date / Time No Known Allergies Allergy Verified 07/14/24 11:22 Family History Father Diabetes Hypertension Grandfather Heart disease Grandfather Heart disease Surgical History History of esophagogastroduodenoscopy (EGD) History of colonoscopy Hx of colonoscopy with polypectomy History of left heart catheterization (03/11/20) Social History household members: none Smoking Status: Current every day smoker tobacco type: cigarettes Tobacco: How many years used: 30 alcohol intake: never substance use type: marijuana caffeine: Yes Type: coffee Number of servings: 5 ROS ROS ED Constitutional Constitutional ED: Denies chills or fever(s) Eyes Eyes: Denies change in vision or diplopia ENT ENT ED: Denies rhinorrhea or sore throat Cardiovascular Cardiovascular: Reports chest pain and radiating jaw, neck or arm pain; Denies leg edema, lightheadedness, palpitations or syncope Respiratory/Chest Respiratory/Chest: Denies cough or dyspnea Gastrointestinal Gastrointestinal: Denies abdominal pain, diarrhea, nausea or vomiting Genitourinary Genitourinary ED: Denies dysuria or hematuria Musculoskeletal Musculoskeletal: Denies back pain or neck pain Integumentary Denies abscess or rash Neurologic Neurologic: Denies headache(s) or paresthesias Psychiatric Psychiatric: Denies anxiety or suicidal thoughts EXAM Physical Exam Const Vital Signs: 07/14/24 11:20 07/14/24 12:19 07/14/24 12:20 Temperature 96.4 F L Temperature Source Temporal Pulse Rate 67 61 Respiratory Rate 18 15 Blood Pressure 147/123 H 168/111 H Blood Pressure Mean 131 130 Pulse Ox 94 Oxygen Delivery Method Room Air Room Air 07/14/24 12:32 07/14/24 12:46 07/14/24 13:00 Temperature Temperature Source Pulse Rate 61 61 Respiratory Rate Blood Pressure 157/117 H 147/105 H 161/106 H Blood Pressure Mean 124 Pulse Ox Oxygen Delivery Method 07/14/24 14:00 07/14/24 15:00 Temperature Temperature Source Pulse Rate 58 L 57 L Respiratory Rate 12 11 L Blood Pressure 160/99 H 154/103 H B (more content not included)... Normal [facility] L501.4020on 07-14-2024 TROPONIN-I HS 7 pg/mL Normal 3.0-78.0 [facility] Comment on above: Result Comment: Plejeet se Note: New Test Units and Gender Specific Reference Ranges. For more information see Policy Stat Procedure Red Jacket High Sensitivity Troponin (TNIH) and attachments. Performed By: #### L 501.4020 ####[facility] [address] [place], [address] L501.5425on 07-14-2024 TROPONIN-I HS 10 pg/mL Normal 3.0-78.0 [facility] Comment on above: Order Comment: 1Y Result Comment: Plejeet le Note: New Test Units and Gender Specific Reference Ranges. For more information see Policy Stat Procedure Red Jacket High Sensitivity Troponin (TNIH) and attachments. Performed By: #### L 100.0100, L500.2500, L501.5425 ####[facility] [address] [place], [address] Hemoglobin A1con 06-24-2024 HbA1c (Bld) [Mass fraction] 5.6 % Normal 3.8-5.6 [facility] Comment on above: Order Comment: ADD O N- [id number]:[id number] Result Comment: Norm al < 5.7 % Prediabetic 5.7 - 6.4 % Diabetic >or= 6.5 % Please note range changes. Performed By: #### L 501.9985 ####[facility] [address] [place], [address] CBC W/Diff, Automatedon 05-30 Absolute Lymph 2.36 X10 3/uL Normal 0.83-4.51 [facility] Comment on above: Order Comment: Order Date: 06/20/24Order Info: 018- - CBCD Performed By: #### L 100.0100, L501.5200, L500.4100, L501.9520, L500.4050 ####[facility] [address] [place], [address] Absolute Neut 6.1 X10 3/uL Normal 2.0-7.7 [facility] Comment on above: Order Comment: Order Date: 06/20/24Order Info: 183- - CBCD Performed By: #### L 100.0100, L501.5200, L500.4100, L501.9520, L500.4050 ####[facility] [address] [place], [address] Basophils/100 WBC (Bld) 0.5 % Normal 0-1 [facility] Comment on above: Order Comment: Order Date: 06/20/24Order Info: 018- - CBCD Performed By: #### L 100.0100, L501.5200, L500.4100, L501.9520, L500.4050 ####[facility] [address] [place], [address] Eosinophils/100 WBC (Bld) 1.6 % Normal 0-5 [facility] Comment on above: Order Comment: Order Date: 06/20/24Order Info: 018- - CBCD Performed By: #### L 100.0100, L501.5200, L500.4100, L501.9520, L500.4050 ####[facility] [address] [place], [address] Erythrocyte distribution width (RBC) [Ratio] 13.2 % Normal 11.6-14.6 [facility] Comment on above: Order Comment: Order Date: 06/20/24Order Info: [id number] - CBCD Performed By: #### L 100.0100, L501.5200, L500.4100, L501.9520, L500.4050 ####[facility] [address] [place], [address] Hematocrit (Bld) [Volume fraction] 43.6 % Normal 40-54 [facility] Comment on above: Order Comment: Order Date: 06/20/24Order Info: [id number] - CBCD Performed By: #### L 100.0100, L501.5200, L500.4100, L501.9520, L500.4050 ####[facility] [address] [place], [address] Hemoglobin (Bld) [Mass/Vol] 14.2 g/dL Normal 13.0-16.5 [facility] Comment on above: Order Comment: Order Date: 06/20/24Order Info: [id number] - CBCD Performed By: #### L 100.0100, L501.5200, L500.4100, L501.9520, L500.4050 ####[facility] [address] [place], [address] IG% 0.200 Normal 0.0-0.9 [facility] Comment on above: Order Comment: Order Date: 06/20/24Order Info: [id number] - CBCD Result Comment: IG% - Immature Granulocytes (promyelocytes, myelocytes and metamyelocytes) > 1% indicates that a LEFT SHIFT is Present. Performed By: #### L 100.0100, L501.5200, L500.4100, L501.9520, L500.4050 ####[facility] [address] [place], [address] Lymphocytes/100 WBC (Bld) 25.0 % Normal 19-41 [facility] Comment on above: Order Comment: Order Date: 06/20/24Order Info: 018-1 - CBCD Performed By: #### L 100.0100, L501.5200, L500.4100, L501.9520, L500.4050 ####[facility] [address] [place], [address] MCH (RBC) [Entitic mass] 30.0 pg Normal 27.0-32.0 [facility] Comment on above: Order Comment: Order Date: 06/20/24Order Info: 018- - CBCD Performed By: #### L 100.0100, L501.5200, L500.4100, L501.9520, L500.4050 ####[facility] [address] [place], [address] MCHC (RBC) [Mass/Vol] 32.6 g/dL Normal 32-36 [facility] Comment on above: Order Comment: Order Date: 06/20/24Order Info: 018- - CBCD Performed By: #### L 100.0100, L501.5200, L500.4100, L501.9520, L500.4050 ####[facility] [address] [facility] [place], [address] MCV (RBC) [Entitic vol] 92.2 fL Normal 80-94 [facility] Comment on above: Order Comment: Order Date: 06/20/24Order Info: 018- - CBCD Performed By: #### L 100.0100, L501.5200, L500.4100, L501.9520, L500.4050 ####[facility] [address] [place], [address] Monocytes/100 WBC (Bld) 8.5 % Normal 0-10 [facility] Comment on above: Order Comment: Order Date: 06/20/24Order Info: [id number] - CBCD Performed By: #### L 100.0100, L501.5200, L500.4100, L501.9520, L500.4050 ####[facility] [address] [place], [address] Neutrophils/100 WBC (Bld) 64.2 % Normal 47-70 [facility] Comment on above: Order Comment: Order Date: 06/20/24Order Info: [id number] - CBCD Performed By: #### L 100.0100, L501.5200, L500.4100, L501.9520, L500.4050 ####[facility] [address] [place], [address] Nucleated RBC (Bld) [#/Vol] 0 10*3/uL Normal 0-5 [facility] Comment on above: Order Comment: Order Date: 06/20/24Order Info: 018- - CBCD Performed By: #### L 100.0100, L501.5200, L500.4100, L501.9520, L500.4050 ####[facility] [address] [place], [address] Platelet mean volume (Bld) [Entitic vol] 10.1 fL Normal 6.2-12.0 [facility] Comment on above: Order Comment: Order Date: 06/20/24Order Info: 018- - CBCD Performed By: #### L 100.0100, L501.5200, L500.4100, L501.9520, L500.4050 ####[facility] [address] [place], [address] Platelets (Bld) [#/Vol] 306 10*3/uL Normal 150-450 [facility] Comment on above: Order Comment: Order Date: 06/20/24Order Info: [id number] - CBCD Performed By: #### L 100.0100, L501.5200, L500.4100, L501.9520, L500.4050 ####[facility] [address] [place], [place], [address] RBC (Bld) [#/Vol] 4.73 10*6/uL Normal 4.6-6.2 [facility] Comment on above: Order Comment: Order Date: 06/20/24Order Info: 018- - CBCD Performed By: #### L 100.0100, L501.5200, L500.4100, L501.9520, L500.4050 ####[facility] [address] [place], [address] RDW SD 45.3 fl High 35.1-43.9 [facility] Comment on above: Order Comment: Order Date: 06/20/24Order Info: 018- - CBCD Performed By: #### L 100.0100, L501.5200, L500.4100, L501.9520, L500.4050 ####[facility] [address] [place], [address] WBC (Bld) [#/Vol] 9.5 10*3/uL Normal 4.4-11.0 [facility] Comment on above: Order Comment: Order Date: 06/20/24Order Info: 018- - CBCD Performed By: #### L 100.0100, L501.5200, L500.4100, L501.9520, L500.4050 ####[facility] [address] [place], [address] Comprehensive Metabolic Prof nyon 06-20-2024 Albumin [Mass/Vol] 3.6 g/dL Normal 3.2-5.0 [facility] Comment on above: Order Comment: Order Date: 06/20/24Order Info: [id number] - CMPOrder Info: [id number] - LIPIDOrder Info: [id number] - MGOrder Info: [id number] - TSH Performed By: #### L 100.0100, L501.5200, L500.4100, L501.9520, L500.4050 ####[facility] [address] [place], [address] Albumin/Globulin [Mass ratio] 0.9 {ratio} Normal 0.9-2.4 [facility] Comment on above: Order Comment: Order Date: 06/20/24Order Info: [id number] - CMPOrder Info: [id number] - LIPIDOrder Info: [id number] - MGOrder Info: [id number] - TSH Performed By: #### L 100.0100, L501.5200, L500.4100, L501.9520, L500.4050 ####[facility] [address] [place], [address] ALK P 74 U/L Normal 45-117 [facility] Comment on above: Order Comment: Order Date: 06/20/24Order Info: [id number] - CMPOrder Info: [id number] - LIPIDOrder Info: [id number] - MGOrder Info: 301-3 - TSH Performed By: #### L 100.0100, L501.5200, L500.4100, L501.9520, L500.4050 ####[facility] [address] [place], [address] ALT [Catalytic activity/Vol] 24 U/L Normal 16-61 [facility] Comment on above: Order Comment: Order Date: 06/20/24Order Info: [id number] - CMPOrder Info: [id number] - LIPIDOrder Info: [id number] - MGOrder Info: [id number] - TSH Performed By: #### L 100.0100, L501.5200, L500.4100, L501.9520, L500.4050 ####[facility] [address] [place], [address] AST [Catalytic activity/Vol] 22 U/L Normal 15-37 [facility] Comment on above: Order Comment: Order Date: 06/20/24Order Info: [id number] - CMPOrder Info: [id number] - LIPIDOrder Info: [id number] - MGOrder Info: [id number] - TSH Performed By: #### L 100.0100, L501.5200, L500.4100, L501.9520, L500.4050 ####[facility] [address] [place], [address] Bilirubin [Mass/Vol] 0.40 mg/dL Normal 0.20-1.00 [facility] Comment on above: Order Comment: Order Date: 06/20/24Order Info: [id number] - CMPOrder Info: [id number] - LIPIDOrder Info: [id number] - MGOrder Info: [id number] - TSH Result Comment: For patients on eltrombopag therapy, use of Dimension Red Jacket TBIL is not recommended. Performed By: #### L 100.0100, L501.5200, L500.4100, L501.9520, L500.4050 ####[facility] [address] [place], [place], [address] BUN/CRE 20.1 RATIO High 10-20 [facility] Comment on above: Order Comment: Order Date: 06/20/24Order Info: [id number] - CMPOrder Info: [id number] - LIPIDOrder Info: [id number] - MGOrder Info: 3 - TSH Performed By: #### L 100.0100, L501.5200, L500.4100, L501.9520, L500.4050 ####[facility] [address] [place], [address] CA,Total 8.9 mg/dL Normal 8.5-10.1 [facility] Comment on above: Order Comment: Order Date: 06/20/24Order Info: [id number] - CMPOrder Info: [id number] - LIPIDOrder Info: [id number] - MGOrder Info: [id number] - TSH Performed By: #### L 100.0100, L501.5200, L500.4100, L501.9520, L500.4050 ####[facility] [address] [place], [address] Chloride [Moles/Vol] 105 mmol/L Normal 98-107 [facility] Comment on above: Order Comment: Order Date: 06/20/24Order Info: 86-1 - CMPOrder Info: [id number] - LIPIDOrder Info: [id number] - MGOrder Info: [id number] - TSH Performed By: #### L 100.0100, L501.5200, L500.4100, L501.9520, L500.4050 ####[facility] [address] [place], [address] CO2 [Moles/Vol] 23.0 mmol/L Normal 21.0-32.0 [facility] Comment on above: Order Comment: Order Date: 06/20/24Order Info: 785- - CMPOrder Info: [id number] - LIPIDOrder Info: [id number] - MGOrder Info: [id number] - TSH Performed By: #### L 100.0100, L501.5200, L500.4100, L501.9520, L500.4050 ####[facility] [address] [place], [address] Creatinine [Mass/Vol] 0.90 mg/dL Normal 0.70-1.30 [facility] Comment on above: Order Comment: Order Date: 06/20/24Order Info: [id number] - CMPOrder Info: [id number] - LIPIDOrder Info: [id number] - MGOrder Info: [id number] - TSH Result Comment: The validity of the calculated GFR GFRAA in patients over 70 years has not been determined. Clinical correlation is essential. Performed By: #### L 100.0100, L501.5200, L500.4100, L501.9520, L500.4050 ####[facility] [address] [place], [address] EST GFR - AA 112 mL/min Normal >60 [facility] Comment on above: Order Comment: Order Date: 06/20/24Order Info: [id number] - CMPOrder Info: [id number] - LIPIDOrder Info: [id number] - MGOrder Info: [id number] - TSH Result Comment: Afri can [place] GFR Calc Performed By: #### L 100.0100, L501.5200, L500.4100, L501.9520, L500.4050 ####[facility] [address] [place], [address] GAP 9 Normal 5-15 [facility] Comment on above: Order Comment: Order Date: 06/20/24Order Info: [id number] - CMPOrder Info: [id number] - LIPIDOrder Info: [id number] - MGOrder Info: [id number] - TSH Performed By: #### L 100.0100, L501.5200, L500.4100, L501.9520, L500.4050 ####[facility] [address] [place], [address] GFR/1.73 sq M.predicted among non-blacks MDRD (S/P/Bld) [Vol rate/Area] 92 mL/min/{1.73_m2} Normal >60 [facility] Comment on above: Order Comment: Order Date: 06/20/24Order Info: 785- - CMPOrder Info: [id number] - LIPIDOrder Info: [id number] - MGOrder Info: [id number] - TSH Result Comment: Non- GFR Calc Performed By: #### L 100.0100, L501.5200, L500.4100, L501.9520, L500.4050 ####[facility] [address] [place], [address] Globulin (S) [Mass/Vol] 3.9 g/dL Normal 2.2-4.2 [facility] Comment on above: Order Comment: Order Date: 06/20/24Order Info: 07-1 - CMPOrder Info: [id number] - LIPIDOrder Info: [id number] - MGOrder Info: [id number] - TSH Performed By: #### L 100.0100, L501.5200, L500.4100, L501.9520, L500.4050 ####[facility] [address] [place], [address] Glucose [Mass/Vol] 113 mg/dL High 74-106 [facility] Comment on above: Order Comment: Order Date: 06/20/24Order Info: [id number] - CMPOrder Info: [id number] - LIPIDOrder Info: [id number] - MGOrder Info: [id number] - TSH Result Comment: Fast ing Glucose result from 100 to 125 mg/dL suggests IMPAIRED HOMEOSTASIS per A.D.A. criteria. Performed By: #### L 100.0100, L501.5200, L500.4100, L501.9520, L500.4050 ####[facility] [address] [place], [address] Potassium [Moles/Vol] 3.8 mmol/L Normal 3.5-5.1 [facility] Comment on above: Order Comment: Order Date: 06/20/24Order Info: 86-1 - CMPOrder Info: [id number] - LIPIDOrder Info: [id number] - MGOrder Info: [id number] - TSH Performed By: #### L 100.0100, L501.5200, L500.4100, L501.9520, L500.4050 ####[facility] [address] [place], [address] Sodium [Moles/Vol] 137 mmol/L Normal 136-145 [facility] Comment on above: Order Comment: Order Date: 06/20/24Order Info: 86-1 - CMPOrder Info: [id number] - LIPIDOrder Info: [id number] - MGOrder Info: [id number] - TSH Performed By: #### L 100.0100, L501.5200, L500.4100, L501.9520, L500.4050 ####[facility] [address] [place], [address] T PROT 7.5 g/dL Normal 6.4-8.2 [facility] Comment on above: Order Comment: Order Date: 06/20/24Order Info: [id number] - CMPOrder Info: [id number] - LIPIDOrder Info: [id number] - MGOrder Info: [id number] - TSH Performed By: #### L 100.0100, L501.5200, L500.4100, L501.9520, L500.4050 ####[facility] [address] [place], [address] Urea nitrogen [Mass/Vol] 18 mg/dL Normal 7-18 [facility] Comment on above: Order Comment: Order Date: 06/20/24Order Info: [id number] - CMPOrder Info: [id number] - LIPIDOrder Info: [id number] - MGOrder Info: [id number] - TSH Performed By: #### L 100.0100, L501.5200, L500.4100, L501.9520, L500.4050 ####[facility] [address] [place], [address] Lipid Profileon 06-20-2024 Cholesterol [Mass/Vol] 170 mg/dL Normal 200 [facility] Comment on above: Order Comment: Order Date: 06/20/24Order Info: [id number] - CMPOrder Info: [id number] - LIPIDOrder Info: [id number] - MGOrder Info: [id number] - TSH Result Comment: <200 mg/dL Desirable 200-240 mg/dL Borderline >240 mg/dL High Risk Performed By: #### L 100.0100, L501.5200, L500.4100, L501.9520, L500.4050 ####[facility] [address] [place], [address] Cholesterol in HDL [Mass/Vol] 43 mg/dL Normal [facility] Comment on above: Order Comment: Order Date: 06/20/24Order Info: [id number] - CMPOrder Info: [id number] - LIPIDOrder Info: [id number] - MGOrder Info: [id number] - TSH Result Comment: The drugs N-Acetylcysteine and Metamizole may falsely depress this assay. Reference Range HDL <40 mg/dL Low HDL Cholesterol HDL >or= 60 mg/dL High HDL Cholesterol Performed By: #### L 100.0100, L501.5200, L500.4100, L501.9520, L500.4050 ####[facility] [address] [place], [address] Cholesterol in LDL [Mass/Vol] 107 mg/dL Normal 0-130 [facility] Comment on above: Order Comment: Order Date: 06/20/24Order Info: [id number] - CMPOrder Info: [id number] - LIPIDOrder Info: [id number] - MGOrder Info: 3 - TSH Performed By: #### L 100.0100, L501.5200, L500.4100, L501.9520, L500.4050 ####[facility] [address] [place], [address] Cholesterol in VLDL [Mass/Vol] 20 mg/dL Normal 5-40 [facility] Comment on above: Order Comment: Order Date: 06/20/24Order Info: [id number] - CMPOrder Info: [id number] - LIPIDOrder Info: - MGOrder Info: 3 - TSH Performed By: #### L 100.0100, L501.5200, L500.4100, L501.9520, L500.4050 ####[facility] [address] [place], [address] Triglyceride [Mass/Vol] 102 mg/dL Normal [facility] Comment on above: Order Comment: Order Date: 06/20/24Order Info: [id number] - CMPOrder Info: [id number] - LIPIDOrder Info: [id number] - MGOrder Info: 3 - TSH Result Comment: The drugs N-Acetylcysteine and Metamizole may falsely depress this assay. Serum Triglycerides Reference Interval Normal <150 mg/dL Borderline high 150 - 199 mg/dL High 200 - 499 mg/dL Very High > or = 500 mg/dL Performed By: #### L 100.0100, L501.5200, L500.4100, L501.9520, L500.4050 ####[facility] [address] [place], [address] Magnesiumon 06-20-2024 Magnesium [Mass/Vol] 2.2 mg/dL Normal 1.6-2.6 [facility] Comment on above: Order Comment: Order Date: 06/20/24Order Info: [id number] - CMPOrder Info: [id number] - LIPIDOrder Info: [id number] - MGOrder Info: [id number] - TSH Performed By: #### L 100.0100, L501.5200, L500.4100, L501.9520, L500.4050 ####[facility] [address] [place], [address] Thyroid Stim Hormone (TSH)on 06-20-2024 TSH 1.050 uIU/mL Normal 0.358-3.74 0 [facility] Comment on above: Order Comment: Order Date: 06/20/24Order Info: [id number] - CMPOrder Info: [id number] - LIPIDOrder Info: [id number] - MGOrder Info: [id number] - TSH Performed By: #### L 100.0100, L501.5200, L500.4100, L501.9520, L500.4050 ####[facility] [address] [place], [address] Emergency Department Summary on 04-21-2024 Emergency Department Summary [facility] Medical Records Department [address] [place] [address] Emergency Department Summary 04/21/24 MR#: [id number] Acct: [id number] Name: JACKIE SHELDON Rep #: [id number] : 1965 58 From: Tristan Bruner MD PCP: Dr. Lukas Chatterjee MD Status:REG ER Location: ED HPI History of Present Illness Chief Complaint: Back Detail of Chief Complaint: Exacerbation of chronic low back pain Informant: patient Onset/Context/Timing Onset: Weeks Context: Gradual Onset and Sudden Onset Chronic pain exacerbated by: Increased bending and twisting Timing: Continuous Quality: Dull and Aching Location: Lumbar Current Severity: Mild Maximum Severity: Moderate Worsened by: improves with Movement, Ambulation, Bending and Lifting Relieved by: Nothing Associated Symptoms Associated Symptoms: - (No saddle anesthesia or paresthesia. No foot drop. No buckling of his knees going up or down steps.); Negative for Numbness, Tingling, Radiation to Right Leg, Radiation t o Left Leg, Fever, Abdominal Pain, Dysuria, Unable to Ambulate, Unable to Transfer, Urinary Retention, Urinary Incontinence, Constipation or Fecal Incontinence Narrative Narrative: Patient is a 58-year-old male with chronic back pain. He has been seen by Dr. Padilla. He was offered's spine surgery which he declined. He has degenerative changes, he has other abnormalities noted. He is seen by pain management. He does have history of peptic ulcer disease. He denies black or maroon-colored stool. He denies fever, chills night sweats. He denies any bowel bladder dysfunction. He denies any recent dental procedure or any type of surgical procedure. There is no history of direct trauma. See associated symptoms Patient was seen at urgent care and given a steroid injection. States it did not help. Prior similar symptoms: Yes Recent Illness/Hospitalization: Yes [facility] Medical History Right shoulder strain Abdominal pain Epigastric pain Difficulty swallowing Wears glasses Marijuana use Arthritis Back pain Gastric reflux COPD (chronic obstructive pulmonary disease) Shortness of breath on exertion Smoker History of stress test Hypertension History of heart attack Cardiology follow-up encounter Chest pain Pain Tobacco use History of GI bleed Lumbar radiculopathy Acute lumbar myofascial strain Strain of fascia of lower back Nicotine dependence, cigarettes, uncomplicated Dyspnea on exertion Asthma-COPD overlap syndrome Smoking greater than 30 pack years Obesity Chest pain Nicotine dependence Hyperlipidemia Essential (primary) hypertension Cervical spondylosis Gout Home Medications ???Medication ???Instructions ???Recorded ???Last Taken ???Type allopurinol 300 mg tablet 300 mg PO DAILY 02/25/20 09/02/23 History hydrochlorothiazide 25 mg tablet 25 mg PO DAILY 08/07/23 09/02/23 History losartan 100 mg tablet 100 mg PO DAILY 08/07/23 09/03/23 History omeprazole 40 mg capsule,delayed 40 mg PO DAILY 08/07/23 09/02/23 History release rosuvastatin 40 mg tablet (Crestor) 40 mg PO DAILY 08/07/23 09/02/23 History meloxicam 15 mg tablet 15 mg PO .PRN PRN pain 10/12/23 Unknown History sucralfate 1 gram tablet 1 g PO QACHS 11/28/23 Unknown History amlodipine 10 mg tablet 5 mg PO DAILY 12/14/23 Unknown History isosorbide mononitrate 60 mg 60 mg PO BID #180 tabs 12/14/23 Unknown Rx tablet,extended release 24 hr ranolazine 500 mg tablet,extended 500 mg PO BID #60 tabs 12/14/23 Unknown Rx release,12 hr hydrocodone-acetaminophen 5-325mg 1 tab PO Q6H PRN PRN Pain 3 days 04/21/24 Unknown Rx 5mg-325mg #10 TABLETS Allergy/AdvReac Type Severity Reaction Status Date / Time No Known Allergies Allergy Verified 04/21/24 19:01 Family History Father Diabetes Hypertension Grandfather Heart disease Grandfather Heart disease Surgical History History of esophagogastroduodenoscopy (EGD) History of colonoscopy Hx of colonoscopy with polypectomy History of left heart catheterization (03/11/20) Social History household members: none Smoking Status: Current every day smoker tobacco type: cigarettes Tobacco: How many years used: 30 alcohol intake: never substance use type: marijuana caffeine: Yes Type: coffee Number of servings: 5 ROS ROS ED Constitutional Constitutional ED: Denies chills, fever(s), subjective, sweats or weight loss Gastrointestinal Gastrointestinal: Denies abdominal pain, diarrhea, melena, nausea or vomiting Genitourinary Genitourinary ED: Denies dysuria, hematuria or urinary frequency Musculoskeletal Musculoskeletal: Reports back (more content not included)... Normal [facility] Urgent Care Visit Reporton 0 04-21-2024 Urgent Care Visit Report [facility] [address], [address] [place] [address] OFFICE VISIT Date of Service: 04/21/24 MR#: [id number] Acct: [id number] Name: JACKIE SHELDON Rep #: [id number] : 1965 Provider: TARAH Nguyen Age/Sex: 58/M Location: [facility] Status: Signed Intake Vital Signs 12/14/23 15:01 04/21/24 09:26 Height 6 ft Weight: 224 lb BMI 30.4 BP 153/87 H 150/92 H Blood Pressure Location Lt brachial Rt brachial Position Sitting Sitting Respiration 16 16 Pulse 64 71 Pulse Source NIBP NIBP Temp 97.8 F Temp Source Temporal Pulse Oximetry (%) 98 Oxygen Delivery Method room air Intake Visit Reasons: R SIDE/BACK PAIN/CONCERN FOR MUSCLE INJURY Chief Complaint: right mid back pain into right shoulder Nursing Informatics Specialist Required: No Is patient in pain?: Yes Allergies No Known Allergies Allergy (Verified 04/21/24 09:30) Have you fallen in the past year?: No Nurse's Note: right mid back pain into right shoulder x 2 days without resolve. no injury/fall/over exertion. hx low back problems PFSH Medical History (Updated 04/21/24 @ 09:44 by Ga RASCON, PA) Right shoulder strain Abdominal pain Epigastric pain Difficulty swallowing Wears glasses Marijuana use Arthritis Back pain Gastric reflux COPD (chronic obstructive pulmonary disease) Shortness of breath on exertion Smoker History of stress test Hypertension History of heart attack Cardiology follow-up encounter Chest pain Pain Tobacco use History of GI bleed Lumbar radiculopathy Acute lumbar myofascial strain Strain of fascia of lower back Nicotine dependence, cigarettes, uncomplicated Dyspnea on exertion Asthma-COPD overlap syndrome Smoking greater than 30 pack years Obesity Chest pain Nicotine dependence Hyperlipidemia Essential (primary) hypertension Cervical spondylosis Gout Surgical History History of esophagogastroduodenoscopy (EGD) History of colonoscopy Hx of colonoscopy with polypectomy History of left heart catheterization (03/11/20) Family History Father Diabetes Hypertension Grandfather Heart disease Grandfather Heart disease Social History household members: none Smoking Status: Current every day smoker tobacco type: cigarettes Tobacco: How many years used: 30 alcohol intake: never substance use type: marijuana caffeine: Yes Type: coffee Number of servings: 5 HPI HPI Chief Complaint: right mid back pain into right shoulder Details: JACKIE SHELDON, is a 58 M who presents to the office today for initial evaluation approximately 1 week history of progressively worsening right low back pain without caudal radicular complaints developing after bending forward at the waist lift product. He also notes mild aching tolerable right shoulder pain which is aggravated touch though full active range of motion is still appreciated. No complaints of chest pain or shortness of breath or dyspnea on exertion. He is requesting an injection for ketorolac which she states has worked very well for him in the past. No other associated symptoms and no other alleviating/aggravating factors. ROS Const Constitutional: No other (As above) Exam Const General: cooperative, healthy appearing and no acute distress Orientation: alert and awake Neck Neck: normal visual inspection Resp Effort Inspection: normal respiratory effort and able to speak in complete sentences Cardio Rate: regular rate Pulses: radial pulses present GI Inspection: normal to inspection Musc Cervical Spine: normal cervical lordosis and cervical ROM normal Thoracic/Lumbar Spine: thoracic and lumbar spine normal to inspection, No surgical scar(s) present, pain with thoraco-lumbar ROM with forward flexion, with lateral flexion to the right and with rotation to the right and paraspinal tenderness on the right in the mid lumbar and in the lower lumbar Other: Unguarded FAROM right shoulder Skin General: no rashes or lesions noted Neuro General: patient alert, patient awake and patient oriented x3 Cognition: normal cognition Speech: speech normal Psych Appearance: grossly normal Mental Status: mental status grossly normal Mood: congruent mood Affect: normal affect Speech and Movement: speech and movement normal Attitude: cooperative Office Meds ketorolac 30 mg/mL injection syringe Performing Provider: Ga RASCON, PA Performing Location: [facility] Administered by: Sangeeta Piedra on 04/21/24 09:38 Dose Route Admin Location Dispensed Lot Number Expiration Date NDC Man ufacturer 30 mg IM right gluteus 1.0 mL [id number] 11/29/24 11919-454-17 [employer] [place] (more content not included)... Normal [facility] Absolute lymphocyte countOrd ered By: Lukas Chatterjee on 11-07-2023 Lymphocytes Auto (Unsp spec) [#/Vol] 2.39 10*3/uL 0.83-4.51 [facility] Basophil percentageOrdered B y: Lukas Chatterjee on 11-07-2023 Basophils/100 WBC (Bld) 0.9 % 0-1 [facility] Bilirubin [Mass/Vol] 0.20 mg/dL 0.20-1.00 [facility] Comment on above: For patients on eltr ombopag therapy, use of Dimension [place] TBIL is not recommended. Chloride [Moles/Vol] 109 mmol/L 98-107 [facility] Cholesterol [Mass/Vol] 114 mg/dL <200 [facility] Comment on above: <200 mg/dL Desirable 200-240 mg/dL Borderline >240 mg/dL High Risk Eosinophils/100 WBC (Bld) 1.6 % 0-5 [facility] Glucose [Mass/Vol] 100 mg/dL 74-106 [facility] Comment on above: Fasting Glucose resu lt from 100 to 125 mg/dL suggests IMPAIRED HOMEOSTASIS per A.D.A. criteria. Neutrophils (Bld) [#/Vol] 5.9 10*3/uL 2.0-7.7 [facility] Neutrophils/100 WBC (Bld) 61.5 % 47-70 [facility] Potassium [Moles/Vol] 4.5 mmol/L 3.5-5.1 [facility] Protein [Mass/Vol] 7.2 g/dL 6.4-8.2 [facility] Sodium [Moles/Vol] 140 mmol/L 136-145 [facility] Triglyceride [Mass/Vol] 62 mg/dL <199 [facility] Comment on above: The drugs N-Acetylcy steine and Metamizole may falsely depress this assay.Serum Triglycerides Reference Interval Normal <150 mg/dL Borderline high 150 - 199 mg/dL High 200 - 499 mg/dL Very High > or = 500 mg/dL WBC (Bld) [#/Vol] 9.7 10*3/uL 4.4-11.0 [facility] Blood erythrocytes count (nu mber/volume)Ordered By: Lukas Chatterjee on 11-07-2023 RBC (Bld) [#/Vol] 4.65 10*6/uL 4.6-6.2 [facility] Blood hemoglobin measurement (mass/volume)Ordered By: Lukas Chatterjee on 11-07-2023 Hemoglobin (Bld) [Mass/Vol] 14.1 g/dL 13.0-16.5 [facility] Blood lymphocytes/100 leukoc ytesOrdered By: Lukas Chatterjee on 11-07-2023 Lymphocytes/100 WBC (Bld) 24.8 % 19-41 [facility] Blood monocytes/100 leukocyt esOrdered By: Lukas Chatterjee on 11-07-2023 Monocytes/100 WBC (Bld) 10.8 % 0-10 [facility] Blood platelet mean volumeOr dered By: Lukas Chatterjee on 11-07-2023 Platelet mean volume (Bld) [Entitic vol] 10.2 fL 6.2-12.0 [facility] Determination of erythrocyte mean corpuscular volume (MCV)Ordered By: Lukas Chatterjee on 11-07-2023 MCV (RBC) [Entitic vol] 96.8 fL 80-94 [facility] Hematocrit Auto (Bld) [Volum e fraction]Ordered By: Lukas Chatterjee on 11-07-2023 Hematocrit (Bld) [Volume fraction] 45.0 % 40-54 [facility] Laboratory - Chemistry and C hemistry - challengeOrdered By: Lukas Chatterjee on 11-07-2023 ALP [Catalytic activity/Vol] 67 U/L 45-117 [facility] ALT [Catalytic activity/Vol] 27 U/L 16-61 [facility] CO2 [Moles/Vol] 25.0 mmol/L 21.0-32.0 [facility] Globulin (S) [Mass/Vol] 3.7 g/dL 2.2-4.2 [facility] Urea nitrogen/Creatinine [Mass ratio] 24.5 mg/mg 10-20 [facility] Laboratory - Hematology and Cell countsOrdered By: Lukas Chatterjee on 11-07-2023 Erythrocyte distribution width (RBC) [Entitic vol] 48.5 fL 35.1-43.9 [facility] Erythrocyte distribution width (RBC) [Ratio] 13.6 % 11.6-14.6 [facility] Immature granulocytes/100 WBC (Bld) 0.400 % 0.0-0.9 [facility] Comment on above: IG% - Immature Granu locytes (promyelocytes, myelocytes and metamyelocytes) > 1% indicates that a LEFT SHIFT is Present. MCH (RBC) [Entitic mass] 30.3 pg 27.0-32.0 [facility] Nucleated RBC/100 WBC (Bld) [Ratio] 0 % 0-5 [facility] MCHC Auto (RBC) [Mass/Vol]Or dered By: Lukas Chatterjee on 11-07-2023 MCHC (RBC) [Mass/Vol] 31.3 g/dL 32-36 [facility] No Panel InformationOrdered By: Lukas Chatterjee on 11-07-2023 Estimated GFR (MDRD) Amer 101 mL/min >60 [facility] Comment on above: GFR Calc Estimated GFR (MDRD) Non-Af Amer 83 mL/min >60 [facility] Comment on above: Non- GFR Calc Platelets bldOrdered By: Jonathon Chatterjee on 11-07-2023 Platelets (Bld) [#/Vol] 314 10*3/uL 150-450 [facility] Serum or plasma albumin giulia urement (mass/volume)Ordered By: Lukas Chatterjee on 11-07-2023 Albumin [Mass/Vol] 3.5 g/dL 3.2-5.0 [facility] Serum or plasma albumin/glob ulin mass ratioOrdered By: Lukas Chatterjee on 11-07-2023 Albumin/Globulin [Mass ratio] 0.9 {ratio} 0.9-2.4 [facility] Serum or plasma calcium giulia urement (mass/volume)Ordered By: Lukas Chatterjee on 11-07-2023 Calcium [Mass/Vol] 9.3 mg/dL 8.5-10.1 [facility] Serum or plasma cholesterol in HDL measurement (mass/volume)Ordered By: Lukas Chatterjee on 11-07-2023 Cholesterol in HDL [Mass/Vol] 41 mg/dL >40 [facility] Comment on above: The drugs N-Acetylcy steine and Metamizole may falsely depress this assay. Reference Range HDL <40 mg/dL Low HDL Cholesterol HDL >or= 60 mg/dL High HDL Cholesterol Serum or plasma cholesterol in VLDL measurement (mass/volume)Ordered By: Lukas Chatterjee on 11-07-2023 Cholesterol in VLDL [Mass/Vol] 12 mg/dL 5-40 [facility] Serum or plasma creatinine m easurement (mass/volume)Ordered By: Lukas Chatterjee on 11-07-2023 Creatinine [Mass/Vol] 0.98 mg/dL 0.70-1.30 [facility] Comment on above: The validity of the calculated GFR & GFRAA in patients over 70 years has not been determined. Clinical correlation is essential. Serum or plasma low density lipoprotein (LDL) cholesterol measurement (mass/volume)Ordered By: Lukas Chatterjee on 11-07-2023 Cholesterol in LDL [Mass/Vol] 61 mg/dL 0-130 [facility] Serum or plasma urea nitroge n measurement (mass/volume)Ordered By: Lukas Chatterjee on 11-07-2023 Urea nitrogen [Mass/Vol] 24 mg/dL 7-18 [facility] Serum or plasma uric acid me asurement (mass/volume)Ordered By: Lukas Chatterjee on 11-07-2023 Urate [Mass/Vol] 5.5 mg/dL 3.5-7.2 [facility] Comment on above: The drugs N-Acetylcy steine and Metamizole may falsely depress this assay. Thin prep Papanicolaou smear with manual screeningOrdered By: Lukas Chatterjee on 11-07-2023 Thin prep Papanicolaou smear with manual screening 13 U/L 15-37 [facility] Thin prep Papanicolaou smear with manual screening 6 5-15 [facility] Absolute lymphocyte countOrd ered By: Papito Monae on 11-02-2023 Lymphocytes Auto (Unsp spec) [#/Vol] 2.76 10*3/uL 0.83-4.51 [facility] Basophil percentageOrdered B y: Papito Monae on 11-02-2023 Basophils/100 WBC (Bld) 0.4 % 0-1 [facility] Eosinophils/100 WBC (Bld) 1.1 % 0-5 [facility] Neutrophils (Bld) [#/Vol] 6.9 10*3/uL 2.0-7.7 [facility] Neutrophils/100 WBC (Bld) 63.5 % 47-70 [facility] WBC (Bld) [#/Vol] 10.9 10*3/uL 4.4-11.0 [facility] Blood erythrocytes count (nu mber/volume)Ordered By: Papito Monae on 11-02-2023 RBC (Bld) [#/Vol] 4.87 10*6/uL 4.6-6.2 [facility] Blood hemoglobin measurement (mass/volume)Ordered By: Papito Monae on 11-02-2023 Hemoglobin (Bld) [Mass/Vol] 15.0 g/dL 13.0-16.5 [facility] Blood lymphocytes/100 leukoc ytesOrdered By: Papito Monae on 11-02-2023 Lymphocytes/100 WBC (Bld) 25.4 % 19-41 [facility] Blood monocytes/100 leukocyt esOrdered By: Papito Monae on 11-02-2023 Monocytes/100 WBC (Bld) 9.2 % 0-10 [facility] Blood platelet mean volumeOr dered By: Papito Monae on 11-02-2023 Platelet mean volume (Bld) [Entitic vol] 9.8 fL 6.2-12.0 [facility] Determination of erythrocyte mean corpuscular volume (MCV)Ordered By: Papito Monae on 11-02-2023 MCV (RBC) [Entitic vol] 92.0 fL 80-94 [facility] Hematocrit Auto (Bld) [Volum e fraction]Ordered By: Papito Monae on 11-02-2023 Hematocrit (Bld) [Volume fraction] 44.8 % 40-54 [facility] Laboratory - Hematology and Cell countsOrdered By: Papito Monae on 11-02-2023 Erythrocyte distribution width (RBC) [Entitic vol] 45.3 fL 35.1-43.9 [facility] Erythrocyte distribution width (RBC) [Ratio] 13.2 % 11.6-14.6 [facility] Immature granulocytes/100 WBC (Bld) 0.400 % 0.0-0.9 [facility] Comment on above: IG% - Immature Granu locytes (promyelocytes, myelocytes and metamyelocytes) > 1% indicates that a LEFT SHIFT is Present. MCH (RBC) [Entitic mass] 30.8 pg 27.0-32.0 [facility] Nucleated RBC/100 WBC (Bld) [Ratio] 0 % 0-5 [facility] MCHC Auto (RBC) [Mass/Vol]Or dered By: Papito Monae on 11-02-2023 MCHC (RBC) [Mass/Vol] 33.5 g/dL 32-36 [facility] Platelets bldOrdered By: Saran Monae on 11-02-2023 Platelets (Bld) [#/Vol] 333 10*3/uL 150-450 [facility] Absolute lymphocyte countOrd ered By: Tamy Payan on 11-01-2023 Lymphocytes Auto (Unsp spec) [#/Vol] 2.34 10*3/uL 0.83-4.51 [facility] Basophil percentageOrdered B y: Tamy Payan on 11-01-2023 Basophils/100 WBC (Bld) 0.4 % 0-1 [facility] Chloride [Moles/Vol] 106 mmol/L 98-107 [facility] Eosinophils/100 WBC (Bld) 0.9 % 0-5 [facility] Glucose [Mass/Vol] 103 mg/dL 74-106 [facility] Comment on above: Fasting Glucose resu lt from 100 to 125 mg/dL suggests IMPAIRED HOMEOSTASIS per A.D.A. criteria. Neutrophils (Bld) [#/Vol] 8.6 10*3/uL 2.0-7.7 [facility] Neutrophils/100 WBC (Bld) 71.1 % 47-70 [facility] Potassium [Moles/Vol] 4.2 mmol/L 3.5-5.1 [facility] Sodium [Moles/Vol] 140 mmol/L 136-145 [facility] WBC (Bld) [#/Vol] 12.1 10*3/uL 4.4-11.0 [facility] Blood erythrocytes count (nu mber/volume)Ordered By: Tamy Payan on 11-01-2023 RBC (Bld) [#/Vol] 5.07 10*6/uL 4.6-6.2 [facility] Blood hemoglobin measurement (mass/volume)Ordered By: Tamy Payan on 11-01-2023 Hemoglobin (Bld) [Mass/Vol] 15.3 g/dL 13.0-16.5 [facility] Blood lymphocytes/100 leukoc ytesOrdered By: Tamy Payan on 11-01-2023 Lymphocytes/100 WBC (Bld) 19.3 % 19-41 [facility] Blood monocytes/100 leukocyt esOrdered By: Tamy Payan on 11-01-2023 Monocytes/100 WBC (Bld) 7.9 % 0-10 [facility] Blood platelet mean volumeOr dered By: Tamy Payan on 11-01-2023 Platelet mean volume (Bld) [Entitic vol] 9.6 fL 6.2-12.0 [facility] Determination of erythrocyte mean corpuscular volume (MCV)Ordered By: Tamy Payan on 11-01-2023 MCV (RBC) [Entitic vol] 91.1 fL 80-94 [facility] Hematocrit Auto (Bld) [Volum e fraction]Ordered By: Tamy Payan on 11-01-2023 Hematocrit (Bld) [Volume fraction] 46.2 % 40-54 [facility] Laboratory - Chemistry and C hemistry - challengeOrdered By: Tamy Payan on 11-01-2023 CO2 [Moles/Vol] 25.0 mmol/L 21.0-32.0 [facility] Urea nitrogen/Creatinine [Mass ratio] 21.7 mg/mg 10-20 [facility] Laboratory - Hematology and Cell countsOrdered By: Tamy Payan on 11-01-2023 Erythrocyte distribution width (RBC) [Entitic vol] 44.1 fL 35.1-43.9 [facility] Erythrocyte distribution width (RBC) [Ratio] 13.1 % 11.6-14.6 [facility] Immature granulocytes/100 WBC (Bld) 0.400 % 0.0-0.9 [facility] Comment on above: IG% - Immature Granu locytes (promyelocytes, myelocytes and metamyelocytes) > 1% indicates that a LEFT SHIFT is Present. MCH (RBC) [Entitic mass] 30.2 pg 27.0-32.0 [facility] Nucleated RBC/100 WBC (Bld) [Ratio] 0 % 0-5 [facility] MCHC Auto (RBC) [Mass/Vol]Or dered By: Tamy Payan on 11-01-2023 MCHC (RBC) [Mass/Vol] 33.1 g/dL 32-36 [facility] No Panel InformationOrdered By: Tamy Payan on 11-01-2023 Estimated GFR (MDRD) Amer 108 mL/min >60 [facility] Comment on above: GFR Calc Estimated GFR (MDRD) Non-Af Amer 90 mL/min >60 [facility] Comment on above: Non- GFR Calc Platelets bldOrdered By: Svetlana Payan on 11-01-2023 Platelets (Bld) [#/Vol] 337 10*3/uL 150-450 [facility] Serum or plasma calcium giulia urement (mass/volume)Ordered By: Tamy Payan on 11-01-2023 Calcium [Mass/Vol] 9.6 mg/dL 8.5-10.1 [facility] Serum or plasma creatinine m easurement (mass/volume)Ordered By: Tamy Payan on 11-01-2023 Creatinine [Mass/Vol] 0.92 mg/dL 0.70-1.30 [facility] Comment on above: The validity of the calculated GFR & GFRAA in patients over 70 years has not been determined. Clinical correlation is essential. Serum or plasma urea nitroge n measurement (mass/volume)Ordered By: Tamy Payan on 11-01-2023 Urea nitrogen [Mass/Vol] 20 mg/dL 7-18 [facility] Thin prep Papanicolaou smear with manual screeningOrdered By: Tamy Payan on 11-01-2023 Thin prep Papanicolaou smear with manual screening 9 5-15 [facility] No Panel Informationon 09-11 POC SARS CoV-2 Antigen Negative [facility] Absolute lymphocyte countOrd ered By: Luzmaria Ferreira on 09-03-2023 Lymphocytes Auto (Unsp spec) [#/Vol] 2.43 10*3/uL 0.83-4.51 [facility] Basophil percentageOrdered B y: Luzmaria Ferreira on 09-03-2023 Basophils/100 WBC (Bld) 0.7 % 0-1 [facility] Bilirubin [Mass/Vol] 0.50 mg/dL 0.20-1.00 [facility] Comment on above: For patients on eltr ombopag therapy, use of Dimension [place] TBIL is not recommended. Chloride [Moles/Vol] 110 mmol/L 98-107 [facility] Cholesterol [Mass/Vol] 149 mg/dL <200 [facility] Comment on above: <200 mg/dL Desirable 200-240 mg/dL Borderline >240 mg/dL High Risk Eosinophils/100 WBC (Bld) 3.2 % 0-5 [facility] Glucose [Mass/Vol] 100 mg/dL 74-106 [facility] Comment on above: Fasting Glucose resu lt from 100 to 125 mg/dL suggests IMPAIRED HOMEOSTASIS per A.D.A. criteria. Neutrophils (Bld) [#/Vol] 3.8 10*3/uL 2.0-7.7 [facility] Neutrophils/100 WBC (Bld) 52.7 % 47-70 [facility] Potassium [Moles/Vol] 3.7 mmol/L 3.5-5.1 [facility] Protein [Mass/Vol] 6.8 g/dL 6.4-8.2 [facility] Sodium [Moles/Vol] 141 mmol/L 136-145 [facility] Triglyceride [Mass/Vol] 105 mg/dL <199 [facility] Comment on above: The drugs N-Acetylcy steine and Metamizole may falsely depress this assay.Serum Triglycerides Reference Interval Normal <150 mg/dL Borderline high 150 - 199 mg/dL High 200 - 499 mg/dL Very High > or = 500 mg/dL WBC (Bld) [#/Vol] 7.2 10*3/uL 4.4-11.0 [facility] Blood erythrocytes count (nu mber/volume)Ordered By: Luzmaria Ferreira on 09-03-2023 RBC (Bld) [#/Vol] 4.71 10*6/uL 4.6-6.2 [facility] Blood hemoglobin measurement (mass/volume)Ordered By: Luzmaria Ferreira on 09-03-2023 Hemoglobin (Bld) [Mass/Vol] 14.1 g/dL 13.0-16.5 [facility] Blood lymphocytes/100 leukoc ytesOrdered By: Luzmaria Ferreira on 09-03-2023 Lymphocytes/100 WBC (Bld) 33.6 % 19-41 [facility] Blood monocytes/100 leukocyt esOrdered By: Luzmaria Ferreira on 09-03-2023 Monocytes/100 WBC (Bld) 9.5 % 0-10 [facility] Blood platelet mean volumeOr dered By: Luzmaria Ferreira on 09-03-2023 Platelet mean volume (Bld) [Entitic vol] 9.6 fL 6.2-12.0 [facility] Determination of erythrocyte mean corpuscular volume (MCV)Ordered By: Luzmaria Ferreira on 09-03-2023 MCV (RBC) [Entitic vol] 94.5 fL 80-94 [facility] Glucose Glucometer (BldC) [M ass/Vol]Ordered By: Rigoberto Overton on 09-03-2023 Glucose [Mass/Vol] 98 mg/dL 74-106 [facility] Comment on above: MANAGEMENT OF PATIEN T CARE PER NURSING PROTOCOL Hematocrit Auto (Bld) [Volum e fraction]Ordered By: Luzmaria Ferreira on 09-03-2023 Hematocrit (Bld) [Volume fraction] 44.5 % 40-54 [facility] Laboratory - Chemistry and C hemistry - challengeOrdered By: Luzmaria Ferreira on 09-03-2023 ALP [Catalytic activity/Vol] 65 U/L 45-117 [facility] ALT [Catalytic activity/Vol] 20 U/L 16-61 [facility] CO2 [Moles/Vol] 25.0 mmol/L 21.0-32.0 [facility] Globulin (S) [Mass/Vol] 3.6 g/dL 2.2-4.2 [facility] Urea nitrogen/Creatinine [Mass ratio] 18.6 mg/mg 10-20 [facility] Laboratory - Hematology and Cell countsOrdered By: Luzmaria Ferreira on 09-03-2023 Erythrocyte distribution width (RBC) [Entitic vol] 48.9 fL 35.1-43.9 [facility] Erythrocyte distribution width (RBC) [Ratio] 14.0 % 11.6-14.6 [facility] Immature granulocytes/100 WBC (Bld) 0.300 % 0.0-0.9 [facility] Comment on above: IG% - Immature Granu locytes (promyelocytes, myelocytes and metamyelocytes) > 1% indicates that a LEFT SHIFT is Present. MCH (RBC) [Entitic mass] 29.9 pg 27.0-32.0 [facility] Nucleated RBC/100 WBC (Bld) [Ratio] 0 % 0-5 [facility] MCHC Auto (RBC) [Mass/Vol]Or dered By: Luzmaria Ferreira on 09-03-2023 MCHC (RBC) [Mass/Vol] 31.7 g/dL 32-36 [facility] No Panel InformationOrdered By: Luzmaria Ferreira on 09-03-2023 Estimated Creatinine Clearance Calc 110.47 ml/min [facility] Estimated GFR (MDRD) Amer 126 mL/min >60 [facility] Comment on above: GFR Calc Estimated GFR (MDRD) Non-Af Amer 104 mL/min >60 [facility] Comment on above: Non- GFR Calc Troponin I High Sensitivity 11 pg/mL 3.0-78.0 [facility] Comment on above: Please Note: New Michelle t Units and Gender Specific Reference Ranges. For more information see Policy Stat Procedure [place] High Sensitivity Troponin (TNIH) and attachments. Platelets bldOrdered By: Enrique Ferreira on 09-03-2023 Platelets (Bld) [#/Vol] 276 10*3/uL 150-450 [facility] Serum or plasma albumin giulia urement (mass/volume)Ordered By: Luzmaria Ferreira on 09-03-2023 Albumin [Mass/Vol] 3.2 g/dL 3.2-5.0 [facility] Serum or plasma albumin/glob ulin mass ratioOrdered By: Luzmaria Ferreira on 09-03-2023 Albumin/Globulin [Mass ratio] 0.9 {ratio} 0.9-2.4 [facility] Serum or plasma calcium giulia urement (mass/volume)Ordered By: Luzmaria Ferreira on 09-03-2023 Calcium [Mass/Vol] 8.4 mg/dL 8.5-10.1 [facility] Serum or plasma cholesterol in HDL measurement (mass/volume)Ordered By: Luzmaria Ferreira on 09-03-2023 Cholesterol in HDL [Mass/Vol] 42 mg/dL >40 [facility] Comment on above: The drugs N-Acetylcy steine and Metamizole may falsely depress this assay. Reference Range HDL <40 mg/dL Low HDL Cholesterol HDL >or= 60 mg/dL High HDL Cholesterol Serum or plasma cholesterol in VLDL measurement (mass/volume)Ordered By: Luzmaria Ferreira on 09-03-2023 Cholesterol in VLDL [Mass/Vol] 21 mg/dL 5-40 [facility] Serum or plasma creatinine m easurement (mass/volume)Ordered By: Luzmaria Ferreira on 09-03-2023 Creatinine [Mass/Vol] 0.80 mg/dL 0.70-1.30 [facility] Comment on above: The validity of the calculated GFR & GFRAA in patients over 70 years has not been determined. Clinical correlation is essential. Serum or plasma low density lipoprotein (LDL) cholesterol measurement (mass/volume)Ordered By: Luzmaria Ferreira on 09-03-2023 Cholesterol in LDL [Mass/Vol] 86 mg/dL 0-130 [facility] Serum or plasma urea nitroge n measurement (mass/volume)Ordered By: Luzmaria Ferreira on 09-03-2023 Urea nitrogen [Mass/Vol] 15 mg/dL 7-18 [facility] Thin prep Papanicolaou smear with manual screeningOrdered By: [facility] Hanna on 09-03-2023 Thin prep Papanicolaou smear with manual screening 14 U/L 15-37 [facility] Thin prep Papanicolaou smear with manual screening 6 5-15 [facility] Whole blood hemoglobin A1c/t otal hemoglobin ratio (mass fraction)Ordered By: Luzmaria Ferreira on 09-03-2023 HbA1c (Bld) [Mass fraction] 5.6 % 3.8-5.6 [facility] Comment on above: Normal < 5.7 % Predi abetic 5.7 - 6.4 % Diabetic >or= 6.5 % Please note range changes. Absolute lymphocyte countOrd ered By: Mari Duvall on 09-02-2023 Lymphocytes Auto (Unsp spec) [#/Vol] 3.09 10*3/uL 0.83-4.51 [facility] Basophil percentageOrdered B y: Mari Duvall on 09-02-2023 Basophils/100 WBC (Bld) 0.5 % 0-1 [facility] Chloride [Moles/Vol] 108 mmol/L 98-107 [facility] Eosinophils/100 WBC (Bld) 0.7 % 0-5 [facility] Glucose [Mass/Vol] 101 mg/dL 74-106 [facility] Comment on above: Fasting Glucose resu lt from 100 to 125 mg/dL suggests IMPAIRED HOMEOSTASIS per A.D.A. criteria. Neutrophils (Bld) [#/Vol] 7.1 10*3/uL 2.0-7.7 [facility] Neutrophils/100 WBC (Bld) 64.2 % 47-70 [facility] Potassium [Moles/Vol] 3.6 mmol/L 3.5-5.1 [facility] Sodium [Moles/Vol] 141 mmol/L 136-145 [facility] WBC (Bld) [#/Vol] 11.0 10*3/uL 4.4-11.0 [facility] Blood erythrocytes count (nu mber/volume)Ordered By: Mari Duvall on 09-02-2023 RBC (Bld) [#/Vol] 4.73 10*6/uL 4.6-6.2 [facility] Blood hemoglobin measurement (mass/volume)Ordered By: Mari Duvall on 09-02-2023 Hemoglobin (Bld) [Mass/Vol] 14.2 g/dL 13.0-16.5 [facility] Blood lymphocytes/100 leukoc ytesOrdered By: Mari Duvall on 09-02-2023 Lymphocytes/100 WBC (Bld) 28.0 % 19-41 [facility] Blood monocytes/100 leukocyt esOrdered By: Mari Duvall on 09-02-2023 Monocytes/100 WBC (Bld) 6.3 % 0-10 [facility] Blood platelet mean volumeOr dered By: Mari Duvall on 09-02-2023 Platelet mean volume (Bld) [Entitic vol] 9.9 fL 6.2-12.0 [facility] Determination of erythrocyte mean corpuscular volume (MCV)Ordered By: Mari Duvall on 09-02-2023 MCV (RBC) [Entitic vol] 93.0 fL 80-94 [facility] Hematocrit Auto (Bld) [Volum e fraction]Ordered By: Mari Duvall on 09-02-2023 Hematocrit (Bld) [Volume fraction] 44.0 % 40-54 [facility] Laboratory - Chemistry and C hemistry - challengeOrdered By: Mari Duvall on 09-02-2023 CO2 [Moles/Vol] 26.0 mmol/L 21.0-32.0 [facility] Urea nitrogen/Creatinine [Mass ratio] 19.4 mg/mg 10-20 [facility] Laboratory - Chemistry and C hemistry - challengeOrdered By: Luzmaria Ferreira on 09-02-2023 Magnesium [Mass/Vol] 2.1 mg/dL 1.6-2.6 [facility] Laboratory - Hematology and Cell countsOrdered By: Mari Duvall on 09-02-2023 Erythrocyte distribution width (RBC) [Entitic vol] 47.6 fL 35.1-43.9 [facility] Erythrocyte distribution width (RBC) [Ratio] 13.8 % 11.6-14.6 [facility] Immature granulocytes/100 WBC (Bld) 0.300 % 0.0-0.9 [facility] Comment on above: IG% - Immature Granu locytes (promyelocytes, myelocytes and metamyelocytes) > 1% indicates that a LEFT SHIFT is Present. MCH (RBC) [Entitic mass] 30.0 pg 27.0-32.0 [facility] Nucleated RBC/100 WBC (Bld) [Ratio] 0 % 0-5 [facility] MCHC Auto (RBC) [Mass/Vol]Or dered By: Mari Duvall on 09-02-2023 MCHC (RBC) [Mass/Vol] 32.3 g/dL 32-36 [facility] No Panel InformationOrdered By: Mari Duvall on 09-02-2023 D-Dimer Quantitative (PE/DVT) 0.48 FEU/ug/m 0.27-0.49 [facility] Comment on above: NORMAL D-Dimer level (<0.50) indicates no DVT or PE. Estimated Creatinine Clearance Calc 100.43 ml/min [facility] Estimated GFR (MDRD) Amer 115 mL/min >60 [facility] Comment on above: GFR Calc Estimated GFR (MDRD) Non-Af Amer 95 mL/min >60 [facility] Comment on above: Non- GFR Calc Troponin I High Sensitivity 10 pg/mL 3.0-78.0 [facility] Comment on above: Please Note: New Michelle t Units and Gender Specific Reference Ranges. For more information see Policy Stat Procedure [place] High Sensitivity Troponin (TNIH) and attachments. Platelets bldOrdered By: Temi Duvall on 09-02-2023 Platelets (Bld) [#/Vol] 291 10*3/uL 150-450 [facility] Serum or plasma calcium giulia urement (mass/volume)Ordered By: Mari Duvall on 09-02-2023 Calcium [Mass/Vol] 9.0 mg/dL 8.5-10.1 [facility] Serum or plasma creatinine m easurement (mass/volume)Ordered By: Mari Duvall on 09-02-2023 Creatinine [Mass/Vol] 0.88 mg/dL 0.70-1.30 [facility] Comment on above: The validity of the calculated GFR & GFRAA in patients over 70 years has not been determined. Clinical correlation is essential. Serum or plasma urea nitroge n measurement (mass/volume)Ordered By: Mari Duvall on 09-02-2023 Urea nitrogen [Mass/Vol] 17 mg/dL 7-18 [facility] Thin prep Papanicolaou smear with manual screeningOrdered By: Mari Duvall on 09-02-2023 Thin prep Papanicolaou smear with manual screening 7 5-15 [facility] Basophil percentageOrdered B y: Ron Zaldivar on 08-13-2023 Chloride [Moles/Vol] 107 mmol/L 98-107 [facility] Glucose [Mass/Vol] 100 mg/dL 74-106 [facility] Comment on above: Fasting Glucose resu lt from 100 to 125 mg/dL suggests IMPAIRED HOMEOSTASIS per A.D.A. criteria. Potassium [Moles/Vol] 4.0 mmol/L 3.5-5.1 [facility] Sodium [Moles/Vol] 139 mmol/L 136-145 [facility] WBC (Bld) [#/Vol] 10.3 10*3/uL 4.4-11.0 [facility] Blood erythrocytes count (nu mber/volume)Ordered By: Ron Zaldivar on 08-13-2023 RBC (Bld) [#/Vol] 5.05 10*6/uL 4.6-6.2 [facility] Blood hemoglobin measurement (mass/volume)Ordered By: Ron Zaldivar on 08-13-2023 Hemoglobin (Bld) [Mass/Vol] 15.1 g/dL 13.0-16.5 [facility] Blood platelet mean volumeOr dered By: Ron Zaldivar on 08-13-2023 Platelet mean volume (Bld) [Entitic vol] 9.5 fL 6.2-12.0 [facility] Determination of erythrocyte mean corpuscular volume (MCV)Ordered By: Ron Zaldivar on 08-13-2023 MCV (RBC) [Entitic vol] 93.3 fL 80-94 [facility] Hematocrit Auto (Bld) [Volum e fraction]Ordered By: Ron Zaldivar on 08-13-2023 Hematocrit (Bld) [Volume fraction] 47.1 % 40-54 [facility] Laboratory - Chemistry and C hemistry - challengeOrdered By: Ron Zaldivar on 08-13-2023 CO2 [Moles/Vol] 27.0 mmol/L 21.0-32.0 [facility] Urea nitrogen/Creatinine [Mass ratio] 24.2 mg/mg 10-20 [facility] Laboratory - Hematology and Cell countsOrdered By: Ron Zaldivar on 08-13-2023 Erythrocyte distribution width (RBC) [Entitic vol] 45.9 fL 35.1-43.9 [facility] Erythrocyte distribution width (RBC) [Ratio] 13.6 % 11.6-14.6 [facility] MCH (RBC) [Entitic mass] 29.9 pg 27.0-32.0 [facility] MCHC Auto (RBC) [Mass/Vol]Or dered By: Ron Zaldivar on 08-13-2023 MCHC (RBC) [Mass/Vol] 32.1 g/dL 32-36 [facility] No Panel InformationOrdered By: Ron Zaldivar on 08-13-2023 Estimated Creatinine Clearance Calc 107.78 ml/min [facility] Estimated GFR (MDRD) Amer 123 mL/min >60 [facility] Comment on above: GFR Calc Estimated GFR (MDRD) Non-Af Amer 102 mL/min >60 [facility] Comment on above: Non- GFR Calc Platelets bldOrdered By: Shauna Zaldivar on 08-13-2023 Platelets (Bld) [#/Vol] 326 10*3/uL 150-450 [facility] Serum or plasma calcium giulia urement (mass/volume)Ordered By: Ron Zaldivar on 08-13-2023 Calcium [Mass/Vol] 8.8 mg/dL 8.5-10.1 [facility] Serum or plasma creatinine m easurement (mass/volume)Ordered By: Ron Zaldivar on 08-13-2023 Creatinine [Mass/Vol] 0.82 mg/dL 0.70-1.30 [facility] Comment on above: The validity of the calculated GFR & GFRAA in patients over 70 years has not been determined. Clinical correlation is essential. Serum or plasma urea nitroge n measurement (mass/volume)Ordered By: Ron Zaldivar on 08-13-2023 Urea nitrogen [Mass/Vol] 20 mg/dL 7-18 [facility] Thin prep Papanicolaou smear with manual screeningOrdered By: Ron Zaldivar on 08-13-2023 Thin prep Papanicolaou smear with manual screening 5 5-15 [facility] Basophil percentageOrdered B y: Lukas Chatterjee on 07-18-2023 Basophil percentage 0 SEEN /hpf 0-5 [facility] Bilirubin Test strip Ql (U)O rdered By: Lukas Chatterjee on 07-18-2023 Bilirubin Ql (U) Negative Negative [facility] Ketones Test strip Ql (U)Ord ered By: Lukas Chatterjee on 07-18-2023 Ketones Ql (U) 5 mg/dl Negative [facility] Mucus LM Ql (Urine sed)Order ed By: Lukas Chatterjee on 07-18-2023 Mucus Ql (Urine sed) 0 SEEN /hpf [facility] Nitrite Test strip Ql (U)Ord ered By: Lukas Chatterjee on 07-18-2023 Nitrite Ql (U) Negative Negative [facility] Protein Test strip Ql (U)Ord ered By: Lukas Chatterjee on 07-18-2023 Protein Ql (U) Negative Negative [facility] Squamous epithelial cells de tection in urine sediment by light microscopyOrdered By: Lukas Chatterjee on 07-18-2023 Epithelial cells.squamous LM Ql (Urine sed) 0 SEEN /hpf 0-5 [facility] Urine blood detectionOrdered By: Lukas Chatterjee on 07-18-2023 RBC Ql (U) 25 /ul Negative [facility] RBC Ql (U) 0 SEEN /hpf 0-5 [facility] Urine clarityOrdered By: Jonathon Chatterjee on 07-18-2023 Clarity (U) Clear Clear [facility] Urine color determinationOrd ered By: Lukas Chatterjee on 07-18-2023 Color (U) Yellow Yellow [facility] Urine glucose detectionOrder ed By: Lukas Chatterjee on 07-18-2023 Glucose Ql (U) Normal mg/dl Normal [facility] Urine leukocyte esterase det ection by dipstickOrdered By: Lukas Chatterjee on 07-18-2023 Leukocyte esterase Test strip Ql (U) 25 /ul Negative [facility] Urine pHOrdered By: Lukas rios on 07-18-2023 pH (U) 5.0 [pH] 5.0 - 8.0 [facility] Urine sediment bacteria coun t by microscopy (number/high power field)Ordered By: Lukas Chatterjee on 07-18-2023 Bacteria LM.HPF (Urine sed) [#/Area] 0 /[HPF] None Seen [facility] Urine specific gravity measu rementOrdered By: Lukas Chatterjee on 07-18-2023 Specific gravity (U) [Rel density] 1.020 1.002-1.03 0 [facility] Urobilinogen Auto test strip Ql (U)Ordered By: Lukas Chatterjee on 07-18-2023 Urobilinogen Ql (U) 1 mg/dl Normal [facility] Absolute lymphocyte countOrd ered By: Lukas Chatterjee on 07-17-2023 Lymphocytes Auto (Unsp spec) [#/Vol] 1.20 10*3/uL 0.83-4.51 [facility] Basophil percentageOrdered B y: Lukas Chatterjee on 07-17-2023 Basophils/100 WBC (Bld) 0.3 % 0-1 [facility] Bilirubin [Mass/Vol] 0.30 mg/dL 0.20-1.00 [facility] Comment on above: For patients on eltr ombopag therapy, use of Dimension [place] TBIL is not recommended. Chloride [Moles/Vol] 106 mmol/L 98-107 [facility] Cholesterol [Mass/Vol] 213 mg/dL <200 [facility] Comment on above: <200 mg/dL Desirable 200-240 mg/dL Borderline >240 mg/dL High Risk Eosinophils/100 WBC (Bld) 0.3 % 0-5 [facility] Glucose [Mass/Vol] 142 mg/dL 74-106 [facility] Comment on above: Fasting Glucose resu lt greater than or equal to 126 mg/dL suggests DIABETES MELLITUS per A.D.A. criteria. Neutrophils (Bld) [#/Vol] 9.4 10*3/uL 2.0-7.7 [facility] Neutrophils/100 WBC (Bld) 84.3 % 47-70 [facility] Potassium [Moles/Vol] 3.9 mmol/L 3.5-5.1 [facility] Protein [Mass/Vol] 8.0 g/dL 6.4-8.2 [facility] Sodium [Moles/Vol] 137 mmol/L 136-145 [facility] Triglyceride [Mass/Vol] 122 mg/dL <199 [facility] Comment on above: The drugs N-Acetylcy steine and Metamizole may falsely depress this assay.Serum Triglycerides Reference Interval Normal <150 mg/dL Borderline high 150 - 199 mg/dL High 200 - 499 mg/dL Very High > or = 500 mg/dL WBC (Bld) [#/Vol] 11.2 10*3/uL 4.4-11.0 [facility] Blood erythrocytes count (nu mber/volume)Ordered By: Lukas Chatterjee on 07-17-2023 RBC (Bld) [#/Vol] 4.95 10*6/uL 4.6-6.2 [facility] Blood hemoglobin measurement (mass/volume)Ordered By: Lukas Chatterjee on 07-17-2023 Hemoglobin (Bld) [Mass/Vol] 15.3 g/dL 13.0-16.5 [facility] Blood lymphocytes/100 leukoc ytesOrdered By: Lukas Chatterjee on 07-17-2023 Lymphocytes/100 WBC (Bld) 10.7 % 19-41 [facility] Blood monocytes/100 leukocyt esOrdered By: Lukas Chatterjee on 07-17-2023 Monocytes/100 WBC (Bld) 4.0 % 0-10 [facility] Blood platelet mean volumeOr dered By: Lukas Chatterjee on 07-17-2023 Platelet mean volume (Bld) [Entitic vol] 10.2 fL 6.2-12.0 [facility] Determination of erythrocyte mean corpuscular volume (MCV)Ordered By: Lukas Chatterjee on 07-17-2023 MCV (RBC) [Entitic vol] 93.7 fL 80-94 [facility] Hematocrit Auto (Bld) [Volum e fraction]Ordered By: Lukas Chatterjee on 07-17-2023 Hematocrit (Bld) [Volume fraction] 46.4 % 40-54 [facility] Laboratory - Chemistry and C hemistry - challengeOrdered By: Lukas Chatterjee on 07-17-2023 ALP [Catalytic activity/Vol] 73 U/L 45-117 [facility] ALT [Catalytic activity/Vol] 25 U/L 16-61 [facility] CO2 [Moles/Vol] 23.0 mmol/L 21.0-32.0 [facility] Globulin (S) [Mass/Vol] 4.3 g/dL 2.2-4.2 [facility] Urea nitrogen/Creatinine [Mass ratio] 18.5 mg/mg 10-20 [facility] Laboratory - Hematology and Cell countsOrdered By: Lukas Chatterjee on 07-17-2023 Erythrocyte distribution width (RBC) [Entitic vol] 45.6 fL 35.1-43.9 [facility] Erythrocyte distribution width (RBC) [Ratio] 13.3 % 11.6-14.6 [facility] Immature granulocytes/100 WBC (Bld) 0.400 % 0.0-0.9 [facility] Comment on above: IG% - Immature Granu locytes (promyelocytes, myelocytes and metamyelocytes) > 1% indicates that a LEFT SHIFT is Present. MCH (RBC) [Entitic mass] 30.9 pg 27.0-32.0 [facility] Nucleated RBC/100 WBC (Bld) [Ratio] 0 % 0-5 [facility] MCHC Auto (RBC) [Mass/Vol]Or dered By: Lukas Chatterjee on 07-17-2023 MCHC (RBC) [Mass/Vol] 33.0 g/dL 32-36 [facility] No Panel InformationOrdered By: Lukas Chatterjee on 07-17-2023 Estimated GFR (MDRD) Amer 101 mL/min >60 [facility] Comment on above: GFR Calc Estimated GFR (MDRD) Non-Af Amer 84 mL/min >60 [facility] Comment on above: Non- GFR Calc Thyroid Stimulating Hormone (TSH) 0.87 uIU/mL 0.358-3.74 [facility] Platelets bldOrdered By: Jonathon Chatterjee on 07-17-2023 Platelets (Bld) [#/Vol] 354 10*3/uL 150-450 [facility] Serum or plasma albumin giulia urement (mass/volume)Ordered By: Lukas Chatterjee on 07-17-2023 Albumin [Mass/Vol] 3.7 g/dL 3.2-5.0 [facility] Serum or plasma albumin/glob ulin mass ratioOrdered By: Lukas Chatterjee on 07-17-2023 Albumin/Globulin [Mass ratio] 0.9 {ratio} 0.9-2.4 [facility] Serum or plasma calcium giulia urement (mass/volume)Ordered By: Lukas Chatterjee on 07-17-2023 Calcium [Mass/Vol] 9.1 mg/dL 8.5-10.1 [facility] Serum or plasma cholesterol in HDL measurement (mass/volume)Ordered By: Lukas Chatterjee on 07-17-2023 Cholesterol in HDL [Mass/Vol] 45 mg/dL >40 [facility] Comment on above: The drugs N-Acetylcy steine and Metamizole may falsely depress this assay. Reference Range HDL <40 mg/dL Low HDL Cholesterol HDL >or= 60 mg/dL High HDL Cholesterol Serum or plasma cholesterol in VLDL measurement (mass/volume)Ordered By: Lukas Chatterjee on 09-19-2023 Cholesterol in VLDL [Mass/Vol] 24 mg/dL 5-40 [facility] Serum or plasma creatinine m easurement (mass/volume)Ordered By: Lukas Chatterjee on 07-17-2023 Creatinine [Mass/Vol] 0.98 mg/dL 0.70-1.30 [facility] Comment on above: The validity of the calculated GFR & GFRAA in patients over 70 years has not been determined. Clinical correlation is essential. Serum or plasma low density lipoprotein (LDL) cholesterol measurement (mass/volume)Ordered By: Lukas Chatterjee on 07-17-2023 Cholesterol in LDL [Mass/Vol] 144 mg/dL 0-130 [facility] Serum or plasma urea nitroge n measurement (mass/volume)Ordered By: Lukas Chatterjee on 07-17-2023 Urea nitrogen [Mass/Vol] 18 mg/dL 7-18 [facility] Serum or plasma uric acid me asurement (mass/volume)Ordered By: Lukas Chatterjee on 07-17-2023 Urate [Mass/Vol] 5.8 mg/dL 3.5-7.2 [facility] Comment on above: The drugs N-Acetylcy steine and Metamizole may falsely depress this assay. Thin prep Papanicolaou smear with manual screeningOrdered By: Lukas Chatterjee on 07-17-2023 Thin prep Papanicolaou smear with manual screening 11 U/L 15-37 [facility] Thin prep Papanicolaou smear with manual screening 8 5-15 [facility] Basophil percentageOrdered B y: Lukas Chatterjee on 04-12-2023 Bilirubin [Mass/Vol] 0.40 mg/dL 0.20-1.00 [facility] Comment on above: For patients on eltr ombopag therapy, use of Dimension [place] TBIL is not recommended. Chloride [Moles/Vol] 108 mmol/L 98-107 [facility] Glucose [Mass/Vol] 96 mg/dL 74-106 [facility] Potassium [Moles/Vol] 4.0 mmol/L 3.5-5.1 [facility] Protein [Mass/Vol] 7.4 g/dL 6.4-8.2 [facility] Sodium [Moles/Vol] 138 mmol/L 136-145 [facility] WBC (Bld) [#/Vol] 9.1 10*3/uL 4.4-11.0 oste r [facility] Blood erythrocytes count (nu mber/volume)Ordered By: Lukas Chatterjee on 04-12-2023 RBC (Bld) [#/Vol] 4.78 10*6/uL 4.6-6.2 [facility] Blood hemoglobin measurement (mass/volume)Ordered By: Lukas Chatterjee on 04-12-2023 Hemoglobin (Bld) [Mass/Vol] 14.3 g/dL 13.0-16.5 [facility] Blood platelet mean volumeOr dered By: Lukas Chatterjee on 04-12-2023 Platelet mean volume (Bld) [Entitic vol] 9.7 fL 6.2-12.0 [facility] Determination of erythrocyte mean corpuscular volume (MCV)Ordered By: Lukas Chatterjee on 04-12-2023 MCV (RBC) [Entitic vol] 92.3 fL 80-94 [facility] Hematocrit Auto (Bld) [Volum e fraction]Ordered By: Lukas Chatterjee on 04-12-2023 Hematocrit (Bld) [Volume fraction] 44.1 % 40-54 [facility] INR in Blood by Coagulation assayOrdered By: Lukas Chatterjee on 04-12-2023 INR Coag (Bld) [Relative time] 1.0 {INR} [facility] Laboratory - Chemistry and C hemistry - challengeOrdered By: Lukas Chatterjee on 04-12-2023 ALP [Catalytic activity/Vol] 71 U/L 45-117 [facility] ALT [Catalytic activity/Vol] 25 U/L 16-61 [facility] CO2 [Moles/Vol] 25.0 mmol/L 21.0-32.0 [facility] Globulin (S) [Mass/Vol] 3.8 g/dL 2.2-4.2 [facility] Urea nitrogen/Creatinine [Mass ratio] 17.7 mg/mg 10-20 [facility] Laboratory - CoagulationOrde red By: Lukas Chatterjee on 04-12-2023 aPTT Coag (Bld) [Time] 31.5 s 24.1-36.2 [facility] PT Coag (PPP) [Time] 13.2 s 11.7-14.9 [facility] Laboratory - Hematology and Cell countsOrdered By: Lukas Chatterjee on 04-12-2023 Erythrocyte distribution width (RBC) [Entitic vol] 46.5 fL 35.1-43.9 [facility] Erythrocyte distribution width (RBC) [Ratio] 13.5 % 11.6-14.6 [facility] MCH (RBC) [Entitic mass] 29.9 pg 27.0-32.0 [facility] MCHC Auto (RBC) [Mass/Vol]Or dered By: Lukas Chatterjee on 04-12-2023 MCHC (RBC) [Mass/Vol] 32.4 g/dL 32-36 [facility] No Panel InformationOrdered By: Lukas Chatterjee on 04-12-2023 Estimated GFR (MDRD) Amer 120 mL/min >60 [facility] Comment on above: GFR Calc Estimated GFR (MDRD) Non-Af Amer 99 mL/min >60 [facility] Comment on above: Non- GFR Calc Platelets bldOrdered By: Jonathon Chatterjee on 04-12-2023 Platelets (Bld) [#/Vol] 295 10*3/uL 150-450 [facility] Serum or plasma albumin giulia urement (mass/volume)Ordered By: Lukas Chatterjee on 04-12-2023 Albumin [Mass/Vol] 3.6 g/dL 3.2-5.0 [facility] Serum or plasma albumin/glob ulin mass ratioOrdered By: Lukas Chatterjee on 04-12-2023 Albumin/Globulin [Mass ratio] 0.9 {ratio} 0.9-2.4 [facility] Serum or plasma calcium giulia urement (mass/volume)Ordered By: Lukas Chatterjee on 04-12-2023 Calcium [Mass/Vol] 8.9 mg/dL 8.5-10.1 [facility] Serum or plasma creatinine m easurement (mass/volume)Ordered By: Lukas Chatterjee on 04-12-2023 Creatinine [Mass/Vol] 0.85 mg/dL 0.70-1.30 [facility] Comment on above: The validity of the calculated GFR & GFRAA in patients over 70 years has not been determined. Clinical correlation is essential. Serum or plasma urea nitroge n measurement (mass/volume)Ordered By: Lukas Chatterjee on 04-12-2023 Urea nitrogen [Mass/Vol] 15 mg/dL 7-18 [facility] Thin prep Papanicolaou smear with manual screeningOrdered By: Lukas Chatterjee on 04-12-2023 Thin prep Papanicolaou smear with manual screening 13 U/L 15-37 [facility] Thin prep Papanicolaou smear with manual screening 5 5-15 [facility] Thrombin time in platelet po or plasmaOrdered By: Lukas Chatterjee on 04-12-2023 Thrombin time Coag (PPP) [Time] 16.4 sec 0.0-23.0 [facility] Comment on above: Performed at: [address] [id number] Director: Mars Urias MD, Phone: [phone] Absolute lymphocyte countOrd ered By: Dr. Chatterjee on 02-13-2023 Lymphocytes Auto (Unsp spec) [#/Vol] 2.34 10*3/uL 0.83-4.51 [facility] Basophil percentageOrdered B y: Dr. Chatterjee on 02-13-2023 Basophils/100 WBC (Bld) 0.7 % 0-1 [facility] Bilirubin [Mass/Vol] 0.30 mg/dL 0.20-1.00 [facility] Comment on above: For patients on eltr ombopag therapy, use of Dimension [place] TBIL is not recommended. Chloride [Moles/Vol] 110 mmol/L 98-107 [facility] Cholesterol [Mass/Vol] 195 mg/dL <200 [facility] Comment on above: <200 mg/dL Desirable 200-240 mg/dL Borderline >240 mg/dL High Risk Eosinophils/100 WBC (Bld) 3.6 % 0-5 [facility] Glucose [Mass/Vol] 88 mg/dL 74-106 [facility] Neutrophils (Bld) [#/Vol] 3.6 10*3/uL 2.0-7.7 [facility] Neutrophils/100 WBC (Bld) 52.0 % 47-70 [facility] Potassium [Moles/Vol] 4.3 mmol/L 3.5-5.1 [facility] Protein [Mass/Vol] 7.7 g/dL 6.4-8.2 [facility] Sodium [Moles/Vol] 136 mmol/L 136-145 [facility] Triglyceride [Mass/Vol] 95 mg/dL <199 [facility] Comment on above: The drugs N-Acetylcy steine and Metamizole may falsely depress this assay.Serum Triglycerides Reference Interval Normal <150 mg/dL Borderline high 150 - 199 mg/dL High 200 - 499 mg/dL Very High > or = 500 mg/dL WBC (Bld) [#/Vol] 7.0 10*3/uL 4.4-11.0 [facility] Blood erythrocytes count (nu mber/volume)Ordered By: Dr. Chatterjee on 02-13-2023 RBC (Bld) [#/Vol] 4.92 10*6/uL 4.6-6.2 [facility] Blood hemoglobin measurement (mass/volume)Ordered By: Dr. Chatterjee on 02-13-2023 Hemoglobin (Bld) [Mass/Vol] 14.8 g/dL 13.0-16.5 [facility] Blood lymphocytes/100 leukoc ytesOrdered By: Dr. Chatterjee on 02-13-2023 Lymphocytes/100 WBC (Bld) 33.6 % 19-41 [facility] Blood monocytes/100 leukocyt esOrdered By: Dr. Chatterjee on 02-13-2023 Monocytes/100 WBC (Bld) 9.8 % 0-10 [facility] Blood platelet mean volumeOr dered By: Dr. Chatterjee on 02-13-2023 Platelet mean volume (Bld) [Entitic vol] 10.2 fL 6.2-12.0 [facility] Determination of erythrocyte mean corpuscular volume (MCV)Ordered By: Dr. Chatterjee on 02-13-2023 MCV (RBC) [Entitic vol] 93.9 fL 80-94 [facility] Hematocrit Auto (Bld) [Volum e fraction]Ordered By: Dr. Chatterjee on 02-13-2023 Hematocrit (Bld) [Volume fraction] 46.2 % 40-54 [facility] Laboratory - Chemistry and C hemistry - challengeOrdered By: Dr. Chatterjee on 02-13-2023 ALP [Catalytic activity/Vol] 76 U/L 45-117 [facility] ALT [Catalytic activity/Vol] 31 U/L 16-61 [facility] CO2 [Moles/Vol] 24.0 mmol/L 21.0-32.0 [facility] Globulin (S) [Mass/Vol] 4.0 g/dL 2.2-4.2 [facility] Urea nitrogen/Creatinine [Mass ratio] 19.3 mg/mg 10-20 [facility] Laboratory - Hematology and Cell countsOrdered By: Dr. Chatterjee on 02-13-2023 Erythrocyte distribution width (RBC) [Entitic vol] 46.7 fL 35.1-43.9 [facility] Erythrocyte distribution width (RBC) [Ratio] 13.5 % 11.6-14.6 [facility] Immature granulocytes/100 WBC (Bld) 0.300 % 0.0-0.9 [facility] Comment on above: IG% - Immature Granu locytes (promyelocytes, myelocytes and metamyelocytes) > 1% indicates that a LEFT SHIFT is Present. MCH (RBC) [Entitic mass] 30.1 pg 27.0-32.0 [facility] Nucleated RBC/100 WBC (Bld) [Ratio] 0 % 0-5 [facility] MCHC Auto (RBC) [Mass/Vol]Or dered By: Dr. Chatterjee on 02-13-2023 MCHC (RBC) [Mass/Vol] 32.0 g/dL 32-36 [facility] No Panel InformationOrdered By: Dr. Chatterjee on 02-13-2023 Estimated GFR (MDRD) Amer 114 mL/min >60 [facility] Comment on above: GFR Calc Estimated GFR (MDRD) Non-Af Amer 94 mL/min >60 [facility] Comment on above: Non- GFR Calc Platelets bldOrdered By: Dr. Chatterjee on 02-13-2023 Platelets (Bld) [#/Vol] 328 10*3/uL 150-450 [facility] Serum or plasma albumin giulia urement (mass/volume)Ordered By: Dr. Chatterjee on 02-13-2023 Albumin [Mass/Vol] 3.7 g/dL 3.2-5.0 [facility] Serum or plasma albumin/glob ulin mass ratioOrdered By: Dr. Chatterjee on 02-13-2023 Albumin/Globulin [Mass ratio] 0.9 {ratio} 0.9-2.4 [facility] Serum or plasma calcium giulia urement (mass/volume)Ordered By: Dr. Chatterjee on 02-13-2023 Calcium [Mass/Vol] 9.0 mg/dL 8.5-10.1 [facility] Serum or plasma cholesterol in HDL measurement (mass/volume)Ordered By: Dr. Chatterjee on 02-13-2023 Cholesterol in HDL [Mass/Vol] 38 mg/dL >40 [facility] Comment on above: The drugs N-Acetylcy steine and Metamizole may falsely depress this assay. Reference Range HDL <40 mg/dL Low HDL Cholesterol HDL >or= 60 mg/dL High HDL Cholesterol Serum or plasma cholesterol in VLDL measurement (mass/volume)Ordered By: Dr. Chatterjee on 02-13-2023 Cholesterol in VLDL [Mass/Vol] 19 mg/dL 5-40 [facility] Serum or plasma creatinine m easurement (mass/volume)Ordered By: Dr. Chatterjee on 02-13-2023 Creatinine [Mass/Vol] 0.88 mg/dL 0.70-1.30 [facility] Comment on above: The validity of the calculated GFR & GFRAA in patients over 70 years has not been determined. Clinical correlation is essential. Serum or plasma low density lipoprotein (LDL) cholesterol measurement (mass/volume)Ordered By: Dr. Chatterjee on 02-13-2023 Cholesterol in LDL [Mass/Vol] 138 mg/dL 0-130 [facility] Serum or plasma urea nitroge n measurement (mass/volume)Ordered By: Dr. Chatterjee on 02-13-2023 Urea nitrogen [Mass/Vol] 17 mg/dL 7-18 [facility] Thin prep Papanicolaou smear with manual screeningOrdered By: Dr. Chatterjee on 02-13-2023 Thin prep Papanicolaou smear with manual screening 20 U/L 15-37 [facility] Thin prep Papanicolaou smear with manual screening 2 5-15 [facility] Whole blood hemoglobin A1c/t otal hemoglobin ratio (mass fraction)Ordered By: Dr. Chatterjee on 02-13-2023 HbA1c (Bld) [Mass fraction] 5.7 % 3.8-5.6 [facility] Comment on above: Normal < 5.7 % Predi abetic 5.7 - 6.4 % Diabetic >or= 6.5 % Please note range changes. Absolute lymphocyte counton 09-07-2022 Lymphocytes Auto (Unsp spec) [#/Vol] 2.53 10*3/uL 0.83-4.51 [facility] Work Phone: Basophil percentageon 2021 Basophil percentage 0 SEEN /hpf 0-5 [facility] Work Phone: Basophils/100 WBC (Bld) 0.5 % 0-1 [facility] Work Phone: [phone] Bilirubin [Mass/Vol] 0.40 mg/dL 0.20-1.00 [facility] Work Phone: Comment on above: For patients on eltr ombopag therapy, use of Dimension [place] TBIL is not recommended. Chloride [Moles/Vol] 107 mmol/L 98-107 [facility] Work Phone: [phone] Cholesterol [Mass/Vol] 192 mg/dL <200 [facility] Work Phone: [phone] Comment on above: <200 mg/dL Desirable 200-240 mg/dL Borderline >240 mg/dL High Risk Eosinophils/100 WBC (Bld) 2.8 % 0-5 [facility] Work Phone: Glucose [Mass/Vol] 92 mg/dL 74-106 [facility] Work Phone: Neutrophils (Bld) [#/Vol] 4.1 10*3/uL 2.0-7.7 [facility] Work Phone: Neutrophils/100 WBC (Bld) 52.0 % 47-70 [facility] Work Phone: [phone] Potassium [Moles/Vol] 4.2 mmol/L 3.5-5.1 [facility] Work Phone: Protein [Mass/Vol] 7.7 g/dL 6.4-8.2 [facility] Work Phone: [phone] Sodium [Moles/Vol] 140 mmol/L 136-145 [facility] Work Phone: [phone] Triglyceride [Mass/Vol] 87 mg/dL <199 [facility] Work Phone: Comment on above: The drugs N-Acetylcy steine and Metamizole may falsely depress this assay.Serum Triglycerides Reference Interval Normal <150 mg/dL Borderline high 150 - 199 mg/dL High 200 - 499 mg/dL Very High > or = 500 mg/dL WBC (Bld) [#/Vol] 7.8 10*3/uL 4.4-11.0 [facility] Work Phone: Bilirubin Test strip Ql (U)o n 09-07-2022 Bilirubin Ql (U) Negative Negative [facility] Work Phone: [phone] Blood erythrocytes count (nu mber/volume)on 09-07-2022 RBC (Bld) [#/Vol] 4.89 10*6/uL 4.6-6.2 [facility] Work Phone: Blood hemoglobin measurement (mass/volume)on 09-07-2022 Hemoglobin (Bld) [Mass/Vol] 15.1 g/dL 13.0-16.5 [facility] Work Phone: Blood lymphocytes/100 leukoc yteson 09-07-2022 Lymphocytes/100 WBC (Bld) 32.3 % 19-41 [facility] Work Phone: Blood monocytes/100 leukocyt eson 09-07-2022 Monocytes/100 WBC (Bld) 12.1 % 0-10 [facility] Work Phone: Blood platelet mean volumeon 09-07-2022 Platelet mean volume (Bld) [Entitic vol] 9.9 fL 6.2-12.0 [facility] Work Phone: [phone] Determination of erythrocyte mean corpuscular volume (MCV)on 09-07-2022 MCV (RBC) [Entitic vol] 92.2 fL 80-94 [facility] Work Phone: Hematocrit Auto (Bld) [Volum e fraction]on 09-07-2022 Hematocrit (Bld) [Volume fraction] 45.1 % 40-54 [facility] Work Phone: [phone] Ketones Test strip Ql (U)on 09-07-2022 Ketones Ql (U) 5 mg/dl Negative [facility] Work Phone: [phone] Laboratory - Chemistry and C hemistry - challengeon 09-07-2022 ALP [Catalytic activity/Vol] 72 U/L 45-117 [facility] Work Phone: ALT [Catalytic activity/Vol] 27 U/L 16-61 [facility] Work Phone: CO2 [Moles/Vol] 24.0 mmol/L 21.0-32.0 [facility] Work Phone: [phone] Globulin (S) [Mass/Vol] 3.9 g/dL 2.2-4.2 [facility] Work Phone: Urea nitrogen/Creatinine [Mass ratio] 22.3 mg/mg 10-20 [facility] Work Phone: Laboratory - Hematology and Cell countson 09-07-2022 Erythrocyte distribution width (RBC) [Entitic vol] 47.3 fL 35.1-43.9 [facility] Work Phone: Erythrocyte distribution width (RBC) [Ratio] 13.9 % 11.6-14.6 [facility] Work Phone: Immature granulocytes/100 WBC (Bld) 0.300 % 0.0-0.9 [facility] Work Phone: [phone] Comment on above: IG% - Immature Granu locytes (promyelocytes, myelocytes and metamyelocytes) > 1% indicates that a LEFT SHIFT is Present. MCH (RBC) [Entitic mass] 30.9 pg 27.0-32.0 [facility] Work Phone: Nucleated RBC/100 WBC (Bld) [Ratio] 0 % 0-5 [facility] Work Phone: MCHC Auto (RBC) [Mass/Vol]on 09-07-2022 MCHC (RBC) [Mass/Vol] 33.5 g/dL 32-36 [facility] Work Phone: Mucus LM Ql (Urine sed)on Mucus Ql (Urine sed) 0 SEEN /hpf [facility] Work Phone: Nitrite Test strip Ql (U)on 09-07-2022 Nitrite Ql (U) Negative Negative [facility] Work Phone: No Panel Informationon 09-07 Estimated GFR (MDRD) Amer 112 mL/min >60 [facility] Work Phone: Comment on above: GFR Calc Estimated GFR (MDRD) Non-Af Amer 93 mL/min >60 [facility] Work Phone: Comment on above: Non- GFR Calc Platelets bldon 09-07-2022 Platelets (Bld) [#/Vol] 347 10*3/uL 150-450 [facility] Work Phone: Protein Test strip Ql (U)on 09-07-2022 Protein Ql (U) Negative Negative [facility] Work Phone: [phone] Serum or plasma albumin giulia urement (mass/volume)on 09-07-2022 Albumin [Mass/Vol] 3.8 g/dL 3.2-5.0 [facility] Work Phone: [phone] Serum or plasma albumin/glob ulin mass ratioon 09-07-2022 Albumin/Globulin [Mass ratio] 1.0 {ratio} 0.9-2.4 [facility] Work Phone: [phone] Serum or plasma calcium giulia urement (mass/volume)on 09-07-2022 Calcium [Mass/Vol] 9.4 mg/dL 8.5-10.1 [facility] Work Phone: [phone] Serum or plasma cholesterol in HDL measurement (mass/volume)on 09-07-2022 Cholesterol in HDL [Mass/Vol] 36 mg/dL >40 [facility] Work Phone: Comment on above: The drugs N-Acetylcy steine and Metamizole may falsely depress this assay. Reference Range HDL <40 mg/dL Low HDL Cholesterol HDL >or= 60 mg/dL High HDL Cholesterol Serum or plasma cholesterol in VLDL measurement (mass/volume)on 09-07-2022 Cholesterol in VLDL [Mass/Vol] 17 mg/dL 5-40 [facility] Work Phone: Serum or plasma creatinine m easurement (mass/volume)on 09-07-2022 Creatinine [Mass/Vol] 0.90 mg/dL 0.70-1.30 [facility] Work Phone: Comment on above: The validity of the calculated GFR & GFRAA in patients over 70 years has not been determined. Clinical correlation is essential. Serum or plasma low density lipoprotein (LDL) cholesterol measurement (mass/volume)on 09-07-2022 Cholesterol in LDL [Mass/Vol] 139 mg/dL 0-130 [facility] Work Phone: Serum or plasma urea nitroge n measurement (mass/volume)on 09-07-2022 Urea nitrogen [Mass/Vol] 20 mg/dL 7-18 [facility] Work Phone: Serum or plasma uric acid me asurement (mass/volume)on 09-07-2022 Urate [Mass/Vol] 7.5 mg/dL 3.5-7.2 [facility] Work Phone: Comment on above: The drugs N-Acetylcy steine and Metamizole may falsely depress this assay. Squamous epithelial cells de tection in urine sediment by light microscopyon 09-07-2022 Epithelial cells.squamous LM Ql (Urine sed) 0 SEEN /hpf 0-5 [facility] Work Phone: Thin prep Papanicolaou smear with manual screeningon 09-07-2022 Thin prep Papanicolaou smear with manual screening 19 U/L 15-37 [facility] Work Phone: Thin prep Papanicolaou smear with manual screening 9 5-15 [facility] Work Phone: Urine blood detectionon 08-29 RBC Ql (U) 25 /ul Negative [facility] Work Phone: RBC Ql (U) 0 SEEN /hpf 0-5 [facility] Work Phone: Urine clarityon 09-07-2022 Clarity (U) Clear Clear [facility] Work Phone: Urine color determinationon 09-07-2022 Color (U) Yellow Yellow [facility] Work Phone: Urine glucose detectionon Glucose Ql (U) Normal mg/dl Normal [facility] Work Phone: Urine leukocyte esterase det ection by dipstickon 09-07-2022 Leukocyte esterase Test strip Ql (U) Negative Negative [facility] Work Phone: Urine pHon 09-07-2022 pH (U) 6.0 [pH] 5.0 - 8.0 [facility] Work Phone: Urine sediment bacteria coun t by microscopy (number/high power field)on 09-07-2022 Bacteria LM.HPF (Urine sed) [#/Area] 0 /[HPF] None Seen [facility] Work Phone: Urine specific gravity measu rementon 09-07-2022 Specific gravity (U) [Rel density] 1.025 1.002-1.03 0 [facility] Work Phone: Urobilinogen Auto test strip Ql (U)on 09-07-2022 Urobilinogen Ql (U) Normal mg/dl Normal [facility] Work Phone: Whole blood hemoglobin A1c/t otal hemoglobin ratio (mass fraction)on 09-07-2022 HbA1c (Bld) [Mass fraction] 5.9 % 3.8-5.6 [facility] Work Phone: Comment on above: Normal < 5.7 % Predi abetic 5.7 - 6.4 % Diabetic >or= 6.5 % Please note range changes. Absolute lymphocyte counton 05-17-2022 Lymphocytes Auto (Unsp spec) [#/Vol] 2.26 10*3/uL 0.83-4.51 [facility] Work Phone: Basophil percentageon 2021 Basophil percentage 0 SEEN /hpf [facility] Work Phone: Basophils/100 WBC (Bld) 0.7 % 0-1 [facility] Work Phone: [phone] Bilirubin [Mass/Vol] 0.20 mg/dL 0.20-1.00 [facility] Work Phone: [phone] Comment on above: For patients on eltr ombopag therapy, use of Dimension [place] TBIL is not recommended. Chloride [Moles/Vol] 108 mmol/L 98-107 [facility] Work Phone: [phone] Cholesterol [Mass/Vol] 205 mg/dL <200 [facility] Work Phone: [phone] Comment on above: <200 mg/dL Desirable 200-240 mg/dL Borderline >240 mg/dL High Risk Eosinophils/100 WBC (Bld) 3.0 % 0-5 [facility] Work Phone: [phone] Glucose [Mass/Vol] 104 mg/dL 74-106 [facility] Work Phone: [phone] Comment on above: Fasting Glucose resu lt from 100 to 125 mg/dL suggests IMPAIRED HOMEOSTASIS per A.D.A. criteria. Neutrophils (Bld) [#/Vol] 4.2 10*3/uL 2.0-7.7 [facility] Work Phone: Neutrophils/100 WBC (Bld) 55.3 % 47-70 [facility] Work Phone: [phone] Potassium [Moles/Vol] 4.2 mmol/L 3.5-5.1 [facility] Work Phone: [phone] Protein [Mass/Vol] 7.6 g/dL 6.4-8.2 [facility] Work Phone: [phone] Sodium [Moles/Vol] 138 mmol/L 136-145 [facility] Work Phone: Triglyceride [Mass/Vol] 197 mg/dL [facility] Work Phone: Comment on above: The drugs N-Acetylcy steine and Metamizole may falsely depress this assay.Serum Triglycerides Reference Interval Normal <150 mg/dL Borderline high 150 - 199 mg/dL High 200 - 499 mg/dL Very High > or = 500 mg/dL WBC (Bld) [#/Vol] 7.6 10*3/uL 4.4-11.0 [facility] Work Phone: Bilirubin Test strip Ql (U)o n 03-14-2022 Bilirubin Ql (U) Negative Negative [facility] Work Phone: Blood erythrocytes count (nu mber/volume)on 03-14-2022 RBC (Bld) [#/Vol] 4.88 10*6/uL 4.6-6.2 [facility] Work Phone: Blood hemoglobin measurement (mass/volume)on 03-14-2022 Hemoglobin (Bld) [Mass/Vol] 14.8 g/dL 13.0-16.5 [facility] Work Phone: Blood lymphocytes/100 leukoc yteson 03-14-2022 Lymphocytes/100 WBC (Bld) 29.6 % 19-41 [facility] Work Phone: Blood monocytes/100 leukocyt eson 03-14-2022 Monocytes/100 WBC (Bld) 10.9 % 0-10 [facility] Work Phone: [phone] Blood platelet mean volumeon 03-14-2022 Platelet mean volume (Bld) [Entitic vol] 10.4 fL 6.2-12.0 [facility] Work Phone: Determination of erythrocyte mean corpuscular volume (MCV)on 03-14-2022 MCV (RBC) [Entitic vol] 93.9 fL 80-94 [facility] Work Phone: Hematocrit Auto (Bld) [Volum e fraction]on 03-14-2022 Hematocrit (Bld) [Volume fraction] 45.8 % 40-54 [facility] Work Phone: Ketones Test strip Ql (U)on 03-14-2022 Ketones Ql (U) Negative Negative [facility] Work Phone: Laboratory - Chemistry and C hemistry - challengeon 03-14-2022 ALP [Catalytic activity/Vol] 64 U/L 45-117 [facility] Work Phone: [phone] ALT [Catalytic activity/Vol] 34 U/L 16-61 [facility] Work Phone: [phone] CO2 [Moles/Vol] 25.0 mmol/L 21.0-32.0 [facility] Work Phone: Globulin (S) [Mass/Vol] 3.9 g/dL 2.2-4.2 [facility] Work Phone: [phone] Urea nitrogen/Creatinine [Mass ratio] 21.7 mg/mg 10-20 [facility] Work Phone: Laboratory - Drug toxicology on 03-14-2022 Amphetamines Ql (U) Negative [facility] Work Phone: Benzodiazepines Ql (U) Negative [facility] Work Phone: Cannabinoids Screen Ql (U) Negative [facility] Work Phone: Cocaine Ql (U) Negative [facility] Work Phone: Opiates Ql (U) Negative [facility] Work Phone: Laboratory - Hematology and Cell countson 03-14-2022 Erythrocyte distribution width (RBC) [Entitic vol] 45.7 fL 35.1-43.9 [facility] Work Phone: [phone] Erythrocyte distribution width (RBC) [Ratio] 13.2 % 11.6-14.6 [facility] Work Phone: [phone] Immature granulocytes/100 WBC (Bld) 0.500 % 0.0-0.9 [facility] Work Phone: Comment on above: IG% - Immature Granu locytes (promyelocytes, myelocytes and metamyelocytes) > 1% indicates that a LEFT SHIFT is Present. MCH (RBC) [Entitic mass] 30.3 pg 27.0-32.0 [facility] Work Phone: Nucleated RBC/100 WBC (Bld) [Ratio] 0 % 0-5 [facility] Work Phone: MCHC Auto (RBC) [Mass/Vol]on 03-14-2022 MCHC (RBC) [Mass/Vol] 32.3 g/dL 32-36 [facility] Work Phone: Mucus LM Ql (Urine sed)on Mucus Ql (Urine sed) 0 SEEN /hpf [facility] Work Phone: Nitrite Test strip Ql (U)on 03-14-2022 Nitrite Ql (U) Positive Negative [facility] Work Phone: No Panel Informationon 03-14 Estimated GFR (MDRD) Amer 103 mL/min >60 [facility] Work Phone: Comment on above: GFR Calc Estimated GFR (MDRD) Non-Af Amer 85 mL/min >60 [facility] Work Phone: Comment on above: Non- GFR Calc MDMA (Ecstasy) Screen Negative [facility] Work Phone: Urine Barbiturates Screen Negative [facility] Work Phone: Urine Drug Screen Comment [facility] Work Phone: Comment on above: CONFIRMATORY TESTING FOR ALL POSITIVE URINE DRUG SCREENRESULTS WILL ONLY BE SENT OUT UPON PHYSICIAN ORDER. VISTA Urine Drug Screen methods provide only preliminaryanalytical test results. A more specific alternate chemicalmethod must be used in order to obtain a confirmedanalytical result. Gas chromatography/mass spectrometery(GC/MS) is the preferred confirmatory method. Clinicalconsideration and professional judgement should be appliedto any drug of abuse test result, particularly whenpreliminary positive results are used. URINE TCA TESTING MUST BE ORDERED SEPARATELY. USE TESTMNEMONIC: [facility] Urine Methadone Screen Negative [facility] Work Phone: Platelets bldon 03-14-2022 Platelets (Bld) [#/Vol] 311 10*3/uL 150-450 [facility] Work Phone: Protein Test strip Ql (U)on 03-14-2022 Protein Ql (U) Negative Negative [facility] Work Phone: Serum or plasma albumin giulia urement (mass/volume)on 03-14-2022 Albumin [Mass/Vol] 3.7 g/dL 3.2-5.0 [facility] Work Phone: Serum or plasma albumin/glob ulin mass ratioon 03-14-2022 Albumin/Globulin [Mass ratio] 0.9 {ratio} 0.9-2.4 [facility] Work Phone: Serum or plasma calcium giulia urement (mass/volume)on 03-14-2022 Calcium [Mass/Vol] 8.7 mg/dL 8.5-10.1 [facility] Work Phone: Serum or plasma cholesterol in HDL measurement (mass/volume)on 03-14-2022 Cholesterol in HDL [Mass/Vol] 37 mg/dL [facility] Work Phone: Comment on above: The drugs N-Acetylcy steine and Metamizole may falsely depress this assay. Reference Range HDL <40 mg/dL Low HDL Cholesterol HDL >or= 60 mg/dL High HDL Cholesterol Serum or plasma cholesterol in VLDL measurement (mass/volume)on 03-14-2022 Cholesterol in VLDL [Mass/Vol] 39 mg/dL 5-40 [facility] Work Phone: Serum or plasma creatinine m easurement (mass/volume)on 03-14-2022 Creatinine [Mass/Vol] 0.97 mg/dL 0.70-1.30 [facility] Work Phone: Comment on above: The validity of the calculated GFR & GFRAA in patients over 70 years has not been determined. Clinical correlation is essential. Serum or plasma low density lipoprotein (LDL) cholesterol measurement (mass/volume)on 03-14-2022 Cholesterol in LDL [Mass/Vol] 129 mg/dL 0-130 [facility] Work Phone: Serum or plasma urea nitroge n measurement (mass/volume)on 03-14-2022 Urea nitrogen [Mass/Vol] 21 mg/dL 7-18 [facility] Work Phone: Serum or plasma uric acid me asurement (mass/volume)on 03-14-2022 Urate [Mass/Vol] 6.9 mg/dL 3.5-7.2 [facility] Work Phone: Comment on above: The drugs N-Acetylcy steine and Metamizole may falsely depress this assay. Squamous epithelial cells de tection in urine sediment by light microscopyon 03-14-2022 Epithelial cells.squamous LM Ql (Urine sed) 0 SEEN /hpf [facility] Work Phone: Thin prep Papanicolaou smear with manual screeningon 03-14-2022 Thin prep Papanicolaou smear with manual screening 12 U/L 15-37 [facility] Work Phone: Thin prep Papanicolaou smear with manual screening 5 5-15 [facility] Work Phone: Urine blood detectionon 02-26 RBC Ql (U) Negative Negative [facility] Work Phone: RBC Ql (U) 0 SEEN /hpf [facility] Work Phone: Urine clarityon 03-14-2022 Clarity (U) Clear Clear [facility] Work Phone: Urine color determinationon 03-14-2022 Color (U) Yellow Yellow [facility] Work Phone: Urine glucose detectionon Glucose Ql (U) Normal mg/dl Normal [facility] Work Phone: Urine leukocyte esterase det ection by dipstickon 03-14-2022 Leukocyte esterase Test strip Ql (U) 25 /ul Negative [facility] Work Phone: Urine pHon 03-14-2022 pH (U) 7.0 [pH] [facility] Work Phone: Urine phencyclidine (PCP) de tectionon 03-14-2022 Phencyclidine Ql (U) Negative [facility] Work Phone: Urine sediment bacteria coun t by microscopy (number/high power field)on 03-14-2022 Bacteria LM.HPF (Urine sed) [#/Area] 0 /[HPF] None Seen [facility] Work Phone: Urine specific gravity measu rementon 03-14-2022 Specific gravity (U) [Rel density] 1.005 [facility] Work Phone: Urobilinogen Auto test strip Ql (U)on 03-14-2022 Urobilinogen Ql (U) Normal mg/dl Normal [facility] Work Phone: Whole blood hemoglobin A1c/t otal hemoglobin ratio (mass fraction)on 03-14-2022 HbA1c (Bld) [Mass fraction] 5.8 % 3.8-5.6 [facility] Work Phone: Comment on above: Normal < 5.7 % Predi abetic 5.7 - 6.4 % Diabetic >or= 6.5 % Please note range changes. Laboratory - Drug toxicology on 01-19-2022 Amphetamines Ql (U) Negative [facility] Work Phone: Benzodiazepines Ql (U) Negative [facility] Work Phone: Cannabinoids Screen Ql (U) Positive [facility] Work Phone: Cocaine Ql (U) Negative [facility] Work Phone: Opiates Ql (U) Negative [facility] Work Phone: No Panel Informationon 01-19 MDMA (Ecstasy) Screen Negative [facility] Work Phone: Urine Barbiturates Screen Negative [facility] Work Phone: Urine Drug Screen Comment [facility] Work Phone: Comment on above: CONFIRMATORY TESTING FOR ALL POSITIVE URINE DRUG SCREENRESULTS WILL ONLY BE SENT OUT UPON PHYSICIAN ORDER. VISTA Urine Drug Screen methods provide only preliminaryanalytical test results. A more specific alternate chemicalmethod must be used in order to obtain a confirmedanalytical result. Gas chromatography/mass spectrometery(GC/MS) is the preferred confirmatory method. Clinicalconsideration and professional judgement should be appliedto any drug of abuse test result, particularly whenpreliminary positive results are used. URINE TCA TESTING MUST BE ORDERED SEPARATELY. USE TESTMNEMONIC: [facility] Urine Methadone Screen Negative [facility] Work Phone: Urine phencyclidine (PCP) de tectionon 01-19-2022 Phencyclidine Ql (U) Negative [facility] Work Phone: Cannabinoidon 11-08-2021 Cannabinoids (Unsp spec) [Mass/Vol] Positive [facility] Work Phone: Laboratory - Drug toxicology on 11-08-2021 Amphetamines Ql (U) Negative [facility] Work Phone: Benzodiazepines Ql (U) Negative [facility] Work Phone: Cocaine Ql (U) Negative [facility] Work Phone: Opiates Ql (U) Negative [facility] Work Phone: No Panel Informationon 11-08 Urine Barbiturates Screen Negative [facility] Work Phone: Urine Drug Screen Comment [facility] Work Phone: Comment on above: CONFIRMATORY TESTING FOR ALL POSITIVE URINE DRUG SCREENRESULTS WILL ONLY BE SENT OUT UPON PHYSICIAN ORDER. VISTA Urine Drug Screen methods provide only preliminaryanalytical test results. A more specific alternate chemicalmethod must be used in order to obtain a confirmedanalytical result. Gas chromatography/mass spectrometery(GC/MS) is the preferred confirmatory method. Clinicalconsideration and professional judgement should be appliedto any drug of abuse test result, particularly whenpreliminary positive results are used. URINE TCA TESTING MUST BE ORDERED SEPARATELY. USE TESTMNEMONIC: [facility] Urine Methadone Screen Negative [facility] Work Phone: Urine Methamphetamine-MDMA Screen Negative [facility] Work Phone: Thin prep Papanicolaou smear with manual screeningon 11-08-2021 Thin prep Papanicolaou smear with manual screening 125 ng/mL Cutoff=10 [facility] Work Phone: Comment on above: Performed at: - [facility] [id number] [facility], [place], [place] [id number] Director: Neena Lucia PhD, Phone: [phone] Urine phencyclidine (PCP) de tectionon 11-08-2021 Phencyclidine Ql (U) Negative [facility] Work Phone: Laboratory - Drug toxicology on 10-26-2021 Amphetamines Ql (U) Negative [facility] Work Phone: Benzodiazepines Ql (U) Negative [facility] Work Phone: Cannabinoids Screen Ql (U) Positive [facility] Work Phone: Cocaine Ql (U) Negative [facility] Work Phone: Opiates Ql (U) Negative [facility] Work Phone: No Panel Informationon 10-26 Urine Barbiturates Screen Negative [facility] Work Phone: Urine Drug Screen Comment [facility] Work Phone: Comment on above: CONFIRMATORY TESTING FOR ALL POSITIVE URINE DRUG SCREENRESULTS WILL ONLY BE SENT OUT UPON PHYSICIAN ORDER. VISTA Urine Drug Screen methods provide only preliminaryanalytical test results. A more specific alternate chemicalmethod must be used in order to obtain a confirmedanalytical result. Gas chromatography/mass spectrometery(GC/MS) is the preferred confirmatory method. Clinicalconsideration and professional judgement should be appliedto any drug of abuse test result, particularly whenpreliminary positive results are used. URINE TCA TESTING MUST BE ORDERED SEPARATELY. USE TESTMNEMONIC: [facility] Urine Methadone Screen Negative [facility] Work Phone: Urine Methamphetamine-MDMA Screen Negative [facility] Work Phone: Urine phencyclidine (PCP) de tectionon 10-26-2021 Phencyclidine Ql (U) Negative [facility] Work Phone: Hemoglobin A1Con 03-23-2020 HbA1c (Bld) [Mass fraction] 5.9 % High 4.0-5.7 [facility] Comment on above: Result Comment: --Hg bA1C levels may not be accurate in patients who have renal disease, received recent blood transfusions, are anemic, or who have dyshemoglobinemia. Performed By: #### L IPD2, HA1C2 #### [address] [address] [place], [place] HbA1c (Bld) [Mass fraction] 123 mg/dL Normal [facility] Comment on above: Performed By: #### L JULY2 HA1C2 #### [address] [address] [place], [place] Hemoglobin A1con 03-23-2020 eAG 123 mg/dL [place], [place] HbA1c (Bld) [Mass fraction] 5.9 % High 4 - 5.7 % [place], [place] Comment on above: --HgbA1C levels may not be accurate in patients who have renal disease, received recent blood transfusions, are anemic, or who have dyshemoglobinemia. Interpretation and review of laboratory results Abnormal [place], [place] Test Performed by [id number] [place] [address] Lipid Panelon 03-23-2020 Cholesterol in HDL [Mass/Vol] 42 mg/dL Normal 40-60 [facility] Comment on above: Performed By: #### L IPD2, HA1C2 #### [address] [address] [place] [place], [place] Cholesterol.total/Cho lesterol in HDL [Mass ratio] 5 Normal [facility] Comment on above: Result Comment: Ref Range: < 3 Low Risk for CHD 3-6 Mod Risk for CHD > 6 High Risk for CHD Performed By: #### L IPD2, HA1C2 #### [facility] [address] [place], [place] Protein [Mass/Vol] 145 mg/dL Abnormal <100 [facility] Comment on above: Performed By: #### L IPD2, HA1C2 #### [facility] [address] [place] [address] Triglyceride [Mass/Vol] 152 mg/dL Abnormal <150 [facility] Comment on above: Performed By: #### L IPD2, HA1C2 #### [facility] [address] [place] [address] Cholesterol [Mass/Vol] 217 mg/dL Abnormal < 200 [facility] Comment on above: Performed By: #### L IPD2, HA1C2 #### [facility] [address] [place] [address] Lipid panel - fastingon 02-27 Cholesterol [Mass/Vol] 217 mg/dL Abnormal <200 [place], [place] Cholesterol in HDL [Mass/Vol] 42 mg/dL 40 - 60 mg/dL [place] Cholesterol in LDL [Mass/Vol] 145 mg/dL Abnormal <100 [place] Cholesterol.total/Cho lesterol in HDL [Mass ratio] 5 {ratio} [place] Comment on above: Ref Range: < 3 Low Risk for CHD 3-6 Mod Risk for CHD > 6 High Risk for CHD Interpretation and review of laboratory results Abnormal [place] Triglyceride [Mass/Vol] 152 mg/dL Abnormal <150 [place], [place] Test Performed by [facility], [address] [place] [id number] [place], [place] CNCOon 03-04-2018 CNCO Letter Text [facility] [id number] [facility] [id number]: [phone] Ufhkokg E. Shafer, Paulyy 2017Jackie Sheldon[address] [facility] [id number] Sheldon,We missed seeing you for your scheduled appointment with Dr. Roland on02/27/18 at the [facility].Our goal is to offer the best possible care to our patients, so we areconcerned when you are unable to keep a scheduled appointment.Please call us at [phone] so that we can reschedule your appointment fora day and time that will work for you.If you find it difficult to keep your appointment, please notify our officeat least 24 hours in advance so that we may reschedule your appointment.We are glad that you have chosen [facility] for yourcardiovascular needs and hope to continue serving you in the future.Sincerely,Paul Roland MD(Signed electronically to expedite mailing) [facility] 09-03-2017 CNPN Telephone (CDLBME) -JACKIE SHELDON ([id number]) 1965 MDate Time Provider Oooicnrfbq71/6/17 KAT EDDY (RN) CDLE During your visit today, we recorded the following information about you:Kat Eddy RN, RN 09/03/2017 2:24 PM SignedLeft message regarding reminder for stress echo tomorrow and given instructionsAllergies As of Date: 09/03/2017(No Known Allergies)Date Reviewed: 08/30/2017Reviewed by: Kat Guzmán) Dung - Fully AssessedReason for Visit: Reminder Call [[id number]]Prescriptions as of 09/03/2017 Sig: ALLOPURINOL 300 MG TABLET Take 1 tablet by mouth once d* IBUPROFEN 800 MG TABLET Take 1 tablet by mouth every * SIMVASTATIN 20 MG TABLET Take 1 tablet by mouth daily * LISINOPRIL 40 MG TABLET Take 1 tablet by mouth once d*Problem List As Of Date 09/03/2017 Noted Resolved Essential hypertension [I10] INVALID FOR* Mixed hyperlipidemia [E78.2] INVALID FOR* Degenerative arthritis of knee [M17.10] INVALID FOR* Gout [M10.9] INVALID FOR* Depression [F32.9] INVALID FOR* Bipolar disorder (HCC) [F31.9] INVALID FOR*05/28/2015 More... COPD (chronic obstructive pulmonary disease) [J*INVALID FOR* Hypogonadism male [E29.1] INVALID FOR* Backache [M54.9] INVALID FOR* Degenerative arthritis of left knee [M17.12] INVALID FOR* Idiopathic chronic gout of left foot without to*INVALID FOR* Asthma, moderate persistent, well-controlled [J*INVALID FOR* Status:Closed by KAT EDDY on 09/03/17 [facility] CNCAmerica 08-30-2017 Erythrocyte distribution width Auto Ratio (RBC) Letter TextDepartment of CardiologyDr.Ken Roland[address] [place], [place] [address]Domep: [phone]/30/2016TO WHOM IT MAY CONCERN:This is to confirm that Jackie Sheld[facility] had an [facility] Dr.Ken Mike 08/30/2017 and may return to work on 08-30-17.Sincerely yours,Cardiology Staff [facility] CNOVon 08-30-2017 CNOV Office Visit (AGCARDWST) ----JACKIE SHELDON ([id number]) 1965 MDate Time Provider Edgjzzsovq35/2/17 4:00 PM PAUL ROLAND AGCARDWST During your visit today, we recorded the following information about you: Pulse Blood pressure Weight 74/minute 126/77 101.3 kgPaul Roland MD 08/30/2017 5:27 PM SignedPERTINENT CARDIAC HISTORYChest painVEA - bigeminiHTNHLSyncope - remote, likely postural hypotensionADHERENCE TO GUIDELINESACE-I or ARB for HF with prior LVEFANDlt;40 (NQF 0081) - N/AASA or Plavix for ASHD (NQF 0067) - N/ABeta bethanie for ASHD with prior VT or prior LVEFANDlt;40 (NQF 0070) - N/ABeta bethanie for HF with prior LVEFANDlt;40 (NQF 0083) - N/AACE-I or ARB for ASHD with DM or prior LVEFANDlt;40 (NQ 0066) - N/AStatin therapy for ASHD or FHL or DM - metBMI documented and plan if ANDgt;25 (NQ 0421) - lifestyle recommendation formTobacco use screening and referral (NQ 0028) - lifestyle recommendation formRecommendation for whole food, plant based diet - lifestyle recommendation formCLINICAL IMPRESSION/PLAN:Jackie Sheldon has frequent ventricular ectopy which may be indicative ofunderlying valvular, ischemic or myocardial disease. I recommended he undergostress echocardiogram for further assessment. He's been advised not to exercisethrough symptoms. He will continue his current medication. Magnesium level andTSH will be obtained.If no correctable cause of his arrhythmia is found, we will obtain an extendedmonitor to see if his load is above 25%. Suppression may be of help. Given theleft bundle and inferior axis and apparent RVOT site of origin, a calciumblocker may be effective.If he has recurrent lightheadedness or increased chest tightness, he's beenadvised to contact me.I will see him in 6 months or as neededWritten and verbal health teaching given to patient, patient verbalizesunderstanding and agrees with treatment plan.This note was generated using [employer] voice recognition system, and there may besome incorrect words, spellings, and punctuation that were not noted inchecking the note before saving.DIAGNOSIS FOR VISIT:Chest painArrhythmiaHISTORY OF PRESENT ILLNESSJackie Sheldon is a 51-year-old gentleman who is seen in consultation at [facility] Dr[facility] Mendez. He was recently found to have frequent ventricularectopy.He denies any previous cardiac history. He had an admission for syncope severalyears ago. He was kept overnight and stress test and echocardiogram were done.He reports that these were normal. The episode of syncope occurred while he wasdehydrated, on a hot day, having just finished yardwork. had posturallightheadedness and fell to the ground. He's had no recurrence.He has noted occasional episodes of tightness in the chest while working. Thesehave gone away on their own.He has noted a slight decrease in exercise tolerance. He's had minimal edema.He denies orthopnea. He denies TIAs, amaurosis, claudication.He has occasionally noticed some irregularity in his heart beats. He was notedto have frequent ventricular ectopy at the time of his ECG.Risk factors for coronary disease include hypertension and hyperlipidemia.ALLERGIES:ANIKA Cristy Known AllergiesCURRENT OUTPATIENT MEDICATIONS:allopurinol (ZYLOPRIM) 300 mg tablet Take 1 tablet by mouth once daily. Forgout.ibuprofen (MOTRIN) 800 mg tablet Take 1 tablet by mouth every 8 hours as neededfor Pain. Take with food.simvastatin (ZOCOR) 20 mg tablet Take 1 tablet by mouth daily at bedtime.lisinopril (ZESTRIL, PRINIVIL) 40 mg tablet Take 1 tablet by mouth once daily.PAST MEDICAL HISTORYDiagnosis Date- Arthritis- Arthritis, degenerative- Back injury 1982 chronic back pain.- Gout- Syncope 2012PAST SURGICAL HISTORYProcedure Laterality Date- NONEFAMILY HISTORYProblem Relation Age of Onset- Arthritis Mother- Diabetes Father- Hypertension Father- Stroke Paternal Grandfather- Ischemic Heart Disease Paternal Grandfather- Ischemic Heart Disease Maternal GrandfatherSocial History Marital status: Spouse name: Years of education: Number of children:Social History Main Topics Smoking status: Former Smoker Packs/day: 2.00 Years: 38.00 Quit date: 06/29/2012 Smokeless status: Never Used Alcohol use: No Drug use: No Sexual activity: NoSocial History Narrative 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 Disabledfrom knees and anklese. Wrists.REVIEW OF SYSTEMS: General: No chills, fever, weight loss, night sweats.SHEENT: No change in vision or auditory acuity. Respiratory: No productivecough. Cardiac: As noted above. GI: No melena.History of GERD. : Nodysuria. Musculoskeletal: Occasional arthralgias.. Neurologic: No strokes.Psychiatric: No depression. Endocrine: No diabetes. Hematologic: No anemia.PHYSICAL EXAMINATION: S/he is alert and in no distressVITAL SIGNS: BP 126/77 Pulse 74 Wt 223 lb 6.4 oz (101.3kg)SHEENT: Skin is warm and dry. Pupils are round and reactive. Retinal vesselsare grossly unremarkable. No xanthelasmas appreciated. Pharynx is benign.There is no oral cyanosis. Neck: supple. No adenopathy or thyroidenlargement. Chest: Clear to percussion and auscultation. Trachea is midline. Air entry is equal. There is no chest wall tenderness. Cardiac: Regularlyirregular rhythm. S1 and S2 are normal. PMI is nondisplaced. There is a softsystolic ejection murmur. Carotids are brisk without bruits. JVP is less than10 cm. Abdomen: Soft and nontender. There are no pulsatile masses or bruits.No liver enlargement. Bowel sounds are active. : Deferred. Extremities: Noedema. Pulses are intact and symmetrical. No clubbing or cyanosis. Nofemoral bruits. Neurologic: Grossly normal motor and sensory. S/he is alertand oriented x4. Musculoskeletal: No joint deformities.Prior records were reviewed. Echocardiogram was reported to show normal valves.Ejection fraction was 50%. Stress test report is not available, but heremembers being told it was normal.Recent ECG shows sinus rhythm with ventricular trigeminy.Recent labs show LDL of 86, down from 138. Renal function is normal.Electronically Signed:Paul Roland MDAugust 30, 2017 4:27 [facility]: Bob Ponce MD 08/30/2017 4:28 PM SignedLIFESTYLE CHANGEA healthy lifestyle is the most important component of your overall treatmentplan. Please give serious thought to the following areas and commit to makinglong term changes.EAT A WHOLE FOOD, PLANT BASED DIETThe nutrition your body gets is more important than the medicine you take.What matters most is the overall way you eat. We encourage you to minimize theuse of animal products (which include dairy and all meats except fatty fish)and use whole, unprocessed plant foods to provide your protein, vitamins andother nutrients. We have a lot of information to share with you on this topic. We also hold Shared Medical Appointments, where you can come visit with in the company of other patients and spend over an hour talking aboutthe challenges of changing the way you eat. This is not a ANDquot;dietANDquot;.It is a way of life that you will keep with you.EXERCISE REGULARLYIt is not important to spend hours in the gym, lifting weights and perspiringheavily. A total of 2-3 hours per week of aerobic (causing you to bemoderately short of breath) exercise is sufficient to improve your health.Talk to us before you begin a new exercise program, if you have heart diseaseor experience shortness of breath or chest pain.REDUCE STRESSChronic emotional and physical stress leads to disease. Ways of reducingstress include meditation, visualization, prayer, yoga and other forms ofrelaxation therapy. Consistency is the moreno. Find a technique that works foryou and do it every day.CULTIVATE RELATIONSHIPSLoneliness and isolation have a major negative impact on health. Seek outothers who can love, care for and nurture you. Avoid hurtful relationships.MAINTAIN IDEAL BODY WEIGHTThe best way to do this is to do all the things above. Our bodies naturallyfind the right weight if we keep moving and feed ourselves the right food. Ifyour BMI is greater than 25, we strongly recommend a referral to a weightmanagement program. Please speak to us or your family physician aboutavailable programs.AVOID NICOTINE IN ALL FORMSThis includes all tobacco products, whether chewed, smoked, vaped, or rubbed onthe skin. Smoking cessation programs, which can make use of tobaccosubstitutes, medications to suppress cravings and behavior management, areavailable. Please contact your family physician about programs in your area.Referring Provider: YAN MENDEZ [[id number]]Allergies As of Date: 08/30/2017(No Known Allergies)Date Reviewed: 08/30/2017Reviewed by: Kat Guzmán) Dung - Fully AssessedReason for Visit: Consult [502]Primary Visit Diagnosis:Syncope and collapse [R55] Other Visit Diagnoses:Chest pain, unspecified type [R07.9] Ventricular arrhythmia [I49.9]Order(s):STRESS ECHO TREADMILL [[id number]] Order #: [id number]: 1 FUTURE MAGNESIUM BLD [SQMG1] Order #: [id number] FUTURE TSH BLD [SQTSH] Order #: [id number] FUTUREPrescriptions as of 08/30/2017 Sig: ALLOPURINOL 300 MG TABLET Take 1 tablet by mouth once d* IBUPROFEN 800 MG TABLET Take 1 tablet by mouth every * SIMVASTATIN 20 MG TABLET Take 1 tablet by mouth daily * LISINOPRIL 40 MG TABLET Take 1 tablet by mouth once d*Problem List As Of Date 08/30/2017 Noted Resolved Essential hypertension [I10] INVALID FOR* Mixed hyperlipidemia [E78.2] INVALID FOR* Degenerative arthritis of knee [M17.10] INVALID FOR* Gout [M10.9] INVALID FOR* Depression [F32.9] INVALID FOR* Bipolar disorder (HCC) [F31.9] INVALID FOR*05/28/2015 More... COPD (chronic obstructive pulmonary disease) [J*INVALID FOR* Hypogonadism male [E29.1] INVALID FOR* Backache [M54.9] INVALID FOR* Degenerative arthritis of left knee [M17.12] INVALID FOR* Idiopathic chronic gout of left foot without to*INVALID FOR* Asthma, moderate persistent, well-controlled [J*INVALID FOR* Other instructions from your clinician: LIFESTYLE CHANGE A healthy lifestyle is the most important component of your overall treatment plan. Please give serious thought to the following areas and commit to making animal assistant changes. EAT A WHOLE FOOD, PLANT BASED DIET The nutrition your body gets is more important than the medicine you take. What matters most is the overall way you eat. We encourage you to minimize the use of animal products (which include dairy and all meats except fatty fish) and use whole, unprocessed plant foods to provide your protein, vitamins and other nutrients. We have a lot of information to share with you on this topic. We also hold Shared Medical Appointments, where you can come visit with Dr. Roland in the company of other patients and spend over an hour talking about the challenges of changing the way you eat. This is not a diet. It is a way of life that you will keep with you. EXERCISE REGULARLY It is not important to spend hours in the gym, lifting weights and perspiring heavily. A total of 2-3 hours per week of aerobic (causing you to be moderately short of breath) exercise is sufficient to improve your health. Talk to us before you begin a new exercise program, if you have heart disease or experience shortness of breath or chest pain. REDUCE STRESS Chronic emotional and physical stress leads to disease. Ways of reducing stress include meditation, visualization, prayer, yoga and other forms of relaxation therapy. Consistency is the moreno. Find a technique that works for you and do it every day. CULTIVATE RELATIONSHIPS Loneliness and isolation have a major negative impact on health. Seek out others who can love, care for and nurture you. Avoid hurtful relationships. MAINTAIN IDEAL BODY WEIGHT The best way to do this is to do all the things above. Our bodies naturally find the right weight if we keep moving and feed ourselves the right food. If your BMI is greater than 25, we strongly recommend a referral to a weight management program. Please speak to us or your family physician about available programs. AVOID NICOTINE IN ALL FORMS This includes all tobacco products, whether chewed, smoked, vaped, or rubbed on the skin. Smoking cessation programs, which can make use of tobacco substitutes, medications to suppress cravings and behavior management, are available. Please contact your family physician about programs in your area.Follow-up and Disposition History RecordedEncounter Number: [id number] Status:Closed by PAUL ROLAND MD on 08/30/17 [facility] PROGRESSon 08-30-2017 PROGRESS HNO ID: [id number] thor: Paul Blue: (none)Author Type: PhysicianType: Progress NotesFiled: 08/30/2017 5:27 PMNote Text:PERTINENT CARDIAC HISTORYChest painVEA - bigeminiHTNHLSyncope - remote, likely postural hypotensionADHERENCE TO GUIDELINESACE-I or ARB for HF with prior LVEF<40 (NQF 0081) - N/AASA or Plavix for ASHD (NQF 0067) - N/ABeta bethanie for ASHD with prior VT or prior LVEF<40 (NQF 0070) - N/ABeta bethanie for HF with prior LVEF<40 (NQF 0083) - N/AACE-I or ARB for ASHD with DM or prior LVEF<40 (NQF 0066) - N/AStatin therapy for ASHD or FHL or DM - metBMI documented and plan if >25 (NQF 0421) - lifestyle recommendation formTobacco use screening and referral (NQF 0028) - lifestyle recommendationformRecommendat ion for whole food, plant based diet - lifestyle recommendationformCLINICAL IMPRESSION/PLAN:Jackie Sheldon has frequent ventricular ectopy which may be indicative ofunderlying valvular, ischemic or myocardial disease. I recommended heundergo stress echocardiogram for further assessment. He's been advisednot to exercise through symptoms. He will continue his current medication.Magnesium level and TSH will be obtained.If no correctable cause of his arrhythmia is found, we will obtain anextended monitor to see if his load is above 25%. Suppression may be ofhelp. Given the left bundle and inferior axis and apparent RVOT site oforigin, a calcium bethanie may be effective.If he has recurrent lightheadedness or increased chest tightness, he'sbeen advised to contact me.I will see him in 6 months or as neededWritten and verbal health teaching given to patient, patient verbalizesunderstanding and agrees with treatment plan.This note was generated using [employer] voice recognition system, and theremay be some incorrect words, spellings, and punctuation that were notnoted in checking the note before saving.DIAGNOSIS FOR VISIT:Chest painArrhythmiaHISTORY OF PRESENT ILLNESSTerry Pete Sheldon is a 51-year-old gentleman who is seen in consultation atthe request of Dr. Mendez. He was recently found to have frequentventricular ectopy.He denies any previous cardiac history. He had an admission for syncopeseveral years ago. He was kept overnight and stress test andechocardiogram were done. He reports that these were normal. The episodeof syncope occurred while he was dehydrated, on a hot day, having justfinished yardwork. had postural lightheadedness and fell to the ground.He's had no recurrence.He has noted occasional episodes of tightness in the chest while working.These have gone away on their own.He has noted a slight decrease in exercise tolerance. He's had minimaledema. He denies orthopnea. He denies TIAs, amaurosis, claudication.He has occasionally noticed some irregularity in his heart beats. He wasnoted to have frequent ventricular ectopy at the time of his ECG.Risk factors for coronary disease include hypertension and hyperlipidemia.ALLERGIES:ANIKA RGIESNo Known AllergiesCURRENT OUTPATIENT MEDICATIONS:allopurinol (ZYLOPRIM) 300 mg tablet Take 1 tablet by mouth once daily.For gout.ibuprofen (MOTRIN) 800 mg tablet Take 1 tablet by mouth every 8 hours asneeded for Pain. Take with food.simvastatin (ZOCOR) 20 mg tablet Take 1 tablet by mouth daily at bedtime.lisinopril (ZESTRIL, PRINIVIL) 40 mg tablet Take 1 tablet by mouth oncedaily.PAST MEDICAL HISTORYDiagnosis Date- Arthritis- Arthritis, degenerative- Back injury 1982 chronic back pain.- Gout- Syncope 2011PA SURGICAL HISTORYProcedure Laterality Date- NONEFAMILY HISTORYProblem Relation Age of Onset- Arthritis Mother- Diabetes Father- Hypertension Father- Stroke Paternal Grandfather- Ischemic Heart Disease Paternal Grandfather- Ischemic Heart Disease Maternal GrandfatherSocial History Marital status: Spouse name: Years of education: Number of children:Social History Main Topics Smoking status: Former Smoker Packs/day: 2.00 Years: 38.00 Quit date: 06/29/2012 Smokeless status: Never Used Alcohol use: No Drug use: No Sexual activity: NoSocial History Narrative 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 Wrists.REVIEW OF SYSTEMS: General: No chills, fever, weight loss, night sweats. SHEENT: No change in vision or auditory acuity. Respiratory: Noproductive cough. Cardiac: As noted above. GI: No melena.History ofGERD. : No dysuria. Musculoskeletal: Occasional arthralgias..Neurologic: No strokes. Psychiatric: No depression. Endocrine: Nodiabetes. Hematologic: No anemia.PHYSICAL EXAMINATION: S/he is alert and in no distressVITAL SIGNS: BP 126/77 Pulse 74 Wt 223 lb 6.4 oz (101.3kg)SHEENT: Skin is warm and dry. Pupils are round and reactive. Retinalvessels are grossly unremarkable. No xanthelasmas appreciated. Pharynxis benign. There is no oral cyanosis. Neck: supple. No adenopathy orthyroid enlargement. Chest: Clear to percussion and auscultation.Trachea is midline. Air entry is equal. There is no chest walltenderness. Cardiac: Regularly irregular rhythm. S1 and S2 are normal.PMI is nondisplaced. There is a soft systolic ejection murmur. Carotidsare brisk without bruits. JVP is less than 10 cm. Abdomen: Soft andnontender. There are no pulsatile masses or bruits. No liverenlargement. Bowel sounds are active. : Deferred. Extremities: Noedema. Pulses are intact and symmetrical. No clubbing or cyanosis. Nofemoral bruits. Neurologic: Grossly normal motor and sensory. S/he isalert and oriented x4. Musculoskeletal: No joint deformities.Prior records were reviewed. Echocardiogram was reported to show normalvalves. Ejection fraction was 50%. Stress test report is not available,but he remembers being told it was normal.Recent ECG shows sinus rhythm with ventricular trigeminy.Recent labs show LDL of 86, down from 138. Renal function is normal.Electronically Signed:Paul Roland MDNovember 2016 4:[address] [facility] Yan Mendez MD [facility] Vital Signs Date Time Vital Sign Value Performing Clinician Faci lity 11-01-2023 13:32-0500 Body temperature 97.5 [degF] Dr. Lukas Chatterjee Work Phone: [facility] 11-01-2023 13:32-0500 Diastolic blood pressure 101 mm[Hg] Dr. Lukas Chatterjee Work Phone: [facility] 11-01-2023 13:32-0500 Heart rate 67 /min Dr. Lukas Chatterjee Work Phone: [facility] 11-01-2023 13:32-0500 Respiratory rate 18 /min Dr. Lukas Chatterjee Work Phone: [facility] 11-01-2023 13:32-0500 SaO2% (BldA) [Mass fraction] 98 % Dr. Lukas Chatterjee Work Phone: [facility] 11-01-2023 13:32-0500 Systolic blood pressure 170 mm[Hg] Dr. Lukas Chatterjee Work Phone: [facility] 11-01-2023 09:43-0500 Body height 182.[address] Lukas Chatterjee Work Phone: [facility] 10-26-2023 09:26-0500 Body temperature 97.8 [degF] Dr. Lukas Chatterjee Work Phone: [facility] 10-26-2023 09:26-0500 Diastolic blood pressure 104 mm[Hg] Dr. Lukas Chatterjee Work Phone: [facility] 10-26-2023 09:26-0500 Heart rate 68 /min Dr. Lukas Chatterjee Work Phone: [facility] 10-26-2023 09:26-0500 Respiratory rate 16 /min Dr. Lukas Chatterjee Work Phone: [facility] 10-26-2023 09:26-0500 SaO2% (BldA) [Mass fraction] 100 % Dr. Lukas Chatterjee Work Phone: [facility] 10-26-2023 09:26-0500 Systolic blood pressure 156 mm[Hg] Dr. Lukas Chatterjee Work Phone: [facility] 10-26-2023 07:36-0500 Body height 182.[address] Lukas Chatterjee Work Phone: [facility] 10-26-2023 07:36-0500 Body mass index (BMI) [Ratio] 29.2 kg/m2 Dr. Lukas Chatterjee Work Phone: [facility] 10-26-2023 07:36-0500 Body weight [address] Lukas Chatterjee Work Phone: [facility] 10-15-2023 09:53-0500 Body temperature 98.6 [degF] Dr. Lukas Chatterjee Work Phone: [facility] 10-15-2023 09:53-0500 Diastolic blood pressure 92 mm[Hg] Dr. Lukas Chatterjee Work Phone: [facility] 10-15-2023 09:53-0500 Heart rate 80 /min Dr. Lukas Chatterjee Work Phone: [facility] 10-15-2023 09:53-0500 Respiratory rate 12 /min Dr. Lukas Chatterjee Work Phone: [facility] 10-15-2023 09:53-0500 SaO2% (BldA) [Mass fraction] 96 % Dr. Lukas Chatterjee Work Phone: [facility] 10-15-2023 09:53-0500 Systolic blood pressure 170 mm[Hg] Dr. Lukas Chatterjee Work Phone: [facility] 10-12-2023 08:20-0500 Body mass index (BMI) [Ratio] 30.4 kg/m2 Dr. Lukas Chatterjee Work Phone: [facility] 10-12-2023 08:20-0500 Body weight 101.[address] Lukas Chatterjee Work Phone: [facility] 10-12-2023 08:20-0500 Diastolic blood pressure 88 mm[Hg] Dr. Lukas Chatterjee Work Phone: [facility] 10-12-2023 08:20-0500 Heart rate 67 /min Dr. Lukas Chatterjee Work Phone: [facility] 10-12-2023 08:20-0500 Respiratory rate 16 /min Dr. Lukas Chatterjee Work Phone: [facility] 10-12-2023 08:20-0500 Systolic blood pressure 146 mm[Hg] Dr. Lukas Chatterjee Work Phone: [facility] 09-11-2023 08:10-0500 Body temperature 98.4 [degF] Dr. Lukas Chatterjee Work Phone: [facility] 09-11-2023 08:10-0500 Diastolic blood pressure 88 mm[Hg] Dr. Lukas Chatterjee Work Phone: [facility] 09-11-2023 08:10-0500 Heart rate 76 /min Dr. Lukas Chatterjee Work Phone: [facility] 09-11-2023 08:10-0500 Respiratory rate 14 /min Dr. Lukas Chatterjee Work Phone: [facility] 09-11-2023 08:10-0500 SaO2% (BldA) [Mass fraction] 98 % Dr. Lukas Chatterjee Work Phone: [facility] 09-11-2023 08:10-0500 Systolic blood pressure 152 mm[Hg] Dr. Lukas Chatterjee Work Phone: [facility] 09-04-2023 13:18-0500 Body mass index (BMI) [Ratio] 29.1 kg/m2 Dr. Lukas Chatterjee Work Phone: [facility] 09-04-2023 13:18-0500 Body temperature 98.2 [degF] Dr. Lukas Chatterjee Work Phone: [facility] 09-04-2023 13:18-0500 Body weight 97.[address] Lukas Chatterjee Work Phone: [facility] 09-04-2023 13:18-0500 Diastolic blood pressure 80 mm[Hg] Dr. Lukas Chatterjee Work Phone: [facility] 09-04-2023 13:18-0500 Heart rate 78 /min Dr. Lukas Chatterjee Work Phone: [facility] 09-04-2023 13:18-0500 Respiratory rate 18 /min Dr. Lukas Chatterjee Work Phone: [facility] 09-04-2023 13:18-0500 SaO2% (BldA) [Mass fraction] 97 % Dr. Lukas Chatterjee Work Phone: [facility] 09-04-2023 13:18-0500 Systolic blood pressure 138 mm[Hg] Dr. Lukas Chatterjee Work Phone: [facility] 09-03-2023 09:53-0500 Body temperature 97.3 [degF] Dr. Lukas Chatterjee Work Phone: [facility] 09-03-2023 09:53-0500 Diastolic blood pressure 77 mm[Hg] Dr. Lukas Chatterjee Work Phone: [facility] 09-03-2023 09:53-0500 Heart rate 60 /min Dr. Lukas Chatterjee Work Phone: [facility] 09-03-2023 09:53-0500 Respiratory rate 16 /min Dr. Lukas Chatterjee Work Phone: [facility] 09-03-2023 09:53-0500 SaO2% (BldA) [Mass fraction] 100 % Dr. Lukas Chatterjee Work Phone: [facility] 09-03-2023 09:53-0500 Systolic blood pressure 159 mm[Hg] Dr. Lukas Chatterjee Work Phone: [facility] 09-03-2023 06:00-0500 Body mass index (BMI) [Ratio] 28.8 kg/m2 Dr. Lukas Chatterjee Work Phone: [facility] 09-03-2023 06:00-0500 Body weight 96.[address] Lukas Chatterjee Work Phone: [facility] 09-02-2023 21:49-0500 Body height 182.[address] Lukas Chatterjee Work Phone: [phone] [place] [address] 09-02-2023 21:02-0500 Diastolic blood pressure 103 mm[Hg] Dr. Lukas Chatterjee Work Phone: [facility] 09-02-2023 21:02-0500 Heart rate 64 /min Dr. Lukas Chatterjee Work Phone: [facility] 09-02-2023 21:02-0500 Respiratory rate 12 /min Dr. Lukas Chatterjee Work Phone: [facility] 09-02-2023 21:02-0500 SaO2% (BldA) [Mass fraction] 98 % Dr. Lukas Chatterjee Work Phone: [facility] 09-02-2023 21:02-0500 Systolic blood pressure 158 mm[Hg] Dr. Lukas Chatterjee Work Phone: [facility] 09-02-2023 18:49-0500 Body height 182.[address] Lukas Chatterjee Work Phone: [facility] 09-02-2023 18:49-0500 Body mass index (BMI) [Ratio] 29.4 kg/m2 Dr. Lukas Chatterjee Work Phone: [phone] [place] [address] 09-02-2023 18:49-0500 Body temperature 97.4 [degF] Dr. Lukas Chatterjee Work Phone: [facility] 09-02-2023 18:49-0500 Body weight 98.[address] Lukas Chatterjee Work Phone: [facility] 08-28-2023 09:56-0400 Diastolic blood pressure 88 mm[Hg] Dr. Lukas Chatterjee Work Phone: [facility] 08-28-2023 09:56-0400 Systolic blood pressure 146 mm[Hg] Dr. Lukas Chatterjee Work Phone: 7([phone] [place] [address] 08-28-2023 09:48-0400 Body height 182.[address] Lukas Chatterjee Work Phone: [facility] 08-28-2023 09:48-0400 Body mass index (BMI) [Ratio] 29.8 kg/m2 Dr. Lukas Chatterjee Work Phone: [facility] 08-28-2023 09:48-0400 Body weight 99.[address] Lukas Chatterjee Work Phone: [facility] 08-28-2023 09:48-0400 Heart rate 71 /min Dr. Lukas Chatterjee Work Phone: [facility] 08-28-2023 09:48-0400 Respiratory rate 16 /min Dr. Lukas Chatterjee Work Phone: [facility] 08-28-2023 09:48-0400 SaO2% (BldA) [Mass fraction] 97 % Dr. Lukas Chatterjee Work Phone: [facility] 08-14-2023 13:45-0400 Body height 182.[address] Lukas Chatterjee Work Phone: [facility] 08-14-2023 13:45-0400 Body weight 98.[address] Lukas Chatterjee Work Phone: [facility] 08-14-2023 13:45-0400 Heart rate 78 /min Dr. Lukas Chatterjee Work Phone: [facility] 08-14-2023 13:45-0400 SaO2% (BldA) [Mass fraction] 98 % Dr. Lukas Chatterjee Work Phone: [facility] 08-13-2023 11:18-0400 Diastolic blood pressure 98 mm[Hg] Dr. Lukas Chatterjee Work Phone: [facility] 08-13-2023 11:18-0400 Heart rate 56 /min Dr. Lukas Chatterjee Work Phone: [facility] 08-13-2023 11:18-0400 Respiratory rate 19 /min Dr. Lukas Chatterjee Work Phone: [facility] 08-13-2023 11:18-0400 SaO2% (BldA) [Mass fraction] 97 % Dr. Lukas Chatterjee Work Phone: [facility] 08-13-2023 11:18-0400 Systolic blood pressure 169 mm[Hg] Dr. Lukas Chatterjee Work Phone: [facility] 08-13-2023 09:19-0400 Body height 182.[address] Lukas Chatterjee Work Phone: [facility] 08-13-2023 09:19-0400 Body mass index (BMI) [Ratio] 29.1 kg/m2 Dr. Lukas Chatterjee Work Phone: [facility] 08-13-2023 09:19-0400 Body temperature 97.2 [degF] Dr. Lukas Chatterjee Work Phone: [facility] 08-13-2023 09:19-0400 Body weight 97.[address] Lukas Chatterjee Work Phone: [facility] 08-07-2023 07:47-0400 Body mass index (BMI) [Ratio] 31.7 kg/m2 Dr. Lukas Chatterjee Work Phone: [facility] 08-07-2023 07:47-0400 Body temperature 97.1 [degF] Dr. Lukas Chatterjee Work Phone: [facility] 08-07-2023 07:47-0400 Body weight 97.[address] Lukas Chatterjee Work Phone: [facility] 08-07-2023 07:47-0400 Diastolic blood pressure 98 mm[Hg] Dr. Lukas Chatterjee Work Phone: [facility] 08-07-2023 07:47-0400 Heart rate 75 /min Dr. Lukas Chatterjee Work Phone: [facility] 08-07-2023 07:47-0400 Respiratory rate 20 /min Dr. Lukas Chatterjee Work Phone: [facility] 08-07-2023 07:47-0400 SaO2% (BldA) [Mass fraction] 98 % Dr. Lukas Chatterjee Work Phone: [facility] 08-07-2023 07:47-0400 Systolic blood pressure 176 mm[Hg] Dr. Lukas Chatterjee Work Phone: [facility] 06-29-2023 16:01-0400 Body height 175.[address] Lukas Chatterjee Work Phone: [facility] 06-29-2023 16:01-0400 Body mass index (BMI) [Ratio] 32.5 kg/m2 Dr. Lukas Chatterjee Work Phone: [facility] 06-29-2023 16:01-0400 Body temperature 98.4 [degF] Dr. Lukas Chatterjee Work Phone: [facility] 06-29-2023 16:01-0400 Body weight 99.[address] Lukas Chattrejee Work Phone: [facility] 06-29-2023 16:01-0400 Diastolic blood pressure 84 mm[Hg] Dr. Lukas Chatterjee Work Phone: [facility] 06-29-2023 16:01-0400 Heart rate 98 /min Dr. Lukas Chatterjee Work Phone: [facility] 06-29-2023 16:01-0400 Respiratory rate 17 /min Dr. Lukas Chatterjee Work Phone: [facility] 06-29-2023 16:01-0400 SaO2% (BldA) [Mass fraction] 95 % Dr. Lukas Chatterjee Work Phone: [facility] 06-29-2023 16:01-0400 Systolic blood pressure 122 mm[Hg] Dr. Lukas Chatterjee Work Phone: [facility] 06-07-2023 08:31-0400 Body mass index (BMI) [Ratio] 32.5 kg/m2 Dr. Lukas Chatterjee Work Phone: [facility] 06-07-2023 08:31-0400 Body temperature 98.6 [degF] Dr. Lukas Chatterjee Work Phone: [facility] 06-07-2023 08:31-0400 Body weight 99.[address] Lukas Chatterjee Work Phone: [phone] [place] [address] 06-07-2023 08:31-0400 Diastolic blood pressure 88 mm[Hg] Dr. Lukas Chatterjee Work Phone: [facility] 06-07-2023 08:31-0400 Heart rate 67 /min Dr. Lukas Chatterjee Work Phone: [facility] 06-07-2023 08:31-0400 Respiratory rate 16 /min Dr. Lukas Chatterjee Work Phone: [facility] 06-07-2023 08:31-0400 SaO2% (BldA) [Mass fraction] 98 % Dr. Lukas Chatterjee Work Phone: [facility] 06-07-2023 08:31-0400 Systolic blood pressure 162 mm[Hg] Dr. Lukas Chatterjee Work Phone: [facility] 03-23-2020 11:12-0400 Body Temperature 97.7 [degF] [place] 03-23-2020 05:50-0400 BP Diastolic 95 mm[Hg] [place] 03-23-2020 05:50-0400 BP Systolic 140 mm[Hg] [place] 03-23-2020 05:50-0400 Pulse (Heart Rate) 63 /min [place] 03-23-2020 05:50-0400 Pulse Oximetry 99 % [place] 03-23-2020 05:50-0400 Respiratory Rate 18 /min [place] 03-22-2020 03:47-0400 BMI (Body Mass Index) 31.74 kg/m2 [place] 03-22-2020 03:47-0400 Body weight 106.14 kg [place] 03-22-2020 03:47-0400 Height 182.9 cm [place] Encounters Encounter Date Encounter Type Care Provider Facility Start: 04-07-2025 End: 04-07-2025 ambulatory Lukas Chatterjee Facility:[facility] Start: 03-13-2025 End: 03-13-2025 ambulatory Lukas Chatterjee Facility:[facility] Start: 02-19-2025 End: 02-19-2025 ambulatory [facility] Facility:[facility] Start: 01-19-2025 ambulatory Lukas Chatterjee Facilit y:[facility] Start: 01-19-2025 ambulatory Lukas Chatterjee Facilit y:[facility] Start: 01-17-2025 End: 01-17-2025 Emergency department patient visit Lukas Chatterjee Facility:[facility] Start: 01-16-2025 End: 01-17-2025 ambulatory Lukas Chatterjee Facility:[facility] Start: 01-04-2025 End: 01-04-2025 Emergency department patient visit Maico Cuevas Facility:[facility] Start: 12-16-2024 End: 12-16-2024 ambulatory [facility] Facility:[facility] Start: 12-05-2024 End: 12-05-2024 ambulatory Lukas Chatterjee Facility:[facility] Start: 11-24-2024 End: 11-24-2024 Emergency department patient visit Tristan Bruner Facility:[facility] Start: 10-10-2024 End: 10-10-2024 ambulatory Lukas Chatterjee Facility:[facility] Start: 10-07-2024 ambulatory Lukas Ponce y:[facility] Start: 08-26-2024 End: 08-27-2024 ambulatory Den Ramos Facility:[facility] Start: 08-12-2024 End: 08-12-2024 ambulatory Lukas Chatterjee Facility:[facility] Start: 08-05-2024 End: 08-05-2024 ambulatory Toya Cantor Facility:[facility] Start: 08-04-2024 End: 08-04-2024 Emergency department patient visit Ed Physician Provider Facility:[facility] Start: 07-14-2024 End: 07-14-2024 Emergency department patient visit Lukas Chatterjee Facility:[facility] Start: 07-01-2024 End: 07-25-2024 ambulatory Yuridia Titus Facility:[facility] Start: 06-20-2024 End: 06-20-2024 ambulatory Lukas Chatterjee Facility:[facility] Start: 06-03-2024 End: 06-28-2024 ambulatory Yuridia Titus Facility:[facility] Start: 04-21-2024 End: 04-21-2024 Emergency department patient visit Lukas Chatterjee Facility:[facility] Start: 04-21-2024 End: 04-21-2024 ambulatory Lukas Chatterjee Facility:[facility] Start: 11-07-2023 End: 11-07-[address] Lukas Chatterjee Work Phone: [facility] Work Phone: Start: 11-07-2023 End: 11-07-[address] Lukas Chatterjee Work Phone: [facility] Work Phone: Start: 11-02-2023 End: 11-02-[address] Lukas Chatterjee Work Phone: [facility] Work Phone: Start: 11-02-2023 End: 11-02-[address] Lukas Chatterjee Work Phone: [facility]-Laboratory Work Phone: Start: 11-01-2023 End: 11-01-[address] Lukas Chatterjee Work Phone: [facility] Work Phone: Start: 11-01-2023 End: 11-01-[address] Lukas Chatterjee Work Phone: [facility] Work Phone: Start: 11-01-2023 End: 11-01-[address] Lukas Chatterjee Work Phone: [facility]-Cat Scan, [facility] Work Phone: Start: 11-01-2023 End: 11-01-[address] Lukas Chatterjee Work Phone: [facility] Work Phone: Start: 11-01-2023 End: 11-01-[address] Lukas Chatterjee Work Phone: [facility] Work Phone: Start: 10-26-2023 Non-patient / Non-visit Dr. Mayda Chatterjee Work Phone: [facility] Start: 10-26-2023 End: 10-26-2023 Admission to same day surgery center Dr. Lukas Chatterjee Work Phone: [facility]-Endoscopy Work Phone: Start: 10-26-2023 End: 10-26-[address] Lukas Chatterjee Work Phone: [facility] Work Phone: Start: 10-15-2023 End: 10-15-[address] Lukas Chatterjee Work Phone: [facility] Work Phone: Start: 10-12-2023 End: 10-12-[address] Lukas Chatterjee Work Phone: [facility] Work Phone: Start: 09-11-2023 End: 09-11-[address] Lukas Chatterjee Work Phone: [facility] Work Phone: Start: 09-04-2023 End: 09-04-[address] Lukas Chatterjee Work Phone: [facility] Work Phone: Start: 09-03-2023 Non-patient / Non-visit Dr. Mayda Chatterjee Work Phone: [facility] Start: 09-02-2023 End: 09-02-2023 Non-patient / Non-visit Dr. Lukas Chatterjee Work Phone: [facility] Work Phone: Start: 09-02-2023 End: 09-03-2023 Evaluation and management of inpatient Dr[facility] Start: 09-02-2023 End: 09-03-[address] Lukas Chatterjee Work Phone: [facility] Work Phone: Start: 09-02-2023 Non-patient / Non-visit Dr. Mayda Chatterjee Work Phone: [facility] Work Phone: Start: 08-28-2023 End: 08-28-[address] Lukas Chatterjee Work Phone: [facility] Work Phone: Start: 08-27-2023 End: 08-27-[address] Lukas Chatterjee Work Phone: [facility] Work Phone: Start: 08-27-2023 End: 08-27-[address] Lukas Chatterjee Work Phone: [facility]Cat [facility], [facility] Work Phone: Start: 08-15-2023 Non-patient / Non-visit Dr. Mayda Chatterjee Work Phone: [facility] Start: 08-14-2023 End: 08-14-[address] Lukas Chatterjee Work Phone: [facility] Work Phone: Start: 08-14-2023 End: 08-14-[address] Lukas Chatterjee Work Phone: [facility]-Pulmonary Services/Neurology Work Phone: Start: 08-13-2023 End: 08-13-2023 Emergency department patient visit Dr. Lukas Chatterjee Work Phone: [facility]-Emergency Department Work Phone: Start: 08-09-2023 Non-patient / Non-visit Dr. Mayda Chatterjee Work Phone: [facility] Start: 08-09-2023 End: 08-09-[address] Lukas Chatterjee Work Phone: [facility] Work Phone: Start: 08-09-2023 End: 08-09-[address] [facility] Start: 08-07-2023 End: 08-07-[address] Lukas Chatterjee Work Phone: [facility] Work Phone: Start: 07-18-2023 End: 07-18-[address] Lukas Chatterjee Work Phone: [facility] Work Phone: Start: 07-18-2023 End: 07-18-[address] Lukas Chatterjee Work Phone: [facility] Work Phone: Start: 07-17-2023 End: 07-17-[address] Lukas Chatterjee Work Phone: [facility] Work Phone: Start: 07-17-2023 End: 07-17-[address] Lukas Chatterjee Work Phone: [facility] Start: 06-29-2023 End: 06-29-[address] Lukas Chatterjee Work Phone: [facility] Work Phone: Start: 06-07-2023 End: 06-07-[address] Lukas Chatterjee Work Phone: [facility] Work Phone: Start: 04-12-2023 End: 04-12-[address] Lukas Chatterjee Work Phone: [facility] Work Phone: Start: 02-13-2023 End: 02-13-2023 ambulatory [facility] Work Phone: Start: 02-13-2023 End: 02-13-2023 Patient encounter procedure [facility] Start: 09-07-2022 End: 09-07-2022 ambulatory [facility] Work Phone: Start: 09-07-2022 End: 09-07-2022 Patient encounter procedure [facility] Start: 03-14-2022 End: 03-14-2022 Patient encounter procedure [facility] Start: 02-20-2022 End: 02-20-[address] [facility] Start: 01-19-2022 End: 01-19-[address] Lukas Chatterjee Work Phone: [facility] Start: 11-08-2021 End: 11-08-[address] Lukas Chatterjee Work Phone: [facility] Start: 10-26-[address] Lukas Chatterjee Work Phone: [facility] Start: 10-11-2021 End: 10-11-[address] Lukas Chatterjee Work Phone: [facility] Start: 03-22-2020 Patient encounter procedure [place] Start: 02-27-2018 Ambulatory [facility] Facility :[facility] Start: 09-04-2017 Ambulatory [facility] Start: 08-30-2017 End: 08-30-2017 [facility] Procedures Date Procedure Procedure Detail Performing Clinician Start: 11-01-2023 Computed tomography of abdomen and pelvis with contrast Dr. Lukas Chatterjee Work Phone: Start: 10-26-[address] Lukas march Work Phone: Start: 09-03-2023 Cardiovascular stres s test using pharmacologic stress agent Dr. Lukas Chatterjee Work Phone: Start: 09-02-2023 Plain chest X-ray Dr. Frances Chatterjee Work Phone: Start: 08-27-[address] Lukas march Work Phone: Start: 08-13-2023 CT angiography of ch est with contrast Dr. Lukas Chatterjee Work Phone: Start: 02-20-2022 CT of chest Start: 10-11-2021 Plain x-ray of pelvi s and lower extremity Dr. Lukas Chatterjee Work Phone: Start: 03-23-2020 Hemoglobin glycosylated a1c Normase Jeet Lloyd Work Phone: Start: 03-23-2020 Lipid panel Norma Jeet Lloyd Work Phone: Plan of Treatment Date Care Activity Detail Author Start: 11-01-2023 Basic metabolic panel calcium total METABOLIC PANEL TOTAL CA [facility] Start: 11-01-2023 Blood count complete auto&auto difrntl wbc COMPLETE CBC W/AUTO DIFF WBC [facility] Start: 11-01-2023 Collection venous blood venipuncture ROUTINE VENIPUNCTURE [facility] Start: 10-26-2023 Colsc flx w/rmvl of tumor polyp lesion snare tq COLONOSCOPY W/LESION REMOVAL [facility] Start: 10-26-2023 Egd transoral biopsy single/multiple EGD BIOPSY SINGLE/MULTIPLE [facility] Start: 10-26-2023 Patient discharge [facility] Start: 09-03-2023 Patient discharge [facility] Start: 09-02-2023 End: 09-02-2023 [facility] Start: 09-02-2023 Following clinical pathway protocol [facility] Start: 09-02-2023 Assessment of risk of venous thromboembolism [facility] Start: 09-02-2023 Care regimes management [facility] Start: 09-02-2023 Inhalation therapy procedure [facility] Start: 09-02-2023 Insertion of catheter into peripheral vein [facility] Start: 09-02-2023 Introduction of urinary catheter [facility] Start: 09-02-2023 Measuring intake and output [facility] Start: 09-02-2023 Notification of physician [facility] Start: 09-02-2023 Oxygen therapy [facility] Start: 09-02-2023 Providing care according to standard [facility] Start: 09-02-2023 Provision of activity privileges [facility] Start: 09-02-2023 Referral to service [facility] Start: 09-02-2023 Tobacco use cessation education [facility] Start: 09-02-2023 Troponin I measurement [facility] Start: 09-02-2023 Electrocardiographic procedure [facility] Start: 09-02-2023 Hospital admission, emergency, from emergency room, medical nature [facility] Start: 09-02-2023 Admission procedure [facility] Start: 09-02-2023 Verification routine [facility] Start: 09-02-2023 [facility] Start: 09-02-2023 Iiv4 vacc presrv free 0.5 ml dos for im use IIV4 VACC NO PRSV 0.5 ML IM [facility] Start: 08-13-2023 [facility] Start: 1965 Creatinine measurement Creatinine monitoring [facility] [place], [place] Start: 1965 Potassium monitoring Potassium monitoring [facility], [place] Administration of analgesic [facility] Blood chemistry [facility] CBC W Auto Different ial panel - Blood [facility] CT Chest [facility] Exercise tolerance test [facility] Patient Education ED Hemoptysis [facility] Work Phone: Patient referral [facility] Work Phone: Immunizations Immunization Date Immunization Notes Care Provider Aislinn john 09-03-2023 influenza, injectabl e, quadrivalent, preservative free Dr. Lukas Chatterjee Work Phone: [facility] Payers Date Payer Category Payer Self-pay [id number] 2022 Unknown [id number] 2011 Unknown [id number] Unknown [id number] Unknown [id number] 2.16.8 [id number] Unknown [id number] 2.16.8 [id number] Unknown [id number] 2.16.8 40.1.677234.3.579.2.462 Unknown [id number] 2.16.8 40.1.614475.3.579.2.462 Unknown [id number] 2.16.8 40.1.957359.3.579.2.462 Unknown [id number] 2.16.8 40.1.857187.3.579.2.462 Unknown [id number] 2.16.8 40.1.791634.3.579.2.462 Unknown [id number] 2.16.8 40.1.043337.3.579.2.462 Unknown [id number] 2.16.8 40.1.755428.3.579.2.462 Unknown [id number] 2.16.8 40.1.056206.3.579.2.462 Unknown [id number] 2.16.8 40.1.149874.3.579.2.462 Unknown [id number] 2.16.8 40.1.574326.3.579.2.462 Unknown [id number] 2.16.8 40.1.207676.3.579.2.462 Unknown [id number] 2.16.8 40.1.957722.3.579.2.462 Unknown [id number] 2.16.8 40.1.261507.3.579.2.462 Unknown [id number] 2.16.8 40.1.600705.3.579.2.462 Unknown [id number] 2.16.8 40.1.309767.3.579.2.462 Unknown [id number] 2.16.8 40.1.338175.3.579.2.462 Unknown [id number] 2.16.8 40.1.370761.3.579.2.462 Unknown [id number] 2.16.8 40.1.670753.3.579.2.462 Unknown [id number] 2.16.8 40.1.962922.3.579.2.462 Unknown [id number] 2.16.8 40.1.534449.3.579.2.462 Unknown [id number] 2.16.8 40.1.524551.3.579.2.462 Unknown [id number] 2.16.8 40.1.617686.3.579.2.462 Unknown [id number] 2.16.8 40.1.982990.3.579.2.462 Social History Date Type Detail Facility Start: 03-22-2020 Tobacco smoking stat us COIS Current every day smoker [place] Start: 03-22-2020 Cigarettes smoked current (pack per day) - Reported [place] Start: 03-22-2020 Alcohol intake Current drinke r of alcohol (finding) [place] Start: 03-22-2020 Alcohol Comment occasionally [place], [place] Sex Assigned At Not on file [place] Exposure to SARS-CoV -2 (event) Unable to assess [place] Start: 09-15-2021 End: 11-01-2023 Tobacco smoking status NHIS Unknown if ever smoked [facility] Start: 09-15-2021 Rare [facility] Start: 09-15-2021 None [facility] Start: 12-29-2020 With Family [facility] Start: 09-15-2021 Cigarettes [facility] Start: 1965 Sex Assigned At Male [facility] Goals Date Patient Goal Desired Activity /State Functional Status Date Assessment Result Facility 09-03-2023 Functional status Ambulates;Up ad roma [facility] Work Phone: Mental Status Date Assessment Result Facility 10-26-2023 Cognitive function Voice/Name [facility] Work Phone: 09-03-2023 Cognitive function Voice/Name [facility] Work Phone: 09-02-2023 Cognitive function Level Of Cons ciousness Awake;Alert;Appropriate [facility] Work Phone: Clinical Notes 07-19-2021 to 10-26-2023 Note Date & Type Note Facility 10-26-2023 History and physical note Note Date/Time October 26, 2023 7:49am [facility] Medical Records Department [address] [place] [address] History & Physical Exam 10/26/23 0747 MR#: [id number] Acct: [id number] Name: JACKIE SHELDON Rep #:[id number] : 1965 58 From: Papito Monae MD PCP: Dr. 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 Required: No Is patient in pain?: No Allergies No Known Allergies Allergy (Verified 09/04/23 13:20) Medications allopurinol 300 mg tablet 300 mg PO DAILY 02/25/20 [History Confirmed 09/04/23] amlodipine 10 mg tablet 10 mg PO DAILY 08/07/23 [History Confirmed 09/04/23] hydrochlorothiazide 25 mg tablet 25 mg PO DAILY 08/07/23 [History Confirmed 09/04/23] losartan 100 mg tablet 100 mg PO DAILY 08/07/23 [History Confirmed 09/04/23] omeprazole 40 mg capsule,delayed release 40 mg PO DAILY 08/07/23 [History Confirmed 09/04/23] rosuvastatin 40 mg tablet (Crestor) 40 mg PO DAILY 08/07/23 [History Confirmed 09/04/23] [facility] Medical History (Updated 09/04/23 @ 00:01 by Background Dadamaris) Asthma-COPD overlap syndrome Cervical spondylosis Essential (primary) hypertension Gout History of GI bleed Hyperlipidemia Lumbar radiculopathy Obesity Tobacco use Type 2 diabetes mellitus Surgical History History of left heart catheterization (03/11/20) Family History Father Diabetes HypertensionGrandfather Heart diseaseGrandfather Heart disease Social History (Updated 09/02/23 @ 21:[address] Luzmaria Ferreira MD) household members: none Smoking Status: Current every day smoker tobacco type: cigarettes Tobacco: How many years used: 30 alcohol intake: never substance use type: marijuana caffeine: Yes Type: coffee Number of servings: 5 HPI HPI HPI: 57-year-old gentleman. He was hospitalized from September 02 through September 03, 2023 at the [facility] with a diagnosis of chest pain. He had astress test on September 03, 2023 with a ejection fraction of 47% no evidence of ischemia. Previously I assisted him September 28, 2020 with a colonoscopy and upper endoscopy. Colonoscopy demonstrated a 14 mm polyp in the distal descending colon semipedunculated. It was removed with a hot snare. Pathology demonstrated tubular adenoma. At the same time he had an upper endoscopy demonstrating what looks like short segment Ferrer's. Medium sized hiatal hernia. Some erythema of the antrum. He was initiated on omeprazole 40 mg daily. 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 Consideration for follow-up EGD and colonoscopy at 3 years recommended. States that today he is feeling fine. The chest pain is the left anterior chesthe says its periodic comes and goes. He states his work-up at the hospital was unremarkable. He will occasionally cough up some blood with little mucus streaks. He states that occasionally he will have some bright red blood per rectum. None of that is no. ROS General General: Yes weight change (weight loss ~60 lbs intentionally); No appetite, fatigue, colon cancer, breast cancer or weakness HEENT HEENT: No difficulty swallowing, eye injury, eye surgery, swollen glands or hoarseness Endo Endocrine: No thyroid disease, diabetes mellitus, thyroid cancer, Hair loss, heat intolerance or cold intolerance Skin Skin: No rash or changing moles Breast Breast: No left breast lump, right breast lump, nipple discharge, breast pain, abnormal mammogram, abnormal US or breast enlargement Musc Musculoskeletal: Yes back problems, arthritis and gout; No rheumatoid arthritis or joint pain Cardio Cardiovascular: Yes high blood pressure and heart attack; No murmur, pacemaker, heart disease, atrial fibrillation, heart stent, palpitations, shortness of breat with exertion or chest pain Psych Psychiatric: Yes depression and anxiety; No hearing voices Resp Respiratory: Yes shortness of breath, No sleep apnea, Yes cough, No COPD, Yes asthma, No emphysema and No wheezing Gastro Gastrointestinal: Yes abdominal pain, Yes nausea or vomiting, No diarrhea, No constipation, Yes blood in stool, Yes acid reflux, Yes hemorrhoids, No ulcers, No gallbladder problem and No black,tarry stools Milo Hematologic: No blood thinners, No blood disorders, No bleeding, No anemia and No blood clots Neuro Neurologic: No system reviewed and no additional complaints, except as documented, No as per HPI, No abnormal gait, No abnormal hearing, No abnormal movements, No abnormal speech, No behavioral changes, No burning sensations, No confusion, No convulsions, No disequilibrium, No dizziness, No localized weakness, No frequent falls, No headache(s), No lack of coordination, No loss ofvision, No memory loss, No numbness, No other visual disturbances, No radicular pain, No restless legs, No sensory deficit, No syncope, No tingling, No tremor(s), No weakness and No other Exam Const General: cooperative, comfortable and no acute distress [facility] Head: normal to inspection Eyes General: appearance normal, both eyes and all related structures Neck Neck: normal visual inspection Chest Other: Increased anterior posterior diameter Resp Effort & Inspection: normal respiratory effort Auscultation: clear to auscultation bilaterally Cardio Rate: regular rate Rhythm: regular rhythm GI Other: Soft, nontender, no hepatosplenomegaly Musc Cervical Spine: normal cervical lordosis Skin General: no rashes or lesions noted Neuro General: patient alert, patient awake and patient oriented x3 Extrem General: no calf tenderness Psych Appearance: grossly normal Assessment and Plan Assessment and Plan (1) Chest pain: Status: Chronic Qualifiers: Chest pain type: other chest pain Qualified Code(s): R07.89 - Other chest pain Plan: I recommended the patient a esophagogastroduodenoscopy with possible biopsy and follow-up of his Ferrer's esophagus. I also recommended the patient a colonoscopy because of his descending colon partially pedunculated tubular adenoma. He has had an opportunity ask and have questions answered. We will schedule procedure at his discretion. It would appear that he has ongoing significant amount of anxiety. Copy: Dr Lukas Monae M.D., F.A.C.S. The patient had an ER visit for back pain. He claims he has chronic back pain and needs to have surgery. He denies any other current health changes. Historyand physical remains constant. We will proceed with planned esophagogastroduodenoscopy with possible biopsy and colonoscopy with possible biopsy or polypectomy as indicated. Papito Monae M.D., F.A.C.S. 10/26/23 0751 <Electronically signed by Papito Monae MD> Cosigner Signature (if applicable): CC: Dr. Lukas Chatterjee MD; Dr. Papito Monae MD~ Signed [facility] Work Phone: 1(405) 622-757712-29-2023 Procedure [facility] 10-26-2023 Procedure [facility]12-29-2023 Procedure note [facility]12-29-2023 Procedure [facility] 09-03-2023 Discharge summary Author Mari Duvall [facility] September 03, 2023 12:12am Note Date/Time September 02, 2023 7 :15pm [facility] Medical Records Department [address] [place] [id number] Emergency Department Summary 09/02/23 MR#: [id number] Acct: [id number] Name: JACKIE SHELDON Rep #:[id number] 5 : 1965 57 From: Mari Duvall MD PCP: Dr. Lukas Chatterjee MD Status:AD M [facility] Location: [address] History of Present Illness Chief Complaint: Chest Pain Informant: patient Narrative Narrative: Patient presents secondary to chest pain. He states for the past couple weeks has had intermittent chest pressure. Today he has had more consistent pain thatcomes on, last several minutes, and then resolves. He points to the left anterior chest. He states he does feel short of breath and feel like his heart is beating harder than normal during his episodes. He does have a history of prior VT in 2019. He states he had a heart cath that was unremarkable and they thought at the time that his VT was brought on by grieving from the loss of his . [facility] Medical History Abdominal pain Acute lumbar myofascial strain Asthma Cervical spondylosis Essential (primary) hypertension Gout Heart attack Hyperlipidemia Lumbar radiculopathy Melanotic stools Nicotine dependence Obesity Syncope Type 2 diabetes mellitus Home Medications allopurinol 300 mg tablet 300 mg PO DAILY 02/25/20 [History Last Taken 03/11/20] amlodipine 10 mg tablet 10 mg PO DAILY 08/07/23 [History Last Taken Unknown] hydrochlorothiazide 25 mg tablet 25 mg PO DAILY 08/07/23 [History Last Taken Unknown] losartan 100 mg tablet 100 mg PO DAILY 08/07/23 [History Last Taken Unknown] omeprazole 40 mg capsule,delayed release 40 mg PO DAILY 08/07/23 [History Last Taken Unknown] rosuvastatin 40 mg tablet (Crestor) 40 mg PO DAILY 08/07/23 [History Last Taken Unknown] Allergy/AdvReac Type Severity Reaction Status Date / Time No Known Allergies Allergy Verified 09/02/23 18:49 Family History Father Diabetes Hypertension Grandfather Heart disease Grandfather Heart disease Surgical History History of left heart catheterization (03/11/20) Social History Smoking Status: Current every day smoker tobacco type: cigarettes Tobacco: How many years used: 30 alcohol intake: never substance use type: marijuana caffeine: Yes Type: coffee Number of servings: 5 ROS ROS ED Constitutional Constitutional ED: Denies chills or fever(s) Eyes Eyes: Denies change in vision or discharge from eye(s) ENT ENT ED: Denies discharge from eye(s), rhinorrhea or sore throat Cardiovascular Cardiovascular: Reports chest pain; Denies palpitations Respiratory/Chest Respiratory/Chest: Reports dyspnea; Denies cough Gastrointestinal Gastrointestinal: Denies abdominal pain, nausea or vomiting Genitourinary Genitourinary ED: Denies dysuria Musculoskeletal Musculoskeletal: Denies back pain or extremity pain Integumentary Denies Abrasions or rash Neurologic Neurologic: Denies headache(s) or weakness Psychiatric Psychiatric: Denies anxiety or depression Allergic/Immunologic Allergic/Immunologic ED: Denies lip swelling or urticaria EXAM Physical Exam Const Vital Signs: 09/02/23 18:49 09/02/23 18:56 09/02/23 19:21 Temperature 97.4 F L Temperature Source Temporal Pulse Rate 77 Respiratory Rate 18 Respiratory Pattern Normal Blood Pressure 126/95 H Blood Pressure Mean 105 Pulse Ox 98 97 Oxygen Delivery Method Room Air Room Air 09/02/23 20:23 Temperature Temperature Source Pulse Rate 66 Respiratory Rate 15 Respiratory Pattern Blood Pressure 166/116 H Blood Pressure Mean 132 Pulse Ox 97 Oxygen Delivery Method Room Air Positive well nourished and well developed General Appearance ED: well developed HEENT Reports moist mucous membranes Eyes EOMs intact bilaterally Chest Wall inspection of chest normal and palpation of chest normal Resp normal respiratory effort and clear to auscultation bilaterally Cardio regular rate and regular rhythm GI soft to palpation and non-tender Extremity normal to inspection Neuro oriented x3 Psych mental status grossly normal Skin no rashes or lesions noted Heart Score History: Moderately Suspicious ECG: Normal Age: >45 - <65 years Risk Factors: >/= 3 Risk Factors or History of CAD Troponin: </= Normal Limit Score: 4 MDM MDM MDM Narrative Medical decision making narrative: IV line established. Patient placed on monitor and storage bin tender. EKG obtained to evaluate for cardiac arrhythmia/ischemia. Chest x-ray obtained to evaluate for acute lung pathology, cardiac size, or mediastinal abnormality. Labwork obtained to evaluate for leukocytosis, anemia, and electrolyte derangement. Patient given aspirin. History & Record Review Discussion w/independent historian: Patient Lab Data Attestation: I reviewed the patient's lab results. Labs: Laboratory Results - last 24 hr 09/02/23 19:04 WBC 11.0 RBC 4.73 Hgb 14.2 Hct 44.0 MCV 93.0 MCH 30.0 MCHC 32.3 RDW Std Deviation 47.6 H RDW Coeff of Jose 13.8 Plt Count 291 MPV 9.9 Immature Gran % (Auto) 0.300 Neut % (Auto) 64.2 Lymph % (Auto) 28.0 [place] % (Auto) 6.3 Eos % (Auto) 0.7 Baso % (Auto) 0.5 Absolute Neuts (auto) 7.1 Absolute Lymphs (auto) 3.09 Nucleated RBC % 0 D-Dimer Quant (PE/DVT) 0.48 Sodium 141 Potassium 3.6 Chloride 108 H Carbon Dioxide 26.0 Anion Gap 7 BUN 17 Creatinine 0.88 Estim Creat Clear Calc 100.43 Est GFR (MDRD) Af Amer 115 Est GFR (MDRD) Non-Af 95 BUN/Creatinine Ratio 19.4 Glucose 101 Calcium 9.0 Troponin I High Sens 10 Radiography Chest X-Ray - ED: 1 View, Read by ED Physician, Normal, Heart, Lungs and Mediastinum Diagnostic Testing: Clinical Impression(s) from Imaging Studies Chest X-Ray 09/02/23 19:16 IMPRESSION: Normal x-ray examination of the chest. Electronically Signed: Christiano Valero MD at 20:15 EST , EKG Initial EKG: Attestation: I personally reviewed and interpreted this EKG as follows: Interpretation: Sinus Rhythm (Sinus at 72 with no acute ischemia.) Treatment and Re-Evaluation :: CBC was normal white count at 11.0 with a hemoglobin of 14.2. Chemistry studiesunremarkable. Initial troponin is normal at 10. EKG reveals no evidence of acute ischemia. Portable chest x-ray per my interpretation reveals no acute findings. Although patient's initial troponin is negative, I do have significant concern with his symptoms. He has had increasing chest pressure for the past couple weeks that is worsened significantly today. He does have a history of prior VT and has not followed up with cardiology in 2 years. I do feel it would be prudent to observe him overnight for a stress test tomorrow assuming his troponins remain normal. After discussion with him he is in agreement with thisand I will speak with the hospitalist. Discharge Plan Triage Chief Complaint: Chest Pain ED Provider: Mari Duvall Dx/Rx/DC Orders Clinical Impression: Chest pain Prescriptions: No Action allopurinol 300 mg tablet 300 mg PO DAILY Patient Comments: Take 1 tablet by mouth once daily. For gout. omeprazole 40 mg capsule,delayed release(DR/EC) 40 mg PO DAILY amlodipine 10 mg tablet 10 mg PO DAILY hydrochlorothiazide 25 mg tablet 25 mg PO DAILY losartan 100 mg tablet 100 mg PO DAILY rosuvastatin [Crestor] 40 mg tablet 40 mg PO DAILY Primary Care Provider: Lukas Chatterjee Referrals: Lukas Chatterjee MD [Primary Care Provider] - Disposition Disposition: Acute Care Hospital [facility] What to do if you have Problems For any increased pain, shortness of breath, bleeding, nausea or vomiting, chestpain, or any unexpected problems, contact your Primary Care Provider. Call [facility] ([phone]) or report to the closest Emergency Room. Call 911 if necessary. 09/03/23 0012 <Electronically signed by Mari Duvall MD> Cosigner Signature (if applicable): CC: Dr. Lukas Chatterjee MD ~ Signed [facility] Work Phone: 1(510) 385-359611-05-2023 History and physical note Author Luzmaria Ferreira [facility] September 02, 2023 9:01pm Note Date/Time September 02, 2023 8 :39pm [facility] Medical Records Department [address] [place] [address] H&P Exam - Hospitalist 09/02/232036 MR#: [id number] Acct: [id number] Name: JACKIE SHELDON Rep #:[id number] 5 : 1965 57 From: Luzmaria Ferreira MD PCP: Dr. Lukas Chatterjee MD Status:RE G ER Location: ED HPI - General General Date of Admission: 09/02/23 Date of Service: 09/02/23 Chief Complaint: Chest pain. HPI Narrative The patient is a 57 y/o M w/ PMHx: Obesity, HTN, HLD, Asthma-COPD, Chronic back pain, Gout, Tobacco use, GERD w/ Hx GI bleed, Pre-Diabetes mellitus type II who presents to the [facility] ED on 09/02/23 with history of onset of chest pain noted to be intermittent over the last couple of weeks to described as pressure-like in sensation however its been more consistent over the last 24 hours lasting several minutes and then resolving primarily in the left anterior chest region with increased dyspnea and sensation of racing heart/palpitations during these episodes prompting eventual ED evaluation. He does report that he at its worst the pain was 10 out of 10 in severity and prior to ED arrival was 8 out of 10 inseverity. He notes currently it is decreased down to 4-5 out of 10 in severity. Work-up in the ED included T97.4, heart rate 126/95, respiratory rate 18, 98% on room air, CBC with WBC 11, hemoglobin 14.2, platelet 291 without marked shift, D-dimer 0.48, BMP unremarkable, troponin 10, chest x-ray with no acute cardiopulmonary finding, EKG with sinus rhythm with no acute evidence of ischemia. Of note from review of records patient status post 03/11/2020 cardiac catheterization with normal coronaries, normal LV size, wall motion and systolicfunction with recommendation of continue medical therapy at that time. Also from review of most recent cardiology note 04/15/2021 there is no mention of any previous heart attack and from review of cardiac enzymes patient has had completely normal enzymes even in 2019 when he had been presenting for chest discomfort. In the ED patient ministered normal saline as well as full-strengthaspirin therapy. [facility] Medical History (Updated 09/02/23 @ 20:[address] Luzmaria Ferreira MD) Asthma-COPD overlap syndrome Cervical spondylosis Essential (primary) hypertension Gout History of GI bleed Hyperlipidemia Lumbar radiculopathy Obesity Tobacco use Type 2 diabetes mellitus Home Medications allopurinol 300 mg tablet 300 mg PO DAILY 02/25/20 [History Last Taken 03/11/20] amlodipine 10 mg tablet 10 mg PO DAILY 08/07/23 [History Last Taken Unknown] hydrochlorothiazide 25 mg tablet 25 mg PO DAILY 08/07/23 [History Last Taken Unknown] losartan 100 mg tablet 100 mg PO DAILY 08/07/23 [History Last Taken Unknown] omeprazole 40 mg capsule,delayed release 40 mg PO DAILY 08/07/23 [History Last Taken Unknown] rosuvastatin 40 mg tablet (Crestor) 40 mg PO DAILY 08/07/23 [History Last Taken Unknown] Allergy/AdvReac Type Severity Reaction Status Date / Time No Known Allergies Allergy Verified 09/02/23 18:49 Family History Father Diabetes Hypertension Grandfather Heart disease Grandfather Heart disease Surgical History History of left heart catheterization (03/11/20) Social History (Updated 09/02/23 @ 21:[address] Luzmaria Ferreira MD) household members: none Smoking Status: Current every day smoker tobacco type: cigarettes Smoking packsper day: 0.5 Smoking cigarettes per day: 10.0 Tobacco: How many years used: 30 alcohol intake: never substance use type: marijuana caffeine: Yes Type: coffee Number of servings: 5 ROS ROS Narrative Admission Review of Systems: CONSTITUTIONAL: No weight loss, fever, chills, + weakness or fatigue. HEENT: Eyes: No visual loss, blurred vision, double vision or yellow sclerae. Ears, Nose, Throat: No hearing loss, sneezing, congestion, runny nose or sore throat. SKIN: No rash or itching, lesions, wounds. CARDIOVASCULAR: + chest pain, palpitations. No edema, orthopnea, syncopal events. RESPIRATORY: + shortness of breath, occasional wheezing. No cough or sputum, hemoptysis. GASTROINTESTINAL: No anorexia, nausea, vomiting or diarrhea, abdominal pain, melena, BRBPR. GENITOURINARY: No dysuria, frequency, urgency or retention. NEUROLOGICAL: No headache, dizziness, syncope, paralysis, ataxia, numbness or tingling in the extremities, focal weakness, change in bowel or bladder control,seizure. MUSCULOSKELETAL: + muscle, back pain, joint pain or stiffness. HEMATOLOGIC: No anemia, bleeding or bruising. LYMPHATICS: No enlarged nodes. No history of splenectomy. PSYCHIATRIC: + history of depression or anxiety. ENDOCRINOLOGIC: No reports of sweating, cold or heat intolerance. No polyuria orpolydipsia. ALLERGIES: No history of asthma, hives, eczema or rhinitis. Vital Signs Vital Signs Vital Signs: 09/02/23 18:49 09/02/23 18:56 09/02/23 19:21 Temperature 97.4 F L Temperature Source Temporal Pulse Rate 77 Respiratory Rate 18 Respiratory Pattern Normal Blood Pressure 126/95 H Blood Pressure Mean 105 Pulse Ox 98 97 Oxygen Delivery Method Room Air Room Air 09/02/23 20:23 Temperature Temperature Source Pulse Rate 66 Respiratory Rate 15 Respiratory Pattern Blood Pressure 166/116 H Blood Pressure Mean 132 Pulse Ox 97 Oxygen Delivery Method Room Air Weight Weight: 216 lb 11.2 oz Body Mass Index (BMI) 29.4 Physical Exam Narrative Physical Examination: General: Awake, alert, oriented x 3 and cooperative, seated upright in the ED bed in no apparent distress, currently rates chest discomfort down to 5 out of 10. Skin: Normal color, normal turgor, no icterus, no cyanosis. HEENT: AT/NC, EOMI, PERRLA, mildly dry MM, no carotid bruits or JVD noted. Lungs: Mildly diminished, greater bases, proper effort, occasional end expiratory wheeze, no rales or rhonchi. Heart: Regular rate and rhythm; no gallop, rub audible. Abdomen: Soft, obese, NTTP, ND, hyperactive BS, no HSM. Extremities: No cyanosis, clubbing, or edema. Neurological: Patient awake, alert, oriented as noted, cognitive function intact; pupils equally reactive to light and accommodation, cranial nerves II-XII grossly normal, moving all 4 extremities, no focal deficits, strength preserved. Psychiatric: Affect appears mildly flat, fatigued, no acute evidence of depressive or anxiety feelings. Results Lab / Micro Data 09/02/23 19:04 09/02/23 19:04 Labs: Laboratory Results - last 24 hr 09/02/23 19:04: WBC 11.0, RBC 4.73, Hgb 14.2, Hct 44.0, MCV 93.0, MCH 30.0, MCHC32.3, RDW Std Deviation 47.6 H, RDW Coeff of Jose 13.8, Plt Count 291, MPV 9.9, Immature Gran % (Auto) 0.300, Neut % (Auto) 64.2, Lymph % (Auto) 28.0, [place] % (Auto) 6.3, Eos % (Auto) 0.7, Baso % (Auto) 0.5, Absolute Neuts (auto) 7.1, Absolute Lymphs (auto) 3.09, Nucleated RBC % 0, D-Dimer Quant (PE/DVT) 0.48, Sodium 141, Potassium 3.6, Chloride 108 H, Carbon Dioxide 26.0, Anion Gap 7, BUN17, Creatinine 0.88, Estim Creat Clear Calc 100.43, Est GFR (MDRD) Af Amer 115, Est GFR (MDRD) Non-Af 95, BUN/Creatinine Ratio 19.4, Glucose 101, Calcium 9.0, Troponin I High Sens 10 Radiology Impression Chest X-Ray 09/02/23 19:16 IMPRESSION: Normal x-ray examination of the chest. Electronically Signed: Christiano Valero MD at 20:15 EST , Assessment & Plan Assessment/Plan (1) Chest pain: PLAN: Plan The patient is a 57 y/o M w/ PMHx: Obesity, HTN, HLD, Asthma-COPD, Chronic back pain, Gout, Tobacco use, GERD w/ Hx GI bleed, Pre-Diabetes mellitus type II who presents to the [facility] ED on 09/02/23 with history of onset of chest pain noted to be intermittent over the last couple of weeks to described as pressure-like in sensation however its been more consistent over the last 24 hours lasting several minutes and then resolving primarily in the left anterior chest region with increased dyspnea and sensation of racing heart/palpitations during these episodes prompting eventual ED evaluation. #1. Chest Pain: EKG in ED with sinus rhythm with no acute evidence of ischemia,CXR w/ no acute cardiopulmonary finding, initial trop 10. Will admit to PCU, place on a monitored bed to assure no acute myocardial infarction with serial cardiac enzymes and EKGs. If repeat serial cardiac enzymes and EKGs remain unremarkable will pursue a.m. cardiac stress testing. FLP in AM. Magnesium level requested. ASA, NG. #2. Chronic asthma-COPD: Per current list on a chronic regimen, will maintain on PRN albuterol, HOB, IS parameters. #3. Pre-Diabetes mellitus type II: Chart reported history, not on regimen, he will A1c requested, ADA diet until n.p.o. status, accu checks w/ ISS. Last hemoglobin A1c noted 02/13/2023 5.7%. #4. Hypertension: Continue home regimen including losartan, hydrochlorothiazide, amlodipine, PRN hydralazine. #5. Hyperlipidemia: Continue home statin regimen. AM FLP. #6. GERD with history GI bleed: We will continue patient home PPI. #7. Chronic back pain: Encourage frequent positional changes, encourage continued outpatient follow-up. #8. Gout: We will continue patient home allopurinol regimen. #9. Tobacco Abuse: Encouraged cessation, inpatient consultation per RT, NR if desired. #10. Obesity: Weight loss and lifestyle changes encouraged. #11. DVT prophylaxis: Lovenox. Charges/Coding Visit Charges Inpatient E&M: 36401 Init Hosp L2 09/02/232100 <Electronically signed by Luzmaria Ferreira MD> Rg Signature (if applicable): CC: Dr. Luzmaria Ferreira MD; Dr. Lukas Chatterjee MD~ Signed [facility] Work Phone: 1(269) 873-464710-18-2023 Procedure [facility] 08-09-2023 Procedure [facility]09-21-2021 NotePatient Outreach (NETNAV) JACKIE SHELDON ([id number]) 1965 M Date Time Provider Department 07/19/21 CALOS PATEL During your visit today, we recorded the following information about you: Calos Patel 07/19/2021 9:47 AM Signed POPULATION HEALTH NAVIGATION OUTREACH Action/FYI Unable to reach patient, sent letter. Contact made with patient or family member? no Pt identified by name and : no Outreach Outcome/Action Unable to reach patient, sent letter. Reason for Outreach Care gap - colonoscopy Payer: Payor: [facility] MEDICAID / Plan: [facility] [employer] MEDICAID / Product Type: [...] future healthcare decisions with a power of guide dog instructor, living will, or advance directives? Referrals: Message Sent to Practice: Navigation Signature: Calos Patel July 19, 2021 9:45 AM Allergies As [...] 10/18/2018 Letter Text Encounter Status:Closed by CALOS PATEL on 07/19/21[facility] 07-19-2021 NoteHNO ID: [id number] Author: Calos Patel Service: ? Author Type: ? Type: Progress Notes Filed: 07/19/2021 9:47 AM Note Text: POPULATION HEALTH NAVIGATION OUTREACH Action/FYI Unable to reach patient, sent letter. Contact made with patient or family member? no Pt identified by name and : no Outreach Outcome/Action Unable to reach patient, sent letter. Reason for Outreach Care gap - colonoscopy Payer: Payor: [facility] MEDICAID / Plan: [facility] [employer] MEDICAID / Product Type: [...] future healthcare decisions with a power of guide dog instructor, living will, or advance directives? Referrals: Message Sent to Practice: Navigation Signature: Calos Gegprifti July 19, 2021 9:45 [facility] summary Author Rigoberto Overton [facility] September 03, 2023 1:22pm Note Date/Time September 03, 2023 1 :19pm [facility] Medical Records Department [address] [place] [id number] Instructions for Home/Discharge Instructions 09/03/23 1318 MR#: [id number] Acct: [id number] Name: JACKIE SHELDON Rep #:[id number] : 1965 57 From: Rigoberto Overton DO PCP: Dr. Lukas Chatterjee MD Status:AD Patricia LYNN Discharge Instructions Diet Discharge Diet: No restrictions Activity Discharge Activity: Return to Normal Activity Weight Bearing Status: Full weight bearing Follow Up Care Test Results: Test results from this visit will be discussed in further detail at your follow- up appointment, if applicable. Discharge Plan Admission Admit Date/Time: 09/02/23 20:39 Primary Reason for Your Visit: chest pain Attending Provider: Rigoberto Overton Primary Care Provider: Lukas Chatterjee Consulting Providers: Luzmaria Ferreira Discharge Orders/Prescriptions Prescriptions: Continued allopurinol 300 mg tablet 300 mg PO DAILY Patient Comments: Take 1 tablet by mouth once daily. For gout. omeprazole 40 mg capsule,delayed release(DR/EC) 40 mg PO DAILY amlodipine 10 mg tablet 10 mg PO DAILY hydrochlorothiazide 25 mg tablet 25 mg PO DAILY losartan 100 mg tablet 100 mg PO DAILY rosuvastatin [Crestor] 40 mg tablet 40 mg PO DAILY Referrals / Follow Up: Lukas Chatterjee MD [Primary Care Provider] - See Referral Note (call within thenext month for an appointment) Disposition Disposition (needs filled in before D/C Order can be placed): Home, Self Care 09/03/23 1322<Electronically signed by Rigoberto Overton DO>Rigoberto Overton DO CC: Dr. Luzmaria Ferreira MD; Dr. Lukas Chatterjee MD ~ Signed [facility] Work Phone: Evaluation noteNo assessment information available [facility] Work Phone: Evaluation note* Diagnosis Onset Date Resolution Status Strain of fascia of lower back acute Strain of fascia of lower back acute [facility] Work Phone: evaluation note* Diagnosis Onset Date Resolution Status Strain of fascia of lower back acute Strain of fascia of lower back acute Asthma-COPD overlap syndrome chronic Smoking greater than 30 pack years chronic [facility] Work Phone: evaluation note* Diagnosis Onset Date Resolution Status Strain of fascia of lower back acute Strain of fascia of lower back acute Asthma-COPD overlap syndrome chronic Smoking greater than 30 pack years chronic Acute lumbar myofascial strain acute Lumbar radiculopathy acute [facility] Work Phone: Evaluation note* Diagnosis Onset Date Resolution Status Strain of fascia of lower back acute Strain of fascia of lower back acute Smoking greater than 30 pack years chronic Acute lumbar myofascial strain acute Lumbar radiculopathy acute Chest pain acute [facility] Work Phone: Evaluation note* Diagnosis Onset Date Resolution Status Chest pain resolved Chest pain chronic Chest pain chronic Dyspnea on exertion chronic Essential (primary) hypertension chronic Hyperlipidemia chronic [facility] Work Phone: Evaluation note* Diagnosis Onset Date Resolution Status Chest pain resolved Chest pain chronic Chest pain chronic Dyspnea on exertion chronic Essential (primary) hypertension chronic Hyperlipidemia chronic Abdominal pain acute Abdominal pain acute [facility] Work Phone: History and physical note Author Luzmaria Ferreira [facility] September 02, 2023 9:01pm Note Date/Time September 02, 2023 8 :39pm [facility] Medical Records Department [address] [place] [address] H&P Exam - Hospitalist 09/02/232036 MR#: [id number] Acct: [id number] Name: JACKIE SHELDON Rep #:[id number] : 1965 57 From: Luzmaria Ferreira MD PCP: Dr. Lukas Chatterjee MD Status:RE G ER Location: ED HPI - General General Date of Admission: 09/02/23 Date of Service: 09/02/23 Chief Complaint: Chest pain. HPI Narrative The patient is a 57 y/o M w/ PMHx: Obesity, HTN, HLD, Asthma-COPD, Chronic back pain, Gout, Tobacco use, GERD w/ Hx GI bleed, Pre-Diabetes mellitus type II who presents to the [facility] ED on 09/02/23 with history of onset of chest pain noted to be intermittent over the last couple of weeks to described as pressure-like in sensation however its been more consistent over the last 24 hours lasting several minutes and then resolving primarily in the left anterior chest region with increased dyspnea and sensation of racing heart/palpitations during these episodes prompting eventual ED evaluation. He does report that he at its worst the pain was 10 out of 10 in severity and prior to ED arrival was 8 out of 10 inseverity. He notes currently it is decreased down to 4-5 out of 10 in severity. Work-up in the ED included T97.4, heart rate 126/95, respiratory rate 18, 98% on room air, CBC with WBC 11, hemoglobin 14.2, platelet 291 without marked shift, D-dimer 0.48, BMP unremarkable, troponin 10, chest x-ray with no acute cardiopulmonary finding, EKG with sinus rhythm with no acute evidence of ischemia. Of note from review of records patient status post 03/11/2020 cardiac catheterization with normal coronaries, normal LV size, wall motion and systolicfunction with recommendation of continue medical therapy at that time. Also from review of most recent cardiology note 04/15/2021 there is no mention of any previous heart attack and from review of cardiac enzymes patient has had completely normal enzymes even in 2019 when he had been presenting for chest discomfort. In the ED patient ministered normal saline as well as full-strengthaspirin therapy. [facility] Medical History (Updated 09/02/23 @ 20:[address] Luzmaria Ferreira MD) Asthma-COPD overlap syndrome Cervical spondylosis Essential (primary) hypertension Gout History of GI bleed Hyperlipidemia Lumbar radiculopathy Obesity Tobacco use Type 2 diabetes mellitus Home Medications allopurinol 300 mg tablet 300 mg PO DAILY 02/25/20 [History Last Taken 03/11/20] amlodipine 10 mg tablet 10 mg PO DAILY 08/07/23 [History Last Taken Unknown] hydrochlorothiazide 25 mg tablet 25 mg PO DAILY 08/07/23 [History Last Taken Unknown] losartan 100 mg tablet 100 mg PO DAILY 08/07/23 [History Last Taken Unknown] omeprazole 40 mg capsule,delayed release 40 mg PO DAILY 08/07/23 [History Last Taken Unknown] rosuvastatin 40 mg tablet (Crestor) 40 mg PO DAILY 08/07/23 [History Last Taken Unknown] Allergy/AdvReac Type Severity Reaction Status Date / Time No Known Allergies Allergy Verified 09/02/23 18:49 Family History Father Diabetes Hypertension Grandfather Heart disease Grandfather Heart disease Surgical History History of left heart catheterization (03/11/20) Social History (Updated 09/02/23 @ 21:[address] Luzmaria Ferreira MD) household members: none Smoking Status: Current every day smoker tobacco type: cigarettes Smoking packsper day: 0.5 Smoking cigarettes per day: 10.0 Tobacco: How many years used: 30 alcohol intake: never substance use type: marijuana caffeine: Yes Type: coffee Number of servings: 5 ROS ROS Narrative Admission Review of Systems: CONSTITUTIONAL: No weight loss, fever, chills, + weakness or fatigue. HEENT: Eyes: No visual loss, blurred vision, double vision or yellow sclerae. Ears, Nose, Throat: No hearing loss, sneezing, congestion, runny nose or sore throat. SKIN: No rash or itching, lesions, wounds. CARDIOVASCULAR: + chest pain, palpitations. No edema, orthopnea, syncopal events. RESPIRATORY: + shortness of breath, occasional wheezing. No cough or sputum, hemoptysis. GASTROINTESTINAL: No anorexia, nausea, vomiting or diarrhea, abdominal pain, melena, BRBPR. GENITOURINARY: No dysuria, frequency, urgency or retention. NEUROLOGICAL: No headache, dizziness, syncope, paralysis, ataxia, numbness or tingling in the extremities, focal weakness, change in bowel or bladder control,seizure. MUSCULOSKELETAL: + muscle, back pain, joint pain or stiffness. HEMATOLOGIC: No anemia, bleeding or bruising. LYMPHATICS: No enlarged nodes. No history of splenectomy. PSYCHIATRIC: + history of depression or anxiety. ENDOCRINOLOGIC: No reports of sweating, cold or heat intolerance. No polyuria orpolydipsia. ALLERGIES: No history of asthma, hives, eczema or rhinitis. Vital Signs Vital Signs Vital Signs: 09/02/23 18:49 09/02/23 18:56 09/02/23 19:21 Temperature 97.4 F L Temperature Source Temporal Pulse Rate 77 Respiratory Rate 18 Respiratory Pattern Normal Blood Pressure 126/95 H Blood Pressure Mean 105 Pulse Ox 98 97 Oxygen Delivery Method Room Air Room Air 09/02/23 20:23 Temperature Temperature Source Pulse Rate 66 Respiratory Rate 15 Respiratory Pattern Blood Pressure 166/116 H Blood Pressure Mean 132 Pulse Ox 97 Oxygen Delivery Method Room Air Weight Weight: 216 lb 11.2 oz Body Mass Index (BMI) 29.4 Physical Exam Narrative Physical Examination: General: Awake, alert, oriented x 3 and cooperative, seated upright in the ED bed in no apparent distress, currently rates chest discomfort down to 5 out of 10. Skin: Normal color, normal turgor, no icterus, no cyanosis. HEENT: AT/NC, EOMI, PERRLA, mildly dry MM, no carotid bruits or JVD noted. Lungs: Mildly diminished, greater bases, proper effort, occasional end expiratory wheeze, no rales or rhonchi. Heart: Regular rate and rhythm; no gallop, rub audible. Abdomen: Soft, obese, NTTP, ND, hyperactive BS, no HSM. Extremities: No cyanosis, clubbing, or edema. Neurological: Patient awake, alert, oriented as noted, cognitive function intact; pupils equally reactive to light and accommodation, cranial nerves II-XII grossly normal, moving all 4 extremities, no focal deficits, strength preserved. Psychiatric: Affect appears mildly flat, fatigued, no acute evidence of depressive or anxiety feelings. Results Lab / Micro Data 09/02/23 19:04 09/02/23 19:04 Labs: Laboratory Results - last 24 hr 09/02/23 19:04: WBC 11.0, RBC 4.73, Hgb 14.2, Hct 44.0, MCV 93.0, MCH 30.0, MCHC32.3, RDW Std Deviation 47.6 H, RDW Coeff of Jose 13.8, Plt Count 291, MPV 9.9, Immature Gran % (Auto) 0.300, Neut % (Auto) 64.2, Lymph % (Auto) 28.0, [place] % (Auto) 6.3, Eos % (Auto) 0.7, Baso % (Auto) 0.5, Absolute Neuts (auto) 7.1, Absolute Lymphs (auto) 3.09, Nucleated RBC % 0, D-Dimer Quant (PE/DVT) 0.48, Sodium 141, Potassium 3.6, Chloride 108 H, Carbon Dioxide 26.0, Anion Gap 7, BUN17, Creatinine 0.88, Estim Creat Clear Calc 100.43, Est GFR (MDRD) Af Amer 115, Est GFR (MDRD) Non-Af 95, BUN/Creatinine Ratio 19.4, Glucose 101, Calcium 9.0, Troponin I High Sens 10 Radiology Impression Chest X-Ray 09/02/23 19:16 IMPRESSION: Normal x-ray examination of the chest. Electronically Signed: Christiano Valero MD at 20:15 EST , Assessment & Plan Assessment/Plan (1) Chest pain: PLAN: Plan The patient is a 57 y/o M w/ PMHx: Obesity, HTN, HLD, Asthma-COPD, Chronic back pain, Gout, Tobacco use, GERD w/ Hx GI bleed, Pre-Diabetes mellitus type II who presents to the [facility] ED on 09/02/23 with history of onset of chest pain noted to be intermittent over the last couple of weeks to described as pressure-like in sensation however its been more consistent over the last 24 hours lasting several minutes and then resolving primarily in the left anterior chest region with increased dyspnea and sensation of racing heart/palpitations during these episodes prompting eventual ED evaluation. #1. Chest Pain: EKG in ED with sinus rhythm with no acute evidence of ischemia,CXR w/ no acute cardiopulmonary finding, initial trop 10. Will admit to PCU, place on a monitored bed to assure no acute myocardial infarction with serial cardiac enzymes and EKGs. If repeat serial cardiac enzymes and EKGs remain unremarkable will pursue a.m. cardiac stress testing. FLP in AM. Magnesium level requested. ASA, NG. #2. Chronic asthma-COPD: Per current list on a chronic regimen, will maintain on PRN albuterol, HOB, IS parameters. #3. Pre-Diabetes mellitus type II: Chart reported history, not on regimen, he will A1c requested, ADA diet until n.p.o. status, accu checks w/ ISS. Last hemoglobin A1c noted 02/13/2023 5.7%. #4. Hypertension: Continue home regimen including losartan, hydrochlorothiazide, amlodipine, PRN hydralazine. #5. Hyperlipidemia: Continue home statin regimen. AM FLP. #6. GERD with history GI bleed: We will continue patient home PPI. #7. Chronic back pain: Encourage frequent positional changes, encourage continued outpatient follow-up. #8. Gout: We will continue patient home allopurinol regimen. #9. Tobacco Abuse: Encouraged cessation, inpatient consultation per RT, NR if desired. #10. Obesity: Weight loss and lifestyle changes encouraged. #11. DVT prophylaxis: Lovenox. Charges/Coding Visit Charges Inpatient E&M: 48169 Init Hosp L2 09/02/232100 <Electronically signed by Luzmaria Ferreira MD> Cosigner Signature (if applicable): CC: Dr. Luzmaria Ferreira MD; Dr. Lukas Chatterjee MD~ Signed [facility] Work Phone: Hospital Discharge instructions Additional Instructions Thank you for trusting us with your care today! Please take Tylenol (2 pills, 650 mg), ibuprofen (2 pills, 400 mg) every 6 hours as needed for pain and fever control. Please return to the emergency department if your symptoms change or worsen. Please follow with your primary care physician for further outpatient evaluation and management.[facility] Work Phone: Summary Purpose Family History No Family History Records Found Relationship Condition Age at Onset Recorded Date/T yvan father Diabetes mellitus Unknown Hypertension Unknown grandfather Cardiac disease Unknown Advance Directives No Advanced Directives Records FoundLatest Code Status on File Code Status Date Activated Date Inactivated Comments Full Code 03/22/2020 4:35 AM Advance Directive Response Recorded Date/ Time Advance Directives No August 3:40pm Living Will No September 15, 2 021 3:40pm Power of Experimental Psychologist No September 15, 2021 3:40pm Advance Directive Response Recorded Date/ Time Advance Directives No August 2:40pm Living Will No September 15, 2 021 2:40pm Power of Experimental Psychologist No September 15, 2021 2:40pm Advance Directive Response Recorded Date/ Time Advance Directives No August 3:40pm Living Will No August 13 9:52am Power of Experimental Psychologist No August 13, 2023 9:52am Advance Directive Response Recorded Date/ Time Advance Directives No August 2:40pm Living Will No September 02 6:56pm Power of Experimental Psychologist No September 02, 2023 6:56pm Advance Directive Response Recorded Date/ Time Advance Directives No August 2:40pm Living Will No September 02 9:49pm Power of Experimental Psychologist No September 02, 2023 9:49pm Advance Directive Response Recorded Date/ Time Advance Directives No August 2:40pm Living Will No October 24, 2 023 3:06pm Power of Experimental Psychologist No October 24, 2023 3:06pm Advance Directive Response Recorded Date/ Time Advance Directives No November 01, 2023 9:43am Living Will No November 01 9:43am Power of Experimental Psychologist No November 01, 2 024 9:43am Chief Complaint and Reason for Visit Chief Complaint RIGHT HIP Chief Complaint nicotine dependence Chief Complaint EORDER BACK PAIN LOWER BACK MUSCLE PAIN Reason for Visit Strain of fascia of lower back Strain of fascia of lower back Chief Complaint BACK PAIN LOWER BACK MUSCLE PAIN Follow up- per Dr. Tyson office CHRONIC OBSTRUCTIVE PULMONARY DISEASE CHRONIC OBSTRUCTIVE PULMONARY DISEASE cough Reason for Visit Strain of fascia of lower back Strain of fascia of lower back Asthma-COPD overlap syndrome Smoking greater than 30 pack years Chief Complaint BACK PAIN LOWER BACK MUSCLE PAIN Follow up- per Dr. Tyson office CHRONIC OBSTRUCTIVE PULMONARY DISEASE CHRONIC OBSTRUCTIVE PULMONARY DISEASE cough CHRONIC OBSTRUCTIVE PULMONARY DISEASE CHRONIC OBSTRUCTIVE PULMONARY DISEASE Reason for Visit Strain of fascia of lower back Strain of fascia of lower back Asthma-COPD overlap syndrome Smoking greater than 30 pack years Chief Complaint BACK PAIN LOWER BACK MUSCLE PAIN Follow up- per Dr. Tyson office CHRONIC OBSTRUCTIVE PULMONARY DISEASE CHRONIC OBSTRUCTIVE PULMONARY DISEASE cough CHRONIC OBSTRUCTIVE PULMONARY DISEASE CHRONIC OBSTRUCTIVE PULMONARY DISEASE NICOTINE DEPENDENCE BACK PAIN Reason for Visit Strain of fascia of lower back Strain of fascia of lower back Asthma-COPD overlap syndrome Smoking greater than 30 pack years Acute lumbar myofascial strain Lumbar radiculopathy Chief Complaint BACK PAIN LOWER BACK MUSCLE PAIN Follow up- per Dr. Tyson office CHRONIC OBSTRUCTIVE PULMONARY DISEASE CHRONIC OBSTRUCTIVE PULMONARY DISEASE cough CHRONIC OBSTRUCTIVE PULMONARY DISEASE CHRONIC OBSTRUCTIVE PULMONARY DISEASE NICOTINE DEPENDENCE BACK PAIN chest pain chest pain Reason for Visit Strain of fascia of lower back Strain of fascia of lower back Smoking greater than 30 pack years Acute lumbar myofascial strain Lumbar radiculopathy Chest pain Chief Complaint BACK PAIN LOWER BACK MUSCLE PAIN Follow up- per Dr. Tyson office CHRONIC OBSTRUCTIVE PULMONARY DISEASE CHRONIC OBSTRUCTIVE PULMONARY DISEASE cough CHRONIC OBSTRUCTIVE PULMONARY DISEASE CHRONIC OBSTRUCTIVE PULMONARY DISEASE NICOTINE DEPENDENCE BACK PAIN chest pain chest pain chest pain Reason for Visit Strain of fascia of lower back Strain of fascia of lower back Smoking greater than 30 pack years Acute lumbar myofascial strain Lumbar radiculopathy Chest pain Chief Complaint LOWER BACK MUSCLE PA IN Follow up- per Dr. Tyson office CHRONIC OBSTRUCTIVE PULMONARY DISEASE CHRONIC OBSTRUCTIVE PULMONARY DISEASE cough CHRONIC OBSTRUCTIVE PULMONARY DISEASE CHRONIC OBSTRUCTIVE PULMONARY DISEASE NICOTINE DEPENDENCE BACK PAIN chest pain chest pain CP ADMIT chest pain chest pain 3 YR RECALL FOR EGD LAM/NAUSEA/COUGH OVERDUE FOR FU LOWER BACK PAIN Reason for Visit Chest pain Chest pain Chest pain Dyspnea on exertion Essential (primary) hypertension Hyperlipidemia Chief Complaint Follow up- per Dr. Josemanuel campbell office CHRONIC OBSTRUCTIVE PULMONARY DISEASE CHRONIC OBSTRUCTIVE PULMONARY DISEASE cough CHRONIC OBSTRUCTIVE PULMONARY DISEASE CHRONIC OBSTRUCTIVE PULMONARY DISEASE NICOTINE DEPENDENCE BACK PAIN chest pain chest pain CP ADMIT chest pain chest pain 3 YR RECALL FOR EGD LAM/NAUSEA/COUGH OVERDUE FOR FU LOWER BACK PAIN EDG POST OP COMPLICATIONS, DOS 10/26 NO E ORDERS YET ABD PAIN POST OP COMPLICATIONS PAIN S/P EGD E-ORDER Reason for Visit Chest pain Chest pain Chest pain Dyspnea on exertion Essential (primary) hypertension Hyperlipidemia Abdominal pain Abdominal pain Chief Complaint Follow up- per Dr. Josemanuel campbell office CHRONIC OBSTRUCTIVE PULMONARY DISEASE CHRONIC OBSTRUCTIVE PULMONARY DISEASE cough CHRONIC OBSTRUCTIVE PULMONARY DISEASE CHRONIC OBSTRUCTIVE PULMONARY DISEASE NICOTINE DEPENDENCE BACK PAIN chest pain chest pain CP ADMIT chest pain chest pain 3 YR RECALL FOR EGD LAM/NAUSEA/COUGH OVERDUE FOR FU LOWER BACK PAIN EDG POST OP COMPLICATIONS, DOS 10/26 NO E ORDERS YET ABD PAIN POST OP COMPLICATIONS PAIN S/P EGD E-ORDER EORDER Reason for Visit Chest pain Chest pain Chest pain Dyspnea on exertion Essential (primary) hypertension Hyperlipidemia Abdominal pain Abdominal pain Additional Source Comments (unrecognized sect ion and content) No Status Records FoundNo Status Records FoundNo Status Records FoundNo Status Records FoundNo Status Records FoundNo Status Records Found INFORMATION SOURCE (unrecogn ized section and content) DATE CREATED AUTHOR 04/18/2018 [facility] DATE CREATED AUTHOR AUTHOR'S ORGANIZ ATION 04/19/2018 [facility] DATE CREATED AUTHOR AUTHOR'S ORGANIZ ATION 04/23/2018 [facility] DATE CREATED AUTHOR AUTHOR'S ORGANIZ ATION 03/23/2020 [facility] DATE CREATED AUTHOR AUTHOR'S ORGANIZ ATION 12/19/2021 [facility] DATE CREATED AUTHOR AUTHOR'S ORGANIZ ATION 04/09/2025 [facility] Goals (unrecognized section and content) Goals may be documented in a n alternate sectionGoals may be documented in an alternate sectionGoals may be documented in an alternate sectionGoals may be documented in an alternate sectionGoals may be documented in an alternate sectionGoals may be documented in an alternate sectionGoals may be documented in an alternate sectionGoals may be documented in an alternate sectionGoals may be documented in an alternate sectionGoals may be documented in an alternate sectionGoals may be documented in an alternate sectionGoals may be documented in an alternate section Care Teams (unrecognized sec tion and content) Team Status: Active Member Role Status Dates Dr. Kevin Mendez MD Family Provider Active Dr. Lukas Chatterjee MD Primary Care Provider Active Team Status: Inactive Member Role Status Dates Dr. Lukas Chatterjee MD Primary Care Provider, Attend ing Provider Active Team Status: Inactive Member Role Status Dates Dr. Lukas Chatterjee MD Primary Care Provider, Referr ing Provider Active Jamie RASCON, PA Attending Provider Active Team Status: Inactive Member Role Status Dates Dr. Lukas Chatterjee MD Primary Care Pr ovider, Attending Provider, Referring Provider Active Team Status: Active Member Role Status Dates Dr. Lukas Chatterjee MD Primary Care Provider, Attend ing Provider Active Team Status: Inactive Member Role Status Dates Dr. Lukas Chatterjee MD Primary Care Provider, Referr ing Provider Active Thea Rodriguez CUSTOMER SUPPORT CONSULTANT, CUSTOMER SUPPORT CONSULTANT-C Attending Provider Active Team Status: Active Member Role Status Dates Dr. Lukas Chatterjee MD Primary Care Provider Active Thea Rodriguez CUSTOMER SUPPORT CONSULTANT, CUSTOMER SUPPORT CONSULTANT-C Referring Provider, Other Pr ovider Active Dr. Den Ramos DO Attending Provider Active Team Status: Active Member Role Status Dates Dr. Lukas Chatterjee MD Primary Care Provider Active Thea Rodriguez CUSTOMER SUPPORT CONSULTANT, CUSTOMER SUPPORT CONSULTANT-C Attending Provider, Referrin g Provider Active Team Status: Inactive Member Role Status Dates Dr. Lukas Chatterjee MD Primary Care Provider Active Dr. Ron Zaldivar DO Emergency Provider Active Team Status: Inactive Member Role Status Dates Dr. Lukas Chatterjee MD Primary Care Provider Active Thea Rodriguez CUSTOMER SUPPORT CONSULTANT, CUSTOMER SUPPORT CONSULTANT-C Attending Provider, Referrin g Provider Active Team Status: Inactive Member Role Status Dates Dr. Lukas Chatterjee MD Primary Care Provider Active Dr. Ron Zaldivar DO Attending Provider, Emergency P roviludy Active Team Status: Inactive Member Role Status Dates Dr. Lukas Chatterjee MD Primary Care Provider, Referr ing Provider Active Ga Guerra PA, PA Attending Provider Active Team Status: Active Member Role Status Dates Dr. Lukas Chatterjee MD Primary Care Provider Active Dr. Mari Duvall MD Emergency Provider Active Dr. Luzmaria Ferreira MD Attending Provider Active Team Status: Active Member Role Status Dates Dr. Lukas Chatterjee MD Primary Care Provider Active Dr. Mari Duvall MD Emergency Provider Active Dr. Luzmaria Ferreira MD Admit Provider, Attending Prov ider Active Team Status: Active Member Role Status Dates Dr. Lukas Chatterjee MD Primary Care Provider Active Dr. Mari Duvall MD Emergency Provider Active Dr. Luzmaria Ferreira MD Admit Provider, Other Provider Active Dr. Rigoberto Overton DO Other Provider Active Dr. Alonzo Narayanan MD Attending Provider Activ e Team Status: Inactive Member Role Status Dates Dr. Lukas Chatterjee MD Primary Care Provider Active Dr. Mari Duvall MD Emergency Provider Active Dr. Luzmaria Ferreira MD Admit Provider, Other Provider Active Dr. Rigoberto Overton DO Attending Provider Active Team Status: Inactive Member Role Status Dates Dr. Lukas Chatterjee MD Primary Care Provider, Referr ing Provider Active Lukas Gastelum CUSTOMER SUPPORT CONSULTANT, CUSTOMER SUPPORT CONSULTANT-C Attending Provider Active Team Status: Inactive Member Role Status Dates Dr. Lukas Chatterjee MD Primary Care Provider, Referr ing Provider Active Dr. Papito Monae MD Attending Provider Active Team Status: Active Member Role Status Dates Dr. Lukas Chatterjee MD Primary Care Provider Active Dr. Mari Duvall MD Emergency Provider Active Dr. Luzmaria Ferreira MD Admit Provider, Other Provider Active Dr. Rigoberto Overton DO Attending Provider, Other Pro vider Active Team Status: Active Member Role Status Dates Dr. Lukas Chatterjee MD Primary Care Provider Active Dr. Alonzo Narayanan MD Attending Provider Activ e Dr. Luzmaria Ferreira MD Referring Provider Active Team Status: Active Member Role Status Dates Dr. Lukas Chatterjee MD Primary Care Provider, Referr ing Provider Active Dr. Papito Monae MD Attending Provider, Other Prov ider Active Team Status: Inactive Member Role Status Dates Dr. Lukas Chatterjee MD Primary Care Provider, Referr ing Provider Active Tamy RASCON PA-C Attending Provider Active Team Status: Active Member Role Status Dates Dr. Lukas Chatterjee MD Primary Care Provider Active Dr. Papito Monae MD Attending Provider, Referring Provider Active Team Status: Inactive Member Role Status Dates Dr. Lukas Chatterjee MD Primary Care Provider Active Dr. Papito Monae MD Attending Provider, Referring Provider Active Team Status: Active Member Role Status Dates Dr. Lukas Chatterjee MD Primary Care Provider Active Tamy RASCON PA-C Attending Provider, Referring Provider Active Team Status: Inactive Member Role Status Dates Dr. Lukas Chatterjee MD Primary Care Provider Active JUAN DANIEL FultonC Attending Provider, Referring Provider Active FOR RECORDS PERTAINING TO PATIENTS WHO ARE [...] BE BASED ON THE PRIMARY CLINICAL RECORDS. [facility]. provides no warranty or guarantee of the accuracy or completeness of information in this document.
[2025-04-26 20:41] VITALS: BP 131/86; PULSE 93; RESP 18; TEMP 36.5; O2SAT 97
== END 2025-04-26 20:43 | disposition home or self-care (01) ==
PROVIDERS: Emergency Provider Emergency Medicine; PCP Family Medicine; Visit Provider Emergency Medicine
DX: S39.012A Strain of muscle, fascia and tendon of lower back, initial encounter (principal); J44.9 Chronic obstructive pulmonary disease, unspecified; F17.200 Nicotine dependence, unspecified, uncomplicated; E78.5 Hyperlipidemia, unspecified; I10 Essential (primary) hypertension; K21.9 Gastro-esophageal reflux disease without esophagitis; R51.9 Headache, unspecified; X50.1XXA Overexertion from prolonged static or awkward postures, initial encounter; Y93.H9 Activity, other involving exterior property and land maintenance, building and construction
CPT/HCPCS: 72100; 96372; 99282; A4216

== ENCOUNTER 2025-05-11 11:24 | Observation (INO) | payer MEDICAID, SELFPAY ==
[2025-05-11] VITALS (10 sets, daily range): BP systolic 136–195; BP diastolic 86–108; PULSE 51–66; RESP 18–21; TEMP 36.7–36.9; O2SAT 97–100; BMI 25.1
--- NOTE | 2025-05-11 11:26 | EKG12_ITS ---
Test Reason : STROKE TEAM Blood Pressure : */* mmHG Vent. Rate : 67 BPM Atrial Rate : 101 BPM P-R Int : 172 ms QRS Dur : 98 ms QT Int : 394 ms P-R-T Axes : 18 40 61 degrees QTcB Int : 416 ms Sinus tachycardia with Premature atrial complexes Otherwise normal ECG Confirmed by Zen Fong ([id number]), deputy editor in chief RODY MCPHERSON ([id number]) on 05/13/2025 11:17:10 AM Referred By: Gaurav Bettencourt Confirmed By: Zen Fong
--- NOTE | 2025-05-11 11:27 | ED.VIS.STROK ---
HPI History of Present Illness Chief Complaint: Stroke Alert Informant: patient Narrative Narrative: 59-year-old presenting for left facial droop, slurred speech, trouble walking, feeling weak on his left side. He states he was up at 4 AM feeling fine, but then he went back to sleep and got up later, and noticed having some issues walking when he got up and then went to have a cigarette and noticed that he was having trouble keeping it in his mouth. He came here via private vehicle and walked into triage, stroke alert was called in triage which is where I initially evaluated the patient. He has no headache, vision changes, chest pain, or any other symptoms or falls recently. Takes no anticoagulants or antiplatelets. [facility] Medical History Abrasion of right ear canal Rash Right shoulder strain Abdominal pain Epigastric pain Difficulty swallowing Wears glasses Marijuana use Arthritis Back pain Gastric reflux COPD (chronic obstructive pulmonary disease) Shortness of breath on exertion Smoker History of stress test Hypertension History of heart attack Cardiology follow-up encounter Chest pain Pain Tobacco use History of GI bleed Lumbar radiculopathy Acute lumbar myofascial strain Strain of fascia of lower back Nicotine dependence, cigarettes, uncomplicated Dyspnea on exertion Asthma-COPD overlap syndrome Smoking greater than 30 pack years Obesity Chest pain Nicotine dependence Hyperlipidemia Essential (primary) hypertension Cervical spondylosis Gout Home Medications ?Medication ?Instructions ?Recorded ?Last Taken ?Type allopurinol 300 mg tablet 300 mg PO DAILY 02/25/20 09/02/23 History hydrochlorothiazide 25 mg tablet 25 mg PO DAILY 08/07/23 09/02/23 History losartan 100 mg tablet 100 mg PO DAILY 08/07/23 09/03/23 History omeprazole 40 mg capsule,delayed 40 mg PO DAILY 08/07/23 09/02/23 History release amlodipine 10 mg tablet 5 mg PO DAILY 12/14/23 Unknown History isosorbide mononitrate 60 mg 60 mg PO BID #180 tabs 12/14/23 Unknown Rx tablet,extended release 24 hr venlafaxine 150 mg 150 mg PO DAILY #90 caps 03/13/25 Unknown Rx capsule,extended release 24 hr mirtazapine 7.5 mg tablet 7.5 mg PO QHS #30 tabs 05/08/25 Unknown Rx Allergy/AdvReac Type Severity Reaction Status Date / Time No Known Allergies Allergy Verified 05/11/25 12:00 Family History Father Diabetes Hypertension Grandfather Heart disease Grandfather Heart disease Surgical History History of esophagogastroduodenoscopy (EGD) History of colonoscopy Hx of colonoscopy with polypectomy History of left heart catheterization (03/11/20) Social History household members: family and none housing: house Smoking Status: Heavy Smoker (>10/day) Tobacco: How many years used: 30 alcohol intake: never substance use type: marijuana caffeine: Yes Type: coffee Number of servings: 5 ROS ROS ED Constitutional Constitutional ED: Denies chills or fever(s) Eyes Eyes: Denies change in vision or diplopia ENT ENT ED: Denies rhinorrhea or sore throat Cardiovascular Cardiovascular: Denies chest pain or palpitations Respiratory/Chest Respiratory/Chest: Denies cough or dyspnea Gastrointestinal Gastrointestinal: Denies abdominal pain, diarrhea, nausea or vomiting Genitourinary Genitourinary ED: Denies dysuria or hematuria Musculoskeletal Musculoskeletal: Denies back pain or neck pain Integumentary Denies abscess or rash Neurologic Neurologic: Denies headache(s), paresthesias or weakness Psychiatric Psychiatric: Denies anxiety or suicidal thoughts EXAM Physical Exam Const Vital Signs: 05/11/25 11:25 05/11/25 11:26 05/11/25 12:00 Temperature 98.1 F Temperature Source Temporal Pulse Rate 51 L 63 Respiratory Rate 20 H 20 H Blood Pressure 136/108 H 149/95 H Blood Pressure Mean 117 113 Pulse Ox 100 98 99 Oxygen Delivery Method Room Air Room Air Room Air 05/11/25 12:01 05/11/25 12:30 Temperature Temperature Source Pulse Rate 64 64 Respiratory Rate 21 H 18 Blood Pressure 149/95 H 153/86 H Blood Pressure Mean 113 108 Pulse Ox 98 97 Oxygen Delivery Method Room Air Room Air Positive well nourished and well developed General Appearance ED: well developed and NAD HEENT Reports moist mucous membranes normocephalic and atraumatic Eyes PERRL and EOMs intact bilaterally Neck full ROM and supple Resp normal respiratory effort and clear to auscultation bilaterally Cardio regular rate, regular rhythm and no murmurs GI non-tender and non-distended Auscultation: normoactive bowel sounds Palpation: soft Back/Spine no CVA tenderness General Back: other FROM Extremity normal to inspection General Extremety ED: Negative for edema, pulses abnormal or tenderness General Extremity: Negative for edema or pulses abnormal Neuro oriented x3 Neuro Narrative: No drift. No aphasia, no hemineglect, there is mild dysarthria barely noticeable. No loss of fluency. Patient has a left facial droop involving the left frontalis muscle, his left face is paretic but not completely paralyzed. He has subjective decrease sensation left upper extremity, but sensation is technically intact and he has no other focal deficits. Sensorium / Orientation: awake and alert Motor Exam: strength 5/5 throughout Psych mental status grossly normal Skin no rashes or lesions noted and no wounds MDM MDM MDM Narrative Medical decision making narrative: Patient with from triage directly to CT, I reviewed the images of the CT and CT angiography, I agree with the radiologist that there is no hemorrhage and no LVO. Discussed with Dr. Cee stroke neurology [facility], agrees that since he is outside of the window, thrombolytics not indicated, and since he has no LVO, he is most appropriate to be admitted here. 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 Neurology recommended giving him aspirin here which we are doing. He is in sinus rhythm with ectopy no dysrhythmias. Will admit for further workup. Lab Data Attestation: I reviewed the patient's lab results. Labs: Laboratory Results - last 24 hr 05/11/25 11:26 WBC 9.2 RBC 4.90 Hgb 15.0 Hct 45.3 MCV 92.4 MCH 30.6 MCHC 33.1 RDW Std Deviation 46.5 H RDW Coeff of Jose 13.6 Plt Count 309 MPV 9.4 Immature Gran % (Auto) 0.500 Neut % (Auto) 64.5 Lymph % (Auto) 17.0 L [place] % (Auto) 14.9 H Eos % (Auto) 2.4 Baso % (Auto) 0.7 Absolute Neuts (auto) 5.9 Absolute Lymphs (auto) 1.56 Nucleated RBC % 0 PT 12.9 INR 1.0 APTT 28.2 Sodium 139 Potassium 4.9 Chloride 103 Carbon Dioxide 24.5 Anion Gap 11 BUN 23 H Creatinine 0.90 Estim Creat Clear Calc 95.80 Est GFR (MDRD) Non-Af 98 BUN/Creatinine Ratio 26.1 H Glucose 99 Calcium 9.2 Troponin T High Sens 7 D Radiography Diagnostic Testing: Clinical Impression(s) from Imaging Studies Brain CT 05/11/25 11:29 IMPRESSION: No acute intracranial pathology. Reading Location: [facility] Head/Neck CTA 05/11/25 11:31 IMPRESSION: The ascending aorta is dilated to 4.0 cm in AP diameter. Follow-up is recommended. There is no significant diameter stenosis or occlusion identified in the carotid system in the neck or cerebral vasculature. Reading Location: [facility] Rhythm Strip Rhythm Strip: Sinus Rhythm Rate: 70 Ectopy: PAC(s) EKG Initial EKG: Attestation: I personally reviewed and interpreted this EKG as follows: Interpretation: Sinus Rhythm and No Acute Injury Pattern Comments: pacs Management Discussion w/another healthcare provider: Hospitalist, Numerical Control Drill Press Operator and Radiologist Critical Care Time Critical Care Time: Yes Critical care time (excluding procedures): 30-74 minutes (36 min), Including time spent:, Discussing w/Patient &/or Family/Glass Blower Helper, Discussing w/Consultants, Arranging Admission or Transfer and Performing Direct Patient Care at Bedside Discharge Plan Triage Chief Complaint: Stroke Alert ED Provider: Gaurav Bettencourt Dx/Rx/DC Orders Clinical Impression: Acute ischemic stroke Prescriptions: No Action allopurinol 300 mg tablet 300 mg PO DAILY Patient Comments: Take 1 tablet by mouth once daily. For gout. omeprazole 40 mg capsule,delayed release(DR/EC) 40 mg PO DAILY hydrochlorothiazide 25 mg tablet 25 mg PO DAILY losartan 100 mg tablet 100 mg PO DAILY amlodipine 10 mg tablet 5 mg PO DAILY isosorbide mononitrate 60 mg tablet extended release 24 hr 60 mg PO BID Qty: 180 3RF venlafaxine 150 mg capsule,extended release 24hr 150 mg PO DAILY Qty: 90 1RF mirtazapine 7.5 mg tablet 7.5 mg PO QHS Qty: 30 1RF Primary Care Provider: Lukas Chatterjee Referrals: Lukas Chatterjee MD [Primary Care Provider] - Print Language: Lithuanian Disposition Disposition: [facility] NIHSS NIHSS 1a. Level of Consciousness: 0 - Alert; keenly responsive 1b. LOC Questions: 0 - Answers BOTH questions correctly 1c. LOC Commands: 0 - Performs BOTH tasks correctly 2. Best Gaze: 0 - Normal 3. Visual: 0 - No visual loss 4. Facial Palsy: 3 - Complete paralysis of one or both sides 5a. Left Arm: 0 - No drift; arm holds 90 (or 45) degrees for full 10 seconds 5b. Right Arm: 0 - No drift; arm holds 90 (or 45) degrees for full 10 seconds 6a. Left Le - No drift; leg holds 30-degree position for full 5 seconds 6b. Right Le - No drift; leg holds 30-degree position for full 5 seconds 7. Limb Ataxia: 0 - Absent 8. Sensory: 1 - [id number] sensory loss; 9. Best Language: 0 - No aphasia; normal 10. Dysarthria: 1 = [id number] dysarthria; 11. Extinction and Inattention: 0 - No abnormality Total: 5 Stroke Questions Stroke Team Activated: Yes IV Thrombolytic Administered: No (outside time window)
--- NOTE | 2025-05-11 11:29 | CT_ITS ---
EXAM: NONCONTRAST CT SCAN OF THE HEAD CLINICAL HISTORY: Acute neurological deficit COMPARISON: January 17, 2025 TECHNIQUE: Serial axial series through the head were obtained without contrast. 2-D coronal and sagittal reformats were then obtained. FINDINGS: Brain: There is no acute large territorial infarct, intracranial hemorrhage, midline shift or mass effect. There are atherosclerotic vascular calcifications involving the bilateral carotid siphons. The sella and pineal gland regions appear unremarkable. There is no evidence of cerebellar tonsillar herniation. Ventricles: There is no acute hydrocephalus. Basilar cisterns are patent. Paranasal sinuses: Well-aerated Mastoid air cells: Well-aerated. Calvarium: The bony calvarium is intact. Orbits: The bilateral globes are symmetric, without retrobulbar compressive mass lesion or hemorrhage. CT/STROKE Brain/Head without Cont IMPRESSION: No acute intracranial pathology. [facility]
--- NOTE | 2025-05-11 11:31 | CT_ITS ---
PROCEDURE: STROKE CTA HEAD AND NECK W/CON 05/11/2025 REASON FOR EXAM: LEFT FACIAL DROOP/WEAK, ACUTE, STROKE SUSPECTED TECHNIQUE: STROKE CTA HEAD AND NECK W/CON Multiplanar Sagittal and Coronal images were obtained. CONTRAST: 100 cc Isovue 370 One or more dose reduction techniques were used (e.g., Automated exposure control, adjustment of the mA and/or kV according to patient size, use of iterative reconstruction technique). RADIATION DOSE SUMMARY: DLP: 907.95 mGycm COMPARISON: None FINDINGS: Aortic Arch: The ascending aorta is dilated to 4.0 cm in AP diameter. Brachiocephalic and Subclavians: Patent RIGHT Carotid: Right CCA: Patent plaque is noted. Right ICA: Patent Maximum stenosis (NASCET): 0 % Right ECA: Patent LEFT Carotid: Left CCA: Patent plaque is noted. Left ICA: Patent Maximum stenosis (NASCET): 0 % Left ECA: Patent Vertebrals: Patent RIGHT Vertebral: Patent LEFT Vertebral: Patent Anatomy: Unremarkable Aneurysm or avm: None Anterior cerebral arteries: Patent Middle cerebral arteries: Patent Basilar artery: Patent Posterior cerebral arteries: Patent Other major branches of the posterior circulation: Patent Major venous structures: Patent Other findings: Neck: Unremarkable lungs: Calcified granulomas are noted. Bones: There is no acute bony abnormality. CT/STROKE CTA Head AND Neck W/Con IMPRESSION: The ascending aorta is dilated to 4.0 cm in AP diameter. Follow-up is recommen ded. There is no significant diameter stenosis or occlusion identified in the caroti d system in the neck or cerebral vasculature. Reading Location: [facility]
[2025-05-11 11:39] LABS: Hematocrit 45.3 % (40-54); Hemoglobin 15.0 g/dL (13.0-16.5); Immature Granulocytes Count 0.050 X10^3/uL (0.0-0.0); Mean Corp Hgb Conc 33.1 g/dL (32-36); Mean Corpuscular Volume 92.4 fL (80-94); Mean Platelet Vol. 9.4 fl (6.2-12.0); NRBC Flagged by Analyzer 0 % (0-5); Platelet Count 309 K/mm3 (150-450); RBC Distribution Width CV 13.6 % (11.6-14.6); RBC Distribution Width SD 46.5 fl (35.1-43.9); Red Blood Count 4.90 M/mm3 (4.6-6.2); White Blood Count 9.2 K/mm3 (4.4-11.0)
[2025-05-11 12:14] LABS: Prothrombin Time (Protime)PT. 12.9 SECONDS (11.7-14.9)
[2025-05-11 12:15] LABS: Partial Thromboplast Time 28.2 Seconds (24.1-36.2)
[2025-05-11 12:18] LABS: Anion Gap 11 (5-15); BUN 23 mg/dL (4-19); BUN/Creat Ratio 26.1 RATIO (10-20); Calcium,Total 9.2 mg/dL (7.6-11.0); Carbon Dioxide 24.5 mmol/L (21.0-32.0); Chloride 103 mmol/L (98-108); Estimated Creatinine Clearance 95.80 ml/min (50-250); Glucose 99 mg/dL (70-99); Potassium 4.9 mmol/L (3.3-5.1)
[2025-05-11 12:19] LABS: Troponin T High Sensitivity 7 ng/L (<=22)
--- NOTE | 2025-05-11 14:06 | PCM.HP.STD ---
HPI - General General Date of Admission: 05/11/25 Date of Service: 05/11/25 Chief Complaint: Left face weakness HPI Narrative JACKIE RUIZ, is a 59 M who presents with left face and arm weakness. This is a 59-year-old male with a history of hypertension who noted that his cigarette swelling on the left side of his mouth. Noted that his left arm is weak as well. Presented to the emergency room and underwent a stroke workup that was initially negative. 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 Patient has never had a stroke before. [facility] Medical History Abrasion of right ear canal Rash Right shoulder strain Abdominal pain Epigastric pain Difficulty swallowing Wears glasses Marijuana use Arthritis Back pain Gastric reflux COPD (chronic obstructive pulmonary disease) Shortness of breath on exertion Smoker History of stress test Hypertension History of heart attack Cardiology follow-up encounter Chest pain Pain Tobacco use History of GI bleed Lumbar radiculopathy Acute lumbar myofascial strain Strain of fascia of lower back Nicotine dependence, cigarettes, uncomplicated Dyspnea on exertion Asthma-COPD overlap syndrome Smoking greater than 30 pack years Obesity Chest pain Nicotine dependence Hyperlipidemia Essential (primary) hypertension Cervical spondylosis Gout Home Medications ?Medication ?Instructions ?Recorded ?Last Taken ?Type allopurinol 300 mg tablet 300 mg PO DAILY 02/25/20 09/02/23 History hydrochlorothiazide 25 mg tablet 25 mg PO DAILY 08/07/23 09/02/23 History losartan 100 mg tablet 100 mg PO DAILY 08/07/23 09/03/23 History omeprazole 40 mg capsule,delayed 40 mg PO DAILY 08/07/23 09/02/23 History release amlodipine 10 mg tablet 5 mg PO DAILY 12/14/23 Unknown History isosorbide mononitrate 60 mg 60 mg PO BID #180 tabs 12/14/23 Unknown Rx tablet,extended release 24 hr venlafaxine 150 mg 150 mg PO DAILY #90 caps 03/13/25 Unknown Rx capsule,extended release 24 hr mirtazapine 7.5 mg tablet 7.5 mg PO QHS #30 tabs 05/08/25 Unknown Rx Allergy/AdvReac Type Severity Reaction Status Date / Time No Known Allergies Allergy Verified 05/11/25 12:00 Family History Father Diabetes Hypertension Grandfather Heart disease Grandfather Heart disease Surgical History History of esophagogastroduodenoscopy (EGD) History of colonoscopy Hx of colonoscopy with polypectomy History of left heart catheterization (03/11/20) Social History household members: family and none housing: house Smoking Status: Heavy Smoker (>10/day) Tobacco: How many years used: 30 alcohol intake: never substance use type: marijuana caffeine: Yes Type: coffee Number of servings: 5 ROS ROS Narrative Does drop things chronically at work but is not unilateral by any means. All review of systems were negative except as mentioned above in the history of present illness and the other review of systems. Vital Signs Vital Signs Vital Signs: 05/11/25 11:25 05/11/25 11:26 05/11/25 11:30 Temperature 36.7 C Temperature Source Temporal Pulse Rate 51 L 66 Respiratory Rate 20 H 20 H Blood Pressure 136/108 H 155/90 H Blood Pressure Mean 117 111 Pulse Ox 100 98 98 Oxygen Delivery Method Room Air Room Air Room Air 05/11/25 12:00 05/11/25 12:01 05/11/25 12:30 Temperature Temperature Source Pulse Rate 63 64 64 Respiratory Rate 20 H 21 H 18 Blood Pressure 149/95 H 149/95 H 153/86 H Blood Pressure Mean 113 113 108 Pulse Ox 99 98 97 Oxygen Delivery Method Room Air Room Air Room Air 05/11/25 12:30 05/11/25 13:00 Temperature 36.9 C Temperature Source Oral Pulse Rate 63 63 Respiratory Rate 19 H 19 H Blood Pressure 153/86 H 146/95 H Blood Pressure Mean 108 112 Pulse Ox 98 98 Oxygen Delivery Method Room Air Room Air Weight Weight: 84 kg Body Mass Index (BMI) 25.1 Physical Exam Narrative - Physical Exam General: Alert, Oriented x3, Cooperative HEENT: Atraumatic, PERRLA, EOMI, left facial droop Oral: Moist Mucosa, No Gingival or Mucosal Lesions/ Ulcerations Neck: Supple, No JVD, Negative Carotid Bruits Lungs: Clear to auscultation, Normal air movement Cardiovascular: Regular rate, Normal S1, Normal S2, No murmurs Abdomen: Bowel Sounds Present, Soft, Non Tender, Non-Distended, No Hepato-splenomegaly Extremities: No clubbing, No cyanosis, No edema, Capillary Refill Less than 3 Seconds Skin: No rashes, No breakdown Musculoskeletal: No Tenderness to Palpation of Joints or Extremities Neurological: Muscle strength 5-5 in upper and lower extremities bilaterally. Finger-nose and [id number] within normal limits. Sensation is grossly intact however diminished on the left face and left forearm. Patient is not able to raise his left eyebrows as high as his right. In his left eye closes completely but much slower than his right. Psych/Mental Status: Normal Affect, Appropriate Results Lab / Micro Data Attestation: I reviewed the patient's lab results. 05/11/25 11:26 05/11/25 11:26 Labs: Laboratory Results - last 24 hr 05/11/25 11:26: WBC 9.2, RBC 4.90, Hgb 15.0, Hct 45.3, MCV 92.4, MCH 30.6, MCHC 33.1, RDW Std Deviation 46.5 H, RDW Coeff of Jose 13.6, Plt Count 309, MPV 9.4, Immature Gran % (Auto) 0.500, Neut % (Auto) 64.5, Lymph % (Auto) 17.0 L, [place] % (Auto) 14.9 H, Eos % (Auto) 2.4, Baso % (Auto) 0.7, Absolute Neuts (auto) 5.9, Absolute Lymphs (auto) 1.56, Nucleated RBC % 0, PT 12.9, INR 1.0, APTT 28.2, Sodium 139, Potassium 4.9, Chloride 103, Carbon Dioxide 24.5, Anion Gap 11, BUN 23 H, Creatinine 0.90, Estim Creat Clear Calc 95.80, Est GFR (MDRD) Non-Af 98, BUN/Creatinine Ratio 26.1 H, Glucose 99, Calcium 9.2, Troponin T High Sens 7 D Rhythm Strip Rhythm Strip: Sinus Rhythm Rate: 70 Ectopy: PAC(s) Imaging Radiology Impression Brain CT 05/11/25 11:29 IMPRESSION: No acute intracranial pathology. Reading Location: [facility] Head/Neck CTA 05/11/25 11:31 IMPRESSION: The ascending aorta is dilated to 4.0 cm in AP diameter. Follow-up is recommended. There is no significant diameter stenosis or occlusion identified in the carotid system in the neck or cerebral vasculature. 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 However he has diminished sensation on his left arm. Somata treat him as though he has De La Cruz's palsy with steroids and antivirals at this time but also commence with a workup for stroke. If he does found to have some type of stroke such as like a cerebellar or brainstem stroke then we can stop the antiviral and steroids. But I will have an MRI of the brain, echo, therapy evaluations. Last known well was last night the patient is out of the window for TNK. Also since he cannot adequately close his left eye are released as efficiently as his right, we will have him patching at night as well as have a ointment at night. And then eyedrops as needed during the day. PLAN: Plan Hypertension: Holding off on his antihypertensives for now with the resumption tomorrow. Tobacco abuse: Patient endorses that he has cut back from 2-1/2 packs to about half pack daily. VTE prophylax: Low risk given current observation status CODE STATUS, addressed with patient. Patient wishes to be full code. Charges/Coding Visit Charges Inpatient E&M: 86236 Init Hosp L3
[2025-05-11 14:19] LABS: Troponin T High Sens 2 HR 6 ng/L (<=22)
--- NOTE | 2025-05-11 15:00 | MRI_ITS ---
PROCEDURE: BRAIN WITHOUT CONTRAST 05/11/2025 REASON FOR EXAM: CVA TECHNIQUE: BRAIN WITHOUT CONTRAST Multiplanar and multisequence images were obtained. COMPARISON: CT head without contrast, same day. FINDINGS: There is a normal sulcal pattern and gyral configuration. There is no evidence of acute intracranial hemorrhage or infarction. The hoff-white differentiation is well preserved. There is no evidence of restricted diffusion. The ventricles and basilar cisterns are normal. There are normal flow voids demonstrated in the recognized intracranial vessels. The cerebellum and brainstem are unremarkable. The cerebellar pontine angles are normal. The craniovertebral junction is normal. The sella and suprasellar regions are normal. The orbits and retro-orbital regions are unremarkable. There is S shaped nasal septal deviation. The paranasal sinuses are clear. There are fluid-filled mastoid air cells on the right. There is normal bone marrow signal in the skull base and calvarium. MRI/Brain without Contrast IMPRESSION: 1. No evidence of intracranial pathology. 2. Right mastoiditis. Reading Location: [place] [id number]
--- NOTE | 2025-05-11 16:15 | PCM.DC.SUM ---
Providers Date of Admission: 05/11/25 Primary Care Physician: Dr. 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 However he has diminished sensation on his left arm. Somata treat him as though he has De La Cruz's palsy with steroids and antivirals at this time but also commence with a workup for stroke. If he does found to have some type of stroke such as like a cerebellar or brainstem stroke then we can stop the antiviral and steroids. But I will have an MRI of the brain, echo, therapy evaluations. Last known well was last night the patient is out of the window for TNK. Also since he cannot adequately close his left eye are released as efficiently as his right, we will have him patching at night as well as have a ointment at night. And then eyedrops as needed during the day. Plan Hypertension: Holding off on his antihypertensives for now with the resumption tomorrow. Tobacco abuse: Patient endorses that he has cut back from 2-1/2 packs to about half pack daily. VTE prophylax: Low risk given current observation status CODE STATUS, addressed with patient. Patient wishes to be full code. Medications at Discharge Home Medications allopurinol 300 mg tablet 300 mg PO DAILY 02/25/20 hydrochlorothiazide 25 mg tablet 25 mg PO DAILY 08/07/23 losartan 100 mg tablet 100 mg PO DAILY 08/07/23 omeprazole 40 mg capsule,delayed release 40 mg PO DAILY 08/07/23 amlodipine 10 mg tablet 5 mg PO DAILY 12/14/23 isosorbide mononitrate 60 mg tablet,extended release 24 hr 60 mg PO BID #180 tabs 12/14/23 venlafaxine 150 mg capsule,extended release 24 hr 150 mg PO DAILY #90 caps 05/16/25 mirtazapine 7.5 mg tablet 7.5 mg PO QHS #30 tabs 05/08/25 eye patch #20 ea 05/11/25 peg [id number] 1 %-0.2 %-0.2 % eye drops (Artificial Tears ([id number])) 1 drp LEFT EYE Q1H PRN DRY EYES #15 mL 05/11/25 prednisone 20 mg tablet 60 mg (3 x 20 mg) PO DAILY #21 tabs 05/11/25 valacyclovir 1 gram tablet (Valtrex) 1,000 mg PO Q8H #21 tabs 05/11/25 white petrolatum-mineral oil 56.8 %-42.5 % eye ointment (Refresh Lacri-Lube) 1 applic LEFT EYE QHS #3.5 grams 05/11/25 Hospital Course Operations None Procedures None Summary of Care Provided Hospital Course: Patient with acute onset of left facial weakness. He had also complained of left arm weakness. On exam, patient had left facial weakness but it did not spare his forehead so is concerning for De La Cruz's palsy. His muscle strength in his arm and leg on his left was equal to his right but he did complain of diminished sensation on his left arm. She did undergo head CT CTA of the head and neck and an MRI and those were all negative. So I feel the patient does have De La Cruz's palsy and this was explained to him that is a virus. Treatment will be steroids as well as antivirals. Because he cannot close his left eye as effectively as his right he is recommend to use eyedrops during the day and then to use an ointment at night and then to wear a patch so he does not scratch his eye at night. Patient made aware that this may take weeks or months to resolve. Patient remained stable but the testing was done much faster than initially anticipated. Given that there is no stroke no additional need for further stroke workup as his exam is consistent with De La Cruz's palsy. Weight / BMI Weight Weight: 84 kg Body Mass Index (BMI) 25.1 ABG / Lab / Microbiology Data 05/11/25 11:26 05/11/25 11:26 Laboratory: Laboratory Results - last 24 hr 05/11/25 11:26: WBC 9.2, RBC 4.90, Hgb 15.0, Hct 45.3, MCV 92.4, MCH 30.6, MCHC 33.1, RDW Std Deviation 46.5 H, RDW Coeff of Jose 13.6, Plt Count 309, MPV 9.4, Immature Gran % (Auto) 0.500, Neut % (Auto) 64.5, Lymph % (Auto) 17.0 L, Stoddard % (Auto) 14.9 H, Eos % (Auto) 2.4, Baso % (Auto) 0.7, Absolute Neuts (auto) 5.9, Absolute Lymphs (auto) 1.56, Nucleated RBC % 0, PT 12.9, INR 1.0, APTT 28.2, Sodium 139, Potassium 4.9, Chloride 103, Carbon Dioxide 24.5, Anion Gap 11, BUN 23 H, Creatinine 0.90, Estim Creat Clear Calc 95.80, Est GFR (MDRD) Non-Af 98, BUN/Creatinine Ratio 26.1 H, Glucose 99, Calcium 9.2, Troponin T High Sens 7 D 05/11/25 13:40: Troponin T Hi Sens 2 Hr 6 Radiography Diagnostic Testing: Radiology Impression Brain CT 05/11/25 11:29 IMPRESSION: No acute intracranial pathology. Reading Location: [facility] Head/Neck CTA 05/11/25 11:31 IMPRESSION: The ascending aorta is dilated to 4.0 cm in AP diameter. Follow-up is recommended. There is no significant diameter stenosis or occlusion identified in the carotid system in the neck or cerebral vasculature. Reading Location: [facility] Brain MRI 05/11/25 15:00 IMPRESSION: 1. No evidence of intracranial pathology. 2. Right mastoiditis. Reading Location: [place] [address] D/C Instructions Discharge Activity: Return to Normal Activity Return to work on: 05/12/25 DC O2, CPAP, BIPAP Needs Home O2 Discharge instructions: No DC home with Oxygen: No Meaningful Use Info Meaningful Use Meaningful Use Diagnoses (Choose all that apply): None applicable Discharge Plan Admission Admit Date/Time: 05/11/25 12:49 Primary Reason for Your Visit: De La Cruz's palsy Attending Provider: German Temple Primary Care Provider: Lukas Chatterjee Consulting Providers: Aldo Kimball; Kaylie Cadena; Sarahy Herbert; Taryn Aparicio; Sherie Beyer; Vasile Sierra; Ruthie Hughes; Maulik Moore; Tadeo Castelan; Cricket Shoemaker; Yeni Hoffman; Jean Ross; Blank Hernandez; Grant Cook; Kayla Maher; Hemal Sibley; Torin Escobar; Daniele Pelayo; Lavonne Quezada; Sherice Gomez Instructions Patient Instructions: De La Cruz's Palsy Additional Instructions / Restrictions: You have De La Cruz's palsy affecting left side of your face. Typically it is a viral infection affecting the facial nerves that causes weakness. The treatment is steroids and antivirals. Supportive treatment Sarge eyedrops in the left eye as you cannot close your eye as easily as you are right at this time. That is to keep the left eye moist. And at night to and applying ointment and then to wear a patch so you do not scratch your eye at night. Discharge Orders/Prescriptions Prescriptions: New Refresh Lacri-Lube 56.8-42.5 % Ointment 1 applic LEFT EYE QHS Qty: 3.5 1RF Artificial Tears(oy-iwis-xorb) 1-0.2-0.2 % Drops 1 drp LEFT EYE Q1H PRN (Reason: DRY EYES) Qty: 15 1RF valacyclovir [Valtrex] 1 gram tablet 1,000 mg PO Q8H Qty: 21 0RF (DME) eye patch Misc See Rx Instructions .Route Qty: 20 1RF Rx Instructions: at night prednisone 20 mg tablet 60 mg PO DAILY Qty: 21 0RF Continued allopurinol 300 mg tablet 300 mg PO DAILY Patient Comments: Take 1 tablet by mouth once daily. For gout. omeprazole 40 mg capsule,delayed release(DR/EC) 40 mg PO DAILY hydrochlorothiazide 25 mg tablet 25 mg PO DAILY losartan 100 mg tablet 100 mg PO DAILY amlodipine 10 mg tablet 5 mg PO DAILY isosorbide mononitrate 60 mg tablet extended release 24 hr 60 mg PO BID Qty: 180 3RF venlafaxine 150 mg capsule,extended release 24hr 150 mg PO DAILY Qty: 90 1RF mirtazapine 7.5 mg tablet 7.5 mg PO QHS Qty: 30 1RF Referrals / Follow Up: Lukas Chatterjee MD [Primary Care Provider] - Within 1 Week Disposition Disposition (needs filled in before D/C Order can be placed): Home, Self Care
--- NOTE | 2025-05-11 16:35 | CASEMGMT ---
Social Work PHQ-9 not completed as pt did not have a stroke. [place]
[2025-05-11 17:52] LABS: Troponin T High Sens 4 HR < 6 ng/L (<=22)
--- NOTE | 2025-05-11 19:39 | CASEMGMT ---
Care Management Face to Face with patient for initial transition planning/care coordination assessment in the ED.? This technical publications writer introduced self and role at [facility]. Patient alert and oriented. Patient willing to participate in assessment and is able to answer all questions appropriately.? Care providers, pharmacy, and demographics verified. Admitting Diagnosis: ?stroke alert Other diagnosis history: ?arthritis, hypertension, h/o [place] , COPD, hyperlipidemia PCP: ?Sen Specialists: ?None Preferred Pharmacy: [facility] Insurance: ?[facility] Community plan Prescription Benefit: ?yes Living Will/HPOA: ?none LNOK: mother Living Arrangements: ?Patient lives with his mom in a one story home.?? Is independent with ADLs and IADls. Works at [employer] Transportation: ?Patient drives DME: ?None HHC: ?None SNF/Rehab: ?None Community Resources: ?None Behavioral Health History: ?None Patient goals: Patient wishes to discharge home, denies need for home health care at this time. Patient denies any further needs or concerns at this time. Disposition Plan: admission to acute; RN CM/SW to follow for discharge planning needs that may arise. Angelique Marquez, GLASS ARTIST, YARD COUPLER
== END 2025-05-11 16:33 | disposition home or self-care (01) ==
LOC: ED 13:07 → PCU 13:58
PROVIDERS: Emergency Provider Emergency Medicine; PCP Family Medicine; Referring Provider Emergency Medicine
DX: R29.810 Facial weakness (principal); J44.89 Other specified chronic obstructive pulmonary disease; R47.81 Slurred speech; I10 Essential (primary) hypertension; R29.898 Other symptoms and signs involving the musculoskeletal system; E78.5 Hyperlipidemia, unspecified; F17.210 Nicotine dependence, cigarettes, uncomplicated; K21.9 Gastro-esophageal reflux disease without esophagitis; Z79.899 Other long term (current) drug therapy; I49.1 Atrial premature depolarization; R00.0 Tachycardia, unspecified
CPT/HCPCS: 36415; 70450; 70496; 70498; 70551; 80048; 82962; 84484; 85025; 85610; 85730; 93005; 99221; 99285; Q9967; A4216; G0378

== ENCOUNTER 2025-05-19 13:07 | Emergency (ER) | payer MEDICAID, SELFPAY ==
[2025-05-19 13:08] VITALS: BP 155/103; PULSE 73; RESP 18; TEMP 36.3; O2SAT 99; BMI 28.9
[2025-05-19 13:12] VITALS: BMI 29.2
--- NOTE | 2025-05-19 13:42 | EX.ED.DYSGE1 ---
HPI History of Present Illness Chief Complaint: Neuro S/Sx Informant: patient Narrative Narrative: Patient presents concerning worsening weakness left side of face today. He was seen admitted to hospital 8 days ago stroke workup diagnosed with De La Cruz's palsy. He finished his prednisone yesterday still on his viral medicines with 2 tabs left. He has had persistent headache since his diagnosis. None worsening. No vomiting. He has an eye patch placed when he was discharged. He is follow-up with his PCP. He is not a diabetic. No weakness of the extremities. Prior similar symptoms: Yes PFSH PFSH Medical History Abrasion of right ear canal Rash Right shoulder strain Abdominal pain Epigastric pain Difficulty swallowing Wears glasses Marijuana use Arthritis Back pain Gastric reflux COPD (chronic obstructive pulmonary disease) Shortness of breath on exertion Smoker History of stress test Hypertension History of heart attack Cardiology follow-up encounter Chest pain Pain Tobacco use History of GI bleed Lumbar radiculopathy Acute lumbar myofascial strain Strain of fascia of lower back Nicotine dependence, cigarettes, uncomplicated Dyspnea on exertion Asthma-COPD overlap syndrome Smoking greater than 30 pack years Obesity Chest pain Nicotine dependence Hyperlipidemia Essential (primary) hypertension Cervical spondylosis Gout Home Medications ?Medication ?Instructions ?Recorded ?Last Taken ?Type allopurinol 300 mg tablet 300 mg PO DAILY 02/25/20 09/02/23 History hydrochlorothiazide 25 mg tablet 25 mg PO DAILY 08/07/23 09/02/23 History losartan 100 mg tablet 100 mg PO DAILY 08/07/23 09/03/23 History omeprazole 40 mg capsule,delayed 40 mg PO DAILY 08/07/23 09/02/23 History release amlodipine 10 mg tablet 5 mg PO DAILY 12/14/23 Unknown History isosorbide mononitrate 60 mg 60 mg PO BID #180 tabs 12/14/23 Unknown Rx tablet,extended release 24 hr venlafaxine 150 mg 150 mg PO DAILY #90 caps 03/13/25 Unknown Rx capsule,extended release 24 hr mirtazapine 7.5 mg tablet 7.5 mg PO QHS #30 tabs 05/08/25 Unknown Rx eye patch #20 ea 05/11/25 Unknown Rx peg [id number] 1 1 drp LEFT EYE Q1H PRN DRY EYES 05/11/25 Unknown Rx %-0.2 %-0.2 % eye drops #15 mL (Artificial Tears ([id number])) prednisone 20 mg tablet 60 mg (3 x 20 mg) PO DAILY #21 tabs 05/11/25 Unknown Rx valacyclovir 1 gram tablet 1,000 mg PO Q8H #21 tabs 05/11/25 Unknown Rx (Valtrex) white petrolatum-mineral oil 56.8 1 applic LEFT EYE QHS #3.5 grams 05/11/25 Unknown Rx %-42.5 % eye ointment (Refresh Lacri-Lube) prednisone 20 mg tablet 60 mg (3 x 20 mg) PO DAILY #18 05/19/25 Unknown Rx TABLETS Allergy/AdvReac Type Severity Reaction Status Date / Time No Known Allergies Allergy Verified 05/19/25 13:10 Family History Father Diabetes Hypertension Grandfather Heart disease Grandfather Heart disease Surgical History History of esophagogastroduodenoscopy (EGD) History of colonoscopy Hx of colonoscopy with polypectomy History of left heart catheterization (03/11/20) Social History household members: family and none housing: house Smoking Status: Heavy Smoker (>10/day) Tobacco: How many years used: 30 alcohol intake: never substance use type: marijuana caffeine: Yes Type: coffee Number of servings: 5 ROS ROS ED Constitutional Constitutional ED: Denies chills, fever(s) or sweats ENT ENT ED: Denies sore throat Cardiovascular Cardiovascular: Denies chest pain, leg edema, palpitations or racing heartbeat Respiratory/Chest Respiratory/Chest: Denies cough, dyspnea or dyspnea on exertion Gastrointestinal Gastrointestinal: Denies abdominal pain, diarrhea, nausea or vomiting Genitourinary Genitourinary ED: Denies dysuria, hematuria or urinary frequency Musculoskeletal Musculoskeletal: Denies back pain, extremity pain or neck pain Integumentary Denies rash or wounds Neurologic Neurologic: Reports headache(s) and other Details: Left facial weakness ; Denies paresthesias or weakness EXAM Physical Exam Const Vital Signs: 05/19/25 13:08 05/19/25 13:53 Temperature 97.4 F L 97.4 F L Temperature Source Oral Pulse Rate 73 71 Respiratory Rate 18 17 Blood Pressure 155/103 H 162/95 H Blood Pressure Mean 120 117 Pulse Ox 99 99 Oxygen Delivery Method Room Air Positive well nourished and well developed General Appearance ED: well developed and NAD HEENT Reports moist mucous membranes HEENT Narrative: Left-sided flaccid face with no sparing the forehead. Eye patch removed. Unable to close his left eye. normocephalic and atraumatic Eyes General Eye ED: Yes normal appearance of both eyes Neck full ROM Chest Wall Chest: Negative for tenderness Resp normal respiratory effort and normal air movement Effort and Inspection: symmetric chest movement; Negative for respiratory distress Cardio regular rate, regular rhythm and no murmurs Peripheral Pulses: pulses 2+ throughout GI normal to inspection, nondistended, normoactive bowel sounds and non-tender Palpation: Negative for guarding or rebound tenderness present Extremity normal to inspection General Extremety ED: Negative for edema or tenderness General Extremity: Negative for edema Neuro oriented x3 and no sensory deficits noted Neuro Narrative: Facial sensation intact. Motor deficits left facial nerve on the left with no sparing of the forehead. NIH of 2 secondary to this. Sensorium / Orientation: awake and alert Skin no rashes or lesions noted and no wounds MDM MDM MDM Narrative Medical decision making narrative: Interventions / MDM: Differential diagnosis: Left-sided De La Cruz's palsy Diagnosis considered but do not suspect: N/A My EKG interpretation: N/A Imaging independently reviewed and interpreted by myself: N/A External documents reviewed: Workup from 8 days ago May 11. Negative CT CTA and MRI of the brain. Test considered but not ordered:N/A ED course: Patient exam consistent with De La Cruz's palsy he has weakness left side of the face. I will start a second round of prednisone. Discussed with patient with De La Cruz's palsy one third of the patient's does not improve, one third patient partial improvement one third may have full recovery however this will take time. Prednisone in the ED, additional prescription to his pharmacy. He will continue his eye patch he will continue his eyedrops. Re-evaluation: stable Disposition discussed with patient/family/significant other: Patient Case discussed with consulting clinician: N/A This note was generated with Feeshehation software. It may contain incorrect words, spelling, and punctuation that were not noted in checking the note before signing. Discharge Plan Triage Chief Complaint: Neuro S/Sx ED Provider: Roman Leiva Dx/Rx/DC Orders Clinical Impression: Left-sided De La Cruz's palsy, Headache Instructions: De La Cruz's Palsy Prescriptions: New prednisone 20 mg tablet 60 mg PO DAILY Qty: 18 0RF No Action allopurinol 300 mg tablet 300 mg PO DAILY Patient Comments: Take 1 tablet by mouth once daily. For gout. omeprazole 40 mg capsule,delayed release(DR/EC) 40 mg PO DAILY hydrochlorothiazide 25 mg tablet 25 mg PO DAILY losartan 100 mg tablet 100 mg PO DAILY amlodipine 10 mg tablet 5 mg PO DAILY isosorbide mononitrate 60 mg tablet extended release 24 hr 60 mg PO BID Qty: 180 3RF venlafaxine 150 mg capsule,extended release 24hr 150 mg PO DAILY Qty: 90 1RF mirtazapine 7.5 mg tablet 7.5 mg PO QHS Qty: 30 1RF Refresh Lacri-Lube 56.8-42.5 % Ointment 1 applic LEFT EYE QHS Qty: 3.5 1RF Artificial Tears([id number]-ncjm) 1-0.2-0.2 % Drops 1 drp LEFT EYE Q1H PRN (Reason: DRY EYES) Qty: 15 1RF valacyclovir [Valtrex] 1 gram tablet 1,000 mg PO Q8H Qty: 21 0RF (DME) eye patch Misc See Rx Instructions .Route Qty: 20 1RF Rx Instructions: at night prednisone 20 mg tablet 60 mg PO DAILY Qty: 21 0RF Primary Care Provider: Lukas Chatterjee Referrals: Lukas Chatterjee MD [Primary Care Provider] - 1-2 Weeks Activity Restrictions/Additional Instructions: Your exam consistent with continued De La Cruz's palsy. Continue your eye patch. Continue eyedrops. Additional round of steroids will be started. Follow-up with your doctor. Print Language: Swazi Disposition Disposition: Home, Self Care Discharge Date/Time: 05/19/25 13:53
[2025-05-19 13:53] VITALS: BP 162/95; PULSE 71; RESP 17; TEMP 36.3; O2SAT 99
== END 2025-05-19 13:53 | disposition home or self-care (01) ==
PROVIDERS: Emergency Provider Emergency Medicine; PCP Family Medicine; Visit Provider Emergency Medicine
DX: G51.0 Bell's palsy (principal); J44.9 Chronic obstructive pulmonary disease, unspecified; R51.9 Headache, unspecified; I10 Essential (primary) hypertension; E78.5 Hyperlipidemia, unspecified; K21.9 Gastro-esophageal reflux disease without esophagitis; F17.200 Nicotine dependence, unspecified, uncomplicated; Z79.899 Other long term (current) drug therapy
CPT/HCPCS: 99282

== ENCOUNTER 2025-07-24 11:10 | Emergency (ER) | payer MEDICAID, SELFPAY ==
[2025-07-24 11:11] VITALS: BP 174/121; PULSE 75; RESP 16; TEMP 36.6; O2SAT 98; BMI 28.6
== END 2025-07-24 12:43 | disposition left against medical advice (07) ==
LOC: ED 12:45
PROVIDERS: PCP Family Medicine
DX: R51.9 Headache, unspecified (principal); Z86.73 Personal history of transient ischemic attack (TIA), and cerebral infarction without residual deficits; Z53.21 Procedure and treatment not carried out due to patient leaving prior to being seen by health care provider

== ENCOUNTER 2025-07-26 14:08 | Emergency (ER) | payer MEDICAID, SELFPAY ==
[2025-07-26 14:08] VITALS: BP 144/101; PULSE 85; RESP 14; TEMP 37.1; O2SAT 99; BMI 28.5
--- NOTE | 2025-07-26 14:42 | EX.ED.VIS.HA ---
HPI History of Present Illness Chief Complaint: Headache Informant: patient Onset/Context/Timing Onset: Month(s) (2 months since april.) Context: Gradual Timing: Continuous Quality -Headache: Positive for Similar Prior Headaches and Sharp Current Severity: Mild Maximum Severity: Moderate Associated Symptoms/Injury Associated Symptoms: Negative for Fever, Nausea or Vomiting Injury - LAM: Negative for Direct Trauma, Fall or Assault Narrative Narrative: 59-year-old male history of COPD, gout. 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 An extensive workup including CT of the brain, CTA head and neck and MRI. Since april has had constant headache for 2 months. Top of his head and scalp. With left facial droop. He said that has had some improvement he can now close his eye better. He has not seen a neurologist or a neurosurgeon. He has appointment to see his primary care physician on Sunday. Prior similar symptoms: Yes Recent Illness/Hospitalization: Yes [facility] Medical History Abrasion of right ear canal Rash Right shoulder strain Abdominal pain Epigastric pain Difficulty swallowing Wears glasses Marijuana use Arthritis Back pain Gastric reflux COPD (chronic obstructive pulmonary disease) Shortness of breath on exertion Smoker History of stress test Hypertension History of heart attack Cardiology follow-up encounter Chest pain Pain Tobacco use History of GI bleed Lumbar radiculopathy Acute lumbar myofascial strain Strain of fascia of lower back Nicotine dependence, cigarettes, uncomplicated Dyspnea on exertion Asthma-COPD overlap syndrome Smoking greater than 30 pack years Obesity Chest pain Nicotine dependence Hyperlipidemia Essential (primary) hypertension Cervical spondylosis Gout Home Medications Medication Instructions Recorded Last Taken Type allopurinol 300 mg tablet 300 mg PO DAILY 02/25/20 09/02/23 History hydrochlorothiazide 25 mg tablet 25 mg PO DAILY 08/07/23 09/02/23 History losartan 100 mg tablet 100 mg PO DAILY 08/07/23 09/03/23 History omeprazole 40 mg capsule,delayed 40 mg PO DAILY 08/07/23 09/02/23 History release amlodipine 10 mg tablet 5 mg PO DAILY 12/14/23 Unknown History isosorbide mononitrate 60 mg 60 mg PO BID #180 tabs 12/14/23 Unknown Rx tablet,extended release 24 hr venlafaxine 150 mg 150 mg PO DAILY #90 caps 03/13/25 Unknown Rx capsule,extended release 24 hr eye patch #20 ea 05/11/25 Unknown Rx peg [id number] 1 1 drp LEFT EYE Q1H PRN DRY EYES 05/11/25 Unknown Rx %-0.2 %-0.2 % eye drops #15 mL (Artificial Tears ([id number])) prednisone 20 mg tablet 60 mg (3 x 20 mg) PO DAILY #21 tabs 05/11/25 Unknown Rx valacyclovir 1 gram tablet 1,000 mg PO Q8H #21 tabs 05/11/25 Unknown Rx (Valtrex) white petrolatum-mineral oil 56.8 1 applic LEFT EYE QHS #3.5 grams 05/11/25 Unknown Rx %-42.5 % eye ointment (Refresh Lacri-Lube) prednisone 20 mg tablet 60 mg (3 x 20 mg) PO DAILY #18 05/19/25 Unknown Rx TABLETS hydrocodone 5 mg-acetaminophen 300 1 tab PO Q6H PRN pain 4 days #12 07/26/25 Unknown Rx mg tablet tabs prednisone 20 mg tablet 40 mg (2 x 20 mg) PO DAILY 7 days 07/26/25 Unknown Rx #14 tabs Allergy/AdvReac Type Severity Reaction Status Date / Time No Known Allergies Allergy Verified 07/26/25 14:08 Family History Father Diabetes Hypertension Grandfather Heart disease Grandfather Heart disease Surgical History History of esophagogastroduodenoscopy (EGD) History of colonoscopy Hx of colonoscopy with polypectomy History of left heart catheterization (03/11/20) Social History household members: family and none housing: house Smoking Status: Heavy Smoker (>10/day) Tobacco: How many years used: 30 alcohol intake: never substance use type: marijuana caffeine: Yes Type: coffee Number of servings: 5 ROS ROS ED ROS Narrative Denies recent illness. Chronic headache for 2 months. Constitutional Constitutional ED: Denies chills or fever(s) Eyes Eyes: Denies blurry vision ENT ENT ED: Denies ear pain Cardiovascular Cardiovascular: Denies chest pain Respiratory/Chest Respiratory/Chest: Denies cough or dyspnea Gastrointestinal Gastrointestinal: Denies abdominal pain, diarrhea, nausea or vomiting Genitourinary Genitourinary ED: Denies dysuria or hematuria Integumentary Denies abscess or Abrasions Neurologic Neurologic: Reports headache(s); Denies paresthesias or weakness Psychiatric Psychiatric: Denies anxiety or depression Endocrine Endocrinology: Denies polydipsia, polyphagia or polyuria Hematologic/Lymphatic Hematologic/Lymphatic: Denies easy bleeding, easy bruising or lymphadenopathy Allergic/Immunologic Allergic/Immunologic ED: Denies mouth swelling, tongue swelling or urticaria EXAM Physical Exam Narrative Exam Narrative: 59-year-old male vital signs stable afebrile no acute distress. Sitting upright in bed. No one else present. H EENT exam pupils round react light. His motions are intact. He can open and close both eyes slightly weak on the left but he is able to close it. He does have a left facial droop. He did denies numbness on the left or right side of his face. Tongue midline. Normal speech. He has reproducible tenderness and pain on his left anterior and occipital scalp. There is no redness or warmth. No lesions. Neck nontender no lymphadenopathy. Lungs clear to auscultation bilaterally. Heart regular rhythm no murmur. Rate about 85. Chest wall ribs nontender. Abdomen soft nontender. Moving all 4 extremities. 5/5 infection prevention coordinator strength. Rapid hand movements and fingertip to nose within normal limits bilaterally. Dorsi plantarflexion intact. Calves are nontender without edema. Neurologically he is awake is alert. He has a left facial droop which has been chronic for 2 months since he was diagnosed with De La Cruz's palsy. Otherwise he has no focal motor or sensory deficits. Const Vital Signs: 07/26/25 14:08 Temperature 98.7 F Temperature Source Oral Pulse Rate 85 Respiratory Rate 14 Blood Pressure 144/101 H Blood Pressure Mean 115 Pulse Ox 99 Oxygen Delivery Method Room Air Positive well nourished and well developed; Negative for obese, cachectic, contractures or unkempt General Appearance ED: well developed and NAD; Negative for unkempt, cachectic, contractures or diaphoretic Nutritional Appearance: Negative for cachectic or obese HEENT Reports normocephalic, TM's clear and moist mucous membranes HEENT Narrative: Left posterior occipital scalp tenderness. No discoloration or rash. Left facial droop chronic for 2 months. atraumatic and tenderness; Negative for trauma, temporal artery tenderness or vesicular rash Tympanic Membrane ED: Yes TM's clear Eyes PERRL and EOMs intact bilaterally General Eye ED: Negative for pale conjunctiva or scleral icterus Neck no lymphadenopathy, supple, no meningeal signs and no JVD Resp normal respiratory effort and clear to auscultation bilaterally Cardio regular rate, regular rhythm, S1 normal heart sound, S2 normal heart sound and no murmurs GI non-tender and non-distended Palpation: soft; Negative for firm, tender or guarding Back/Spine no CVA tenderness General Back: Negative for CVA tenderness Cervical Spine: Negative for cervical spine tenderness Thoracic Spine / Upper Back: Negative for thoracic spinal tenderness Lumbar Spine / Lower Back: Negative for lumbar spinal tenderness Extremity normal to inspection and full ROM Neuro oriented x3 and CN's II-XII intact bilaterally Neuro Narrative: Left facial droop. NIH of 1. Normal strength. Normal range of motion upper and lower extremities. Normal sensation. Sensorium / Orientation: awake, alert, oriented to person, oriented to place and oriented to time Coordination / Balance: [id number]-az-[id number] test normal Speech: speech normal Motor Exam: strength 5/5 throughout Psych Appearance: Negative for unkempt Skin Lesions: no lesions Rashes: no rashes MDM MDM MDM Narrative Medical decision making narrative: 59-year-old male has had De La Cruz's palsy since mid April. Has not seen a neurosurgeon and neurologist. Complaining also left posterior occipital pain which has been chronic for 2 months. He had extensive workup including CT of the brain, CTA head and neck and MRI. They placed on prednisone possibly may help with the occipital neuralgia inflammation. Limited Vicodin and 12 no refill for pain. He will be referred to a neurologist. Patient does not need any further workup today. History & Record Review Discussion w/independent historian: Patient Additional record(s) reviewed:: Prior inpatient record, Prior outpatient record, Prior ED visit and Prior labs Discharge Plan Triage Chief Complaint: Headache ED Provider: Maico Cuevas Dx/Rx/DC Orders Clinical Impression: De La Cruz's palsy, Occipital neuralgia Instructions: ED De La Cruz's Palsy, ED Occipital Neuralgia Prescriptions: New prednisone 20 mg tablet 40 mg PO DAILY 7 Days Qty: 14 0RF hydrocodone-acetaminophen 5-300 mg tablet 1 tab PO Q6H PRN (Reason: pain) 4 Days Qty: 12 0RF No Action allopurinol 300 mg tablet 300 mg PO DAILY Patient Comments: Take 1 tablet by mouth once daily. For gout. omeprazole 40 mg capsule,delayed release(DR/EC) 40 mg PO DAILY hydrochlorothiazide 25 mg tablet 25 mg PO DAILY losartan 100 mg tablet 100 mg PO DAILY amlodipine 10 mg tablet 5 mg PO DAILY isosorbide mononitrate 60 mg tablet extended release 24 hr 60 mg PO BID Qty: 180 3RF venlafaxine 150 mg capsule,extended release 24hr 150 mg PO DAILY Qty: 90 1RF Refresh Lacri-Lube 56.8-42.5 % Ointment 1 applic LEFT EYE QHS Qty: 3.5 1RF Artificial Tears([id number]) 1-0.2-0.2 % Drops 1 drp LEFT EYE Q1H PRN (Reason: DRY EYES) Qty: 15 1RF valacyclovir [Valtrex] 1 gram tablet 1,000 mg PO Q8H Qty: 21 0RF (DME) eye patch Misc See Rx Instructions .Route Qty: 20 1RF Rx Instructions: at night prednisone 20 mg tablet 60 mg PO DAILY Qty: 21 0RF prednisone 20 mg tablet 60 mg PO DAILY Qty: 18 0RF Primary Care Provider: Lukas Chatterjee Referrals: Lukas Chatterjee MD [Primary Care Provider, Family Practice] - Keep Allan appointment Michael Crook MD [Non-Staff, Neurology] - As soon as possible Activity Restrictions/Additional Instructions: Follow-up your primary care appointment on Sunday. I [place] you [place] [facility] [place]. He may also have office hours in [place]. Prednisone for inflammation possibly may help the occipital neuralgia the pain in your scalp. Vicodin for the pain. Print Language: Syriac Disposition Disposition: Home, Self Care
== END 2025-07-26 14:44 | disposition home or self-care (01) ==
PROVIDERS: Emergency Provider Emergency Medicine; PCP Family Medicine; Visit Provider Emergency Medicine
DX: G51.0 Bell's palsy (principal); J44.9 Chronic obstructive pulmonary disease, unspecified; M54.81 Occipital neuralgia; I10 Essential (primary) hypertension; E78.5 Hyperlipidemia, unspecified; M10.9 Gout, unspecified; I25.2 Old myocardial infarction; F17.200 Nicotine dependence, unspecified, uncomplicated; Z79.899 Other long term (current) drug therapy
CPT/HCPCS: 99282

== ENCOUNTER → 2025-07-28 | Outpatient (CLI) | payer MEDICAID, SELFPAY ==
[2025-07-30 09:09] LABS: Lyme Scn Total Ab w/Rflx Negative (Negative)
== END | disposition home or self-care (01) ==
LOC: MFPLAB 10:28
PROVIDERS: PCP Family Medicine; Referring Provider Family Medicine; Visit Provider Family Medicine
DX: G51.0 Bell's palsy (principal)
CPT/HCPCS: 36415; 86618

== ENCOUNTER → 2025-08-28 | Outpatient (CLI) | payer MEDICAID, SELFPAY ==
--- NOTE | 2025-08-28 08:24 | CT_ITS ---
PROCEDURE: CT/Low Dose CT Lung Screening
== END | disposition home or self-care (01) ==
LOC: CT 08:24
PROVIDERS: PCP Family Medicine; Referring Provider Nurse Practitioner Acute Care; Visit Provider Nurse Practitioner Acute Care
DX: F17.210 Nicotine dependence, cigarettes, uncomplicated (principal)
CPT/HCPCS: 71271